=== PATIENT | female | born 1960 | race Caucasian/White ===

== ENCOUNTER 2016-08-20 11:15 | Inpatient (IN) | payer OTHER ==
[~2016-08-20] VITALS: Ht 162.6 cm; Wt 72.7 kg
[2016-08-20 11:17] VITALS: BP 125/82; PULSE 91; RESP 18; O2SAT 100
--- NOTE | 2016-08-20 11:26 | ED.REPORT ---
HPI-Abd Pain F 40 and Over Date of Service Aug 20, 2016 ED Provider: History of Present Illness: nausea, vomiting, hot and cold, normal bowel movements, denies diarrhea. [facility] ( [facility]) on 08/08 dx with viral. eating and drinking causes vomiting, taking gas x no help. on going for 3 months. losing weight now at 164 lbs was around 200 earlier. 02/12 pain Nursing Notes Stated Complaint: STOMACH CRAMPING, VOMITING Chief Complaint: Female Abdominal Pain Nursing Notes Reviewed: Yes Allergies: Uncoded Allergies: PENICILLIN (Allergy, Severe, SOB, 08/20/16) General Time Seen by MD: 11:25 Chief Complaint Abdominal pain, Vomiting severe, Other (not being able to eat) Hx Obtained From: Patient Sudden in Onset?: No Onset Occurred: More than a week ago... (3 months) Context of Onset: Eating, Other (drinking fluids) Symptom Duration: Since onset Severity: Current: Pain level 7 out of 10 Past Medical History Past Medical History takes atenolol for blood pressure Reports: Hypertension, Denies: Asthma, Diabetes mellitus Past Surgical History Reports: Hysterectomy (2000 in [place] for 19 cm tumor attached to uterus told it was borderline cancer last c125 was fine 3 years ago) Reports: Tubal ligation Smoking History Former Smoker (quit 3 years ago) Social History Alcohol Use: Denies alcohol use Drug Use: Denies drug use Occupation lives with brother and her daughter, no work or school 08/20/2016 Ambulatory Status Independent Review of Systems Basic Review of Systems Eyes: Vision NL, No discharge ENT: Hearing NL, No pain, No nasal congestion, No pharyngeal pain Hematologic: No bleeding, No bruising Endocrine: No cold intolerance, No heat intolerance, No weight gain, No weight loss Skin: No bruising, No rash, No itch Allergy / Immune: No allergy Neurologic: NL mental status, No weakness, No numbness Psychiatric: Normal thought content Physical Exam Vital Signs Vital Signs (First) Date Time Temp Pulse Resp B/P Pulse Ox O2 Delivery O2 Flow Rate FiO2 08/20/16 11:17 36.4 91 18 125/82 100 Room Air Initial VS: Reviewed, Vital signs normal Head / Eyes: Atraumatic, Normocephalic, PERRL ENT: Mucous membranes moist, Conjunctiva normal, No scleral icterus Neck: Supple, Non-tender, Full range of motion Lymphatic: No lymphadenopathy Extremities: Vascular intact, Neuro intact, No swelling, No tenderness Skin: Warm, Dry, No cyanosis Neurologic: Alert, Oriented, Nonfocal Psychiatric: Mood/affect normal, Behavior normal, Normal thought content General/Constitutional: Awake, Alert Distress / Hydration: Positive: Distress moderate Appearance / Presentation: Positive: Appears older than age patient appears "ill" has frequent belching. odor with belching is significant Respiratory / Chest: Atraumatic, Breath sounds NL, Breath sounds = bilat Cardiovascular: Heart rate NL, Regular rhythm, Heart sounds NL, No gallop Organomegaly / Mass / Hernia: Positive: Hepatomegaly Bowel Sounds / Distention: Positive: Bowel sounds tympanitic liver is palpable with mild tenderness, bowel tones decreased Back: Atraumatic, Inspection NL, Full range of motion Interpretation & Diagnostics Lab Results Interpretation Result Diagram: 08/20/16 1218 08/20/16 1218 Test 08/20/16 12:18 08/20/16 12:19 08/20/16 12:27 White Blood Count 9.2th/mm3 (3.8-10.1) Red Blood Count 4.95mil/mm3 (3.90-5.20) Hemoglobin 13.8g/dL (12.0-15.6) Hematocrit 42.2% (35.0-46.0) Mean Corpuscular Volume 85.3fL (81-100) Mean Corpuscular Hemoglobin 27.9pg (27.0-35.0) Mean Corpuscular Hemoglobin Concent 32.7% (32.0-37.0) Red Cell Distribution Width 12.6% (12.3-15.4) Platelet Count 497bil/L (150-400) Neutrophils (%) (Auto) 72.4% (40-74) Lymphocytes (%) (Auto) 18.3% (14-46) Monocytes (%) (Auto) 7.8% (4-12) Eosinophils (%) (Auto) 1.2% (0-5) Basophils (%) (Auto) 0.2% (0-3) Sodium Level 141mEq/L (134-144) Potassium Level 3.8mEq/L (3.5-5.2) Chloride Level 99mEq/L (97-108) Carbon Dioxide Level 23mmol/L (18-29) Blood Urea Nitrogen 17mg/dL (6-24) Creatinine 0.64mg/dL (0.57-1.00) Estimat Glomerular Filtration Rate 139mL/min (>59) Glucose Level 109mg/dL (60-99) Calcium Level 9.3mg/dL (8.5-10.1) Total Bilirubin 0.5mg/dL (0.0-1.2) Aspartate Amino Transf (AST/SGOT) 16U/L (0-50) Alanine Aminotransferase (ALT/SGPT) 9U/L (0-32) Alkaline Phosphatase 63U/L (25-150) Total Protein 7.8g/dL (6.4-8.4) Albumin 3.4g/dL (3.4-5.0) Amylase Level 16U/L (28-100) Lipase 13U/L (13-60) Hold Vargas Top Tube Received (Received) Urine Color Yellow (YELLOW) Urine Appearance Hazy (CLEAR,HAZY) Urine pH 6.0 (5.0-8.0) Urine Specific Melvin 1.038 (1.003-1.035) Urine Protein Tracemg/dL (NEG,TRACE) Urine Glucose (UA) Negativemg/dL (NEGATIVE) Urine Ketones 80mg/dL (NEGATIVE) Urine Occult Blood Large (NEGATIVE) Urine Nitrite Negative (NEGATIVE) Urine Bilirubin Negative (NEGATIVE) Urine Urobilinogen Normalmg/dL (NORMAL) Urine Leukocyte Esterase Negative (NEGATIVE) Urine RBC 0-2/hpf (0-2) Urine WBC 0-5/hpf (0-5) Urine Epithelial Cells Few/hpf (NONE-MOD) Urine Crystals Oxalic acid crystals (NONE Urine Bacteria Few/hpf (NONE-FEW) Urine Hyaline Casts None/lpf (NONE) Urine Granular Casts None seen (NONE SEEN) Urine Waxy Casts None seen (NONE SEEN) Urine Red Blood Cell Casts None seen (NONE SEEN) Urine White Blood Cell Casts None seen (NONE SEEN) Urine Mucus None seen (None Seen) Urine Trichomonas None seen (NONE SEEN) Urine Yeast None (NONE SEEN) Urinalysis Comment None Urine Culture Reflexed Not indicated CT Abd / Pelvis Interpretation DICATIONS: vomiting weight loss TECHNIQUE: After the administration of intravenous contrast, 5 mm thick sections acquired from the diaphragm to the symphysis. 5 mm coronal and sagittal reformats were acquired. For radiation dose reduction, the following was used: automated exposure control, adjustment of mA and/or kV according to patient size. COMPARISON: [facility], CR, XR ABD AP 1VW, 02/10/2016, 12:26. FINDINGS: Image quality: Excellent. ABDOMEN: Lung bases: Lung bases are clear except for minimal basilar atelectasis. Heart size is normal. Solid organs: Liver and spleen are normal in size and enhancement, and there are several small hepatic cysts that measure at or below 1 cm in maximal dimension. However, the hepatic margination is somewhat scalloped, and there is a subtle visceral peritoneal enhancement along the hepatic margins in a pattern worrisome for carcinomatosis. This is associated with moderately large amounts of ascites with subtle internal septations, possibly a manifestation of pseudomyxoma peritonei. Gallbladder appears normal. Biliary system is non dilated. Pancreas enhances normally. No adrenal nodules. Kidneys demonstrate normal size and enhancement, without hydronephrosis. Peritoneum and bowel: Bowel loops demonstrate normal wall thickness and caliber within the abdomen. No free air. There is subtle parietal peritoneal enhancement and thickening, and also several areas of suspected omental caking (best seen centered to left of midline series 2 image 33). Nodes and vessels: No retroperitoneal or mesenteric adenopathy by size criteria. Aorta and inferior vena cava are normal in size. Miscellaneous: No ventral hernias. PELVIS: Genitourinary: Bladder wall thickness is normal. Miscellaneous: No inguinal hernias or adenopathy. Sigmoid colonic mural thickening is present, with soft tissue enhancement homogeneously present through the area of soft tissue thickening which extends from the proximal sigmoid into the distal third of the sigmoid colon. Maximal mural thickness is approximately 1.7-2 cm concentrically involving those portions of the sigmoid bowel. Bones: No suspicious bony lesions. No vertebral body compression fractures. IMPRESSION: Malignant appearing ascites, no intestinal obstruction found. 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 An area likely primary malignancy is noted at the sigmoid colon with concentric mural thickening measuring up to 1.7-2 cm throughout that portion of the colon. Both visceral and parietal subtle enhancement and thickening is present with a small region of suspected omental "caking" likely reflecting carcinomatosis. Dictated by: Orlando Arora M.D. on 08/20/2016 at 14:13 Approved by: Orlando Arora M.D. on 08/20/2016 at 14:13 Re-Eval/Medical Decision Med Decision/Clinical Course Discussed the finding of colon thickening and the possibility of it being cancer. Discharge & Departure Primary Impression: Vomiting Vomiting Intractability: intractable Nausea presence: with nausea Additional Impressions: Abdominal pain Abdominal location: generalized Qualified Code: R10.84 - Generalized abdominal pain Ascites, malignant Mural thickening of sigmoid colon Disposition: ADMITTED TO HOSPITAL Referrals: Benito Jones DO (PCP) EDSupervising Provider for APC: Indra Reed MD copies to: Tiana Morejon Sue ARNP Aug 20, 2016 11:26
[2016-08-20] MEDS ORDERED: Ondansetron 2 mg/mL 2 mL Inj IVPUSH ONE (11:45)
[2016-08-20] MEDS ORDERED: HYDROmorphone 0.5 mg/0.5 mL iSecure Syringe IVPUSH ONE (11:45)
[2016-08-20] MEDS ORDERED: 0.9% Sodium Chloride 1,000 ML IV ONE ×2 (11:45→14:40)
[2016-08-20 12:21] LABS: BASOPHILS % (AUTO) 0.2 % (0-3); EOSINOPHILS % (AUTO) 1.2 % (0-5); MONOCYTES % (AUTO) 7.8 % (4-12); Mean Corpuscular Hemoglobin 27.9 pg (27.0-35.0); Mean Corpuscular Volume 85.3 fL (81-100); NEUTROPHILS % (AUTO) 72.4 % (40-74); Platelet Count 497 bil/L (150-400)
[2016-08-20 12:58] LABS: APPEARANCE,URINE HAZY (CLEAR,HAZY); COLOR,URINE YELLOW (YELLOW); OCCULT BLOOD,URINE LARGE (NEGATIVE); UROBILINOGEN,URINE NORMAL (NORMAL)
--- NOTE | 2016-08-20 14:14 | DRSVH ---
PROCEDURE: CT ABDOMEN AND PELVIS WITH CONTRAST ([id number]) INDICATIONS: vomiting weight loss TECHNIQUE: After the administration of intravenous contrast, 5 mm thick sections acquired from the diaphragm to the symphysis. 5 mm coronal and sagittal reformats were acquired. For radiation dose reduction, the following was used: automated exposure control, adjustment of mA and/or kV according to patient siz e. COMPARISON: [facility], CR, XR ABD AP 1VW, 02/10/2016, 12:26. FINDINGS: Image quality: Excellent. ABDOMEN: Lung bases: Lung bases are clear except for minimal basilar atelectasis. Heart size is normal. Solid organs: Liver and spleen are normal in size and enhancement, and there are several small hepat ic cysts that measure at or below 1 cm in maximal dimension. However, the hepatic margination is carlos ewhat scalloped, and there is a subtle visceral peritoneal enhancement along the hepatic margins in a pattern worrisome for carcinomatosis. This is associated with moderately large amounts of ascites w ith subtle internal septations, possibly a manifestation of pseudomyxoma peritonei. Gallbladder appears normal. Biliary system is non dilated. Pancreas enhances normally. No adrenal nodules. Kidneys demonstrate normal size and enhancement, without hydronephrosis. Peritoneum and bowel: Bowel loops demonstrate normal wall thickness and caliber within the abdomen. No free air. There is subtle parietal peritoneal enhancement and thickening, and also several areas of suspected omental caking (best seen centered to left of midline series 2 image 33). Nodes and vessels: No retroperitoneal or mesenteric adenopathy by size criteria. Aorta and inferior vena cava are normal in size. Miscellaneous: No ventral hernias. PELVIS: Genitourinary: Bladder wall thickness is normal. Miscellaneous: No inguinal hernias or adenopathy. Sigmoid colonic mural thickening is present, with soft tissue enhancement homogeneously present through the area of soft tissue thickening which exten ds from the proximal sigmoid into the distal third of the sigmoid colon. Maximal mural thickness is approximately 1.7-2 cm concentrically involving those portions of the sigmoid bowel. Bones: No suspicious bony lesions. No vertebral body compression fractures. IMPRESSION: Malignant appearing ascites, no intestinal obstruction found. 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 An area likely primary malignancy is noted at the sigmoid c olon with concentric mural thickening measuring up to 1.7-2 cm throughout that portion of the colon. Both visceral and parietal subtle enhancement and thickening is present with a small region of suspe cted omental "caking" likely reflecting carcinomatosis. Dictated by: Orlando Arora M.D. on 08/20/2016 at 14:13 Approved by: Orlando Arora M.D. on 08/20/2016 at 14:13
[2016-08-20] MEDS ORDERED: Polyethylene Glycol (PEG) 17 Gm Powder PO PRN (15:40)
[2016-08-20] MEDS ORDERED: Alum-Mag Hydrox-Simeth 30 mL Suspension PO PRN (15:40)
--- NOTE | 2016-08-20 15:58 | PCM.HPMED ---
Subjective Date of Service Aug 20, 2016 Primary Provider: Admitting Physician: Javier Shepard MD Primary Care Physician: Pastora Myles Attending Physician: Javier Shepard MD Chief Complaint: Nausea, vomiting, abdominal pain History of Present Illness: 55 year old female with h/o Hypertension, Uterine mass presented to ED with c/o nausea, vomiting and abdominal pain that was started before two weeks. She went to urgent care clinic and diagnosed with viral illness. She also reports of unintentional weight loss of about 60 lbs in past three months. She denies chest pain, SOB, diarrhea, blood in stool. In ER, her vitals signs were unremarkable. Labs were significant for mild hyperglycemia, elevated amylase of 16, and thrombocytosis. She then underwent CT abdomen which revealed ascites likely malignant, peritoneal carcinomatosis, ? pseudomyxoma peritonei, concentric mural thickening of sigmoid colon. Allergies Coded Allergies: Penicillins (Verified Allergy, Severe, Shortness of Breath, 08/20/16) turkey (Verified Allergy, Severe, tachycardia, 08/20/16) pt states anaphylactic shock PMH Hypertension Surgical History Hysterectomy (2000 in [place] for 19 cm tumor attached to uterus told it was borderline cancer last c125 was fine 3 years ago) Tubal ligation Social History Smoking Status: Former Smoker (quit 3 years ago) Exam Vital Signs Vital Sign - Last Date Time Temp Pulse Resp B/P Pulse Ox O2 Delivery O2 Flow Rate FiO2 08/20/16 11:17 36.4 91 18 125/82 100 Room Air Exam General: In mild distress due to pain HEENT: Atraumatic, sclera non icteric, moist mucous membranes Resp: Normal respiratory effort, Breath sounds bilaterally equal, No rhonchi, CVS: Regular rate and rhythm, No murmur, No gallop Abdomen: soft, mild diffuses tenderness, distended, No organomegaly Extremities: No peripheral edema, No cyanosis Neuro: Alert, Awake and oriented x 3. No focal defects Psy: Flat affect Lab and Diagnostics Result Diagram: 08/20/16 1218 08/20/16 1218 X-Rays, CTs and MRIs CT Abdomen: "Malignant appearing ascites, no intestinal obstruction found. 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 An area likely primary malignancy is noted at the sigmoid colon with concentric mural thickening measuring up to 1.7-2 cm throughout that portion of the colon. 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 Vomiting, Weight loss - Likely due to peritoneal carcinomatosis and sigmoid colon cancer - IV zofran prn - GI consulted from ED. Possible colonoscopy Hypertension - Well controlled GI ppx: PPI DVT ppx: Heparin Status: to be admitted as inpatient due to complexity of medical condition Pain Evaluation: Adequate Pain Control GI Prophylaxis: Proton Pump Inhibitor VTE Prophylaxis: Sub-Q Heparin (Unfractionated) Resuscitation Status: CPR: Attempt Resuscitation Javier Shepard MD Aug 20, 2016 15:58
[2016-08-20 16:28] VITALS: BP 133/62; PULSE 73; RESP 18
[2016-08-20] MEDS: Heparin 5,000 Unit/mL Inj SUBQ SCH (16:30)
[2016-08-20] MEDS ORDERED: ATEN50TA PO (17:27)
[2016-08-20 17:28] VITALS: BP 139/85; PULSE 79; RESP 20; O2SAT 100
[2016-08-20] MEDS ORDERED: SIME125C PO (17:29)
[2016-08-20] MEDS ORDERED: ALPH300T2 PO (17:31)
[2016-08-20] MEDS ORDERED: IBUP200C PO (17:33)
[2016-08-20] MEDS: 0.9% Sodium Chloride 1,000 ML IV SCH (17:47)
--- NOTE | 2016-08-20 18:42 | NUR ---
Admission Pt on unit at 1705 by harrison. Able to transfer self to bed. Pt has c/o pain 3/10 in abd, but declines medication at this time. No c/o N/V/D present, but pt declines to eat any clear liquids at this time. Pt is very tearful and upset over possibility of having cancer and having more testing done. Pt has no family or friends in room, called manager customs and left message to see if she could visit pt tomorrow. Is able to walk to BR independently, uses pads in underwear for dribbling. A&O x 3. Wears right wrist brace for workplace injury. IV fluids infusing, pt declines heparin injection stating "I'll be up and moving enough I don't need it." Pt also declines SCD's, but states she'll put them on at bedtime.
[2016-08-20 20:37] VITALS: BP 121/83; PULSE 82; RESP 12; O2SAT 98
[2016-08-20] MEDS: HYDROmorphone 1 mg/mL Inj IVPUSH PRN (21:20)
[2016-08-21] MEDS ORDERED: ATEN50TA PO (00:05)
[2016-08-21 00:30] VITALS: BP 126/83; PULSE 75; RESP 16; O2SAT 97
[2016-08-21] MEDS: Heparin 5,000 Unit/mL Inj SUBQ SCH ×4 (00:30→23:48)
[2016-08-21] MEDS: HYDROmorphone 1 mg/mL Inj IVPUSH PRN ×4 (02:58→20:51)
[2016-08-21] MEDS: Ondansetron 2 mg/mL 2 mL Inj IVPUSH PRN ×4 (03:04→23:52)
[2016-08-21] MEDS: 0.9% Sodium Chloride 1,000 ML IV SCH ×3 (04:26→23:52)
[2016-08-21 04:30] VITALS: BP 121/83; PULSE 69; RESP 16; O2SAT 94
--- NOTE | 2016-08-21 04:48 | NUR ---
Nausea/ Pain Pt. had one episode of nausea during this shift so far, which Zofran seems to be effective. Pt. has been complaining of intermittent, cramping abdominal pain that can get up to 7/10. Dilaudid IV seems to be effective with this pain. Will continue to monitor.
[2016-08-21 06:25] LABS: BASOPHILS % (AUTO) 0.3 % (0-3); EOSINOPHILS % (AUTO) 3.6 % (0-5); MONOCYTES % (AUTO) 12.1 % (4-12); Mean Corpuscular Hemoglobin 28.4 pg (27.0-35.0); Mean Corpuscular Volume 86.6 fL (81-100); NEUTROPHILS % (AUTO) 61.2 % (40-74); Platelet Count 411 bil/L (150-400)
[2016-08-21] MEDS: Pantoprazole 20 mg ER24 Tablet PO SCH (07:30)
--- NOTE | 2016-08-21 07:46 | NUR ---
Pain/Nausea Patient reported 7/10 abdominal pain and nausea. 1 mg Dilaudid and 4 mg ondansetron given. Patient repositioned self for comfort. Call light and tray table within reach. Will continue to monitor patient hourly.
--- NOTE | 2016-08-21 07:56 | PCM.PNMED ---
Subjective Date of Service Aug 21, 2016 Subjective pt states pain in abdom rated 6-7/10, minimal nausea but both improved with current meds. endorses no desire for egd d/t unknown defect of esophagus. hx of hysterectomy d/t uterine mass in 2011- neg ca 125 3 yrs ago. denies sob/cp Exam Vital Signs Vital Sign - Last Date Time Temp Pulse Resp B/P Pulse Ox O2 Delivery O2 Flow Rate FiO2 08/21/16 04:30 36.8 69 16 121/83 94 Room Air Intake and Output 08/20/16 08/20/16 08/21/16 Cumulative From/Thru 15:00 23:00 07:00 08/20/16 11:17 - 08/21/16 06:55 Intake Total 1000 ml 1180 ml 1429 ml 3609 ml Output Total 175 ml 175 ml Balance 1000 ml 1180 ml 1254 ml 3434 ml Intake Oral 100 ml 580 ml 680 ml IV Total 1000 ml 1080 ml 849 ml 2929 ml Output Urine Total 175 ml 175 ml # Voids 2 2 Exam General: In mild distress due to pain HEENT: Atraumatic, sclera non icteric, moist mucous membranes Resp: Normal respiratory effort, Breath sounds bilaterally equal, No rhonchi, CVS: Regular rate and rhythm, No murmur, No gallop Abdomen: soft, mild diffuses tenderness, distended, No organomegaly Extremities: No peripheral edema, No cyanosis Neuro: Alert, Awake and oriented x 3. No focal defects Psy: appropriate affect IVs and Medications Medications Reviewed: Medications were reviewed in detail Lab and Diagnostics Result Diagram: 08/21/16 0520 08/21/16 0520 X-Rays, CTs and MRIs CT Abdomen: "Malignant appearing ascites, no intestinal obstruction found. 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 An area likely primary malignancy is noted at the sigmoid colon with concentric mural thickening measuring up to 1.7-2 cm throughout that portion of the colon. Both visceral and parietal subtle enhancement and thickening is present with a small region of suspected omental "caking" likely reflecting carcinomatosis. Assessment & Plan 55 year old female with h/o Hypertension, Uterine mass presented with nausea, vomiting and unintentional weight loss found to have preitoneal carcinomatosis, ascites and sigmoid colon thickening. Vomiting, Weight loss - Likely due to peritoneal carcinomatosis and sigmoid colon cancer - IV zofran prn - GI consulted from ED. Possible colonoscopy, pt refusing upper endoscopy at this time Hypertension - Well controlled GI ppx: PPI, refused but educated on need DVT ppx: Heparin Status: to be admitted as inpatient due to complexity of medical condition GI Prophylaxis: Proton Pump Inhibitor VTE Prophylaxis: Sub-Q Heparin (Unfractionated) Resuscitation Status: CPR: Attempt Resuscitation Time spent 35 minutes with pt care/coordination and education - >50% spent face to face Jarett Rowe DO Aug 21, 2016 07:56
--- NOTE | 2016-08-21 09:05 | NUR ---
Social Work Brief Note: EMR reviewed. Patient is a 55 year old female admitted on 08/20/16 for intractable vomiting and colon cancer with mets. Patient payer as [place]. Patient listed PCP as MD Myles. Patient emergency contact listed as daughter Jackie, . Patient resides in [facility]. Patient ambulating and independent with needs. GI consulted for possible colonoscopy. No anticipated discharge needs at this time. SW to follow. PLAN: Home via POV, pending clinical course. SW will continue to follow. Nehemiah QUIROZ
[2016-08-21 10:04] VITALS: BP 151/96; PULSE 92; RESP 18; O2SAT 99
--- NOTE | 2016-08-21 13:46 | PCM.CHPMED ---
Subjective Date of Service: Aug 21, 2016 Provider requesting consult: Jarett Rowe DO Primary Physician: Admitting Physician: Javier Shepard MD Primary Care Physician: Pastora Myles Attending Physician: Javier Shepard MD Chief Complaint: Chief Complaint: Abdominal pain, nausea, vomiting. History of Present Illness: Patient is a 55 year old female with history of hypertension and uterine mass s/ p total hysterectomy who presented to ED with nausea, vomiting and abdominal pain ongoing for two weeks. She went to urgent care clinic and diagnosed with viral illness. She also reports fevers, chills, and unintentional weight loss of about 60 lbs in past three months. She reports recent spotting in spite of a hysterectomy. She states she has been having hot flashes and night sweats lately , as if undergoing menopause, but she reports her ovaries were removed. She denies chest pain, SOB, diarrhea, blood in stool or vomit. She states her abdominal pain was originally 10/10, but is down to a 3/10 aching pain with pain meds. She reports her nausea is well-controlled by medications. She had a total hysterectomy in 2000 in [place] for 19 cm tumor attached to uterus. She was told it was borderline cancer; last ca125 was normal 3 years ago In ER, her vitals signs were unremarkable. Labs showed Hb 11.4, Hct 34.8, plt 411. UA showed large occult blood, but the patient reports she has had spotting recently. CT abdomen/pelvis with contrast showed malignant appearing ascites, with no intestinal obstruction found. 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 An area likely primary malignancy is noted at the sigmoid colon with concentric mural thickening measuring up to 1.7-2 cm throughout that portion of the colon. Both visceral and parietal subtle enhancement and thickening is present with a small region of suspected omental "caking" likely reflecting carcinomatosis. She quit smoking 3 years ago. She denies alcohol or drug use. She uses NSAIDs occasionally but not on a regular basis, and does not use Tylenol. She has no personal/family history of colon cancer, Crohn's, UC, or Celiac disease. Her mother has a history of irritable bowel syndrome and lung cancer, and her sister has a history of breast cancer. She has never had a colonoscopy. Review of Systems: Comprehensive review of systems conducted and was negative except for the pertinent positives listed above. PMH Past Medical History Hypertension Uterine mass Surgical History Hysterectomy (2000 in [place] for 19 cm tumor attached to uterus told it was borderline cancer last c125 was fine 3 years ago) Tubal ligation Allergies: Coded Allergies: Penicillins (Verified Allergy, Severe, Shortness of Breath, 08/20/16) turkey (Verified Allergy, Severe, tachycardia, 08/20/16) pt states anaphylactic shock Family History Family History Her mother has a history of irritable bowel syndrome and lung cancer, and her sister has a history of breast cancer. Social History Hx Alcohol Use: NoHx Substance Use: NoHx Tobacco Use: Yes Smoking Status: Former Smoker (quit 3 years ago) Exam Vital Signs Vital Sign - Last Date Time Temp Pulse Resp B/P Pulse Ox O2 Delivery O2 Flow Rate FiO2 08/21/16 10:04 36.9 92 18 151/96 99 Room Air Intake and Output 08/20/16 08/20/16 08/21/16 Cumulative From/Thru 15:00 23:00 07:00 08/20/16 11:17 - 08/21/16 06:55 Intake Total 1000 ml 1180 ml 1429 ml 3609 ml Output Total 175 ml 175 ml Balance 1000 ml 1180 ml 1254 ml 3434 ml Intake Oral 100 ml 580 ml 680 ml IV Total 1000 ml 1080 ml 849 ml 2929 ml Output Urine Total 175 ml 175 ml # Voids 2 2 Additional Information: General: Alert, Oriented X3, Cooperative, No Acute Distress Head: Normocephalic, atraumatic. External ears normal. Eyes: PERRLA, EOMI. Anicteric sclerae. Mouth: Mouth Normal, Mucous Membranes Moist/[place] Neck: Neck supple with full range of motion. Chest & Lungs: Clear to auscultation bilaterally with no crackles, wheezes, or rhonchi. Cardiovascular: Regular Rate/Rhythm, Normal S1, Normal S2, No Murmurs/Rubs/ Gallops Abdomen: Distended, moderate diffuse tenderness, Normoactive bowel tones. Musculoskeletal: Normal Range of Motion Extremities: No cyanosis/clubbing/edema bilaterally Neurological: Grossly Neurologically Intact, Normal Speech, Strength Normal 4/ 4 ext, Cranial Nerves 2-12 Intact, Sensation Intact, Cerebellar Function nl Finger-Nose, Cerebellar Function nl Heel-Marti, Reflexes Normal, Normal Gait Lab and Diagnostics Result Diagram: 08/21/1651908/21/16519 Assessment & Plan Assessment Patient is a 55 year old female with history of hypertension and uterine mass s/ p total hysterectomy who presented to ED with nausea, vomiting and abdominal pain ongoing for two weeks, weight loss. 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 Possible colon cancer - CT abdomen/pelvis with contrast showed malignant appearing ascites concerning for pseudomyxoma peritonei, with area of likely primary malignancy noted at the sigmoid colon with concentric mural thickening and omental thickening concerning for peritoneal carcinomatosis. Pseudomyxoma peritonei is most commonly associated with appendiceal cancer, but also associated with large /small bowel cancers and ovarian cancer. Given the CT results, colon cancer is most likely. She has never had a colonoscopy. However, given her history of uterine mass s/p hysterectomy which by pt's report appears to have been precancerous, there is also possibility of a recurrent gynecological malignancy , especially given her family history of breast cancer. - Will proceed with colonoscopy. - Recommend paracentesis with fluid analysis for cytology, cultures, and albumin. Nausea and vomiting - Likely secondary to colon pathology seen on CT. No bowel obstruction seen on CT. Continue to monitor. - Zofran PRN Problems: Pain Evaluation: Adequate Pain Control GI Prophylaxis: Proton Pump Inhibitor VTE Prophylaxis: Sub-Q Heparin (Unfractionated) Resuscitation Status: CPR: Attempt Resuscitation Attending Statement Pt seen and examined agree with resident physician note plan for colonoscopy recommend USG guided diagnostic paracentesis. would check cytology, albumin, total protein and culture Brandon Jackson Aug 21, 2016 11:17 Dada James MD Aug 22, 2016 16:11
[2016-08-21 14:50] VITALS: BP 143/79; PULSE 98; RESP 19; O2SAT 100
--- NOTE | 2016-08-21 16:09 | NUR ---
spiritual care: nurse referral lengthy conversational visit. pt expressed and explored her primary feelings--fear of unknown and sense of trepidation of waiting. 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 pt shared that walking and listening to music helps her cope. I relayed her hopes for another walk today and i agreed to be available if needed later this pm.
[2016-08-21] MEDS ORDERED: diphenhydrAMINE 25 mg Capsule PO ONE (16:17)
[2016-08-21] MEDS ORDERED: diphenhydrAMINE 25 mg Capsule PO PRN (16:20)
--- NOTE | 2016-08-21 16:25 | NUR ---
Rash Patient developed a rash after US. 25mg of Benadryl given with another dose of 25 mg PRN if needed in two hours. Call light and tray table within reach. Will continue to monitor patient hourly.
--- NOTE | 2016-08-21 16:42 | DRSVH ---
PROCEDURE: US ABDOMEN, LIMITED ([id number]) INDICATIONS: ascites - eval for met CA TECHNIQUE: Real-time focused scanning was performed of the abdomen, with image documentation. COMPARISON: [facility], CT, CT ABD PELVIS W CON, 08/20/2016, 13:47. FINDINGS: Small amount of perihepatic and periumbilical fluid is present otherwise no additional flui d seen throughout the 4 quadrants of the abdomen. IMPRESSION: Trace perihepatic/periumbilical fluid present with volume not sufficient for safe paracen tesis. Dictated by: Elliot Singh RRA Interpreted: Roz Samuel MD on 08/21/2016 at 16:42 Transcribed by: DOT on 08/21/2016 at 16:42 Approved by: Roz Samuel MD, PhD on 08/21/2016 at 17:10
[2016-08-21 18:28] VITALS: BP 109/68; PULSE 76; RESP 18; O2SAT 97
[2016-08-21 20:21] VITALS: BP 150/91; PULSE 95; RESP 20; O2SAT 97
[2016-08-21] MEDS ORDERED: PEG/Electrolytes 4,000 mL Solution PO ONE (21:25)
[2016-08-22 00:04] VITALS: BP 146/83; PULSE 53
[2016-08-22] MEDS: HYDROmorphone 1 mg/mL Inj IVPUSH PRN ×5 (00:35→22:05)
--- NOTE | 2016-08-22 04:39 | NUR ---
Pain/ Nausea; Pt walked in hallway ind this evening. Started Go-lytely as soon as ordered noted. Pt able to drink most of 1/2 gallon prior to excruciating pain and nausea. Given 8mg of Zofran and her usual dose of Dilaudid 1mg w/ good effect. Sat w/ pt until she was able to go to sleep. Stated she could not take any more prep at all tonight. Will attempt second half of dose in am. Abd soft, bloated, tender w/ good bt's UQ. Very quiet LQ;s bi lateral. Continue current care plan.
[2016-08-22 06:01] VITALS: BP 115/68; PULSE 61; RESP 20; O2SAT 96
[2016-08-22] MEDS: Ondansetron 2 mg/mL 2 mL Inj IVPUSH PRN ×4 (06:04→22:04)
[2016-08-22] MEDS: Pantoprazole 20 mg ER24 Tablet PO SCH (08:15)
[2016-08-22] MEDS: Heparin 5,000 Unit/mL Inj SUBQ SCH ×2 (08:15→16:30)
--- NOTE | 2016-08-22 08:36 | PCM.PNMED ---
Subjective Date of Service Aug 22, 2016 Subjective Patient complains of some cramping with the GoLYTELY. She also notes she had a rash secondary to the ultrasound gel that they had used. She denies any nausea and vomiting at this point. Exam Vital Signs Vital Sign - Last Date Time Temp Pulse Resp B/P Pulse Ox O2 Delivery O2 Flow Rate FiO2 08/22/16 06:01 36.7 61 20 115/68 96 Room Air Intake and Output 08/21/16 08/21/16 08/22/16 Cumulative From/Thru 15:00 23:00 07:00 08/20/16 11:17 - 08/22/16 06:16 Intake Total 2472 ml 1374 ml 7455 ml Output Total 950 ml 1125 ml Balance 2472 ml 424 ml 6330 ml Intake Oral 1400 ml 150 ml 2230 ml IV Total 1072 ml 1224 ml 5225 ml Output Urine Total 950 ml 1125 ml # Voids 5 7 Exam Constitutional: Middle-aged woman in no acute distress Head: Normocephalic atraumatic Mouth: Moist mucosa Chest: Clear to auscultation Cor: Regular rate and rhythm S1-S2 without murmur Abdomen: Soft, bowel sounds present, there is tenderness diffusely but mostly in the left lower quadrant. No rebound no guarding. Extremities: No pedal edema noted Lab and Diagnostics Result Diagram: 08/21/16 0520 08/21/16 0520 X-Rays, CTs and MRIs CT Abdomen: "Malignant appearing ascites, no intestinal obstruction found. 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 An area likely primary malignancy is noted at the sigmoid colon with concentric mural thickening measuring up to 1.7-2 cm throughout that portion of the colon. Both visceral and parietal subtle enhancement and thickening is present with a small region of suspected omental "caking" likely reflecting carcinomatosis. Patient Name: DIANNE RACHEL MR#: [id number] Location: [facility] Ordering Phys: Jarett Rowe DO Date of Service: 08/21/16 1432 PROCEDURE: US ABDOMEN, LIMITED ([id number]) INDICATIONS: ascites - eval for met CA TECHNIQUE: Real-time focused scanning was performed of the abdomen, with image documentation. COMPARISON: [facility], CT, CT ABD PELVIS W CON, 08/20/2016, 13:47. FINDINGS: Small amount of perihepatic and periumbilical fluid is present otherwise no additional fluid seen throughout the 4 quadrants of the abdomen. IMPRESSION: Trace perihepatic/periumbilical fluid present with volume not sufficient for safe paracentesis. Dictated by: Elliot Signh RRA Interpreted: Roz Samuel MD on 08/21/2016 at 16:42 Transcribed by: DOT on 08/21/2016 at 16:42 Approved by: Roz Samuel MD, PhD on 08/21/2016 at 17:10 Assessment & Plan 55 year old female with h/o Hypertension, Uterine mass presented with nausea, vomiting and unintentional weight loss found to have preitoneal carcinomatosis, ascites and sigmoid colon thickening. Vomiting, Weight loss - Likely due to peritoneal carcinomatosis and sigmoid colon cancer - IV zofran prn - GI consulted from ED. Possible colonoscopy, pt refusing upper endoscopy at this time -Patient scheduled for colonoscopy today. Has undergone GoLYTELY therapy -Ultrasound revealed no significant ascitic fluid present Hypertension - Well controlled GI ppx: PPI, refused but educated on need DVT ppx: Heparin Status: to be admitted as inpatient due to complexity of medical condition GI Prophylaxis: Proton Pump Inhibitor VTE Prophylaxis: Sub-Q Heparin (Unfractionated) Resuscitation Status: CPR: Attempt Resuscitation Time spent 30 minutes Johana Hatfield MD Aug 22, 2016 08:36
[2016-08-22] MEDS ORDERED: PEG/Electrolytes 4,000 mL Solution PO ONE ×2 (09:00)
[2016-08-22 09:01] LABS: INR 0.97 ratio
[2016-08-22] MEDS: 0.9% Sodium Chloride 1,000 ML IV SCH ×2 (11:35→21:56)
--- NOTE | 2016-08-22 13:19 | NUR ---
NUTRITION ASSESSMENT: ASSESS: 55 YO female admitted for intractable vomiting and unintentional wt loss (60 lbs in 3 months per notes) likely due to peritoneal carcinomatosis and sigmoid colon cancer. Pt is refusing endoscopy, but may have colonoscopy today per notes. Pt has been NPO / clear liquids x 2 days. PMHx: HTN, Uterine mass LABS: Reviewed. Glu 59, Alb 3.1. MEDS: Reviewed. GI: No BM reported. CURRENT WT:72.7 kg Wt loss of 27.3 kg x 3 months equals 27.3% BW lost (severe) UBW: 100 kg. DIET: NPO. Pt was taking 50-100% of clear liquids prior to NPO status. EST. NEEDS (Cancer cachexia, severe wt loss): 8199-9701 kcals (30-40 kcals/kg BW), 110-145 g protein (1.5-2.0 g/kg BW) NUTRITION DIAGNOSIS: 1.) Increased nutrient needs related to increased demand for nutrients as evidenced by 27.3% wt loss (severe) x 3 months. 2.) Inadequate oral intake related to altered GI function (nausea/vomiting) as evidenced by current NPO/clear liquids x 2 day status. NUTRITION INTERVENTION: 1.) Will continue to await timely advancement of diet s/p procedures. 2.) Will add supplements once diet has been advanced. 3.) Will attempt to visit with pt regard high calorie/ high protein intake for weight maintenance once diet has been advanced beyond clear liquids. MONITOR / EVAL: Diet advancement / tolerance, po intake, labs, nutritional status. Follow per high nutritional risk guidelines.
[2016-08-22 13:51] VITALS: BP 141/73; PULSE 89; RESP 18; O2SAT 100
--- NOTE | 2016-08-22 16:54 | NUR ---
spiritual care: follow up visit attempt; pt receiving care and not feeling well, nauseated.
--- NOTE | 2016-08-22 17:21 | PCM.PNMED ---
Subjective Date of Service Aug 22, 2016 Subjective Krista was unable to get bowel prep down today. states she experienced nausea and vomiting with the prep she is passing flatus. Exam Vital Signs Vital Sign - Last Date Time Temp Pulse Resp B/P Pulse Ox O2 Delivery O2 Flow Rate FiO2 08/22/16 13:51 36.7 89 18 141/73 100 Room Air Intake and Output 08/21/16 08/21/16 08/22/16 Cumulative From/Thru 15:00 23:00 07:00 08/20/16 11:17 - 08/22/16 06:16 Intake Total 2472 ml 1374 ml 7455 ml Output Total 950 ml 1125 ml Balance 2472 ml 424 ml 6330 ml Intake Oral 1400 ml 150 ml 2230 ml IV Total 1072 ml 1224 ml 5225 ml Output Urine Total 950 ml 1125 ml # Voids 5 7 Exam GEN- sleeping upon arrival to bedside, oriented and appropriate when awake HEENT- o/p clear RESP- clear to auscultation CVS-RRR abdomen- obese , non distended, soft bowel sound present Lab and Diagnostics Result Diagram: 08/21/16 0520 08/22/16 0830 X-Rays, CTs and MRIs CT Abdomen: "Malignant appearing ascites, no intestinal obstruction found. 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 An area likely primary malignancy is noted at the sigmoid colon with concentric mural thickening measuring up to 1.7-2 cm throughout that portion of the colon. Both visceral and parietal subtle enhancement and thickening is present with a small region of suspected omental "caking" likely reflecting carcinomatosis. Patient Name: KRISTA RACHEL MR#: [id number] Location: [facility] Ordering Phys: Jarett Rowe DO Date of Service: 08/21/16 1432 PROCEDURE: US ABDOMEN, LIMITED ([id number]) INDICATIONS: ascites - eval for met CA TECHNIQUE: Real-time focused scanning was performed of the abdomen, with image documentation. COMPARISON: [facility], CT, CT ABD PELVIS W CON, 08/20/2016, 13:47. FINDINGS: Small amount of perihepatic and periumbilical fluid is present otherwise no additional fluid seen throughout the 4 quadrants of the abdomen. IMPRESSION: Trace perihepatic/periumbilical fluid present with volume not sufficient for safe paracentesis. Dictated by: Elliot Singh RRA Interpreted: Roz Samuel MD on 08/21/2016 at 16:42 Transcribed by: DOT on 08/21/2016 at 16:42 Approved by: Roz Samuel MD, PhD on 08/21/2016 at 17:10 Assessment & Plan sigmoid colon mass with imaging findigs suggestive of metastatic disease -plan for endoscopy on . -she can have a clear liquid diet.then prep with 1/2 gallon of golytely on morning --I am not here tomorrow -Dr Leung is covering the service tomorrow, please contact him with any questions or concerns GI Prophylaxis: Proton Pump Inhibitor VTE Prophylaxis: Sub-Q Heparin (Unfractionated) Resuscitation Status: CPR: Attempt Resuscitation Dada James MD Aug 22, 2016 17:21
--- NOTE | 2016-08-22 18:30 | NUR ---
Pain/Nausea/Vomiting Patient reported nausea/vomiting after taking Colyte. 1 mg Dilaudid and 8 mg of ondansetron given. Patient repositions self for comfort. Call light and tray table within reach. Will continue to monitor patient hourly.
[2016-08-22 20:56] VITALS: BP 144/83; PULSE 84; RESP 18; O2SAT 95
[2016-08-23] MEDS: Heparin 5,000 Unit/mL Inj SUBQ SCH ×3 (00:30→16:30)
[2016-08-23] MEDS: Ondansetron 2 mg/mL 2 mL Inj IVPUSH PRN ×5 (02:33→23:27)
[2016-08-23] MEDS: HYDROmorphone 1 mg/mL Inj IVPUSH PRN ×5 (02:33→23:32)
[2016-08-23 05:48] VITALS: BP 131/77; PULSE 69; RESP 16; O2SAT 98
[2016-08-23 06:28] LABS: BASOPHILS % (AUTO) 0.3 % (0-3); EOSINOPHILS % (AUTO) 2.1 % (0-5); Mean Corpuscular Volume 85.6 fL (81-100); NEUTROPHILS % (AUTO) 69.1 % (40-74); Platelet Count 440 bil/L (150-400)
--- NOTE | 2016-08-23 06:33 | NUR ---
itching patient complains of generalize puritis to back and abd. red scratch guevara visible. applied lotion. calming approach patient improved.
[2016-08-23] MEDS: Pantoprazole 20 mg ER24 Tablet PO SCH (08:07)
[2016-08-23] MEDS: 0.9% Sodium Chloride 1,000 ML IV SCH ×2 (08:56→19:23)
--- NOTE | 2016-08-23 13:42 | PCM.PNMED ---
Subjective Date of Service Aug 23, 2016 Subjective Patient was unable to tolerate prep prior to colonoscopy hence plan will be for it to be done tomorrow . She does have some mid abdominal pain. She did have a loose stool 1 last night. Exam Vital Signs Vital Sign - Last Date Time Temp Pulse Resp B/P Pulse Ox O2 Delivery O2 Flow Rate FiO2 08/23/16 05:48 36.3 69 16 131/77 98 Room Air Intake and Output 08/22/16 08/22/16 08/23/16 Cumulative From/Thru 15:00 23:00 07:00 08/20/16 11:17 - 08/23/16 06:30 Intake Total 1200 ml 1436 ml 95299 ml Output Total 500 ml 800 ml 2425 ml Balance 700 ml 636 ml 7666 ml Intake Oral 1200 ml 436 ml 3866 ml IV Total 1000 ml 6225 ml Output Urine Total 500 ml 300 ml 1925 ml Urine/Stool Mix 500 ml 500 ml # Voids 7 Exam Constitutional: Middle-aged woman in no acute distress Head: Normocephalic atraumatic Chest: Clear to auscultation Cor: Regular rate and rhythm S1-S2 Abdomen soft bowel sounds are present there is some tenderness to palpation mild over the right mid area. No rebound no guarding noted Extremities: No pedal edema noted. She does complain of some tenderness pain in the distal dorsal minute tarsal area and it is tender to palpation. No erythema noted. Neuro: Alert and oriented 3, motor strength intact bilaterally Lab and Diagnostics Laboratory Tests 72 Hours Test 08/21/16 05:20 08/22/16 08:30 08/23/16 05:52 White Blood Count 6.6th/mm3 (3.8-10.1) 7.7th/mm3 (3.8-10.1) Red Blood Count 4.02mil/mm3 (3.90-5.20) 3.97mil/mm3 (3.90-5.20) Hemoglobin 11.4g/dL (12.0-15.6) 11.1g/dL (12.0-15.6) Hematocrit 34.8% (35.0-46.0) 34.0% (35.0-46.0) Mean Corpuscular Volume 86.6fL (81-100) 85.6fL (81-100) Mean Corpuscular Hemoglobin 28.4pg (27.0-35.0) 28.0pg (27.0-35.0) Mean Corpuscular Hemoglobin Concent 32.8% (32.0-37.0) 32.6% (32.0-37.0) Red Cell Distribution Width 12.7% (12.3-15.4) 12.4% (12.3-15.4) Platelet Count 411bil/L (150-400) 440bil/L (150-400) Neutrophils (%) (Auto) 61.2% (40-74) 69.1% (40-74) Lymphocytes (%) (Auto) 22.6% (14-46) 17.2% (14-46) Monocytes (%) (Auto) 12.1% (4-12) 11.0% (4-12) Eosinophils (%) (Auto) 3.6% (0-5) 2.1% (0-5) Basophils (%) (Auto) 0.3% (0-3) 0.3% (0-3) Sodium Level 143mEq/L (134-144) 140mEq/L (134-144) 139mEq/L (134-144) Potassium Level 4.0mEq/L (3.5-5.2) 3.6mEq/L (3.5-5.2) 4.1mEq/L (3.5-5.2) Chloride Level 106mEq/L (97-108) 103mEq/L (97-108) 103mEq/L (97-108) Carbon Dioxide Level 26mmol/L (18-29) 18mmol/L (18-29) 17mmol/L (18-29) Blood Urea Nitrogen 15mg/dL (6-24) 11mg/dL (6-24) 6mg/dL (6-24) Creatinine 0.58mg/dL (0.57-1.00) 0.68mg/dL (0.57-1.00) 0.75mg/dL (0.57-1.00) Estimat Glomerular Filtration Rate 155mL/min (>59) 129mL/min (>59) 115mL/min (>59) Glucose Level 75mg/dL (60-99) 59mg/dL (60-99) 72mg/dL (60-99) Calcium Level 8.7mg/dL (8.5-10.1) 8.6mg/dL (8.5-10.1) 8.5mg/dL (8.5-10.1) Prothrombin Time 10.4sec (8.1-12.5) Prothromb Time International Ratio 0.97ratio Activated Partial Thromboplast Time 25.3sec (22.8-33.0) Total Bilirubin 0.4mg/dL (0.0-1.2) 0.3mg/dL (0.0-1.2) Aspartate Amino Transf (AST/SGOT) 15U/L (0-50) 15U/L (0-50) Alanine Aminotransferase (ALT/SGPT) 8U/L (0-32) 8U/L (0-32) Alkaline Phosphatase 53U/L (25-150) 54U/L (25-150) Total Protein 6.4g/dL (6.4-8.4) 6.3g/dL (6.4-8.4) Albumin 3.1g/dL (3.4-5.0) 3.1g/dL (3.4-5.0) Result Diagram: 08/23/16 0552 08/23/16 0552 X-Rays, CTs and MRIs CT Abdomen: "Malignant appearing ascites, no intestinal obstruction found. 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 An area likely primary malignancy is noted at the sigmoid colon with concentric mural thickening measuring up to 1.7-2 cm throughout that portion of the colon. Both visceral and parietal subtle enhancement and thickening is present with a small region of suspected omental "caking" likely reflecting carcinomatosis. Patient Name: DIANNE RACHEL MR#: [id number] [place] [facility] [place] Phys: Jarett Rowe DO Date of Service: 08/21/16 1432 PROCEDURE: US ABDOMEN, LIMITED ([id number]) INDICATIONS: ascites - eval for met CA TECHNIQUE: Real-time focused scanning was performed of the abdomen, with image documentation. COMPARISON: [facility], CT, CT ABD PELVIS W CON, 08/20/2016, 13:47. FINDINGS: Small amount of perihepatic and periumbilical fluid is present otherwise no additional fluid seen throughout the 4 quadrants of the abdomen. IMPRESSION: Trace perihepatic/periumbilical fluid present with volume not sufficient for safe paracentesis. Dictated by: Elliot Singh RRA Interpreted: Roz Samuel MD on 08/21/2016 at 16:42 Transcribed by: DOT on 08/21/2016 at 16:42 Approved by: Roz Samuel MD, PhD on 08/21/2016 at 17:10 Assessment & Plan sigmoid colon mass with imaging findigs suggestive of metastatic disease Per Gastroenterology today: -plan for on . -she can have a clear liquid diet.then prep with 1/2 gallon of golytely on morning --I am not here tomorrow -Dr Leung is covering the service tomorrow, please contact him with any questions or concerns GI Prophylaxis: Proton Pump Inhibitor VTE Prophylaxis: Sub-Q Heparin (Unfractionated) VTE Mechanical Devices: Intermittant Pneumatic CD Resuscitation Status: CPR: Attempt Resuscitation Time spent 30 minutes Johana Hatfield MD Aug 23, 2016 13:42
--- NOTE | 2016-08-23 13:59 | PCM.PNMED ---
Subjective Date of Service Aug 23, 2016 Subjective Patient was unable to tolerate prep prior to colonoscopy, which is now planned for tomorrow morning. Today she complains of some fevers, chills, mild abdominal pain, nausea, loose stool, bloating and distension, and itching and rash over her abdomen she attributes to the ultrasound gel. Her last BM was 1 hour ago, loose and runny but without blood. Exam Vital Signs Vital Sign - Last Date Time Temp Pulse Resp B/P Pulse Ox O2 Delivery O2 Flow Rate FiO2 08/23/16 05:48 36.3 69 16 131/77 98 Room Air Intake and Output 08/22/16 08/22/16 08/23/16 Cumulative From/Thru 15:00 23:00 07:00 08/20/16 11:17 - 08/23/16 06:30 Intake Total 1200 ml 1436 ml 81201 ml Output Total 500 ml 800 ml 2425 ml Balance 700 ml 636 ml 7666 ml Intake Oral 1200 ml 436 ml 3866 ml IV Total 1000 ml 6225 ml Output Urine Total 500 ml 300 ml 1925 ml Urine/Stool Mix 500 ml 500 ml # Voids 7 Exam General: Alert, Oriented X3, Cooperative, No Acute Distress Head: Normocephalic, atraumatic. External ears normal. Eyes: PERRLA, EOMI. Anicteric sclerae. Mouth: Mouth Normal, Mucous Membranes Moist/[place] Neck: Neck supple with full range of motion. Chest & Lungs: Clear to auscultation bilaterally with no crackles, wheezes, or rhonchi. Cardiovascular: Regular Rate/Rhythm, Normal S1, Normal S2, No Murmurs/Rubs/ Gallops Abdomen: Distended, typmanitic, mild-moderate diffuse tenderness, Normoactive bowel tones. Musculoskeletal: Normal Range of Motion Extremities: No cyanosis/clubbing/edema bilaterally Neurological: Grossly Neurologically Intact, Normal Speech Lab and Diagnostics Result Diagram: 08/23/16 0552 08/23/16 0552 X-Rays, CTs and MRIs CT Abdomen: "Malignant appearing ascites, no intestinal obstruction found. 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 An area likely primary malignancy is noted at the sigmoid colon with concentric mural thickening measuring up to 1.7-2 cm throughout that portion of the colon. Both visceral and parietal subtle enhancement and thickening is present with a small region of suspected omental "caking" likely reflecting carcinomatosis. Patient Name: DIANNE RACHEL MR#: [id number] Location: [facility] Ordering Phys: Jarett Rowe Date of Service: 08/21/16 1432 PROCEDURE: US ABDOMEN, LIMITED ([id number]) INDICATIONS: ascites - eval for met CA TECHNIQUE: Real-time focused scanning was performed of the abdomen, with image documentation. COMPARISON: [facility], CT, CT ABD PELVIS W CON, 08/20/2016, 13:47. FINDINGS: Small amount of perihepatic and periumbilical fluid is present otherwise no additional fluid seen throughout the 4 quadrants of the abdomen. IMPRESSION: Trace perihepatic/periumbilical fluid present with volume not sufficient for safe paracentesis. Dictated by: Elliot Singh RRA Interpreted: Roz Samuel MD on 08/21/2016 at 16:42 Transcribed by: DOT on 08/21/2016 at 16:42 Approved by: Roz Samuel MD, PhD on 08/21/2016 at 17:10 Assessment & Plan Patient is a 55 year old female with history of hypertension and uterine mass s/ p total hysterectomy who presented to ED with nausea, vomiting and abdominal pain ongoing for two weeks, weight loss. 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 Pseudomyxoma peritonei is most commonly associated with appendiceal cancer, but also associated with large /small bowel cancers and ovarian cancer. Given the CT results, colon cancer is most likely. She has never had a colonoscopy. However, given her history of uterine mass s/p hysterectomy which by pt's report appears to have been precancerous, there is also possibility of a recurrent gynecological malignancy , especially given her family history of breast cancer. - She was unable to tolerate prep yesterday. Will retry prep and proceed with colonoscopy tomorrow. - She can have a clear liquid diet for now, then prep with 1/2 gallon of Golytely on morning - Recommended diagnostic paracentesis, however this was unable to be done due to insufficient ascitic fluid. Nausea and vomiting - Likely secondary to colon pathology seen on CT. No bowel obstruction seen on CT. She also presents with abdominal distension and bloating. Likely also related to poor mobility. Encouraged ambulation to help move bowels. - Encourage frequent ambulation. - Zofran PRN GI Prophylaxis: Proton Pump Inhibitor VTE Prophylaxis: Sub-Q Heparin (Unfractionated) VTE Mechanical Devices: Intermittant Pneumatic CD Resuscitation Status: CPR: Attempt Resuscitation Attending Statement Patient seen and examined yesterday along with Dr Jackson. This not was inadvertently not sent to me for signature until this morning. Agree with assessment and plan. Patient to have sigmoidoscopy/colonoscopy for further evaluation. Brandon Jackson Aug 23, 2016 13:58 Indra Leung MD Aug 24, 2016 15:40
--- NOTE | 2016-08-23 14:18 | NUR ---
Pain/Mobility Pt c/o constant abd pain. Receiving Dilaudid q4h for pain with Zofran 8mg IV. States that the Dilaudid makes her "feel odd," and occ'l nauseous post IVP, but states "I dont think any pain medication likes me." Has not had any emesis this shift. Pt c/o "sore"-ness to left anterior foot and "feels like a bruise"; trace edema noted BLE. Denies numbness/tingling. Encouraged pt to ambulate the halls, maybe soreness d/t edema. Pt denies remembering hitting in on anything. No bruising seen. Pt ambulated hallway, "twice" per pt. Stated ambulation helped but now that she is in bed again it is hurting. Pt educated on SCDs and willing to have placed. Initially flinched and stated that they were too tight with inflation, but stating she would try them; did not want them loosened. Pt wanting to sleep and rest. Care continues.
[2016-08-23 14:36] VITALS: BP 129/77; PULSE 84; RESP 18; O2SAT 97
--- NOTE | 2016-08-23 16:21 | NUR ---
spiritual care:follow up conversational visit. pt shared medical updates including plan and her symptom management. She described "the worst day, but it's a little better now" and that she is expecting her brother soon, who is a good source of emotional support. Pt relaxing with movie and music. continuing to follow.
[2016-08-23 20:09] VITALS: BP 138/82; PULSE 83; RESP 16; O2SAT 99
[2016-08-24] VITALS (7 sets, daily range): BP systolic 109–160; BP diastolic 60–93; PULSE 72–95; RESP 14–18; O2SAT 94–100
[2016-08-24] MEDS: Heparin 5,000 Unit/mL Inj SUBQ SCH ×3 (00:30→16:11)
--- NOTE | 2016-08-24 04:25 | NUR ---
Pain/ Nausea Pt. was in pain earlier in shift. Pt. reports that 1mg IV Dilaudid is effective for pain. Pt. reported nausea one time earlier in shift. 4mg IV Zofran administered. Will continue to monitor.
[2016-08-24] MEDS: HYDROmorphone 1 mg/mL Inj IVPUSH PRN (05:00)
[2016-08-24] MEDS: 0.9% Sodium Chloride 1,000 ML IV SCH ×2 (05:11→09:40)
[2016-08-24] MEDS: Ondansetron 2 mg/mL 2 mL Inj IVPUSH PRN ×4 (05:49→18:36)
[2016-08-24] MEDS ORDERED: PEG/Electrolytes 4,000 mL Solution PO SCH (06:00)
[2016-08-24 07:21] LABS: BASOPHILS % (AUTO) 0.3 % (0-3); EOSINOPHILS % (AUTO) 4.8 % (0-5); Mean Corpuscular Hemoglobin 28.1 pg (27.0-35.0); NEUTROPHILS % (AUTO) 62.1 % (40-74); Platelet Count 458 bil/L (150-400)
[2016-08-24] MEDS: Pantoprazole 20 mg ER24 Tablet PO SCH (08:17)
--- NOTE | 2016-08-24 08:19 | PCM.PNMED ---
Subjective Date of Service Aug 24, 2016 Subjective The patient is having some abdominal cramping and nausea secondary to the prep prior to the colonoscopy. Exam Vital Signs Vital Sign - Last Date Time Temp Pulse Resp B/P Pulse Ox O2 Delivery O2 Flow Rate FiO2 08/24/16 04:51 36.5 78 18 160/84 99 Room Air Intake and Output 08/23/16 08/23/16 08/24/16 Cumulative From/Thru 15:00 23:00 07:00 08/20/16 11:17 - 08/24/16 06:19 Intake Total 2383 ml 1546 ml 76714 ml Output Total 1000 ml 650 ml 4075 ml Balance 1383 ml 896 ml 9945 ml Intake Oral 1040 ml 470 ml 5376 ml IV Total 1343 ml 1076 ml 8644 ml Output Urine Total 1000 ml 650 ml 3575 ml Urine/Stool Mix 500 ml # Voids 7 # Bowel Movements 2 2 4 Exam Constitutional: Patient is in some pain distress Head: Normocephalic atraumatic Chest: Clear to auscultation Cor: Regular rate and rhythm S1-S2 without murmur Abdomen: soft, slightly distended, bowel sounds present, mild diffuse tenderness Extremities: No pedal edema Neuro: Alert and oriented 3, motor strength is intact bilaterally Lab and Diagnostics Laboratory Tests 72 Hours Test 08/22/16 08:30 08/23/16 05:52 08/24/16 06:28 Prothrombin Time 10.4sec (8.1-12.5) Prothromb Time International Ratio 0.97ratio Activated Partial Thromboplast Time 25.3sec (22.8-33.0) Sodium Level 140mEq/L (134-144) 139mEq/L (134-144) 142mEq/L (134-144) Potassium Level 3.6mEq/L (3.5-5.2) 4.1mEq/L (3.5-5.2) 3.5mEq/L (3.5-5.2) Chloride Level 103mEq/L (97-108) 103mEq/L (97-108) 106mEq/L (97-108) Carbon Dioxide Level 18mmol/L (18-29) 17mmol/L (18-29) 20mmol/L (18-29) Blood Urea Nitrogen 11mg/dL (6-24) 6mg/dL (6-24) 4mg/dL (6-24) Creatinine 0.68mg/dL (0.57-1.00) 0.75mg/dL (0.57-1.00) 0.61mg/dL (0.57-1.00) Estimat Glomerular Filtration Rate 129mL/min (>59) 115mL/min (>59) 146mL/min (>59) Glucose Level 59mg/dL (60-99) 72mg/dL (60-99) 85mg/dL (60-99) Calcium Level 8.6mg/dL (8.5-10.1) 8.5mg/dL (8.5-10.1) 8.6mg/dL (8.5-10.1) Total Bilirubin 0.4mg/dL (0.0-1.2) 0.3mg/dL (0.0-1.2) 0.3mg/dL (0.0-1.2) Aspartate Amino Transf (AST/SGOT) 15U/L (0-50) 15U/L (0-50) 16U/L (0-50) Alanine Aminotransferase (ALT/SGPT) 8U/L (0-32) 8U/L (0-32) 9U/L (0-32) Alkaline Phosphatase 53U/L (25-150) 54U/L (25-150) 51U/L (25-150) Total Protein 6.4g/dL (6.4-8.4) 6.3g/dL (6.4-8.4) 6.6g/dL (6.4-8.4) Albumin 3.1g/dL (3.4-5.0) 3.1g/dL (3.4-5.0) 3.3g/dL (3.4-5.0) White Blood Count 7.7th/mm3 (3.8-10.1) 6.0th/mm3 (3.8-10.1) Red Blood Count 3.97mil/mm3 (3.90-5.20) 4.06mil/mm3 (3.90-5.20) Hemoglobin 11.1g/dL (12.0-15.6) 11.4g/dL (12.0-15.6) Hematocrit 34.0% (35.0-46.0) 34.1% (35.0-46.0) Mean Corpuscular Volume 85.6fL (81-100) 84.0fL (81-100) Mean Corpuscular Hemoglobin 28.0pg (27.0-35.0) 28.1pg (27.0-35.0) Mean Corpuscular Hemoglobin Concent 32.6% (32.0-37.0) 33.4% (32.0-37.0) Red Cell Distribution Width 12.4% (12.3-15.4) 12.8% (12.3-15.4) Platelet Count 440bil/L (150-400) 458bil/L (150-400) Neutrophils (%) (Auto) 69.1% (40-74) 62.1% (40-74) Lymphocytes (%) (Auto) 17.2% (14-46) 20.5% (14-46) Monocytes (%) (Auto) 11.0% (4-12) 12.0% (4-12) Eosinophils (%) (Auto) 2.1% (0-5) 4.8% (0-5) Basophils (%) (Auto) 0.3% (0-3) 0.3% (0-3) Result Diagram: 08/24/1662708/24/16627 X-Rays, CTs and MRIs CT Abdomen: "Malignant appearing ascites, no intestinal obstruction found. 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 An area likely primary malignancy is noted at the sigmoid colon with concentric mural thickening measuring up to 1.7-2 cm throughout that portion of the colon. Both visceral and parietal subtle enhancement and thickening is present with a small region of suspected omental "caking" likely reflecting carcinomatosis. Patient Name: DIANNE RACHEL MR#: [id number] Location: [facility] [place] Ordering Phys: Jarett Rowe DO Date of Service: 08/21/16 1432 PROCEDURE: US ABDOMEN, LIMITED ([id number]) INDICATIONS: ascites - eval for met CA TECHNIQUE: Real-time focused scanning was performed of the abdomen, with image documentation. COMPARISON: [facility], CT, CT ABD PELVIS W CON, 08/20/2016, 13:47. FINDINGS: Small amount of perihepatic and periumbilical fluid is present otherwise no additional fluid seen throughout the 4 quadrants of the abdomen. IMPRESSION: Trace perihepatic/periumbilical fluid present with volume not sufficient for safe paracentesis. Dictated by: Elliot Singh RRA Interpreted: Roz Samuel MD on 08/21/2016 at 16:42 Transcribed by: DOT on 08/21/2016 at 16:42 Approved by: Roz Samuel MD, PhD on 08/21/2016 at 17:10 Assessment & Plan Patient is a 55 year old female with history of hypertension and uterine mass s/ p total hysterectomy who presented to ED with nausea, vomiting and abdominal pain ongoing for two weeks, weight loss. 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 Pseudomyxoma peritonei is most commonly associated with appendiceal cancer, but also associated with large /small bowel cancers and ovarian cancer. Given the CT results, colon cancer is most likely. She has never had a colonoscopy. However, given her history of uterine mass s/p hysterectomy which by pt's report appears to have been precancerous, there is also possibility of a recurrent gynecological malignancy , especially given her family history of breast cancer. - She was unable to tolerate prep yesterday. Will retry prep and proceed with colonoscopy tomorrow. - She can have a clear liquid diet for now, then prep with 1/2 gallon of Golytely on morning - Recommended diagnostic paracentesis, however this was unable to be done due to insufficient ascitic fluid. -Awaiting colonoscopy later today -Labs have been stable. Nausea and vomiting - Likely secondary to colon pathology seen on CT. No bowel obstruction seen on CT. She also presents with abdominal distension and bloating. Likely also related to poor mobility. Encouraged ambulation to help move bowels. - Encourage frequent ambulation. - Zofran PRN GI Prophylaxis: Proton Pump Inhibitor VTE Prophylaxis: Sub-Q Heparin (Unfractionated) VTE Mechanical Devices: Intermittant Pneumatic CD Resuscitation Status: CPR: Attempt Resuscitation Time spent 30 minutes Johana Hatfield MD Aug 24, 2016 08:19
--- NOTE | 2016-08-24 11:50 | NUR ---
Transfer off floor Patient's IV was saline locked and offered to use bathroom prior to pick up and delivery driver by endo. Patient's personal belongings were locked in closet by security per patient request. Stood and transferred to [facility].
--- NOTE | 2016-08-24 12:34 | PCM.HPANE ---
Patient Data Date of Service: Aug 24, 2016 Surgeon Admitting Provider:Javier Shepard MD Attending Provider:Javier Shepard MD Primary Care Physician:Pastora Myles Other Provider: Reason for Visit Intractable Vomiting, Colon Ca With Mits, New Dx Ht/WT & BMI Height (Feet): 5 Height (Inches): 4.00 Weight (Kilograms): 72.700 Body Mass Index 27.00 Allergies Coded Allergies: Penicillins (Verified Allergy, Severe, Shortness of Breath, 08/20/16) turkey (Verified Allergy, Severe, tachycardia, 08/20/16) pt states anaphylactic shock Past Anesthesia History Anesthesia History: Positive for:: Anesthesia Reactions (states they have had rashes in the past) Diabetes History Hx Diabetes?: No MRSA MRSA: No Medications Hypertension Medication: No Home Meds Incl Beta Olga: Yes Date Beta Olga Taken: Aug 23, 2016 Time Beta Olga Taken: 20:00 Reported Medications Atenolol 50 Mg Glawhi32 Mg PO HS #30 TABLET Ref 0 08/21/16 Ibuprofen 200 Mg [id number] Mg PO QID PRN For Pain Ref 0 08/20/16 [id number] (Beano)300 Unit Tab. Unit PO TID gas 08/20/16 Simethicone (Gas-X)125 Mg [id number] Mg PO TID gas 08/20/16 Discontinued Reported Medications Atenolol 50 Mg Zaatqt35 Mg PO BID #30 TABLET Ref 0 08/20/16 History History of ENT Problems?: Yes HEENT History: Positive for:: Cataracts ("starting") Dysphagia (" defect") Denies:: Glaucoma Other HEENT Pertinent History: Pt states has dysphagia from defect and can have coughing with eating. Did have problems with intubation previously. Hx of Heart Problems?: No Cardiovascular History: Positive for:: Hypertension (hx of) Denies:: Cardiac Surgery Chest Pain Congestive Heart Failure Edema Heart Murmur Irregular Heartbeat Pacemaker Thrombophlebitis Respiratory History: Positive for:: Asthma (childhood) Pneumonia (2011) Denies:: COPD Chest Surgery Dyspnea Emphysema Hemoptysis Tuberculosis Hx Neurologic Problems?: No Neurological History: Positive for:: Dizziness (hx of) Headaches Denies:: Alzheimer's Disease CVA Dementia Parkinson's Disease Seizures Hx of GI Problems?: Yes Gastrointestinal History: Denies:: Diverticulitis Gastroesphageal Reflux Gastrointestinal Bleeding Heartburn Hepatitis Hiatal Hernia Rectal Bleeding Hx of Problems?: No Genitourinary History: Positive for:: Urinary Tract Infection (hx of 2000) Denies:: HX of Hemodialysis Kidney Stones HX of Peritoneal Dialysis: No Female Hx: Denies:: Currently (tubal / hyster) Endometriosis Pelvic Inflammatory Problems with Breasts? Other Skin Pertinent History: Sensitive to lotions, powders etc. Hx Musculoskeletal Problems?: No Hx of Psycho/Social Problems?: Yes Psycho Social History: Positive for:: Anxiety Hx Depression Denies:: Bipolar Disorder Suicide Attempt Hx Surgeries?: Yes (hysterectomy 2000) Hx Any Other Health Problems?: No Other History: Positive for:: Hospitalization Denies:: Cancer Thyroid Disease History Blood Transfusions: Positive for:: Accept Blood Products? Denies:: Blood Transfusions Hx Diabetes: No Hx Alcohol Use: NoHx Substance Use: No Smoking Status: Former Smoker Have You Smoked inLast 12 mo: No Stop/Bang Treated for Sleep Apnea?: No Do You Have a CPAP Machine?: No S-Snoring: Do You Snore Loudly: No T-Tired: feel tired, fatigued: No O-Obsered: Observed not breath: No P-Blood Pressure: treated: Yes B- Body Mass Index > 35 kg/m2: No A- Age over 50: Yes N- Neck Large Circumference: No G- Gender Male: No SOPHIE Total Score: 2 SOPHIE Risk Assessment: Low Risk, <3 Yes Risk Assessment Category Category 1A: Patient has history of documented sleep apnea, and HAS NOT received any narcotic, sedative or anesthesia administration during this stay. Category 1B: Patient has history of documented sleep apnea, and HAS received any narcotic , sedative or anesthesia administration during this stay Category 2: Patient has SUSPECTED Obstructive Sleep Apnea, and HAS received any narcotic , sedative or anesthesia administration during this stay. Category 3: Patient has SUSPECTED Obstructive Sleep Apnea and HAS NOT received narcotic, sedative or anesthesia administration during this stay. Category 4: Outpatient in Procedural Areas with known sleep apnea or who screen positive for High Risk via the STOP/BANG questionnaire. Exam Exam Vital Signs Vital Signs Date Time Temp Pulse Resp B/P Pulse Ox O2 Delivery O2 Flow Rate FiO2 08/24/16 12:01 95 17 157/93 100 Room Air 08/24/16 04:51 36.5 78 18 160/84 99 Room Air General Appearance: Alert, Oriented X3, Cooperative HEENT/AIRWAY: MP 2, Neck Movement (Full), Mouth Opening (Wide, poor dentition) Lungs: Clear to Auscultation, Normal Air Movement Heart: Regular Rate/Rhythm, Normal S1, Normal S2 Meds/Labs/Diagnostics Admission Meds Current Medications Polyethylene Glycol/ Electrolytes (Colyte) 2,000 ml ONCE PO Last administered on 08/24/16t 06:14; Start 08/24/16 at 06:00; Stop 08/24/16 at 08:00; Status DC Labs Test 08/20/16 12:18 08/20/16 12:19 08/20/16 12:27 08/22/16 08:30 Amylase Level 16U/L (28-100) Lipase 13U/L (13-60) Hold Vargas Top Tube Received (Received) Urine Color Yellow (YELLOW) Urine Appearance Hazy (CLEAR,HAZY) Urine pH 6.0 (5.0-8.0) Urine Specific [place]cker 1.038 (1.003-1.035) Urine Protein Tracemg/dL (NEG,TRACE) Urine Glucose (UA) Negativemg/dL (NEGATIVE) Urine Ketones 80mg/dL (NEGATIVE) Urine Occult Blood Large (NEGATIVE) Urine Nitrite Negative (NEGATIVE) Urine Bilirubin Negative (NEGATIVE) Urine Urobilinogen Normalmg/dL (NORMAL) Urine Leukocyte Esterase Negative (NEGATIVE) Urine RBC 0-2/hpf (0-2) Urine WBC 0-5/hpf (0-5) Urine Epithelial Cells Few/hpf (NONE-MOD) Urine Crystals Oxalic acid crystals (NONE Urine Bacteria Few/hpf (NONE-FEW) Urine Hyaline Casts None/lpf (NONE) Urine Granular Casts None seen (NONE SEEN) Urine Waxy Casts None seen (NONE SEEN) Urine Red Blood Cell Casts None seen (NONE SEEN) Urine White Blood Cell Casts None seen (NONE SEEN) Urine Mucus None seen (None Seen) Urine Trichomonas None seen (NONE SEEN) Urine Yeast None (NONE SEEN) Urinalysis Comment None Urine Culture Reflexed Not indicated Prothrombin Time 10.4sec (8.1-12.5) Prothromb Time International Ratio 0.97ratio Activated Partial Thromboplast Time 25.3sec (22.8-33.0) Test 08/24/16 06:28 White Blood Count 6.0th/mm3 (3.8-10.1) Red Blood Count 4.06mil/mm3 (3.90-5.20) Hemoglobin 11.4g/dL (12.0-15.6) Hematocrit 34.1% (35.0-46.0) Mean Corpuscular Volume 84.0fL (81-100) Mean Corpuscular Hemoglobin 28.1pg (27.0-35.0) Mean Corpuscular Hemoglobin Concent 33.4% (32.0-37.0) Red Cell Distribution Width 12.8% (12.3-15.4) Platelet Count 458bil/L (150-400) Neutrophils (%) (Auto) 62.1% (40-74) Lymphocytes (%) (Auto) 20.5% (14-46) Monocytes (%) (Auto) 12.0% (4-12) Eosinophils (%) (Auto) 4.8% (0-5) Basophils (%) (Auto) 0.3% (0-3) Sodium Level 142mEq/L (134-144) Potassium Level 3.5mEq/L (3.5-5.2) Chloride Level 106mEq/L (97-108) Carbon Dioxide Level 20mmol/L (18-29) Blood Urea Nitrogen 4mg/dL (6-24) Creatinine 0.61mg/dL (0.57-1.00) Estimat Glomerular Filtration Rate 146mL/min (>59) Glucose Level 85mg/dL (60-99) Calcium Level 8.6mg/dL (8.5-10.1) Total Bilirubin 0.3mg/dL (0.0-1.2) Aspartate Amino Transf (AST/SGOT) 16U/L (0-50) Alanine Aminotransferase (ALT/SGPT) 9U/L (0-32) Alkaline Phosphatase 51U/L (25-150) Total Protein 6.6g/dL (6.4-8.4) Albumin 3.3g/dL (3.4-5.0) Plan Impression Patient chart reviewed, patient interviewed and anesthestic plan with risks, benefits, and alternatives discussed, and informed consent obtained. NPO Status: > 2 hours ASA Physical Status: ASA3 Severe Disease (metastatic CA) Anesthetic Plan: MAC Bene/Risks/Altern/Consents: Yes HP Complete Prior to Induction: Yes Thomas Bailey MD Aug 24, 2016 12:34
[2016-08-24] MEDS ORDERED: MetoCLOpramide 5 mg/mL 2 mL Inj IVPUSH PRN (12:35)
[2016-08-24] MEDS: Lactated Ringer's 1,000 ML IV SCH ×4 (12:55→16:10)
[2016-08-24] MEDS ORDERED: Lidocaine PF 1% 30 mL Inj ONE ×2 (13:20→13:32)
[2016-08-24] MEDS ORDERED: Propofol 10,000 mCg/mL 20 mL Inj ONE ×2 (13:20→13:32)
--- NOTE | 2016-08-24 13:25 | PCM.ANEP1 ---
Post Anesthesia Phase 1 PACU Phase 1 Assessment Date of Service: Aug 24, 2016 Vital Signs Vital Signs Date Time Temp Pulse Resp B/P Pulse Ox O2 Delivery O2 Flow Rate FiO2 08/24/16 13:14 72 14 109/60 94 Room Air 08/24/16 12:01 95 17 157/93 100 Room Air Anesthetic Administered: MAC Level of Alertness: Sleeping, hard to arouse RICE's with Equal Strength: No Pain: No Nausea or Vomiting: No Oxygen Delivery: Room Air Lungs: Normal Air Movement Thomas Bailey MD Aug 24, 2016 13:24
[2016-08-24] MEDS ORDERED: Lactated Ringer's 1,000 ML IV ONE (13:52)
--- NOTE | 2016-08-24 13:57 | ENDO ---
[address] [address] ENDOSCOPY PROCEDURE PATIENT: DIANNE RACHEL : 1960 MR#: [id number] ADMIT: 08/20/2016 JOB ID: [id number] DATE: 08/24/2016 PROCEDURE: Flexible sigmoidoscopy. INDICATION: Sigmoid mass. Please see Dr. Elliot Bailey's anesthesia report for details regarding ASA classification, Mallampati score and medications. INSTRUMENT USED: PCF H 180 AL. PREPARATION QUALITY: Was fair. PROCEDURE DETAILS: After informed consent was obtained, the patient was brought to the GI suite, where she was placed on oxygen via nasal cannula and monitored with continuous pulse oximeter, telemetry and blood pressure monitoring. A time-out was performed. Then, she was placed in a left lateral decubitus position and medications were administered for sedation. A digital rectal exam was performed and was unremarkable. The colonoscope was then inserted into the rectum and advanced to approximately 13 cm where a mass was encountered. This mass appeared to extend proximally to about 20 cm. The mass was friable, hard. Multiple biopsies were obtained. The scope was then withdrawn back into the rectum and retroflexion was performed which was unremarkable. IMPRESSION: Sigmoid mass. RECOMMENDATIONS: 1. Await biopsy results. 2. Surgical consultation. 3. Continue clear liquid diet.
--- NOTE | 2016-08-24 14:04 | NUR ---
Transfer back from [facility] Patient alert and oriented. Nauseous but no emesis, requesting anti nausea meds. Patient is anxious and tearful about biopsy sites and pathology pending. Encouraged to focus on being positive and take things one at a time. Security called to unlock patient's personal belongings. C/o 03/15 pain in upper abdomen related to nausea and dry heaving.
--- NOTE | 2016-08-24 14:26 | PCM.ANEP2 ---
Post Anesthesia Evaluation ASA/CMS Post Anesthesia Date of Service: Aug 24, 2016 VS in Patient's Normal Range?: Yes Resp Stable; Airway Patent?: Yes CV Function & Hydration Stable: Yes Mental Status Recovered?: Yes Pain control Satisfactory?: Yes N/V Control Satisfactory?: Yes Thomas Bailey MD Aug 24, 2016 14:26
--- NOTE | 2016-08-24 15:12 | NUR ---
spiritual care: follow caring conversational visit as pt anticipated procedure, prayer, blessing, encouragement
--- NOTE | 2016-08-24 15:53 | NUR ---
spiritual care: follow up pt's report/reflection pt shared report of her procedure including self-soothing comments and that she has updated her family. Pt shared of other times in her life where she has faced big changes/stresses and explored her qualities for coping. provider entered room for report.
--- NOTE | 2016-08-24 16:35 | NUR ---
Refuses heparin injection Patient has declined both heparin injections today, stated she doesn't need them because she's walking enough. Patient is up to BSC throughout the day, no ambulation further than at bedside noted. Encouraged and reminded patient that the medication is to prevent blood clots. She acknowledged and agreed to wear SCD's.
--- NOTE | 2016-08-24 17:54 | CONS ---
[address] [address] CONSULTATION REPORT PATIENT: DIANNE RACHEL : 1960 MR#: [id number] ADMIT: 08/20/2016 JOB ID: [id number] DATE OF SERVICE: 08/24/2016 REASON FOR CONSULTATION: Dr. James has consulted me on this 55-year-old woman with a distal sigmoid colon mass. HISTORY OF PRESENT ILLNESS: The patient was admitted to the hospital several days ago with nausea and vomiting. She has lost a fair amount of weight over the past six months and is now unable to tolerate solid food without nausea and vomiting, though she was still passing liquidy stool and tolerating liquids. Her initial CAT scan demonstrated a large amount of ascites and findings suggestive of carcinomatosis, as well as a possible sigmoid mass. There was an attempt to do a paracentesis for diagnosis but ultrasound just a day or so later did not reveal adequate fluid that could not be tapped. She does have a previous history of uterine cancer and an open total abdominal hysterectomy by a [employer] oncologist down in the [facility] area in 2000 and supposedly she had no evidence of recurrent disease three years ago including a normal CA-125, though I do not have those records. She has not had a colonoscopy in recent times as far as I know. There is no personal or family history of colon cancer. She underwent a standard bowel prep and today had an attempt at colonoscopy Dr. James, who found that she had a large mass that began at 13 cm. He was not able to pass the scope through. He took some biopsies but felt that this was highly suggestive cancer. I have been asked to see her. PAST MEDICAL HISTORY: As above. Hypertension. MEDICATIONS: Prehospitalization she was on atenolol, ibuprofen, and simethicone. ALLERGIES: PENICILLINS. SOCIAL HISTORY: Ex-smoker, negative daily alcohol, lives alone. FAMILY HISTORY: Noncontributory. REVIEW OF SYSTEMS: Per admission history and physical. PHYSICAL EXAMINATION: Pleasant woman in no acute distress. Vital signs are within normal limits and are recorded in the chart. Her BMI is 27.5. Her sclerae are clear. Neck is supple. There is no cervical adenopathy. Breasts are not examined. Lungs are clear. Heart sounds are regular. Her abdomen is a bit protuberant, no masses. No groin adenopathy. Rectal examination is not performed. Extremities are without edema. LABORATORIES: Show a hematocrit of 42 on admission, but 34 now with hydration. Her white count is normal. Her platelet count has been persistently elevated at 458. Chemistries are normal except for a low BUN. Her albumin had been 3.1 on admission and is 3.3 now. LFTs are normal. IMAGING: CT scan of the abdomen has been reviewed, including the report. 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 IMPRESSION AND PLAN: A 55-year-old woman with possible stage IV colon cancer versus recurrent stage 4 uterine cancer. Biopsies are pending. I have also ordered a CEA and a CA-125. She is not completely obstructed but will not tolerate solids. I think she would benefit from an operative resection. I have discussed with her that we could do that this hospitalization, even before her biopsy results are back. I believe she has about a 90% likelihood that we could do a primary anastomosis, but I am concerned about the possibility of drop metastases in the pelvis that would make a primary anastomosis inadvisable, and I have told her there is a 5% to 10% chance that she would end up with a colostomy and/or diverting loop ileostomy even if we do a primary anastomosis. Unfortunately there is no time to do the surgery tomorrow morning and I will tentatively schedule her for surgery on Sunday with a frozen section. I will discuss the timing of surgery with other surgeons in the department and we may proceed earlier or later.
[2016-08-25] MEDS: Heparin 5,000 Unit/mL Inj SUBQ SCH ×2 (00:30→08:06)
[2016-08-25] MEDS: 0.9% Sodium Chloride 1,000 ML IV SCH ×2 (00:39→05:40)
[2016-08-25] MEDS: Ondansetron 2 mg/mL 2 mL Inj IVPUSH PRN (01:07)
[2016-08-25] MEDS: HYDROmorphone 1 mg/mL Inj IVPUSH PRN (01:46)
--- NOTE | 2016-08-25 02:16 | NUR ---
Nausea/Pain Patient complained of nausea and pain throughout night. Reglan and ondansetron administered IVP along with 1mg of dilaudid IVP. Patient up to bsc often with liquids stool. Very difficult to measure urine as stool mixed in. Patient concerned about abdominal pain. Understands that surgery might be scheduled for Sunday or Sunday. VSS. Call light within reach.
[2016-08-25 04:47] VITALS: BP 132/82; PULSE 77; RESP 16; O2SAT 100
[2016-08-25 06:33] LABS: BASOPHILS % (AUTO) 0.3 % (0-3); EOSINOPHILS % (AUTO) 4.7 % (0-5); Mean Corpuscular Hemoglobin 28.2 pg (27.0-35.0); Mean Corpuscular Volume 82.7 fL (81-100); NEUTROPHILS % (AUTO) 63.2 % (40-74); Platelet Count 435 bil/L (150-400)
[2016-08-25] MEDS: Pantoprazole 20 mg ER24 Tablet PO SCH (08:06)
--- NOTE | 2016-08-25 13:08 | PCM.DIMED ---
rAsh Benson DO 08/25/16 1308: Discharge Instructions Date of Service Aug 25, 2016 Dates of Hospitalization Aug 20, 2016 at 15:29 Discharge Diagnosis Discharge Diagnosis Sigmoid colon mass, imaging suggestive of metastatic disease, present on admission, stable Nausea and vomiting, present on admission, stable Medication Instructions You will need to be on full liquid diet as outline by dietitian until further notice. To meet your caloric needs, you will also need to take Ensure or Pure protein from [employer]. 1 drink with breakfast, lunch, and dinner. [facility] will be in contact with you shortly to schedule an office visit. Please give them a call by Sunday/Sunday should you not hear from them. Diet Other (All liquid diet with impact recovery) Activity No restrictions Call your provider Fever or Chills, Shortness of breath, Excessive diarrhea Patient Instructions Follow-up Provider: Alin Juárez MD Follow-up with PCP in: 1 week (Within 1wk) Tao Byrd DO 08/26/16 1200: Discharge Instructions Attending's Statement Read and agree Arsh Benson DO Aug 25, 2016 13:08 Tao Byrd DO Aug 26, 2016 12:00
[2016-08-25 13:39] VITALS: BP 159/78; PULSE 79; RESP 20; O2SAT 100
[2016-08-25] MEDS ORDERED: ONDA4TAB9 PO (14:07)
--- NOTE | 2016-08-25 14:18 | NUR ---
NUTRITION FOLLOW-UP: ASSESS: 55 YO female admitted for intractable vomiting and unintentional wt loss (60 lbs in 3 months per notes=27.3% wt loss) likely due to peritoneal carcinomatosis and sigmoid colon cancer and pt reported that she has had constant n/v. She reported that she has noticed muscle and fat loss with her wt loss. Pt has been CLx5 days. PO has been fair at 0-50%. PMHx: HTN, Uterine mass LABS: Reviewed. Bun 2, Ca 8.3, Alb 2.9 MEDS: Reviewed. GI: BMx3 08/25 CURRENT WT:72.7 kg Wt loss of 27.3 kg x 3 months equals 27.3% BW lost (Significant) UBW: 100 kg. DIET: CL, PO 0-50% EST. NEEDS (Cancer cachexia, severe wt loss): 7468-2387 kcals (30-40 kcals/kg BW), 110-145 g protein (1.5-2.0 g/kg BW) NUTRITION DIAGNOSIS: 1.) Increased nutrient needs related to increased demand for nutrients as evidenced by 27.3% wt loss (severe) x 3 months. 2.) Inadequate oral intake related to altered GI function (nausea/vomiting) as evidenced by current NPO/clear liquids x 2 day status. 3.) Severe pro/kcal malnutrition related to altered GI function as evidence by persistent n/v, colon ca, reported 27.3% wt loss x3 months and visible fat/muscle loss NUTRITION INTERVENTION: 1.) As pt is to be discharged on [place] diet, reviewed the diet with pt and the foods that she is allowed to have. Discussed getting enough protein while on this diet. Suggested buying Ensure as a supplemental drink to help her get enough kcal/pro. Provided handout that goes over [place] diet. 2.) Provided pt with coupons for Ensure drink as pt relies on food stamps 3.) Provided high kcal/pro recipe book and discussed ways to increase kcal/pro with each bite. Discussed eating smaller more frequent meals when appetite is decreased and discussed importance of staying hydrated when experiencing n/v MONITOR / EVAL: Diet advancement / tolerance, po intake, labs, nutritional status. Follow per high nutritional risk guidelines.
--- NOTE | 2016-08-25 14:23 | PCM.DC.MED ---
Discharge Summary Date of Service Aug 25, 2016 Dates of Hospitalization Date of Hospital Admission Aug 20, 2016 at 15:29 Date of Discharge: Aug 25, 2016 Providers: Admitting Physician: Javier Shepard MD Primary Care Physician: Pastora Myles Attending Physician: Javier Shepard MD Diagnosis at Time of Discharge Diagnosis at Time of Discharge Sigmoid colon mass, imaging suggestive of metastatic disease, present on admission, stable Nausea and vomiting, present on admission, stable Procedures XRay, CTs & MRIs PROCEDURE: US ABDOMEN, LIMITED INDICATIONS: ascites - eval for met CA FINDINGS: Small amount of perihepatic and periumbilical fluid is present otherwise no additional fluid seen throughout the 4 quadrants of the abdomen. IMPRESSION: Trace perihepatic/periumbilical fluid present with volume not sufficient for safe paracentesis. Dictated by: Elliot Singh RRA Interpreted: Roz Samuel MD on 08/21/2016 at 16:42 PROCEDURE: CT ABDOMEN AND PELVIS WITH CONTRAST INDICATIONS: vomiting weight loss FINDINGS: Image quality: Excellent. ABDOMEN: Lung bases: Lung bases are clear except for minimal basilar atelectasis. Heart size is normal. Solid organs: Liver and spleen are normal in size and enhancement, and there are several small hepatic cysts that measure at or below 1 cm in maximal dimension. However, the hepatic margination is somewhat scalloped, and there is a subtle visceral peritoneal enhancement along the hepatic margins in a pattern worrisome for carcinomatosis. This is associated with moderately large amounts of ascites with subtle internal septations, possibly a manifestation of pseudomyxoma peritonei. Gallbladder appears normal. Biliary system is non dilated. Pancreas enhances normally. No adrenal nodules. Kidneys demonstrate normal size and enhancement , without hydronephrosis. Peritoneum and bowel: Bowel loops demonstrate normal wall thickness and caliber within the abdomen. No free air. There is subtle parietal peritoneal enhancement and thickening, and also several areas of suspected omental caking ( best seen centered to left of midline series 2 image 33). Nodes and vessels: No retroperitoneal or mesenteric adenopathy by size criteria. Aorta and inferior vena cava are normal in size. Miscellaneous: No ventral hernias. PELVIS: Genitourinary: Bladder wall thickness is normal. Miscellaneous: No inguinal hernias or adenopathy. Sigmoid colonic mural thickening is present, with soft tissue enhancement homogeneously present through the area of soft tissue thickening which extends from the proximal sigmoid into the distal third of the sigmoid colon. Maximal mural thickness is approximately 1.7-2 cm concentrically involving those portions of the sigmoid bowel. Bones: No suspicious bony lesions. No vertebral body compression fractures. IMPRESSION: Malignant appearing ascites, no intestinal obstruction found. 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 An area likely primary malignancy is noted at the sigmoid colon with concentric mural thickening measuring up to 1.7-2 cm throughout that portion of the colon. Both visceral and parietal subtle enhancement and thickening is present with a small region of suspected omental "caking" likely reflecting carcinomatosis. Dictated by: Orlando Arora M.D. on 08/20/2016 at 14:13 Brief History Patient is a 55 year old female with history of hypertension and uterine mass s/ p total hysterectomy who presented to ED with nausea, vomiting and abdominal pain ongoing for two weeks. She went to urgent care clinic and diagnosed with viral illness. She also reports fevers, chills, and unintentional weight loss of about 60 lbs in past three months. She reports recent spotting in spite of a hysterectomy. She states she has been having hot flashes and night sweats lately , as if undergoing menopause, but she reports her ovaries were removed. She denies chest pain, SOB, diarrhea, blood in stool or vomit. She states her abdominal pain was originally 10/10, but is down to a 3/10 aching pain with pain meds. She reports her nausea is well-controlled by medications. She had a total hysterectomy in 2000 in [place] for 19 cm tumor attached to uterus. She was told it was borderline cancer; last ca125 was normal 3 years ago In ER, her vitals signs were unremarkable. Labs showed Hb 11.4, Hct 34.8, plt 411. UA showed large occult blood, but the patient reports she has had spotting recently. CT abdomen/pelvis with contrast showed malignant appearing ascites, with no intestinal obstruction found. 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 An area likely primary malignancy is noted at the sigmoid colon with concentric mural thickening measuring up to 1.7-2 cm throughout that portion of the colon. Both visceral and parietal subtle enhancement and thickening is present with a small region of suspected omental "caking" likely reflecting carcinomatosis. She quit smoking 3 years ago. She denies alcohol or drug use. She uses NSAIDs occasionally but not on a regular basis, and does not use Tylenol. She has no personal/family history of colon cancer, Crohn's, UC, or Celiac disease. Her mother has a history of irritable bowel syndrome and lung cancer, and her sister has a history of breast cancer. She has never had a colonoscopy. Hospital Course Patient is a 55 year old female with history of hypertension and uterine mass s/ p total hysterectomy who presented to ED with nausea, vomiting and abdominal pain ongoing for two weeks, weight loss. 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 Pseudomyxoma peritonei is most commonly associated with appendiceal cancer, but also associated with large /small bowel cancers and ovarian cancer. Given the CT results, colon cancer is most likely. She has never had a colonoscopy. However, given her history of uterine mass s/p hysterectomy which by pt's report appears to have been precancerous, there is also possibility of a recurrent gynecological malignancy , especially given her family history of breast cancer. - Recommended diagnostic paracentesis, however this was unable to be done due to insufficient ascitic fluid. - Patient will be followed-up with surgeon Dr. Juárez for out patient laparoscopy. Nausea and vomiting - Likely secondary to colon pathology seen on CT. No bowel obstruction seen on CT. She also presents with abdominal distension and bloating. Likely also related to poor mobility. - Encourage frequent ambulation. - Gave prescription of Zofran PRN for nausea Exam Vital Signs (Last) Date Time Temp Pulse Resp B/P Pulse Ox O2 Delivery O2 Flow Rate FiO2 08/25/16 13:39 36.8 79 20 159/78 100 Room Air Test 08/20/16 12:18 08/20/16 12:19 08/20/16 12:27 08/22/16 08:30 Amylase Level 16U/L (28-100) Lipase 13U/L (13-60) Hold Vargas Top Tube Received (Received) Urine Color Yellow (YELLOW) Urine Appearance Hazy (CLEAR,HAZY) Urine pH 6.0 (5.0-8.0) Urine Specific [place] 1.038 (1.003-1.035) Urine Protein Tracemg/dL (NEG,TRACE) Urine Glucose (UA) Negativemg/dL (NEGATIVE) Urine Ketones 80mg/dL (NEGATIVE) Urine Occult Blood Large (NEGATIVE) Urine Nitrite Negative (NEGATIVE) Urine Bilirubin Negative (NEGATIVE) Urine Urobilinogen Normalmg/dL (NORMAL) Urine Leukocyte Esterase Negative (NEGATIVE) Urine RBC 0-2/hpf (0-2) Urine WBC 0-5/hpf (0-5) Urine Epithelial Cells Few/hpf (NONE-MOD) Urine Crystals Oxalic acid crystals (NONE Urine Bacteria Few/hpf (NONE-FEW) Urine Hyaline Casts None/lpf (NONE) Urine Granular Casts None seen (NONE SEEN) Urine Waxy Casts None seen (NONE SEEN) Urine Red Blood Cell Casts None seen (NONE SEEN) Urine White Blood Cell Casts None seen (NONE SEEN) Urine Mucus None seen (None Seen) Urine Trichomonas None seen (NONE SEEN) Urine Yeast None (NONE SEEN) Urinalysis Comment None Urine Culture Reflexed Not indicated Prothrombin Time 10.4sec (8.1-12.5) Prothromb Time International Ratio 0.97ratio Activated Partial Thromboplast Time 25.3sec (22.8-33.0) Test 08/24/16 14:10 08/25/16 05:20 Carcinoembryonic Antigen 3.4ng/mL (0.0-4.7) CA 125 Antigen 268.8U/mL (0.0-38.1) White Blood Count 6.4th/mm3 (3.8-10.1) Red Blood Count 3.87mil/mm3 (3.90-5.20) Hemoglobin 10.9g/dL (12.0-15.6) Hematocrit 32.0% (35.0-46.0) Mean Corpuscular Volume 82.7fL (81-100) Mean Corpuscular Hemoglobin 28.2pg (27.0-35.0) Mean Corpuscular Hemoglobin Concent 34.1% (32.0-37.0) Red Cell Distribution Width 12.6% (12.3-15.4) Platelet Count 435bil/L (150-400) Neutrophils (%) (Auto) 63.2% (40-74) Lymphocytes (%) (Auto) 19.6% (14-46) Monocytes (%) (Auto) 12.0% (4-12) Eosinophils (%) (Auto) 4.7% (0-5) Basophils (%) (Auto) 0.3% (0-3) Sodium Level 143mEq/L (134-144) Potassium Level 3.7mEq/L (3.5-5.2) Chloride Level 106mEq/L (97-108) Carbon Dioxide Level 19mmol/L (18-29) Blood Urea Nitrogen 2mg/dL (6-24) Creatinine 0.57mg/dL (0.57-1.00) Estimat Glomerular Filtration Rate 158mL/min (>59) Glucose Level 81mg/dL (60-99) Calcium Level 8.3mg/dL (8.5-10.1) Total Bilirubin 0.3mg/dL (0.0-1.2) Aspartate Amino Transf (AST/SGOT) 13U/L (0-50) Alanine Aminotransferase (ALT/SGPT) 8U/L (0-32) Alkaline Phosphatase 45U/L (25-150) Total Protein 5.8g/dL (6.4-8.4) Albumin 2.9g/dL (3.4-5.0) Discharge Medications Discharge Medications Uwjbs-[id number]-Irvnxseesahau (Beano) 300 Unit Tab.rapdis 300 UNIT PO TID (Reported) Atenolol (Atenolol) 50 Mg Tablet 50 MG PO HS (Reported) Simethicone (Gas-X) 125 Mg Capsule 125 MG PO TID (Reported) As needed Ibuprofen (Ibuprofen) 200 Mg Capsule 200 MG PO QID PRN PRN For Pain (Reported) Ondansetron ODT (Zofran ODT) 4 Mg Tablet 4 MG PO Q4H PRN PRN For Nausea Prescribed by: SYD BENSON, DO Additional med instructions You will need to be on full liquid diet as outline by dietitian until further notice. To meet your caloric needs, you will also need to take Ensure or Pure protein from [employer]. 1 drink with breakfast, lunch, and dinner. [facility] will be in contact with you shortly to schedule an office visit. Please give them a call by Sunday/Sunday should you not hear from them. Followup Plan Discharge Diet: Other (All liquid diet with impact recovery) Discharge Activity: No restrictions Follow-up Provider: Alin Juárez MD Follow-up with PCP in: 1 week (Within 1wk) Time spent 40 minutes Attending Statement I have seen and evaluated patient at bedside in addition to directly supervising care provided by resident physician. I agree with above documentation. Syd Benson DO Aug 25, 2016 14:23 Tao Byrd DO Aug 26, 2016 12:03
--- NOTE | 2016-08-25 14:39 | NUR ---
DISCHARGE Removed patient's IV saline lock from Right AC, catheter intact. Patient is discharging home on full iquid diet. Computer Aided Design Technician was in to go over full liquid diet and gave patient some recipes for high calorie foods that she can eat. Went over follow up information and gave phone number for general surgery dept as well. Patient acknowledged information and is ready to discharge. Awaiting transportation ride home. Addendum: 08/25/16 at 1453 by ADAMS ALANIS RN Ambulated off unit to [employer] car @ [phone].
--- NOTE | 2016-08-25 15:34 | DRSVH ---
PROCEDURE: CT CHEST WITHOUT CONTRAST ([id number]) INDICATIONS: STAGING COLON CA TECHNIQUE: Noncontrast 5 mm thick sections acquired from the pulmonary apices to the posterior costophrenic angl es. 7 mm thick coronal and sagittal MIP reformats were then acquired. For radiation dose reduction, the following was used: automated exposure control, adjustment of mA and/or kV according to patient size. COMPARISON: [facility], CT, CT ABD PELVIS W CON, 08/20/2016, 13:47. FINDINGS: Image quality: Excellent. Lungs and pleura: Mild patchy opacities are present at the left lung base. These are new when compare d with the limited visualization of the lung bases on the comparison CT dated 08/20/16. Mild platelike atelectasis is present at the right lung base. There is a small low-density left pleural effusion. T his is new when compared with the prior study. Mediastinum: Heart size is normal. No pericardial effusion. No mediastinal adenopathy by size crit eria. Thoracic aorta and central pulmonary arteries are normal in size. Trace calcification is prese nt at the aortic arch. Esophagus is normal in caliber. No hiatal hernia. Bones and chest wall: No suspicious bony lesions. No vertebral body compression fractures. No axil michelle or supraclavicular adenopathy by size criteria. The right thyroid lobe has an enlarged, heteroge neous appearance. Abdomen: There is a moderate amount of low-density perihepatic and perisplenic ascites. Nodular radio densities are visualized within the left upper quadrant mesenteric fat, only partially characterized on this limited view of the abdomen. IMPRESSION: 1. Mild right platelike atelectasis, and probable left basilar atelectasis. 2. No findings to suggest pulmonary metastasis. 3. Nodular radiopacities within the left upper quadrant mesenteric fat. These findings are suspicious for peritoneal implants in the setting of moderate hepatosplenic ascites. This finding was discussed with Dr. Bartholomew at 2:49 PM on 08/25/16. 4. Heterogeneous, enlarged right thyroid lobe. Nonemergent thyroid ultrasound may be helpful if furth er characterization is warranted. Dictated by: Gillian Almeida M.D. on 08/25/2016 at 14:50 Approved by: Gillian Almeida M.D. on 08/25/2016 at 14:50
--- NOTE | 2016-08-25 19:46 | PCM.PNSURG ---
Subjective Date of Service: Aug 25, 2016 Visit Information: Sigmoid colon mass with ascites Date of Admission: Aug 20, 2016 at 15:29 Hospital Day # 6 Subjective: Tolerating liquids well Objective Vital Sign- Last 8 Hours Date Time Temp Pulse Resp B/P Pulse Ox O2 Delivery O2 Flow Rate FiO2 08/25/16 13:39 36.8 79 20 159/78 100 Room Air Intake and Output- Last 8 Hour 08/25/16 Cumulative From/Thru 07:00 08/20/16 11:17 - 08/25/16 06:18 Intake Total 1823 ml 50309 ml Output Total 950 ml 5230 ml Balance 873 ml 83690 ml Intake Oral 620 ml 7096 ml IV Total 1203 ml 69080 ml Output Urine Total 950 ml 4725 ml Stool Total 5 ml Urine/Stool Mix 500 ml # Voids 7 # Bowel Movements 3 7 Abdomen: Soft, Non-tender Result Diagram: 08/25/16 0520 08/25/16 0520 Assessment & Plan Impression Doing well Problems: Plan Full liquid diet. Impact Follow up with me next week Waiting for pathology Consulted Dr. Bartholomew from Oncology No indication for urgent operation now. D/W Dr. Apodaca, Hospitalist Alin Juárez MD Aug 25, 2016 19:46
--- NOTE | 2016-08-25 20:21 | CONS ---
[address] [address] CONSULTATION REPORT PATIENT: DIANNE RACHEL : 1960 MR#: [id number] ADMIT: 08/20/2016 JOB ID: [id number] DATE OF SERVICE: 08/25/2016 MEDICAL ONCOLOGY CONSULTATION: REQUESTING PHYSICIAN: Alin Juárez MD with general surgery. REASON FOR CONSULT: Mass in the distal sigmoid/rectosigmoid junction. HISTORY OF PRESENT ILLNESS: The patient is a 55-year-old lady who has been having several days of abdominal discomfort and nausea, and a few times of vomiting. She has been declining gradually and has had a weight loss of almost 60 pounds in the past three months. She came to the emergency department and had imaging performed at and was admitted on August 20, 2016. The CT scan of the abdomen and pelvis with contrast showed an ascites that raised the concern of malignant ascites because of some areas of fatty peritoneal enhancement and thickening. No obvious mass. There was also a sigmoid colon wall thickening raising the possibility of a primary lesion there. Abdominal ultrasound performed next day to try to do a diagnostic paracentesis showed not much fluid in the lower portion of the abdomen, not enough to perform paracentesis safely, and therefore it was canceled. An endoscopic evaluation was performed by Dr. James with a flexible sigmoidoscopy. A full colonoscopy was not performed due to the patient's poor tolerance of oral prep. Report suggested that there was a mass starting at 13 cm from the anal verge extending up to 20 cm from the anal verge. The mass was friable. Multiple biopsies were taken. This is in the background of the patient having had a hysterectomy in 2000 which initially raised the concern that maybe she had a uterine malignancy and could be a part of the current presentation. However, in my discussion with the patient, she says that the she had her surgery by Dr. Julio C Godinez at [facility] and was told that the mass removed from the uterus was benign and she has not had any issues since then. She has been placed on a clear liquid diet and has been able to pass stool and has not been throwing up and basically is not currently obstructed. The decision has been discussed to possibly proceed with surgery and laparotomy versus awaiting further diagnostic results. PAST MEDICAL HISTORY: 1. Hypertension. 2. Hysterectomy and tubal ligation. FAMILY HISTORY: The patient has three sisters and one brother. One sister had breast cancer. Her maternal uncle had liver cancer. Another maternal aunt had stomach cancer and breast cancer. ALLERGIES: PENICILLIN. SOCIAL HISTORY: She has one daughter. 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 No history of alcoholism. She does have a history of smoking but quit three years ago. LABORATORIES: White count is 6.4, hemoglobin 10.9, platelets 435. Chemistry shows normal electrolytes. Creatinine and LFTs normal. Albumin 2.9. PHYSICAL EXAMINATION: She is afebrile, blood pressure is 159/78, O2 sat 100% on room air. Lungs: Clear to auscultation. Heart: Regular. Abdomen: Soft. Extremities: Show no edema. ASSESSMENT AND PLAN: A 55-year-old lady who had presented with a 60 pound weight loss and abdominal discomfort as well as nausea and a few times vomiting. CT scan shows abnormalities that are concerning for a malignant process involving the distal sigmoid/rectosigmoid colon. I personally reviewed the CT scan with Dr. Almeida. While we cannot rule out that there is malignant peritoneal seeding, the radiographic findings are relatively subtle and not definitely diagnostic. There is no peritoneal large mass or obvious caking, and the fluid is more towards the upper abdomen. There was not enough fluid to perform a paracentesis. The main differential diagnosis remains either a primary colorectal cancer versus some form of a gynecologic malignancy that is involving the abdominal cavity and is externally invading the rectosigmoid junction. She did have a mass in the flexible sigmoidoscopy at 13-20 cm from anal verge that has been biopsied yesterday with results pending. At this point, the management would be quite different regarding whether this is a gynecologic primary versus colorectal, and it would be crucially important to know whether she truly has advanced disease in the abdominal cavity. She is tolerating clear liquids and is passing stool and therefore is not clearly obstructed. We had several phone conversations with Dr. Juárez and reached the conclusion to at this point await the tumor marker results and the biopsy results and schedule her tentatively for a diagnostic laparoscopy to see whether she has peritoneal carcinomatosis or not. If she does not have that, and ends up having a colorectal cancer, then we would consider chemoradiation preoperatively, otherwise we would treat with systemic chemotherapy for advanced disease. On the other hand, if this was a gynecologic malignancy, the patient would be considered for a debulking surgery, with or without neoadjuvant chemotherapy. She did have a history of hysterectomy in 2000 but apparently this was not an endometrial cancer from what I hear from her, although we do not have the actual pathology report. This was done at [facility] and we will try to get the pathology report. I will follow up with her as an outpatient. The hospital team is planning to discharge her home later today. I did request a PET scan of the chest to be performed before discharge to rule out pulmonary metastases, which was negative.
--- NOTE | 2016-08-29 09:44 | PATH ---
SURGICAL PATHOLOGY Attending Physician:Brayan Obregon CASE STATUS: Signed Out PATIENT NAME: DIANNE RACHEL PID: [id number] : 1960 DATE COLLECTED:08/24/2016 20:44 SPECIMEN: Colon, Biopsy CLINICAL HISTORY: 1). 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 ICD10: C56. GROSS DESCRIPTION: The specimen is received in one formalin filled container labeled with the patient's name, sublabeled "sigmoid colon mass" and consists of 4 portions of tissue which aggregate to 0.4 x 0.4 x 0.2 CM. The specimen is entirely submitted in one cassette. 08/24/2016 DAC MICRO DESCRIPTION: The colonic mucosa and submucosa are infiltrated by small irregular nests of malignant epithelial cells with enlarged nuclei and abundant eosinophilic cytoplasm. Single large nucleoli are found within the nuclei. Immunocytochemistry is done to characterize the malignancy. Sections, along with appropriate controls, are incubated with the following antibodies: CK7 - positive. PAX8 - positive. CK20 - negative. GATA3 - negative. TTF-1 - negative. CDX2 - negative. Villin - negative. The findings are consistent with a malignancy arising within the female genital tract (most likely ovary). ICD-9 CODES: CPT CODES: 1: 31264, 45730, 50501, 30198, 26730, 50591, 77538, 20897 PROCEDURE/ADDENDA: Addendum SPI Addendum Diagnosis Slides reviewed at by Catia Romero MD, PhD Colon, biopsy: High-grade carcinoma consistent with mullerian origin (see comment). 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 Within the current colonic biopsy there are neoplastic cells with high nuclear grade involving the submucosa with admixed calcifications. The overlying colonic mucosa is unremarkable. Immunohistochemistry (performed at the referring institution and reviewed at [facility]) reveals that the neoplastic cells are positive for CK7 and PAX8 (supporting a mullerian origin) and are negative for CK20, CDX-2, TTF-1, CY-3, and villin. Overall, the morphologic features are consistent with a serous neoplasm, however the nuclear grade of the neoplastic cells is high supporting the diagnosis of high grade carcinoma. Addendum Comment Please see [facility] report [id number] for complete details. Electronically Signed Out Yaniv Meza MD Electronically Signed Out Yaniv Meza MD [facility] Pathology [facility] [address], [place] [address] Technical component performed at [facility], [address], [place], [address]
--- NOTE | 2016-09-01 14:08 | CCS NOTE ---
[facility] [address], [address] [address] MEDICAL ONCOLOGY OFFICE NOTE PATIENT: DIANNE RACHEL : 1960 MR#: [id number] DATE: 08/20/2016 JOB ID: [id number] DATE: 09/01/2016 CLINICAL COMMUNICATION AND TELEPHONE SUMMARY: The patient was hospitalized for a near obstructing lesion in the distal sigmoid colon. For details, please refer to my consult note during the short hospitalization of August 25, 2016. The patient was discharged home, as she was able to pass stool on liquid diet and was not having any nausea or vomiting per Surgical team, and pending the biopsy results of the distal sigmoid mass that was obtained from a flexible sigmoidoscopy during that visit last week. The biopsy revealed a poorly differentiated carcinoma, most likely gynecologic origin/ovarian origin, as it was CK7 positive, CK20 negative and PAX-8 positive, with other GI markers being negative. Also, the patient's tumor markers returned to support that, with the CEA being normal with 3.4 but CA-125 being elevated with around 270. Communicated that with Dr. Juárez of surgery and therefore, the initial plan for a diagnostic laparoscopy is now canceled. The patient would require a gynecologic oncology major debulking surgery with resection of the colon ideally with neoadjuvant chemotherapy. It was attempted to schedule the patient in our clinic but apparently her insurance is out of network. I contacted today Dr. Julia Macias of gynecologic oncology at [facility]. The patient had a hysterectomy there in 2001, which per review with Dr. Macias had shown a borderline serous tumor. Dr. Macias agreed to evaluate the patient within the next few days and plan either upfront surgery or maybe one cycle of chemotherapy with carboplatin and Taxol and then surgery. The patient can then return after adjustments of insurance with the postoperative phase to receive adjuvant chemotherapy closer to home as usually performed. We contacted the patient today, and I personally spoke to her explaining these pathology results and management details. She was advised to continue to stay on a liquid diet to avoid obstruction. A referral for urgent evaluation was sent to [facility]/Onc today.
== END 2016-08-25 14:46 | disposition home or self-care (01) | DRG 375 ==
LOC: SED 11:15 → OSC 15:29
PROVIDERS: ADMIT Internal Medicine; ATTEND Internal Medicine
PROC: 0DBN8ZX Excision of Sigmoid Colon, Via Natural or Artificial Opening Endoscopic, Diagnostic (ICD-10-PCS; principal; 2016-08-24 12:00)
DX: C78.6 Secondary malignant neoplasm of retroperitoneum and peritoneum (principal); R18.0 Malignant ascites; R63.4 Abnormal weight loss; I10 Essential (primary) hypertension; Z85.42 Personal history of malignant neoplasm of other parts of uterus; Z90.710 Acquired absence of both cervix and uterus; Z88.0 Allergy status to penicillin

== ENCOUNTER 2016-11-03 09:00 | Emergency (ER) | payer OTHER ==
[~2016-11-03] VITALS: Ht 163.8 cm; Wt 58.2 kg
[~2016-11-03 09:00] MED LIST: ALPH300T2 PO; ATEN50TA PO; IBUP200C PO; ONDA4TAB9 PO; SIME125C PO
[2016-11-03 09:11] VITALS: BP 137/53; PULSE 81; RESP 17; O2SAT 100
--- NOTE | 2016-11-03 09:24 | ED.REPORT ---
HPI-Allergic Reaction Date of Service Nov 03, 2016 ED Provider: The patient is a 56 year old female with history of hypertension and multiple allergies, who presents to the emergency department complaining of a rash that began this morning. The rash is located to her abdomen and upper legs. She describes the rash as itchy. She did not take any medication prior to arrival. She believes the rash is due to a new lotion she used. She felt short of breath earlier as well but thinks this was due to not taking her blood pressure medication. She denies facial swelling, oral swelling, trouble swallowing or trouble breathing. Nursing Notes Stated Complaint: RASH NECK/STOMACH/SOB Chief Complaint: Allergic Reaction Nursing Notes Reviewed: Yes Allergies: Coded Allergies: Penicillins (Verified Allergy, Severe, Shortness of Breath, 08/20/16) turkey (Verified Allergy, Severe, tachycardia, 08/20/16) pt states anaphylactic shock Scheduled Zedgh-G-Fmbvmiomwvmxn (Beano) 300 Unit Tab.rapdis 300 UNIT PO TID Atenolol (Atenolol) 50 Mg Tablet 50 MG PO HS Famotidine (Pepcid) 20 Mg Tablet 20 MG PO BID Simethicone (Gas-X) 125 Mg Capsule 125 MG PO TID Scheduled PRN Epinephrine (Epipen 2-Mario) 0.3 Mg/0.3 Ml Auto.injct 0.3 MG IJ DIRECTED PRN PRN For Anaphyllaxis Ibuprofen (Ibuprofen) 200 Mg Capsule 200 MG PO QID PRN PRN For Pain Ondansetron ODT (Zofran ODT) 4 Mg Tablet 4 MG PO Q4H PRN PRN For Nausea General Time Seen by MD: 09:23 Chief Complaint Rash Hx Obtained From: Patient Arrived By: Walk-in Onset Occurred: 1 - 4 hours ago Symptom Duration: Since onset Location: : Abdomen: Chest: Leg left: Leg right Quality: Itching Severity: Current: Mild Severity: Maximum: Moderate Recent Healthcare: No recent hospitalization Similar Sx Previous: Yes Past Medical History Past Medical History Reports: Hypertension Past Surgical History Reports: Hysterectomy Reports: Tubal ligation Family History Noncontributory Smoking History Former Smoker Social History Alcohol Use: Denies alcohol use Drug Use: Denies drug use Other Social History: Local resident Occupation lives with brother and her daughter, no work or school 08/20/2016 Ambulatory Status Independent Review of Systems Ears / Nose / Throat: Denies: Throat swelling, Tongue swelling Respiratory: Reports: Shortness of breath (initially, not now) GI: Denies: Dysphagia Skin: Reports Itching, Reports Rash Complete sys rev & neg: except as marked. Physical Exam Initial Vital Signs Vital Signs (First) Date Time Temp Pulse Resp B/P Pulse Ox O2 Delivery O2 Flow Rate FiO2 11/03/16 09:11 81 17 137/53 100 Room Air Initial VS: Reviewed, Vital signs normal Head / Eyes: Atraumatic, Normocephalic, PERRL ENT: Mucous membranes moist, Conjunctiva normal, No scleral icterus Neck: Supple, Non-tender, Full range of motion Abdomen / GI: Soft, Non-tender, No guarding, No rebound, No distention Lymphatic: No lymphadenopathy Extremities: Vascular intact, Neuro intact, No swelling, No tenderness Neurologic: Alert, Oriented, Nonfocal Psychiatric: Mood/affect normal, Behavior normal, Normal thought content General/Constitutional: Awake, Alert, Well appearing Respiratory / Chest: Atraumatic, Breath sounds NL, Breath sounds = bilat, No respiratory distress, No rales, No rhonchi, No wheezing, No retractions, No stridor Cardiovascular: Heart rate NL, Regular rhythm, Heart sounds NL, No murmurs, No rubs, Peripheral circulation NL Skin: Warm, Dry Rash / Lesion Notes: Urticarial rash to her abdomen and groin Re-Eval/Medical Decision Med Decision/Clinical Course The patient presents with a rash after coming into contact with something she is known to be allergic to. She said her breathing was not normal but relates to her blood pressure medication which she took and her breathing did normalize. There is no sign of upper airway issues. The patient was given Benadryl and Pepcid with improvement in her rash and was discharged home. Source of Hx: Old records Re-Evaluation/Progress : Time of Eval: 10:57 Re-Evaluation/Progress Note: Rechecked the patient. Her rash has improved and is less itchy. Discussed plan for discharge. All questions were addressed. Counseled Regarding: Diagnosis, Need for follow-up, When/why to return to ED Discharge & Departure Primary Impression: Urticarial rash Additional Impression: Allergic reaction Encounter type: initial encounter Qualified Code: T78.40XA - Allergy, unspecified, initial encounter Disposition: Home Discharge Condition All VS Reviewed: Yes Condition: Stable Additional Instructions: Thank you for entrusting us with your care today. Your exam findings are reassuring. You can use Benadryl as needed for the rash and itching. I recommend going home and taking a shower to make sure all of the lotion has been washed off. I have also written you a prescription for an emergency EpiPen to have on hand. Please return to the emergency department if you develop tongue swelling, throat swelling, difficulty breathing, difficulty swelling, or any other new or concerning symptoms. Referrals: Pastora Myles (PCP) Lannyibjackson Attestation Portions of this note were transcribed by Shira Weaver. I, Dr. Ma personally performed the history, physical exam and medical decision-making; I reviewed and confirmed the accuracy of the information in the transcribed note. Signed by: Jonnathan Schumacher, 11/03/2016 at 1110. copies to: Pastora Myles Jena M MD Nov 03, 2016 09:24 Shira Weaver Nov 03, 2016 09:31
[2016-11-03] MEDS ORDERED: diphenhydrAMINE 25 mg Capsule PO ONE (09:35)
[2016-11-03] MEDS ORDERED: FAMO20T PO (11:06)
[2016-11-03] MEDS ORDERED: EPIN0.3P2 IJ (11:10)
[2016-11-03] MEDS ORDERED: 0.9% Sodium Chloride 1,000 ML IV ONE (11:10)
[2016-11-03 11:54] VITALS: BP 127/66; PULSE 67; RESP 14; O2SAT 100
== END 2016-11-03 11:25 | disposition home or self-care (01) ==
LOC: SED 09:00
DX: L50.9 Urticaria, unspecified (principal); T78.40XA Allergy, unspecified, initial encounter; X58.XXXA Exposure to other specified factors, initial encounter; Y93.89 Activity, other specified; Y92.9 Unspecified place or not applicable; Y99.8 Other external cause status; I10 Essential (primary) hypertension; Z87.891 Personal history of nicotine dependence; Z88.0 Allergy status to penicillin; Z91.018 Allergy to other foods

== ENCOUNTER 2016-12-04 16:25 | Emergency (ER) | payer OTHER ==
[~2016-12-04] VITALS: Ht 162.6 cm; Wt 53.6 kg
[~2016-12-04 16:25] MED LIST changes: +EPIN0.3P2 IJ; +FAMO20T PO
[2016-12-04 16:57] VITALS: BP 138/86; PULSE 100; RESP 16; O2SAT 100
[2016-12-04 17:35] VITALS: BP 138/86; PULSE 100; RESP 16; O2SAT 100
== END 2016-12-04 17:12 | disposition home or self-care (01) ==
LOC: SED 16:25
DX: Z48.02 Encounter for removal of sutures (principal)

== ENCOUNTER 2017-01-20 10:31 | Inpatient (IN) | payer OTHER ==
[~2017-01-20] VITALS: Ht 165.1 cm; Wt 59.9 kg
[2017-01-20] VITALS (7 sets, daily range): BP systolic 127–152; BP diastolic 60–90; PULSE 77–93; RESP 14–20; O2SAT 98–100
--- NOTE | 2017-01-20 11:15 | ED.REPORT ---
HPI-NVD Date of Service Jan 20, 2017 ED Provider: History of Present Illness: vomiting for 3 days, lots of diarrhea, abd cramping body aches Scheduled for debluking of mass on colon 01/24/2017 at . Has ovarian cancer with mets. primary care is sonal myles at [facility]. 03/15 pain Nursing Notes Stated Complaint: NAUSEA,VOMITTING,DIARRHEA Chief Complaint: Female Abdominal Pain Nursing Notes Reviewed: Yes Allergies: Coded Allergies: Penicillins (Verified Allergy, Severe, Shortness of Breath, 01/20/17) turkey (Verified Allergy, Severe, tachycardia, 01/20/17) pt states anaphylactic shock General Time Seen by MD: 11:15 Chief Complaint Nausea, Vomiting, Diarrhea, Abd pain, cramping (body cramping), Other Hx Obtained From: Patient Onset Occurred: 3 days ago Symptom Duration: Since onset Vomiting: Vomiting 7-10 episodes Diarrhea: Diarrhea is watery, Diarrhea > 10 episodes Past Medical History Past Medical History ovairian cancer with mets to colon. finished chemo 6 weeks ago 01/20/2017 Reports: Hypertension Past Surgical History Reports: Hysterectomy Reports: Tubal ligation Family History Noncontributory Smoking History Former Smoker Social History Alcohol Use: Denies alcohol use Drug Use: Denies drug use Other Social History: Local resident Occupation lives with brother and her daughter, no work or school 08/20/2016 Ambulatory Status Independent Review of Systems Basic Review of Systems Eyes: Vision NL, No discharge Endocrine: No cold intolerance, No heat intolerance, No weight gain, No weight loss Psychiatric: Normal thought content Physical Exam Initial Vital Signs Vital Signs (First) Date Time Temp Pulse Resp B/P Pulse Ox O2 Delivery O2 Flow Rate FiO2 01/20/17 10:36 36.4 93 16 143/81 100 Room Air Initial VS: Reviewed, Vital signs normal Head / Eyes: Atraumatic, Normocephalic, PERRL ENT: Mucous membranes moist, Conjunctiva normal, No scleral icterus Neck: Supple, Non-tender, Full range of motion Respiratory: Breath sounds normal, Clear to auscultation, No respiratory distress Cardiovascular: Regular rate & rhythm, Heart sounds normal, Intact distal pulses Back: No CVA tenderness Lymphatic: No lymphadenopathy Extremities: Vascular intact, Neuro intact, No swelling, No tenderness Skin: Warm, Dry, No cyanosis Neurologic: Alert, Oriented, Nonfocal Psychiatric: Mood/affect normal, Behavior normal, Normal thought content General/Constitutional: Awake, Alert, No acute distress, Well appearing, Well developed, Well hydrated Abdomen: Atraumatic, Soft Tenderness/Guarding/Rebound: Positive: Tender diffuse Respiratory / Chest: Atraumatic, Breath sounds NL, Breath sounds = bilat, No respiratory distress Cardiovascular: Heart rate NL, Regular rhythm, Heart sounds NL, No gallop Interpretation & Diagnostics Interpretation & Diagnostics: ROCEDURE: CT ABDOMEN AND PELVIS WITH CONTRAST ([id number]) INDICATIONS: ? SBO TECHNIQUE: After the administration of intravenous contrast, 5 mm thick sections acquired from the diaphragm to the symphysis. 5 mm coronal and sagittal reformats were acquired. For radiation dose reduction, the following was used: automated exposure control, adjustment of mA and/or kV according to patient size. COMPARISON: [facility], CT, CT CHEST WO CON, 08/25/2016, 9:26. [facility], CR, XR ABD ACUTE SERIES 3VW, 01/20/2017, 12:01. FINDINGS: Image quality: Good ABDOMEN: Lung bases: Lung bases are clear. There is a small left pleural effusion is increased in size slightly since the CT of 08/25/16 Heart size is normal. Solid organs: Liver and spleen are normal in size and enhancement. There are scattered subcentimeter areas of decreased attenuation in the liver as on the previous CT and they are unchanged and thought to be small volume averaged cyst. Gallbladder is within normal limits. Biliary system is non dilated. Pancreas enhances normally. No adrenal nodules. Kidneys demonstrate normal size and enhancement, without hydronephrosis. Peritoneum and bowel: There is distention of several small bowel loops consistent with obstruction. At least one transition appears to be present on series 4 image 13 of small bowel loop tapering. Cause of obstruction is not apparent There is abnormally prominent soft tissue in the region of the antrum or duodenum bulb. A mass cannot be excluded. There is abnormal thickness of bowel loop in the sigmoid colon again abnormal mass versus prominent inflammation would be in the differential. No obstruction is seen in the region of the sigmoid. Bowel loops demonstrate normal wall thickness and caliber. No free air. Moderate amount of ascites is present. Nodes and vessels: No retroperitoneal or mesenteric adenopathy by size criteria. Aorta and inferior vena cava are normal in size. Miscellaneous: No ventral hernias. PELVIS: Genitourinary: Bladder wall thickness is normal. Uterus has been removed. Neither ovary is appreciated. Miscellaneous: No inguinal hernias or adenopathy. Bones: No suspicious bony lesions. No vertebral body compression fractures. IMPRESSION: In this patient with ascites a moderate amount and a small left pleural effusion the bowel gas pattern is abnormal and consistent with small bowel obstruction. Cause of the obstruction however is not appreciated There is abnormal thickening of the wall of the gastric antrum or proximal duodenal bulb and of a fairly long segment of sigmoid colon. Abnormal mass or unusual inflammation could cause this. Additional clinical information provided during discussion with ER clinician is that the patient has metastatic ovarian cancer. There are scattered lymph nodes in the mesentery but not abnormal by size criteria. Dictated by: Sarath Patel M.D. on 01/20/2017 at 14:01 Approved by: Sarath Patel M.D. on 01/20/2017 at 14:20 Lab Results Interpretation Result Diagram: 01/20/17 1052 01/20/17 1052 Test 01/20/17 10:52 01/20/17 11:17 White Blood Count 5.3th/mm3 (3.8-10.1) Red Blood Count 5.19mil/mm3 (3.90-5.20) Hemoglobin 15.2g/dL (12.0-15.6) Hematocrit 43.3% (35.0-46.0) Mean Corpuscular Volume 83.4fL (81-100) Mean Corpuscular Hemoglobin 29.3pg (27.0-35.0) Mean Corpuscular Hemoglobin Concent 35.1% (32.0-37.0) Red Cell Distribution Width 13.8% (12.3-15.4) Platelet Count 458bil/L (150-400) Neutrophils (%) (Auto) 65.6% (40-74) Lymphocytes (%) (Auto) 18.3% (14-46) Monocytes (%) (Auto) 15.3% (4-12) Eosinophils (%) (Auto) 0.2% (0-5) Basophils (%) (Auto) 0.4% (0-3) Hold Blue Top Tube Received (Received) Sodium Level 134mEq/L (134-144) Potassium Level 3.5mEq/L (3.5-5.2) Chloride Level 91mEq/L (97-108) Carbon Dioxide Level 24mmol/L (18-29) Blood Urea Nitrogen 23mg/dL (6-24) Creatinine 0.68mg/dL (0.57-1.00) Estimat Glomerular Filtration Rate 129mL/min (>59) Glucose Level 112mg/dL (60-99) Lactic Acid Level 1.7mmol/L (0.4-2.0) Calcium Level 8.6mg/dL (8.5-10.1) Phosphorus Level 3.8mg/dL (2.5-4.9) Magnesium Level 1.9mg/dL (1.6-2.6) Total Bilirubin 0.5mg/dL (0.0-1.2) Aspartate Amino Transf (AST/SGOT) 18U/L (0-50) Alanine Aminotransferase (ALT/SGPT) 19U/L (0-32) Alkaline Phosphatase 82U/L (25-150) Total Protein 6.9g/dL (6.4-8.4) Albumin 2.7g/dL (3.4-5.0) Lipase 18U/L (13-60) Hold Vargas Top Tube Received (Received) Urine Color Dark yellow (YELLOW) Urine Appearance Clear (CLEAR,HAZY) Urine pH 6.0 (5.0-8.0) Urine Specific [place] >1.030 (1.003-1.035) Urine Protein Tracemg/dL (NEG,TRACE) Urine Glucose (UA) Negativemg/dL (NEGATIVE) Urine Ketones >80mg/dL (NEGATIVE) Urine Occult Blood Negative (NEGATIVE) Urine Nitrite Negative (NEGATIVE) Urine Bilirubin Negative (NEGATIVE) Urine Urobilinogen Normalmg/dL (NORMAL) Urine Leukocyte Esterase Negative (NEGATIVE) Urine RBC 0-2/hpf (0-2) Urine WBC 0-5/hpf (0-5) Urine Epithelial Cells Many/hpf (NONE-MOD) Urine Crystals None seen (NONE SEEN) Urine Bacteria Few/hpf (NONE-FEW) Urine Hyaline Casts Occasional/lpf (NONE) Urine Granular Casts None seen (NONE SEEN) Urine Waxy Casts None seen (NONE SEEN) Urine Red Blood Cell Casts None seen (NONE SEEN) Urine White Blood Cell Casts None seen (NONE SEEN) Urine Mucus Present (None Seen) Urine Trichomonas None seen (NONE SEEN) Urine Yeast None (NONE SEEN) Urinalysis Comment None Urine Culture Reflexed Not indicated X-Ray Interpretation Xray Interpretation: PROCEDURE: X-RAY ACUTE ABDOMINAL SERIES ([id number]) INDICATIONS: nausea, vomiting 3 days TECHNIQUE: One view chest and two views of the abdomen were acquired. COMPARISON: None. FINDINGS: Surgical changes and devices: None. Chest: Lungs are clear. Heart size is normal. No pleural effusions. No pneumoperitoneum. Abdomen: Bowel gas pattern abnormal. There is a generous amount of fecal material throughout the colon. There appear to be some air fluid levels in the colon loops small bowel involvement cannot be excluded. No suspicious calcifications. Visualized solid organ contours appear normal. Bones: No suspicious bony lesions. IMPRESSION: Abnormal nonspecific bowel gas pattern. Generous amount of fecal material is present in the colon. This are any clinical evidence to suggest distal colon obstruction? Dictated by: Sarath Patel M.D. on 01/20/2017 at 12:24 Approved by: Sarath Patel M.D. on 01/20/2017 at 12:28 Re-Eval/Medical Decision Med Decision/Clinical Course 56 year old female with ovarian cancer with mets to the colon presents for evualation of diarrhea and vomiting. Patient states she has been unable to hold anything down. Reports finishing chemo 6 weeks ago and states she has an appointment 01/24 for debluking of the colon tumor. Patient with good response to IV zofran and dialulid. Diarrhea continues. Stool PCR indicates rotovirus. Discussed with DR. Cason. He does not want to be in consult position. Suggests transfer to . Call to , records and images pushed. Discussed with Dr. Villareal, OB/ONC , patient has no appointment scheduled. After review of imaging, Dr. Villareal feels it is not a small bowel, more likely related to positive rotavirus and altered stool movement because of the tumor burden and use of zofran. She states they will accept patient if she deteroites clinically. She will also be available for any questions. Her suggestion is to admit for pain control, vomiting and an enema to see if the stool can be reduced. Return pc to Dr. cason and informed of above. He does not want to be in the consult position. Discussed with hospialist. Agrees to accept. Discharge & Departure Impression: Primary Impression: Abdominal pain Abdominal location: generalized Qualified Code: R10.84 - Generalized abdominal pain Additional Impressions: Vomiting Nausea presence: with nausea Diarrhea Diarrhea type: infectious Qualified Code: A09 - Infectious gastroenteritis and colitis, unspecified Ovarian ca Disseminated ovarian cancer Disposition: ADMITTED TO HOSPITAL Referrals: Pastora Myles EDSupervising Provider for APC: Kodi Estrella MD copies to: Pastora Myles Sue ARNP Jan 20, 2017 11:15
[2017-01-20 11:22] LABS: BASOPHILS % (AUTO) 0.4 % (0-3); EOSINOPHILS % (AUTO) 0.2 % (0-5); MONOCYTES % (AUTO) 15.3 % (4-12); Mean Corpuscular Hemoglobin 29.3 pg (27.0-35.0); Mean Corpuscular Volume 83.4 fL (81-100); NEUTROPHILS % (AUTO) 65.6 % (40-74); Platelet Count 458 bil/L (150-400)
[2017-01-20 11:30] LABS: Magnesium 1.9 mg/dL (1.6-2.6)
[2017-01-20] MEDS ORDERED: Ondansetron 2 mg/mL 2 mL Inj IVPUSH ONE (11:30)
[2017-01-20] MEDS ORDERED: 0.9% Sodium Chloride 1,000 ML IV ONE ×2 (11:30→15:00)
[2017-01-20] MEDS ORDERED: HYDROmorphone 0.5 mg/0.5 mL iSecure Syringe IVPUSH ONE ×3 (11:30→15:55)
--- NOTE | 2017-01-20 12:29 | DRSVH ---
PROCEDURE: X-RAY ACUTE ABDOMINAL SERIES ([id number]) INDICATIONS: nausea, vomiting 3 days TECHNIQUE: One view chest and two views of the abdomen were acquired. COMPARISON: None. FINDINGS: Surgical changes and devices: None. Chest: Lungs are clear. Heart size is normal. No pleural effusions. No pneumoperitoneum. Abdomen: Bowel gas pattern abnormal. There is a generous amount of fecal material throughout the col on. There appear to be some air fluid levels in the colon loops small bowel involvement cannot be exc luded. No suspicious calcifications. Visualized solid organ contours appear normal. Bones: No suspicious bony lesions. IMPRESSION: Abnormal nonspecific bowel gas pattern. Generous amount of fecal material is present in t he colon. This are any clinical evidence to suggest distal colon obstruction? Dictated by: Sarath Patel M.D. on 01/20/2017 at 12:24 Approved by: Sarath Patel M.D. on 01/20/2017 at 12:28
[2017-01-20 13:41] LABS: APPEARANCE,URINE CLEAR (CLEAR,HAZY); COLOR,URINE DARK YELLOW (YELLOW)
[2017-01-20 13:42] LABS: OCCULT BLOOD,URINE NEGATIVE (NEGATIVE); UROBILINOGEN,URINE NORMAL (NORMAL)
[2017-01-20] MEDS ORDERED: Triamcinolone 0.1% 30 Gm Cream TOPICAL STA (13:45)
--- NOTE | 2017-01-20 14:21 | DRSVH ---
PROCEDURE: CT ABDOMEN AND PELVIS WITH CONTRAST ([id number]) INDICATIONS: ? SBO TECHNIQUE: After the administration of intravenous contrast, 5 mm thick sections acquired from the diaphragm to the symphysis. 5 mm coronal and sagittal reformats were acquired. For radiation dose reduction, the following was used: automated exposure control, adjustment of mA and/or kV according to patient jermaine paz. COMPARISON: [facility], CT, CT CHEST WO CON, 08/25/2016, 9:26. [facility], C R, XR ABD ACUTE SERIES 3VW, 01/20/2017, 12:01. FINDINGS: Image quality: Good ABDOMEN: Lung bases: Lung bases are clear. There is a small left pleural effusion is increased in size slight ly since the CT of 08/25/16 Heart size is normal. Solid organs: Liver and spleen are normal in size and enhancement. There are scattered subcentimeter areas of decreased attenuation in the liver as on the previous CT and they are unchanged and thought to be small volume averaged cyst. Gallbladder is within normal limits. Biliary system is non dilat ed. Pancreas enhances normally. No adrenal nodules. Kidneys demonstrate normal size and enhancemen t, without hydronephrosis. Peritoneum and bowel: There is distention of several small bowel loops consistent with obstruction. A t least one transition appears to be present on series 4 image 13 of small bowel loop tapering. Cause of obstruction is not apparent There is abnormally prominent soft tissue in the region of the antrum or duodenum bulb. A mass cannot be excluded. There is abnormal thickness of bowel loop in the sigmoi d colon again abnormal mass versus prominent inflammation would be in the differential. No obstructio n is seen in the region of the sigmoid. Bowel loops demonstrate normal wall thickness and caliber. N o free air. Moderate amount of ascites is present. Nodes and vessels: No retroperitoneal or mesenteric adenopathy by size criteria. Aorta and inferior vena cava are normal in size. Miscellaneous: No ventral hernias. PELVIS: Genitourinary: Bladder wall thickness is normal. Uterus has been removed. Neither ovary is appreciat ed. Miscellaneous: No inguinal hernias or adenopathy. Bones: No suspicious bony lesions. No vertebral body compression fractures. IMPRESSION: In this patient with ascites a moderate amount and a small left pleural effusion the bowel gas patter n is abnormal and consistent with small bowel obstruction. Cause of the obstruction however is not ap preciated There is abnormal thickening of the wall of the gastric antrum or proximal duodenal bulb and of a salas rly long segment of sigmoid colon. Abnormal mass or unusual inflammation could cause this. Additional clinical information provided during discussion with ER clinician is that the patient has metastatic ovarian cancer. There are scattered lymph nodes in the mesentery but not abnormal by size criteria. Dictated by: Sarath Patel M.D. on 01/20/2017 at 14:01 Approved by: Sarath Patel M.D. on 01/20/2017 at 14:20
--- NOTE | 2017-01-20 18:02 | PCM.HPMED ---
Subjective Date of Service Jan 20, 2017 Primary Provider: Admitting Physician: Doroteo Shah MD Primary Care Physician: Pastora Myles Attending Physician: Doroteo Shah MD Chief Complaint: Intractable nausea, vomiting, abdominal pain History of Present Illness: 56-year-old female with metastatic ovarian cancer, metastasis colon, following p/w intractable abdominal pain, nausea, vomiting, diarrhea for 3 days. Patient was first diagnosed ovarian cancer , finished her chemotherapy 6 weeks ago, total 12 weeks course, currently not on any chemotherapy or medical therapy, patient was tentatively scheduled for debulking surgery in the near future. As patient finished chemotherapy 6 weeks ago, patient has support from complications, ongoing abdominal pain, loose stools, intermittent nausea, which was controlled with zofran. pt can only tolerate liquid diet. Since Aug, pt lost almost 40lbs.About 3days ago, pt started having severe abdominal pain. Denied any unusual food intake, sick contact. pt also started having watery diarrhea, no mucous nonbloody, abdominal pain was not relieved with regular ibuprofen. Patient does not have any narcotics for pain. pt was not able to eat anything down and kept having diarrhea >10times /d. Patient waited for 3 days, but symptoms did not resolve, decided to come to hospital. ROS: Patient denied fever, chills, chest pain, cough, sputum, headache, dizziness In emergency room, VSS, pt was not toxic looking. initial abd exam was benign. CT abd showed air-fluid level, hospital SBO, moderate amount of ascites, abnormal thickening of the wall on duodenum, sigmoid colon, suggestive of known mass. Given probable SBO, was consulted, defer surgical w/u per [facility] at . stool PCR also positive for Rota virus. oncall onc [employer] reviewed with ED provider, recommended supportive tx, enema given stool burden, will work on arranging debulking surgery soon with (not confirmed yet). pt received IVF, dilaudid 0.5mg multiple times, zofran 4mg iv During the interview, pt felt better with medicines at ED, wants to advance her diet. pain was not resolved but better controlled. Review of Systems: Pertinent positives as noted in history of present illness. All other systems were reviewed and are negative Allergies Coded Allergies: Penicillins (Verified Allergy, Severe, Shortness of Breath, 01/20/17) turkey (Verified Allergy, Severe, tachycardia, 01/20/17) pt states anaphylactic shock Home Medications Atenolol 50 mg twice a day Lasix 20 mg daily KCl 10 mEq twice a day Zofran 4 mg every 4 hours as needed PMH Described above in history of present illness Surgical History Tubal ligation in 1998 Hysterectomy 16 years ago due to probable [place] cancer Family History no hx of CAD Social History Hx Alcohol Use: No Hx Substance Use: No Hx Tobacco Use: Yes Smoking Status: Former Smoker Additional Information Currently lives with brother and daughter Exam Vital Signs Vital Sign - Last Date Time Temp Pulse Resp B/P Pulse Ox O2 Delivery O2 Flow Rate FiO2 01/20/17 15:34 85 16 150/84 100 Room Air 01/20/17 10:36 36.4 Exam Mildly agitated with pain, no JVD, dry mucous membrane, no LAD RRR, nl s1, s2 no mrg CTAB, no w,c S,ND, right lower quadrant tenderness,normoactive BS+ warm, trace edema, pulses 2/2 Lab and Diagnostics Result Diagram: 01/20/17 1052 01/20/17 1052 X-Rays, CTs and MRIs PROCEDURE: X-RAY ACUTE ABDOMINAL SERIES ([id number]) INDICATIONS: nausea, vomiting 3 days TECHNIQUE: One view chest and two views of the abdomen were acquired. COMPARISON: None. FINDINGS: Surgical changes and devices: None. Chest: Lungs are clear. Heart size is normal. No pleural effusions. No pneumoperitoneum. Abdomen: Bowel gas pattern abnormal. There is a generous amount of fecal material throughout the colon. There appear to be some air fluid levels in the colon loops small bowel involvement cannot be excluded. No suspicious calcifications. Visualized solid organ contours appear normal. Bones: No suspicious bony lesions. IMPRESSION: Abnormal nonspecific bowel gas pattern. Generous amount of fecal material is present in the colon. This are any clinical evidence to suggest distal colon obstruction? Dictated by: Sarath Patel M.D. on 01/20/2017 at 12:24 Approved by: Sarath Patel M.D. on 01/20/2017 at 12:28 PROCEDURE: CT ABDOMEN AND PELVIS WITH CONTRAST ([id number]) INDICATIONS: ? SBO TECHNIQUE: After the administration of intravenous contrast, 5 mm thick sections acquired from the diaphragm to the symphysis. 5 mm coronal and sagittal reformats were acquired. For radiation dose reduction, the following was used: automated exposure control, adjustment of mA and/or kV according to patient size. COMPARISON: [facility], CT, CT CHEST WO CON, 08/25/2016, 9:26. [facility], CR, XR ABD ACUTE SERIES 3VW, 01/20/2017, 12:01. FINDINGS: Image quality: Good ABDOMEN: Lung bases: Lung bases are clear. There is a small left pleural effusion is increased in size slightly since the CT of 08/25/16 Heart size is normal. Solid organs: Liver and spleen are normal in size and enhancement. There are scattered subcentimeter areas of decreased attenuation in the liver as on the previous CT and they are unchanged and thought to be small volume averaged cyst. Gallbladder is within normal limits. Biliary system is non dilated. Pancreas enhances normally. No adrenal nodules. Kidneys demonstrate normal size and enhancement, without hydronephrosis. Peritoneum and bowel: There is distention of several small bowel loops consistent with obstruction. At least one transition appears to be present on series 4 image 13 of small bowel loop tapering. Cause of obstruction is not apparent There is abnormally prominent soft tissue in the region of the antrum or duodenum bulb. A mass cannot be excluded. There is abnormal thickness of bowel loop in the sigmoid colon again abnormal mass versus prominent inflammation would be in the differential. No obstruction is seen in the region of the sigmoid. Bowel loops demonstrate normal wall thickness and caliber. No free air. Moderate amount of ascites is present. Nodes and vessels: No retroperitoneal or mesenteric adenopathy by size criteria. Aorta and inferior vena cava are normal in size. Miscellaneous: No ventral hernias. PELVIS: Genitourinary: Bladder wall thickness is normal. Uterus has been removed. Neither ovary is appreciated. Miscellaneous: No inguinal hernias or adenopathy. Bones: No suspicious bony lesions. No vertebral body compression fractures. IMPRESSION: In this patient with ascites a moderate amount and a small left pleural effusion the bowel gas pattern is abnormal and consistent with small bowel obstruction. Cause of the obstruction however is not appreciated There is abnormal thickening of the wall of the gastric antrum or proximal duodenal bulb and of a fairly long segment of sigmoid colon. Abnormal mass or unusual inflammation could cause this. Additional clinical information provided during discussion with ER clinician is that the patient has metastatic ovarian cancer. There are scattered lymph nodes in the mesentery but not abnormal by size criteria. Dictated by: Sarath Patel M.D. on 01/20/2017 at 14:01 Approved by: Sarath Patel M.D. on 01/20/2017 at 14:20 Assessment & Plan Acute, active Rotavirus gastroenteritis in the setting of metastatic mass in sigmoid, probable duodenum from ovarian cancer, overflow diarrhea, POA, SBO unlikely per [facility], surgery was consulted in ED -continue supportive tx, IVF, no abx, -will try enema if no BM -advance diet to liquid, if cannot tolerate PO, should repeat images, consider NGT -zofran for n/v -if clinically worsens, will contact [facility] [facility] at , case still opened, willing to accept for transfer per discussion with per ED provider -dilaudid prn for pain -contact precaution Chronic, stable metastatic ovarian cancer, schedule for appointment with prior to d/c for debulking surgery(tentatively planned on 01/24 per pt, please confirm with [facility] ) HTN, hold BP meds for now, consider resuming tomorrow AM LE edema, hold lasix dispo:Patient will be admitted with inpatient status with expectation of inpatient therapy for more than 2 midnights diet:liquid dvt ppx:SCD Full code, verbally confirmed with patient Time spent 65min Doroteo Shah MD Jan 20, 2017 18:02
[2017-01-20] MEDS ORDERED: FUR20 PO (18:18)
[2017-01-20] MEDS ORDERED: POTA10TA12 PO (18:18)
--- NOTE | 2017-01-20 19:20 | NUR ---
arrival Pt arrived on [facility] at 1835, pt able to walk from gurney to bed without assistance, pt stated minimal nausea, complained of pain in right arm where she got contrast, gave pt a K-Pad, oriented to room and call light, report given to power and recovery shift engineer RN care continued.
[2017-01-20] MEDS: Ondansetron 2 mg/mL 2 mL Inj IVPUSH PRN (20:10)
[2017-01-20] MEDS: HYDROmorphone 1 mg/mL Inj IVPUSH PRN (20:11)
[2017-01-20] MEDS: 0.9% NaCl + KCl 20 mEq/L 1,000 ML IV SCH (20:11)
[2017-01-20] MEDS: diphenhydrAMINE 25 mg Capsule PO PRN (21:18)
[2017-01-21 01:03] VITALS: BP 110/65; PULSE 59; RESP 18; O2SAT 98
[2017-01-21] MEDS: HYDROmorphone 1 mg/mL Inj IVPUSH PRN ×4 (03:58→17:21)
[2017-01-21] MEDS: 0.9% NaCl + KCl 20 mEq/L 1,000 ML IV SCH ×2 (03:58→13:21)
[2017-01-21] MEDS: Ondansetron 2 mg/mL 2 mL Inj IVPUSH PRN (04:03)
[2017-01-21 04:30] LABS: BASOPHILS % (AUTO) 0.2 % (0-3); MONOCYTES % (AUTO) 21.4 % (4-12); Mean Corpuscular Hemoglobin 28.9 pg (27.0-35.0); Mean Corpuscular Volume 85.5 fL (81-100); NEUTROPHILS % (AUTO) 47.7 % (40-74); Platelet Count 359 bil/L (150-400)
[2017-01-21] MEDS: diphenhydrAMINE 25 mg Capsule PO PRN ×2 (04:30→13:21)
[2017-01-21 04:56] LABS: Magnesium 1.8 mg/dL (1.6-2.6); Phosphorus 3.3 mg/dL (2.5-4.9)
[2017-01-21 05:22] VITALS: PULSE 77
--- NOTE | 2017-01-21 05:36 | NUR ---
Shift Note Assumed pt care at 1900, pt with intermittent Nausea/abdominal pain throughout night, no dry heaves/emesis, managed with PRN Zofran and Dilaudid, effective per pt report, continues with IVF, pending surgery consult, call light in reach at all times.
[2017-01-21 07:27] VITALS: BP 104/66; PULSE 76; RESP 18; O2SAT 97
[2017-01-21] MEDS ORDERED: Polyethylene Glycol (PEG) 17 Gm Powder PO ONE (08:00)
[2017-01-21] MEDS ORDERED: Polyethylene Glycol (PEG) 17 Gm Powder PO PRN (08:00)
[2017-01-21 09:24] VITALS: BP 113/66; PULSE 61; RESP 16; O2SAT 100
--- NOTE | 2017-01-21 09:43 | PCM.PNMED ---
Subjective Date of Service Jan 21, 2017 Subjective pt c/o Rt foot numbness which was started since Chemo 6wks ago, but on/off, worsened 3days ago, denied joint pain, it's on dorsum and pain traveled to anterior oliva still intermittently nauseated. no vomiting having loose stools, complained for itching diffusely Exam Vital Signs Vital Sign - Last Date Time Temp Pulse Resp B/P Pulse Ox O2 Delivery O2 Flow Rate FiO2 01/21/17 09:24 61 16 113/66 100 Room Air 01/21/17 07:27 36.9 Intake and Output 01/20/17 01/20/17 01/21/17 Cumulative From/Thru 15:00 23:00 07:00 01/20/17 10:36 - 01/21/17 04:21 Intake Total 1000 ml 2000 ml 729 ml 3729 ml Output Total 400 ml 400 ml Balance 1000 ml 2000 ml 329 ml 3329 ml IV Total 1000 ml 2000 ml 729 ml 3729 ml Output Urine Total 400 ml 400 ml Exam comfortable, no JVD, dry mucous membrane, no LAD RRR, nl s1, s2 no mrg CTAB, no w,c S,ND, diffuse tenderness,normoactive BS+ warm, trace edema, pulses 2/2 IVs and Medications Medications Reviewed: Medications were reviewed in detail Lab and Diagnostics Result Diagram: 01/21/1734401/21/17 034 X-Rays, CTs and MRIs PROCEDURE: X-RAY ACUTE ABDOMINAL SERIES ([id number]) INDICATIONS: nausea, vomiting 3 days TECHNIQUE: One view chest and two views of the abdomen were acquired. COMPARISON: None. FINDINGS: Surgical changes and devices: None. Chest: Lungs are clear. Heart size is normal. No pleural effusions. No pneumoperitoneum. Abdomen: Bowel gas pattern abnormal. There is a generous amount of fecal material throughout the colon. There appear to be some air fluid levels in the colon loops small bowel involvement cannot be excluded. No suspicious calcifications. Visualized solid organ contours appear normal. Bones: No suspicious bony lesions. IMPRESSION: Abnormal nonspecific bowel gas pattern. Generous amount of fecal material is present in the colon. This are any clinical evidence to suggest distal colon obstruction? Dictated by: Sarath Patel M.D. on 01/20/2017 at 12:24 Approved by: Sarath Patel M.D. on 01/20/2017 at 12:28 PROCEDURE: CT ABDOMEN AND PELVIS WITH CONTRAST ([id number]) INDICATIONS: ? SBO TECHNIQUE: After the administration of intravenous contrast, 5 mm thick sections acquired from the diaphragm to the symphysis. 5 mm coronal and sagittal reformats were acquired. For radiation dose reduction, the following was used: automated exposure control, adjustment of mA and/or kV according to patient size. COMPARISON: [facility], CT, CT CHEST WO CON, 08/25/2016, 9:26. [facility], CR, XR ABD ACUTE SERIES 3VW, 01/20/2017, 12:01. FINDINGS: Image quality: Good ABDOMEN: Lung bases: Lung bases are clear. There is a small left pleural effusion is increased in size slightly since the CT of 08/25/16 Heart size is normal. Solid organs: Liver and spleen are normal in size and enhancement. There are scattered subcentimeter areas of decreased attenuation in the liver as on the previous CT and they are unchanged and thought to be small volume averaged cyst. Gallbladder is within normal limits. Biliary system is non dilated. Pancreas enhances normally. No adrenal nodules. Kidneys demonstrate normal size and enhancement, without hydronephrosis. Peritoneum and bowel: There is distention of several small bowel loops consistent with obstruction. At least one transition appears to be present on series 4 image 13 of small bowel loop tapering. Cause of obstruction is not apparent There is abnormally prominent soft tissue in the region of the antrum or duodenum bulb. A mass cannot be excluded. There is abnormal thickness of bowel loop in the sigmoid colon again abnormal mass versus prominent inflammation would be in the differential. No obstruction is seen in the region of the sigmoid. Bowel loops demonstrate normal wall thickness and caliber. No free air. Moderate amount of ascites is present. Nodes and vessels: No retroperitoneal or mesenteric adenopathy by size criteria. Aorta and inferior vena cava are normal in size. Miscellaneous: No ventral hernias. PELVIS: Genitourinary: Bladder wall thickness is normal. Uterus has been removed. Neither ovary is appreciated. Miscellaneous: No inguinal hernias or adenopathy. Bones: No suspicious bony lesions. No vertebral body compression fractures. IMPRESSION: In this patient with ascites a moderate amount and a small left pleural effusion the bowel gas pattern is abnormal and consistent with small bowel obstruction. Cause of the obstruction however is not appreciated There is abnormal thickening of the wall of the gastric antrum or proximal duodenal bulb and of a fairly long segment of sigmoid colon. Abnormal mass or unusual inflammation could cause this. Additional clinical information provided during discussion with ER clinician is that the patient has metastatic ovarian cancer. There are scattered lymph nodes in the mesentery but not abnormal by size criteria. Dictated by: Sarath Patel M.D. on 01/20/2017 at 14:01 Approved by: Sarath Patel M.D. on 01/20/2017 at 14:20 Assessment & Plan Acute, active Rotavirus gastroenteritis in the setting of metastatic mass in sigmoid, probable duodenum from ovarian cancer, overflow diarrhea, POA, SBO unlikely per [facility], surgery was consulted in ED -continue supportive tx, IVF, no abx, -pt refused enema, will try MIralax -continue liquid diet, if cannot tolerate PO, should repeat images, consider NGT -zofran for n/v -if clinically worsens, will contact [facility] at , case still opened, willing to accept for transfer per discussion with per ED provider -dilaudid prn for pain -contact precaution Generalized pruritus, developed since adm, likely due to dilaudid, will consider fentanyl for pain,Chlophenirmaine prn Chronic, stable metastatic ovarian cancer, schedule for appointment with prior to d/c for debulking surgery(tentatively planned on 01/24 per pt, Please confirm with [facility] prior to d/c HTN, hold BP meds for now, BP still low today, continue to hold LE edema, hold lasix given GI fluid loss dispo:likely 1-2more days diet:liquid dvt ppx:SCD Full code, verbally confirmed with patient VTE Mechanical Devices: Intermittant Pneumatic CD Time spent 35min Doroteo Shah MD Jan 21, 2017 09:43
[2017-01-21] MEDS ORDERED: oxyCODONE 1 mg/mL 5 mL Liquid PO PRN (09:50)
[2017-01-21 15:35] VITALS: BP 110/69; PULSE 77; RESP 18; O2SAT 100
--- NOTE | 2017-01-21 18:27 | NUR ---
GI/ACTIVITY Patient complains of the followin. Pain in her R foot. BLE numbness, which is not new. Seen and examined by Dr. Shah. No new orders received. 2. R side abdominal pain. + bowel sounds. Per patient she had a loose BM this morning. Miralax administered. 3. Complains of generalized pain. Dilaudid 2 mg IVP has been helpful for pain control. Tolerating liquids PO well. Denies nausea. No emesis noted. Denies SOB. patient has been able to get up to the BSC independently. Noted to have ambulated independently/SBA in the room. Tolerating activity fairly.
[2017-01-21 20:00] VITALS: BP 96/50; PULSE 84; RESP 18; O2SAT 99
[2017-01-22] MEDS: 0.9% NaCl + KCl 20 mEq/L 1,000 ML IV SCH ×3 (00:20→12:26)
[2017-01-22] MEDS: HYDROmorphone 1 mg/mL Inj IVPUSH PRN (02:40)
[2017-01-22] MEDS: diphenhydrAMINE 25 mg Capsule PO PRN (04:02)
[2017-01-22 04:10] VITALS: BP 115/68; PULSE 80; RESP 18; O2SAT 99
--- NOTE | 2017-01-22 04:37 | NUR ---
PAIN/ANXIETY PT REPORTED PAIN ONE TIME THIS SHIFT AND ONLY TO HER ABDOMEN, STATED IT WAS 7/10 AND DILAUDID WAS GIVEN WITH + RESULTS. PT DENIED PAIN IN HER RIGHT FOOT OR NUMBNESS AND TINGLING. PT HAD INCREASE IN ANXIETY THIS SHIFT HER BROTHER WAS HERE WITH HIS GIRLFRIEND AND THE GIRLFRIEND WAS BADGERING HER ABOUT INSURANCE AND GETTING IT "STRAIGHTENED OUT". DEMANDED PT SPEAK TO SS. PASSED ON TO AM SHIFT TO HAVE SS SEE PT. PT TOLD THIS NURSE SHE DOES NOT WANT HER BROTHER OR THE GIRLFRIEND TO HAVE ANY MEDICAL INFO. PT WAS THEN SPEAKING VERY LOUDLY ON SPEAKER PHONE AND STATED IT WAS HER SISTER. HER SISTER WAS TELLING THE PT SHE WAS GOING TO "TAKE CARE" OF THINGS IN THE MORNING AND WAS DEMANDING PT GO DIRECTLY TO [facility] WITHOUT CALLING [facility]. PT CONFIDED TO THIS NURSE THAT SHE FEELS HER SISTER IS "GOING TO MAKE TROUBLE" IN THE AM AND DIDN'T KNOW WHAT TO DO ABOUT IT. SHE WAS VERY ANXIOUS AND RESTLESS. I ADVISED I WOULD NOTIFY CHARGE NURSE OF THIS. CHARGE NURSE NOTIFIED OF BOTH FAMILY ISSUES AND WILL PASS ON TO AM SHIFT. PT WAS ABLE TO CALM DOWN AFTER REASSURANCE AND DECREASE IN ENVIRONMENT STIMULATION. SHE DID SLEEP PART OF THIS SHIFT. PT IS UP TO BSC IND. AND IS TOLERATING PO FLUIDS. CARE CONTINUES
[2017-01-22 06:39] LABS: BASOPHILS % (AUTO) 0.4 % (0-3); EOSINOPHILS % (AUTO) 1.6 % (0-5); MONOCYTES % (AUTO) 16.6 % (4-12); Mean Corpuscular Volume 85.9 fL (81-100); NEUTROPHILS % (AUTO) 45.3 % (40-74); Platelet Count 345 bil/L (150-400)
[2017-01-22 07:05] LABS: Magnesium 1.5 mg/dL (1.6-2.6); Phosphorus 1.8 mg/dL (2.5-4.9)
[2017-01-22 09:04] VITALS: BP 127/85; PULSE 107; RESP 16; O2SAT 100
--- NOTE | 2017-01-22 09:09 | NUR ---
Visitor info Did get in report this AM that pts sister was "going to come in and cause problems." Went in to address this issue this AM with pt. Pt states that her sister is way to involved and she doesnt want her (Amada) or her brothers girlfriend (Irma) to have any info regarding her medical info. Primary nurse Bill updated as well as RICARDO Mitchell to screen her calls. Care conts
[2017-01-22] MEDS ORDERED: Magnesium Sulf 2 Gm/50 mL D5W IV ONE (09:55)
[2017-01-22 12:01] VITALS: BP 108/65; PULSE 97; RESP 16; O2SAT 99
--- NOTE | 2017-01-22 13:15 | PCM.DIMED ---
Discharge Instructions Date of Service Jan 22, 2017 Dates of Hospitalization Jan 20, 2017 at 17:36 Discharge Diagnosis Discharge Diagnosis Partial small bowel obstruction, rotavirus enteritis Diet Discharge Diet: Other (liquid diet as previously advanced as able) Activity Discharge Activity: No restrictions Call your provider Call your provider for: Other (diarrhea/worsening abdominal pain, swelling of the lower extremities) Cricket Kim MD Jan 22, 2017 13:15
--- NOTE | 2017-01-22 13:19 | NUR ---
NUTRITION ASSESSMENT: ASSESS: 56YO F admit with persistent abdominal pain, n/v/diarrhea; rotavirus gastroenteritis with metastatic mass in sigmoid from ovarian cancer. MD note indicate supportive therapy with IV antibiotics, liquid diet. PMHX: Ovarian cancer with mets, finished chemo therapy, DIET: Full Liquid PO 100% LABS: Ca 7.8, Phos 1.8, Mg 1.5, Alb 2.1 MEDS: Reviewed GI: No BM recorded WEIGHT: 59.9kg, admit wt:51.8kg BMI: 22.0. Pt reports 40lb weight loss x 6mos = 13% weight loss EST.NEEDS: WT GAIN/CANCER (30-35kcal/kg;1.2-1.8g/kg pro) Kcal: 5709-5141 Pro: 70-110g NUTRITION DIAGNOSIS: (1) Severe malnutrition related to altered GI tract function as evidenced by 13% weight loss x 6mos. INTERVENTION: (1) Ensure and magic cup supplements added to meal trays to promote adequate kcal/protein intake. MONITOR/EVALUATE: Diet tolerance, po intake, lab values, POC. F/U per high risk.
[2017-01-22] MEDS ORDERED: DIPH25CA6 PO (13:20)
[2017-01-22] MEDS ORDERED: ATEN25TA PO (13:20)
[2017-01-22] MEDS ORDERED: ONDA-53 PO (13:20)
[2017-01-22] MEDS ORDERED: MAGN800O PO (13:20)
[2017-01-22] MEDS ORDERED: OXYC5SOL11 PO (13:20)
--- NOTE | 2017-01-22 15:17 | NUR ---
DISCHARGE Patient stated she had some abdominal cramping from time to time but not pain. Denies pain. tolerating liquids PO and her diet. Denies nausea. No emesis noted. Patient is passing out gas and per patient she has been able to have 2 good sized BM. Denies SOB. Voiding without any issues noted. Ambulating with SBA or independently in the room. IV saline lock d/cd. Discharge instructions, care notes and prescription was given to the patient and she verbalized understanding. Discharged to home with her sister and all her personal belongings. (Copy of D/C is in the chart).
--- NOTE | 2017-01-22 19:24 | PCM.DC.MED ---
Discharge Summary Date of Service Jan 22, 2017 Dates of Hospitalization Date of Hospital Admission Jan 20, 2017 at 17:36 Date of Discharge: Jan 22, 2017 Providers: Admitting Physician: Doroteo Shah MD Primary Care Physician: Pastora Myles Attending Physician: Doroteo Shah MD Diagnosis at Time of Discharge Diagnosis at Time of Discharge Partial small bowel obstruction, rotavirus enteritis Consultations None Procedures XRay, CTs & MRIs PROCEDURE: X-RAY ACUTE ABDOMINAL SERIES ([id number]) INDICATIONS: nausea, vomiting 3 days TECHNIQUE: One view chest and two views of the abdomen were acquired. COMPARISON: None. FINDINGS: Surgical changes and devices: None. Chest: Lungs are clear. Heart size is normal. No pleural effusions. No pneumoperitoneum. Abdomen: Bowel gas pattern abnormal. There is a generous amount of fecal material throughout the colon. There appear to be some air fluid levels in the colon loops small bowel involvement cannot be excluded. No suspicious calcifications. Visualized solid organ contours appear normal. Bones: No suspicious bony lesions. IMPRESSION: Abnormal nonspecific bowel gas pattern. Generous amount of fecal material is present in the colon. This are any clinical evidence to suggest distal colon obstruction? Dictated by: Sarath Patel M.D. on 01/20/2017 at 12:24 Approved by: Sarath Patel M.D. on 01/20/2017 at 12:28 PROCEDURE: CT ABDOMEN AND PELVIS WITH CONTRAST ([id number]) INDICATIONS: ? SBO TECHNIQUE: After the administration of intravenous contrast, 5 mm thick sections acquired from the diaphragm to the symphysis. 5 mm coronal and sagittal reformats were acquired. For radiation dose reduction, the following was used: automated exposure control, adjustment of mA and/or kV according to patient size. COMPARISON: [facility], CT, CT CHEST WO CON, 08/25/2016, 9:26. [facility], CR, XR ABD ACUTE SERIES 3VW, 01/20/2017, 12:01. FINDINGS: Image quality: Good ABDOMEN: Lung bases: Lung bases are clear. There is a small left pleural effusion is increased in size slightly since the CT of 08/25/16 Heart size is normal. Solid organs: Liver and spleen are normal in size and enhancement. There are scattered subcentimeter areas of decreased attenuation in the liver as on the previous CT and they are unchanged and thought to be small volume averaged cyst. Gallbladder is within normal limits. Biliary system is non dilated. Pancreas enhances normally. No adrenal nodules. Kidneys demonstrate normal size and enhancement, without hydronephrosis. Peritoneum and bowel: There is distention of several small bowel loops consistent with obstruction. At least one transition appears to be present on series 4 image 13 of small bowel loop tapering. Cause of obstruction is not apparent There is abnormally prominent soft tissue in the region of the antrum or duodenum bulb. A mass cannot be excluded. There is abnormal thickness of bowel loop in the sigmoid colon again abnormal mass versus prominent inflammation would be in the differential. No obstruction is seen in the region of the sigmoid. Bowel loops demonstrate normal wall thickness and caliber. No free air. Moderate amount of ascites is present. Nodes and vessels: No retroperitoneal or mesenteric adenopathy by size criteria. Aorta and inferior vena cava are normal in size. Miscellaneous: No ventral hernias. PELVIS: Genitourinary: Bladder wall thickness is normal. Uterus has been removed. Neither ovary is appreciated. Miscellaneous: No inguinal hernias or adenopathy. Bones: No suspicious bony lesions. No vertebral body compression fractures. IMPRESSION: In this patient with ascites a moderate amount and a small left pleural effusion the bowel gas pattern is abnormal and consistent with small bowel obstruction. Cause of the obstruction however is not appreciated There is abnormal thickening of the wall of the gastric antrum or proximal duodenal bulb and of a fairly long segment of sigmoid colon. Abnormal mass or unusual inflammation could cause this. Additional clinical information provided during discussion with ER clinician is that the patient has metastatic ovarian cancer. There are scattered lymph nodes in the mesentery but not abnormal by size criteria. Dictated by: Sarath Patel M.D. on 01/20/2017 at 14:01 Approved by: Sarath Patel M.D. on 01/20/2017 at 14:20 Brief History 56-year-old female with metastatic ovarian cancer, metastasis colon, following p/w intractable abdominal pain, nausea, vomiting, diarrhea for 3 days. Patient was first diagnosed ovarian cancer , finished her chemotherapy 6 weeks ago, total 12 weeks course, currently not on any chemotherapy or medical therapy, patient was tentatively scheduled for debulking surgery in the near future. As patient finished chemotherapy 6 weeks ago, patient has support from complications, ongoing abdominal pain, loose stools, intermittent nausea, which was controlled with zofran. pt can only tolerate liquid diet. Since Aug, pt lost almost 40lbs.About 3days ago, pt started having severe abdominal pain. Denied any unusual food intake, sick contact. pt also started having watery diarrhea, no mucous nonbloody, abdominal pain was not relieved with regular ibuprofen. Patient does not have any narcotics for pain. pt was not able to eat anything down and kept having diarrhea >10times /d. Patient waited for 3 days, but symptoms did not resolve, decided to come to hospital. ROS: Patient denied fever, chills, chest pain, cough, sputum, headache, dizziness In emergency room, VSS, pt was not toxic looking. initial abd exam was benign. CT abd showed air-fluid level, hospital SBO, moderate amount of ascites, abnormal thickening of the wall on duodenum, sigmoid colon, suggestive of known mass. Given probable SBO, was consulted, defer surgical w/u per [facility] at . stool PCR also positive for Rota virus. oncall onc CLINICAL DOCUMENTATION CONSULTANT reviewed with ED provider, recommended supportive tx, enema given stool burden, will work on arranging debulking surgery soon with (not confirmed yet). pt received IVF, dilaudid 0.5mg multiple times, zofran 4mg iv During the interview, pt felt better with medicines at ED, wants to advance her diet. pain was not resolved but better controlled. Hospital Course 56-year-old female admitted 01/20 with abdominal pain and watery stools. She subsequently tested positive for rotavirus and then did not have any bowel movement imaging 01/20 was consistent with small bowel obstruction. She did not have bowel movements for another day, and her bowels again to move on the date of discharge and she was anxious to go home and was discharged accordingly. #SBO/Rotavirus gastroenteritis in the setting of metastatic mass in sigmoid, probable duodenum from ovarian cancer, - surgery apparently was willing to take the patient however symptoms resolved and she has a follow-up appointment I believe 02/04 in the outpatient -Diarrhea resolved, patient needing minimal pain medication and having bowel movements. #Generalized pruritus,-not an issue on discharge but she did get Benadryl on discharge #metastatic ovarian cancer, schedule for appointment with prior to d/c for debulking surgery #HTN,-blood pressure below 100-120 slightly tachycardic atenolol discontinued and not resumed on discharge #LE edema, Lasix not resumed on discharge diet:liquid dvt ppx:SCD Full code, verbally confirmed with patient Exam Vital Signs (Last) Date Time Temp Pulse Resp B/P Pulse Ox O2 Delivery O2 Flow Rate FiO2 01/22/17 12:01 36.8 97 16 108/65 99 Room Air Test 01/20/17 10:52 01/20/17 11:17 01/21/17 03:45 01/22/17 06:05 Hold Blue Top Tube Received (Received) Lactic Acid Level 1.7mmol/L (0.4-2.0) Lipase 18U/L (13-60) Hold Vargas Top Tube Received (Received) Urine Color Dark yellow (YELLOW) Urine Appearance Clear (CLEAR,HAZY) Urine pH 6.0 (5.0-8.0) Urine Specific [place] >1.030 (1.003-1.035) Urine Protein Tracemg/dL (NEG,TRACE) Urine Glucose (UA) Negativemg/dL (NEGATIVE) Urine Ketones >80mg/dL (NEGATIVE) Urine Occult Blood Negative (NEGATIVE) Urine Nitrite Negative (NEGATIVE) Urine Bilirubin Negative (NEGATIVE) Urine Urobilinogen Normalmg/dL (NORMAL) Urine Leukocyte Esterase Negative (NEGATIVE) Urine RBC 0-2/hpf (0-2) Urine WBC 0-5/hpf (0-5) Urine Epithelial Cells Many/hpf (NONE-MOD) Urine Crystals None seen (NONE SEEN) Urine Bacteria Few/hpf (NONE-FEW) Urine Hyaline Casts Occasional/lpf (NONE) Urine Granular Casts None seen (NONE SEEN) Urine Waxy Casts None seen (NONE SEEN) Urine Red Blood Cell Casts None seen (NONE SEEN) Urine White Blood Cell Casts None seen (NONE SEEN) Urine Mucus Present (None Seen) Urine Trichomonas None seen (NONE SEEN) Urine Yeast None (NONE SEEN) Urinalysis Comment None Urine Culture Reflexed Not indicated Procalcitonin 0.09ng/mL (0.00-0.08) White Blood Count 5.1th/mm3 (3.8-10.1) Red Blood Count 4.11mil/mm3 (3.90-5.20) Hemoglobin 11.9g/dL (12.0-15.6) Hematocrit 35.3% (35.0-46.0) Mean Corpuscular Volume 85.9fL (81-100) Mean Corpuscular Hemoglobin 29.0pg (27.0-35.0) Mean Corpuscular Hemoglobin Concent 33.7% (32.0-37.0) Red Cell Distribution Width 14.1% (12.3-15.4) Platelet Count 345bil/L (150-400) Neutrophils (%) (Auto) 45.3% (40-74) Lymphocytes (%) (Auto) 35.9% (14-46) Monocytes (%) (Auto) 16.6% (4-12) Eosinophils (%) (Auto) 1.6% (0-5) Basophils (%) (Auto) 0.4% (0-3) Sodium Level 134mEq/L (134-144) Potassium Level 3.8mEq/L (3.5-5.2) Chloride Level 100mEq/L (97-108) Carbon Dioxide Level 24mmol/L (18-29) Blood Urea Nitrogen 16mg/dL (6-24) Creatinine 0.62mg/dL (0.57-1.00) Estimat Glomerular Filtration Rate 143mL/min (>59) Glucose Level 69mg/dL (60-99) Calcium Level 7.8mg/dL (8.5-10.1) Phosphorus Level 1.8mg/dL (2.5-4.9) Magnesium Level 1.5mg/dL (1.6-2.6) Total Bilirubin 0.3mg/dL (0.0-1.2) Aspartate Amino Transf (AST/SGOT) 16U/L (0-50) Alanine Aminotransferase (ALT/SGPT) 16U/L (0-32) Alkaline Phosphatase 62U/L (25-150) Total Protein 5.2g/dL (6.4-8.4) Albumin 2.1g/dL (3.4-5.0) Discharge Medications Discharge Medications Atenolol (Atenolol) 25 Mg Tablet 50 MG PO HS Prescribed by: KASSIE BERNAL MD As needed Magnesium Hydroxide (Milk of Magnesia) 2,400 Mg/10 Ml Oral.susp 2,400 MG PO BID PRN PRN For Constipation Prescribed by: KASSIE BERNAL MD Ondansetron (Ondansetron) 4 Mg Tablet 4 MG PO q4 PRN PRN For Nausea Prescribed by: KASSIE BERNAL MD diphenhydrAMINE HCl (Benadryl) 25 Mg Capsule 25 MG PO Q6H PRN PRN For Itching Prescribed by: KASSIE BERNAL MD oxyCODONE (oxyCODONE) 5 Mg/5 Ml Solution 2.5-5 MG PO Q4H PRN PRN For Severe Pain Prescribed by: KASSIE BERNAL MD Followup Plan Disposition: To home Follow-up plan Patient should see primary care provider as soon as possible and have complete metabolic magnesium and phosphate drawn. She likely needs ongoing replacement. Discharge Diet: Other (liquid diet as previously advanced as able) Discharge Activity: No restrictions Follow-up Provider: Pastora Myles Follow-up with PCP in: Other (as soon as possible with complete metabolic, phosphate and magnesium drawn) Time spent Greater than 30 minutes Attending Statement Patient should have follow-up with Pastora Myles as soon as possible and just prior to that a complete metabolic panel with magnesium and phosphate as she probably needs ongoing supplementation was not provided at the time of discharge. Also she probably needs follow-up on her blood pressure and heart rate. She needs to be as tuned up as possible to manage her symptoms so that she can go for debulking's surgery expeditiously when seen at [facility]. copies to: Pastora Myles Andris E MD Jan 22, 2017 19:24
== END 2017-01-22 15:23 | disposition home or self-care (01) | DRG 392 ==
LOC: SED 10:31 → EDBD 10:31 → OSC 17:36
PROVIDERS: ADMIT Internal Medicine; ATTEND Internal Medicine
DX: A08.0 Rotaviral enteritis (principal); C78.5 Secondary malignant neoplasm of large intestine and rectum; K56.60 Unspecified intestinal obstruction; C56.9 Malignant neoplasm of unspecified ovary; C78.89 Secondary malignant neoplasm of other digestive organs; Z92.21 Personal history of antineoplastic chemotherapy; Z87.891 Personal history of nicotine dependence; L29.9 Pruritus, unspecified; T40.2X5A Adverse effect of other opioids, initial encounter; I10 Essential (primary) hypertension

== ENCOUNTER 2017-01-24 16:09 | Inpatient (IN) | payer OTHER ==
[~2017-01-24] VITALS: Ht 165.1 cm; Wt 36.5 kg
[~2017-01-24 16:09] MED LIST changes: -ALPH300T2 PO; +ATEN25TA PO; -ATEN50TA PO; +DIPH25CA6 PO; -EPIN0.3P2 IJ; -FAMO20T PO; -IBUP200C PO; +MAGN800O PO; +ONDA-53 PO; -ONDA4TAB9 PO; +OXYC5SOL11 PO; -SIME125C PO
[2017-01-24 16:20] VITALS: BP 155/102; PULSE 116; RESP 16; O2SAT 100
[2017-01-24 18:06] LABS: BASOPHILS % (AUTO) 0.5 % (0-3); EOSINOPHILS % (AUTO) 0 % (0-5); MONOCYTES % (AUTO) 14.1 % (4-12); Mean Corpuscular Hemoglobin 29.1 pg (27.0-35.0); Mean Corpuscular Volume 83.1 fL (81-100); NEUTROPHILS % (AUTO) 70.6 % (40-74); Platelet Count 333 bil/L (150-400)
[2017-01-24 18:25] LABS: Magnesium 1.8 mg/dL (1.6-2.6)
--- NOTE | 2017-01-24 18:35 | ED.REPORT ---
HPI-Abd Pain F 40 and Over Date of Service Jan 24, 2017 ED Provider: Indra Reed MD Pt is a 56 year old female with a hx of HTN, colon cancer, ovarian cancer, and an abdominal mass due for surgery February 08 and then chemo presenting to the ED via EMS complaining of nausea and vomiting onset this morning. Associated symptoms include watery diarrhea, periumbilical abdominal pain, LE swelling, weakness, lower back pain. Denies any bloody diarrhea, fever, dysuria. Pt was recently admitted from January 20- for a partial small bowel obstruction. Nursing Notes Stated Complaint: NAUSEA,VOMITTING Chief Complaint: Female Abdominal Pain Nursing Notes Reviewed: Yes Allergies: Coded Allergies: Penicillins (Verified Allergy, Severe, Shortness of Breath, 01/20/17) turkey (Verified Allergy, Severe, tachycardia, 01/20/17) pt states anaphylactic shock NSAIDS (Non-Steroidal Anti-Inflamma (Verified Allergy, Unknown, 01/24/17) Scheduled Atenolol (Atenolol) 25 Mg Tablet 50 MG PO HS Scheduled PRN Magnesium Hydroxide (Milk of Magnesia) 2,400 Mg/10 Ml Oral.susp 2,400 MG PO BID PRN PRN For Constipation Ondansetron (Ondansetron) 4 Mg Tablet 4 MG PO q4 PRN PRN For Nausea diphenhydrAMINE HCl (Benadryl) 25 Mg Capsule 25 MG PO Q6H PRN PRN For Itching oxyCODONE (oxyCODONE) 5 Mg/5 Ml Solution 2.5-5 MG PO Q4H PRN PRN For Severe Pain General Time Seen by MD: 18:25 Chief Complaint Vomiting moderate Hx Obtained From: Patient, EMS Arrived By: Ambulance Sudden in Onset?: No Onset Occurred: 5 - 8 hours ago Symptom Duration: Since onset Progression since Onset: Constant Location: : Back: Periumbilical Quality: Painful Severity: Current: Moderate Severity: Maximum: Severe Associated with: Reports: Back pain, Diarrhea, Nausea, Vomiting, Denies: Dysuria, Fever, Hematochezia Recent Healthcare: Recent doctor visit, Recent hospitalization Similar Sx Previous: No Past Medical History Past Medical History ovairian cancer with mets to colon. finished chemo 6 weeks ago 01/20/2017 Reports: Hypertension Past Surgical History Reports: Hysterectomy Reports: Tubal ligation Family History Noncontributory Smoking History Former Smoker Social History Alcohol Use: Denies alcohol use Drug Use: Denies drug use Other Social History: Local resident Occupation lives with brother and her daughter, no work or school 08/20/2016 Ambulatory Status Independent Review of Systems Constitutional: Denies: Fever GI: Reports: Abdominal pain, Diarrhea, Nausea, Vomiting, Denies: Hematochezia Female: Denies: Dysuria Musculoskeletal: Reports: Back pain, Extremity swelling Complete sys rev & neg: except as marked. Neurologic: Reports: Weakness Physical Exam Vital Signs Vital Signs (First) Date Time Temp Pulse Resp B/P Pulse Ox O2 Delivery O2 Flow Rate FiO2 01/24/17 16:20 36.5 116 16 155/102 100 Room Air Initial VS: Reviewed Head / Eyes: Atraumatic, Normocephalic, PERRL Extremities: Vascular intact, Neuro intact, No swelling, No tenderness Skin: Warm, Dry, No cyanosis Neurologic: Alert, Oriented, Nonfocal Psychiatric: Mood/affect normal, Behavior normal, Normal thought content General/Constitutional: Awake, Alert Respiratory / Chest: Breath sounds NL, Breath sounds = bilat, No respiratory distress, No rales, No rhonchi, No wheezing, No stridor Cardiovascular: Regular rhythm, Heart sounds NL, No gallop, No murmurs, No rubs Heart Rate / Rhythm: Positive: Tachycardia Abdomen: Atraumatic Tenderness/Guarding/Rebound: Positive: Tender diffuse Bowel Sounds / Distention: Positive: Distention mild High pitched tinkling bowel sounds ENT: Atraumatic, Airway patent Mouth: Positive: Mucous membranes dry Interpretation & Diagnostics Lab Results Interpretation Result Diagram: 01/24/17 1802 01/24/17 1802 Test 01/24/17 18:02 01/24/17 21:49 White Blood Count 5.7th/mm3 (3.8-10.1) Red Blood Count 5.33mil/mm3 (3.90-5.20) Hemoglobin 15.5g/dL (12.0-15.6) Hematocrit 44.3% (35.0-46.0) Mean Corpuscular Volume 83.1fL (81-100) Mean Corpuscular Hemoglobin 29.1pg (27.0-35.0) Mean Corpuscular Hemoglobin Concent 35.0% (32.0-37.0) Red Cell Distribution Width 14.4% (12.3-15.4) Platelet Count 333bil/L (150-400) Neutrophils (%) (Auto) 70.6% (40-74) Lymphocytes (%) (Auto) 14.5% (14-46) Monocytes (%) (Auto) 14.1% (4-12) Eosinophils (%) (Auto) 0% (0-5) Basophils (%) (Auto) 0.5% (0-3) Sodium Level 132mEq/L (134-144) Potassium Level 4.3mEq/L (3.5-5.2) Chloride Level 93mEq/L (97-108) Carbon Dioxide Level 16mmol/L (18-29) Blood Urea Nitrogen 19mg/dL (6-24) Creatinine 0.68mg/dL (0.57-1.00) Estimat Glomerular Filtration Rate 129mL/min (>59) Glucose Level 110mg/dL (60-99) Calcium Level 8.6mg/dL (8.5-10.1) Phosphorus Level 4.9mg/dL (2.5-4.9) Magnesium Level 1.8mg/dL (1.6-2.6) Total Bilirubin 0.6mg/dL (0.0-1.2) Aspartate Amino Transf (AST/SGOT) 20U/L (0-50) Alanine Aminotransferase (ALT/SGPT) 21U/L (0-32) Alkaline Phosphatase 94U/L (25-150) Total Protein 6.7g/dL (6.4-8.4) Albumin 2.5g/dL (3.4-5.0) Lipase 13U/L (13-60) Hold Vargas Top Tube Received (Received) Urine Color Dark yellow (YELLOW) Urine Appearance Slightly cloudy Urine pH 5.5 (5.0-8.0) Urine Specific [place] 1.030 (1.003-1.035) Urine Protein 30mg/dL (NEG,TRACE) Urine Glucose (UA) Negativemg/dL (NEGATIVE) Urine Ketones 40mg/dL (NEGATIVE) Urine Occult Blood Negative (NEGATIVE) Urine Nitrite Negative (NEGATIVE) Urine Bilirubin Negative (NEGATIVE) Urine Urobilinogen 2.0mg/dL (NORMAL) Urine Leukocyte Esterase Negative (NEGATIVE) Urine RBC 0-2/hpf (0-2) Urine WBC 6-10/hpf (0-5) Urine Epithelial Cells Many/hpf (NONE-MOD) Urine Crystals Oxalic acid crystals (NONE Urine Bacteria Moderate/hpf (NONE-FEW) Urine Hyaline Casts >20/lpf (NONE) Urine Granular Casts None seen (NONE SEEN) Urine Waxy Casts None seen (NONE SEEN) Urine Red Blood Cell Casts None seen (NONE SEEN) Urine White Blood Cell Casts None seen (NONE SEEN) Urine Mucus Present (None Seen) Urine Trichomonas None seen (NONE SEEN) Urine Yeast None (NONE SEEN) Urinalysis Comment None Urine Culture Reflexed Indicated ECG Interpretation ECG Interpretation: Nonspecific ST segment changes. No acute. Time: 18:17 Interpreted by: ED physician Normal ECG Interpretation: Normal rate (91), Normal sinus rhythm X-Ray Abdominal Interpretation IMPRESSION: 1. New, focal pulmonary radiopacity in the left lung base. This may represent aspiration or infection. Followup to resolution is recommended. 2. Marked, persistent bowel dilatation. Differential considerations include small bowel obstruction versus distal bowel obstruction. Dictated by: Gillian Almeida M.D. on 01/24/2017 at 19:47 Interpretation / Wet Read by: Interpret - Radiologist Re-Eval/Medical Decision Med Decision/Clinical Course 56-year-old female with known ovarian cancer and bowel involvement presenting for the second time this week with a bowel obstruction. Symptoms are improved with ondansetron IV fluids and IV Dilaudid. The patient is refusing an NG tube. She also has a new infiltrate on her chest x-ray. Blood cultures have been obtained and she was started on IV Levaquin. While the patient was admitted earlier this week, she did not receive antibiotics and has not had other hospitalizations recently. I believe it is reasonable to treat her for community-acquired pneumonia. This patient is followed at the [facility] by [facility] oncology. She has a planned surgery, and the [facility] at [facility] has accepted her to treat and transfer however they do not have a bed to accommodate her tonight. Re-Evaluation/Progress #1: Time of Eval: 20:23 Patient Status: Condition improved Re-Evaluation/Progress Note: Pt reports that she is very thirsty but she has stopped vomiting. Discussed radiology and plan for IV antibiotics for pneumonia. Re-Evaluation/Progress #2: Time of Eval: 21:55 Re-Evaluation/Progress Note: Pt feeling a bit better, complains of nausea. Discussed plan for transfer to . Discussed NG tube insertion which she refuses. Consultation #1: Call Returned at: 21:16 Note: Spoke to Dr. Krista Menjivar lining ironer for gynecologic oncology. They are reviewing studies, considering transfer but they don't think they can take her tonight. Consultation #2: Call Returned at: 21:40 Note: Dr. Krista Menjivar. Accepts patient pending available bed. Asks us to place NG tube. Consultation #3: Call Returned at: 23:09 Note: Transfer Center. They hope to have a bed for her tomorrow morning. Call at 0900 for transfer to . We will admit her here overnight. Consultation #4: Referral / Consult Name: Piotr Lopez MD Consulted With: Hospitalist Healthcare Applications Analyst: Accepts admit Note: accepts admit, understands plan is to transfer to Counseled Regarding: Diagnosis, Lab results, Need for follow-up, When/why to return to ED Discharge & Departure Primary Impression: Small bowel obstruction Additional Impressions: Pneumonia Pneumonia type: due to unspecified organism Laterality: left Lung location : lower lobe of lung Qualified Code: J18.1 - Lobar pneumonia, unspecified organism Disseminated ovarian cancer Disposition: ADMITTED TO HOSPITAL Discharge Condition All VS Reviewed: Yes Condition: Improved Referrals: Pastora Myles (PCP) Berry Le OD Scrib[employer] Attestation Portions of this note were transcribed by Pat Snyder. I, Dr. Reed personally performed the history, physical exam and medical decision-making; I reviewed and confirmed the accuracy of the information in the transcribed note. Signed by : Jonnathan Giang, 01/24/2017 at [Time]. copies to: Berry Le OD; Pastora Myles Donald L MD Jan 24, 2017 18:35 PAT SNYDER Jan 24, 2017 18:41
[2017-01-24] MEDS ORDERED: 0.9% Sodium Chloride 1,000 ML IV ONE ×2 (18:45→20:45)
[2017-01-24] MEDS ORDERED: Ondansetron 2 mg/mL 2 mL Inj IVPUSH ONE ×2 (18:45→23:50)
[2017-01-24] MEDS ORDERED: HYDROmorphone 1 mg/mL Inj IVPUSH PRN (18:45)
[2017-01-24 19:10] LABS: Magnesium 1.8 mg/dL (1.6-2.6); Phosphorus 4.9 mg/dL (2.5-4.9)
[2017-01-24 19:29] VITALS: BP 136/94; PULSE 104; RESP 22; O2SAT 100
--- NOTE | 2017-01-24 19:52 | DRSVH ---
PROCEDURE: X-RAY ACUTE ABDOMINAL SERIES ([id number]) INDICATIONS: abdominal pain and distention TECHNIQUE: One view chest and two views of the abdomen were acquired. COMPARISON: [facility], CR, XR ABD ACUTE SERIES 3VW, 01/20/2017, 12:01. FINDINGS: Surgical changes and devices: None. Chest: The apical pulmonary radiopacity is present within the left lateral lung base which is Compared with the study dated 01/20/17. The lungs are otherwise clear. Abdomen: There are multiple markedly dilated loops of small bowel throughout the abdomen. There is ga seous distention of the proximal colon in the distal colon appears stool filled. These findings are s imilar in extent to the study dated 01/20/17. No pneumatosis or pneumoperitoneum. Bones: No suspicious bony lesions. IMPRESSION: 1. New, focal pulmonary radiopacity in the left lung base. This may represent aspiration or infection . Followup to resolution is recommended. 2. Marked, persistent bowel dilatation. Differential considerations include small bowel obstruction v ersus distal bowel obstruction. Dictated by: Gillian Almeida M.D. on 01/24/2017 at 19:47 Approved by: Gillian Almeida M.D. on 01/24/2017 at 19:50
[2017-01-24] MEDS ORDERED: levoFLOXacin Inj 750 MG in IV Premix 1 EACH IV ONE (20:20)
[2017-01-24 22:30] VITALS: BP 132/88; PULSE 116; O2SAT 100
[2017-01-24 22:36] LABS: APPEARANCE,URINE SLIGHTLY CLOUDY (CLEAR,HAZY); COLOR,URINE DARK YELLOW (YELLOW); OCCULT BLOOD,URINE NEGATIVE (NEGATIVE); PH,URINE 5.5 (5.0-8.0)
[2017-01-24] MEDS ORDERED: Polyethylene Glycol (PEG) 17 Gm Powder PO PRN (23:25)
[2017-01-24] MEDS ORDERED: Alum-Mag Hydrox-Simeth 30 mL Suspension PO PRN (23:25)
--- NOTE | 2017-01-24 23:27 | PCM.HPMED ---
Subjective Date of Service Jan 24, 2017 Primary Provider: Admitting Physician: Primary Care Physician: Pastora Myles Attending Physician: Admit Status: From the Emergency Department, Full Admit, Non-Telemetry Chief Complaint: Persistent nausea and vomiting History of Present Illness: Krista Sung is a 56 year old female with Metastatic Ovarian cancer, presenting to the ED via EMS complaining of nausea and vomiting onset this morning. Patient reported she was doing well since she was discharged a few days ago but then this morning developed acute onset of nausea and multiple rounds of vomiting. Associated symptoms include watery diarrhea and periumbilical abdominal pain, LE swelling. She reported some subjective fever. Denies any bloody diarrhea, fever, dysuria. Pt was recently admitted from January 20- for a partial small bowel obstruction. She also had diarrhea due to rotavirus gastroenteritis in the setting of metastatic mass in sigmoid, probable duodenum from ovarian cancer. surgery apparently was willing to take the patient however symptoms resolved and she has a follow-up appointment I believe 02/04 in the outpatient Case discussed with Dr Reed who contacted who accepted patient. Dr. Krista Menjivar writer technical publications for gynecologic oncology accepted patient but no bed available tonight. Plan to admit then transfer once bed is available later today. Patient refused NG tube placement. Review of Systems: Pertinent positives as noted in HPI. All other systems were reviewed and are negative Allergies Coded Allergies: Penicillins (Verified Allergy, Severe, Shortness of Breath, 01/20/17) turkey (Verified Allergy, Severe, tachycardia, 01/20/17) pt states anaphylactic shock NSAIDS (Non-Steroidal Anti-Inflamma (Verified Allergy, Unknown, 01/24/17) Home Medications From recent discharge summary Atenolol (Atenolol) 25 Mg Tablet 50 MG PO HS Prescribed by: KASSIE BERNAL MD As needed Magnesium Hydroxide (Milk of Magnesia) 2,400 Mg/10 Ml Oral.susp 2,400 MG PO BID PRN PRN For Constipation Prescribed by: KASSIE BERNAL MD Ondansetron (Ondansetron) 4 Mg Tablet 4 MG PO q4 PRN PRN For Nausea Prescribed by: KASSIE BERNAL MD diphenhydrAMINE HCl (Benadryl) 25 Mg Capsule 25 MG PO Q6H PRN PRN For Itching Prescribed by: KASSIE BERNAL MD oxyCODONE (oxyCODONE) 5 Mg/5 Ml Solution 2.5-5 MG PO Q4H PRN PRN For Severe Pain Prescribed by: KASSIE BERNAL MD [facility] Metastatic ovarian cancer Metastasis colon, following Surgical History Tubal ligation in 1998 Hysterectomy 16 years ago due to probable [place] cancer Family History No family history of Coronary artery disease Social History Hx Alcohol Use: No Hx Substance Use: No Hx Tobacco Use: Yes Smoking Status: Former Smoker Living Arrangement: with Family (with brother and sister) Exam Vital Signs Vital Sign - Last Date Time Temp Pulse Resp B/P Pulse Ox O2 Delivery O2 Flow Rate FiO2 01/24/17 22:30 36.7 116 132/88 100 Room Air 01/24/17 19:29 22 Exam General: Alert, Oriented X3, Cooperative, No acute Distress but looks cachectic Eyes: PERRLA, Scleral Anicteric Mouth: Mouth Normal, Mucous Membranes dry Neck: Supple, no Thyromegaly, trachea central. Chest & Lungs: basal rhonci heard anteriorly Cardiovascular: Normal S1, Normal S2, No Murmurs/Rubs/Gallops, Regular Rate/ Rhythm, (No JVD, no peripheral edema) Pulses: Radial (present and equal), Dorsalis Pedi (present and equal) Abdomen: Soft, Non-tender, mild distended, Normoactive bowel tones. Musculoskeletal: Unremarkable. Normal range of motion, no swollen or erythematous joints Extremities: No edema, no cyanosis, no clubbing. Skin: No rashes. Warm and dry, no erythematous areas Neurological: Grossly neurologically intact, has generalized weakness, Normal Speech, Sensation Intact Lymphatic: Lymph nodes Cervical and Axillary not palpable. Lab and Diagnostics Labs Laboratory Tests Test 01/24/17 18:02 01/24/17 21:49 White Blood Count 5.7th/mm3 (3.8-10.1) Red Blood Count 5.33mil/mm3 (3.90-5.20) Hemoglobin 15.5g/dL (12.0-15.6) Hematocrit 44.3% (35.0-46.0) Mean Corpuscular Volume 83.1fL (81-100) Mean Corpuscular Hemoglobin 29.1pg (27.0-35.0) Mean Corpuscular Hemoglobin Concent 35.0% (32.0-37.0) Red Cell Distribution Width 14.4% (12.3-15.4) Platelet Count 333bil/L (150-400) Neutrophils (%) (Auto) 70.6% (40-74) Lymphocytes (%) (Auto) 14.5% (14-46) Monocytes (%) (Auto) 14.1% (4-12) Eosinophils (%) (Auto) 0% (0-5) Basophils (%) (Auto) 0.5% (0-3) Sodium Level 132mEq/L (134-144) Potassium Level 4.3mEq/L (3.5-5.2) Chloride Level 93mEq/L (97-108) Carbon Dioxide Level 16mmol/L (18-29) Blood Urea Nitrogen 19mg/dL (6-24) Creatinine 0.68mg/dL (0.57-1.00) Estimat Glomerular Filtration Rate 129mL/min (>59) Glucose Level 110mg/dL (60-99) Calcium Level 8.6mg/dL (8.5-10.1) Phosphorus Level 4.9mg/dL (2.5-4.9) Magnesium Level 1.8mg/dL (1.6-2.6) Total Bilirubin 0.6mg/dL (0.0-1.2) Aspartate Amino Transf (AST/SGOT) 20U/L (0-50) Alanine Aminotransferase (ALT/SGPT) 21U/L (0-32) Alkaline Phosphatase 94U/L (25-150) Total Protein 6.7g/dL (6.4-8.4) Albumin 2.5g/dL (3.4-5.0) Lipase 13U/L (13-60) Hold Vargas Top Tube Received (Received) Urine Color Dark yellow (YELLOW) Urine Appearance Slightly cloudy Urine pH 5.5 (5.0-8.0) Urine Specific [place] 1.030 (1.003-1.035) Urine Protein 30mg/dL (NEG,TRACE) Urine Glucose (UA) Negativemg/dL (NEGATIVE) Urine Ketones 40mg/dL (NEGATIVE) Urine Occult Blood Negative (NEGATIVE) Urine Nitrite Negative (NEGATIVE) Urine Bilirubin Negative (NEGATIVE) Urine Urobilinogen 2.0mg/dL (NORMAL) Urine Leukocyte Esterase Negative (NEGATIVE) Urine RBC 0-2/hpf (0-2) Urine WBC 6-10/hpf (0-5) Urine Epithelial Cells Many/hpf (NONE-MOD) Urine Crystals Oxalic acid crystals (NONE Urine Bacteria Moderate/hpf (NONE-FEW) Urine Hyaline Casts >20/lpf (NONE) Urine Granular Casts None seen (NONE SEEN) Urine Waxy Casts None seen (NONE SEEN) Urine Red Blood Cell Casts None seen (NONE SEEN) Urine White Blood Cell Casts None seen (NONE SEEN) Urine Mucus Present (None Seen) Urine Trichomonas None seen (NONE SEEN) Urine Yeast None (NONE SEEN) Urinalysis Comment None Urine Culture Reflexed Indicated Microbiology 01/24/17 Urine Culture, Received Pending Result Diagram: 01/24/17180101/24/171801 X-Rays, CTs and MRIs X-RAY ACUTE ABDOMINAL SERIES 01/24 IMPRESSION: 1. New, focal pulmonary radiopacity in the left lung base. This may represent aspiration or infection. Followup to resolution is recommended. 2. Marked, persistent bowel dilatation. Differential considerations include small bowel obstruction versus distal bowel obstruction. Dictated by: Gillian Almeida M.D. on 01/24/2017 at 19:47 Approved by: Gillian Almeida M.D. on 01/24/2017 at 19:50 Assessment & Plan Krista Sung is a 56 year old female with Metastatic Ovarian cancer, presenting to the ED via EMS complaining of nausea and vomiting 1. Persistent nausea and vomiting due to Small bowel obstruction. Present on admission Adhesive disease due to metastatic mass in sigmoid, probable duodenum from ovarian cancer is the etiology - nothing by mouth except ice chips - consider NG tube placement if symptoms worsens - plan for transfer to for debulking surgery 2. Aspiration Pneumonia. Present on admission Consistent with aspiration and patient may meet criteria for health care associated infection - Blood cultures, sputum analysis and procalcitonin - continue Levaquin IV (PCN allergy noted) 3 Persistent diarrhea with Rotavirus gastroenteritis. Present on admission - continue IV fluids resuscitation - consider Imodium as needed - treatment supportive 4 Hypertension - continuing Atenolol - Acetaminophen as needed for mild pain/fever/headache - Bowel regimen as needed - Antiemetic as needed Patient admitted under inpatient status with expected length of stay > 2 midnights for severity of present symptoms, complexities of treatment plan and risk for adverse event . Resuscitation Status: CPR: Attempt Resuscitation Fuimaono,Piotr MD Jan 24, 2017 23:27 Piotr Lopez MD Jan 24, 2017 23:27
[2017-01-25 00:01] VITALS: BP 132/88; PULSE 116; RESP 22; O2SAT 100
[2017-01-25] MEDS: 0.9% Sodium Chloride 1,000 ML IV SCH ×3 (00:29→19:51)
[2017-01-25] MEDS: Heparin 5,000 Unit/mL Inj SUBQ SCH ×3 (00:42→16:39)
[2017-01-25 00:44] VITALS: BP 123/66; PULSE 59; RESP 18; O2SAT 95
--- NOTE | 2017-01-25 01:14 | NUR ---
Admit Note Pt. arrived on floor at 0005. Pt. is alert and oriented x3. Pt's peripheral IV intact and patent. No n/v. Pain in tailbone that decreased with position change. Will continue to monitor.
[2017-01-25] MEDS ORDERED: POTA10TA38 PO (01:21)
[2017-01-25] MEDS ORDERED: FUR20 PO (01:21)
[2017-01-25] MEDS ORDERED: FAMO20TA4 PO (01:21)
--- NOTE | 2017-01-25 06:11 | NUR ---
Pain/ MD paged Pt. reported pain 8/10 earlier in shift with abdominal cramping. Arina VALENCIA paged. Arina VALENCIA ordered IV morphine. 1mg IV morphine given, and pt. reported it worked well. Will continue to monitor.
[2017-01-25 06:18] VITALS: BP 114/66; PULSE 104; RESP 18; O2SAT 96
[2017-01-25 07:55] VITALS: BP 130/77; PULSE 88; RESP 16; O2SAT 100
--- NOTE | 2017-01-25 15:17 | NUR ---
Social Work- Screen Note Data: Per chart review, Krista Sung is a 56 year old female with Metastatic Ovarian cancer, presenting to the ED via EMS complaining of nausea and vomiting onset this morning. Pt's insurance is [employer]. Pt's PCP is LYNETTE Matos. Pt is a readmit, discharged January 22 with a plan of home, no discharge needs, as symptoms had resolved and pt was ambulating independently in the room. Pt was anticipated to transfer to [facility] during last admission but symptoms resolved. This admission, pt is likely to be transferred pending bed, accepting MD Dr. Krista Menjivar. SW will continue to follow clinical course. Assessment: Pt who is transferring to [facility]. Plan: Pt is likely to be transferred to [facility] pending bed, accepting MD Dr. Krista Menjivar. SW will continue to follow clinical course if discharge needs arise. RICHIE Bosch
[2017-01-25 16:04] VITALS: BP 128/79; PULSE 76; RESP 16; O2SAT 100
--- NOTE | 2017-01-25 16:06 | NUR ---
Irritated Eyes Patient complained of irritated eyes and requested eye drops. Eyes are slightly red and irritated. Patient refused the use of a warm compress for comfort. MD paged about possibly getting an order for Visine.
--- NOTE | 2017-01-25 17:51 | PCM.PNMED ---
Subjective Date of Service Jan 25, 2017 Subjective Back with nausea, vomiting, diarrhea. No chest pain, no dyspnea. Since last night the nausea and vomiting have improved. As has her abdominal pain. Exam Vital Signs Vital Sign - Last Date Time Temp Pulse Resp B/P Pulse Ox O2 Delivery O2 Flow Rate FiO2 01/25/17 16:04 36.6 76 16 128/79 100 Room Air Intake and Output 01/24/17 01/24/17 01/25/17 Cumulative From/Thru 15:00 23:00 07:00 01/24/17 16:20 - 01/25/17 06:44 Intake Total 587 ml 587 ml Output Total 440 ml 440 ml Balance 147 ml 147 ml Intake Oral 0 ml 0 ml IV Total 587 ml 587 ml Output Urine Total 440 ml 440 ml # Bowel Movements 1 1 Exam Gen.- A+ O 3 no apparent distress. Thin female lying in bed Head-atraumatic/normocephalic Eyes- open conjunctiva clear, pupils equal, nonicteric Mouth- no deformity of lips ENT- ears no deformity, nose no deformity Neck- supple/trach midline CVS-normal rate Lungs-normal effort and rate GI-soft, flat Musc- moving 4 no obvious deformity Neuro- cranial nerves II through XII intact to gross examination, nonfocal Skin- warm and dry, no rashes/lesions/wounds noted Psych- pleasant and appropriate, Lab and Diagnostics Result Diagram: 01/24/17 1802 01/24/17 180 X-Rays, CTs and MRIs X-RAY ACUTE ABDOMINAL SERIES 01/24 IMPRESSION: 1. New, focal pulmonary radiopacity in the left lung base. This may represent aspiration or infection. Followup to resolution is recommended. 2. Marked, persistent bowel dilatation. Differential considerations include small bowel obstruction versus distal bowel obstruction. Dictated by: Gillian Almeida M.D. on 01/24/2017 at 19:47 Approved by: Gillian Almeida M.D. on 01/24/2017 at 19:50 Assessment & Plan 56 year old female with Metastatic Ovarian cancer, with recurrent SBO discharge 01/22 readmitted 01/24 01/25 we will probably have to start this patient on TPN and get her PICC line she probably already has protein caloric malnutrition. Nutrition being consulted to evaluate and treat. We will begin working on transfer to [facility] as patient does not seem to succeed independently and will not make it to be seen in the clinic. #nausea/vomiting 2' Small bowel obstruction. Adhesive disease due to metastatic mass in sigmoid, probable duodenum from ovarian cancer is the etiology - Food is able,NG tube prn - plan for transfer to for debulking surgery #Aspiration Pneumonia. Present on admission-patient totally asymptomatic discontinuing antibiotics. #Persistent diarrhea - likely overflow/laxatives check stool studies but unlikely to be infectious. #Hypertension-- continuing Atenolol - Acetaminophen as needed for mild pain/fever/headache - Bowel regimen as needed - Antiemetic as needed Medically complex patient in need of ongoing hospitalization for supportive care and transfer to tertiary care center for definitive treatment.. VTE Mechanical Devices: Intermittant Pneumatic CD Resuscitation Status: CPR: Attempt Resuscitation Cricket Kim MD Jan 25, 2017 17:51 Resuscitation Status: CPR: Attempt Resuscitation Cricket Kim MD Jan 25, 2017 17:51
[2017-01-25] MEDS ORDERED: Artificial Tears 15 mL Ophthalmic Solution BOTH_EYES PRN (18:35)
[2017-01-25 19:29] VITALS: BP 120/76; PULSE 76; RESP 18; O2SAT 94
--- NOTE | 2017-01-25 19:40 | PCM.DIMED ---
Discharge Instructions Date of Service Jan 25, 2017 Dates of Hospitalization Jan 24, 2017 at 23:46 Discharge Diagnosis Discharge Diagnosis Recurrent small bowel obstruction, possible aspiration pneumonia Diet Discharge Diet: Other (patient currently on clear liquids at most) Activity Discharge Activity: No restrictions Patient Instructions Follow-up plan Patient going to [facility] directly Cricket Kim MD Jan 25, 2017 19:40
--- NOTE | 2017-01-25 19:42 | PCM.DC.MED ---
Discharge Summary Date of Service Jan 25, 2017 Dates of Hospitalization Date of Hospital Admission Jan 24, 2017 at 23:46 Date of Discharge: Jan 25, 2017 Providers: Admitting Physician: Piotr Lopez MD Primary Care Physician: Pastora Myles Attending Physician: Piotr Lopez MD Diagnosis at Time of Discharge Diagnosis at Time of Discharge Recurrent small bowel obstruction, possible aspiration pneumonia Consultations None Procedures XRay, CTs & MRIs X-RAY ACUTE ABDOMINAL SERIES 01/24 IMPRESSION: 1. New, focal pulmonary radiopacity in the left lung base. This may represent aspiration or infection. Followup to resolution is recommended. 2. Marked, persistent bowel dilatation. Differential considerations include small bowel obstruction versus distal bowel obstruction. Dictated by: Gillian Almeida M.D. on 01/24/2017 at 19:47 Approved by: Gillian Almeida M.D. on 01/24/2017 at 19:50 Brief History 56 year old female with Metastatic Ovarian cancer, presenting to the ED via EMS complaining of nausea and vomiting onset this morning. Patient reported she was doing well since she was discharged a few days ago but then this morning developed acute onset of nausea and multiple rounds of vomiting. Associated symptoms include watery diarrhea and periumbilical abdominal pain, LE swelling. She reported some subjective fever. Denies any bloody diarrhea, fever, dysuria. Pt was recently admitted from January 20- for a partial small bowel obstruction. She also had diarrhea due to rotavirus gastroenteritis in the setting of metastatic mass in sigmoid, probable duodenum from ovarian cancer. surgery apparently was willing to take the patient however symptoms resolved and she has a follow-up appointment I believe 02/04 in the outpatient Case discussed with Dr Reed who contacted who accepted patient. Dr. Krista Menjivar air liaison and special staff for gynecologic oncology accepted patient but no bed available tonight. Plan to admit then transfer once bed is available later today. Patient refused NG tube placement. Hospital Course 56 year old female with Metastatic Ovarian cancer, with recurrent SBO discharge 01/22 readmitted 01/24 01/25 we will probably have to start this patient on TPN and get her PICC line she probably already has protein caloric malnutrition. Nutrition being consulted to evaluate and treat. We will begin working on transfer to [facility] as patient does not seem to succeed independently and will not make it to be seen in the clinic. #nausea/vomiting 2' Small bowel obstruction. Adhesive disease due to metastatic mass in sigmoid, probable duodenum from ovarian cancer is the etiology - Food is able,NG tube prn - plan for transfer to for debulking surgery #Aspiration Pneumonia. Present on admission-patient totally asymptomatic discontinuing antibiotics. There is evidence of this on CXR that she is on room air. I think she has gotten 2 doses of Levaquin. #Persistent diarrhea - likely overflow/laxatives check stool studies but unlikely to be infectious. #Hypertension-- continuing Atenolol - Acetaminophen as needed for mild pain/fever/headache - Bowel regimen as needed - Antiemetic as needed Medically complex patient in need of ongoing hospitalization for supportive care and transfer to tertiary care center for definitive treatment.. Exam Vital Signs (Last) Date Time Temp Pulse Resp B/P Pulse Ox O2 Delivery O2 Flow Rate FiO2 01/25/17 19:29 36.7 76 18 120/76 94 Room Air Exam Please see today's progress note Test 01/24/17 18:02 01/24/17 21:49 White Blood Count 5.7th/mm3 (3.8-10.1) Red Blood Count 5.33mil/mm3 (3.90-5.20) Hemoglobin 15.5g/dL (12.0-15.6) Hematocrit 44.3% (35.0-46.0) Mean Corpuscular Volume 83.1fL (81-100) Mean Corpuscular Hemoglobin 29.1pg (27.0-35.0) Mean Corpuscular Hemoglobin Concent 35.0% (32.0-37.0) Red Cell Distribution Width 14.4% (12.3-15.4) Platelet Count 333bil/L (150-400) Neutrophils (%) (Auto) 70.6% (40-74) Lymphocytes (%) (Auto) 14.5% (14-46) Monocytes (%) (Auto) 14.1% (4-12) Eosinophils (%) (Auto) 0% (0-5) Basophils (%) (Auto) 0.5% (0-3) Sodium Level 132mEq/L (134-144) Potassium Level 4.3mEq/L (3.5-5.2) Chloride Level 93mEq/L (97-108) Carbon Dioxide Level 16mmol/L (18-29) Blood Urea Nitrogen 19mg/dL (6-24) Creatinine 0.68mg/dL (0.57-1.00) Estimat Glomerular Filtration Rate 129mL/min (>59) Glucose Level 110mg/dL (60-99) Calcium Level 8.6mg/dL (8.5-10.1) Phosphorus Level 4.9mg/dL (2.5-4.9) Magnesium Level 1.8mg/dL (1.6-2.6) Total Bilirubin 0.6mg/dL (0.0-1.2) Aspartate Amino Transf (AST/SGOT) 20U/L (0-50) Alanine Aminotransferase (ALT/SGPT) 21U/L (0-32) Alkaline Phosphatase 94U/L (25-150) Total Protein 6.7g/dL (6.4-8.4) Albumin 2.5g/dL (3.4-5.0) Lipase 13U/L (13-60) Procalcitonin 0.13ng/mL (0.00-0.08) Hold [place] Top Tube Received (Received) Urine Color Dark yellow (YELLOW) Urine Appearance Slightly cloudy Urine pH 5.5 (5.0-8.0) Urine Specific [place] 1.030 (1.003-1.035) Urine Protein 30mg/dL (NEG,TRACE) Urine Glucose (UA) Negativemg/dL (NEGATIVE) Urine Ketones 40mg/dL (NEGATIVE) Urine Occult Blood Negative (NEGATIVE) Urine Nitrite Negative (NEGATIVE) Urine Bilirubin Negative (NEGATIVE) Urine Urobilinogen 2.0mg/dL (NORMAL) Urine Leukocyte Esterase Negative (NEGATIVE) Urine RBC 0-2/hpf (0-2) Urine WBC 6-10/hpf (0-5) Urine Epithelial Cells Many/hpf (NONE-MOD) Urine Crystals Oxalic acid crystals (NONE Urine Bacteria Moderate/hpf (NONE-FEW) Urine Hyaline Casts >20/lpf (NONE) Urine Granular Casts None seen (NONE SEEN) Urine Waxy Casts None seen (NONE SEEN) Urine Red Blood Cell Casts None seen (NONE SEEN) Urine White Blood Cell Casts None seen (NONE SEEN) Urine Mucus Present (None Seen) Urine Trichomonas None seen (NONE SEEN) Urine Yeast None (NONE SEEN) Urinalysis Comment None Urine Culture Reflexed Indicated Discharge Medications No Active Prescriptions or Reported Meds Followup Plan Follow-up plan Patient going to [facility] directly Discharge Diet: Other (patient currently on clear liquids at most) Discharge Activity: No restrictions Time spent Greater than 30 minutes Cricket Kim MD Jan 25, 2017 19:42
[2017-01-25] MEDS ORDERED: levoFLOXacin Inj 750 MG in IV Premix 1 EACH IV SCH (20:30)
--- NOTE | 2017-01-25 21:28 | NUR ---
Discharge to Pt. left at 2127 via ambulance to . All belonings brought with patient. 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
== END 2017-01-25 21:30 | disposition short-term general hospital (02) | DRG 247 ==
LOC: SED 16:09 → EDBD 16:09 → OSC 23:46
PROVIDERS: ADMIT Hospitalist; ATTEND Hospitalist
DX: K56.5 Intestinal adhesions [bands] with obstruction (postinfection) (principal); J69.0 Pneumonitis due to inhalation of food and vomit; C78.5 Secondary malignant neoplasm of large intestine and rectum; A08.0 Rotaviral enteritis; I10 Essential (primary) hypertension; Z87.891 Personal history of nicotine dependence; R11.10 Vomiting, unspecified; Z85.43 Personal history of malignant neoplasm of ovary

== ENCOUNTER 2017-01-31 19:19 | Emergency (ER) | payer OTHER ==
[~2017-01-31] VITALS: Ht 165.1 cm; Wt 51.8 kg
[2017-01-31 19:22] VITALS: BP 122/91; PULSE 85; RESP 16; O2SAT 97
--- NOTE | 2017-01-31 21:25 | ED.REPORT ---
HPI-General Illness Date of Service Jan 31, 2017 ED Provider: Kodi Estrella MD Pt is a 56 y/o female w/ a hx of stage IV ovarian CA with mets to the colon, current LLE DVT, current aspiration pneumonia, presenting to the ED via EMS c/o bilateral lower extremity edema, blistering, and weeping onset this morning. The patient saw her PCP earlier today and was told to come to the ED if her swelling worsened. She states she currently has a LLE DVT for which she is using Lovenox injections along with pneumonia for which she taking antibiotics and was discharged from at 22:00 yesterday. She reports that she has never experienced this before and this is causing her pain and difficulty walking. She has also experiencing diarrhea today. She denies SOB, CP, nausea, vomiting, fever, chills. Nursing Notes Stated Complaint: BILATERAL LOWER LEG PAIN Chief Complaint: Extremity Trauma Nursing Notes Reviewed: Yes Allergies: Coded Allergies: Penicillins (Verified Allergy, Severe, Shortness of Breath, 01/20/17) turkey (Verified Allergy, Severe, tachycardia, 01/20/17) pt states anaphylactic shock NSAIDS (Non-Steroidal Anti-Inflamma (Verified Allergy, Unknown, 01/24/17) Uncoded Allergies: NASAL SPRAYS (Allergy, Unknown, 01/31/17) No Active Prescriptions or Reported Meds General Time Seen by MD: 20:55 Chief Complaint Other (edema) Hx Obtained From: Patient, EMS Arrived By: Ambulance Sudden in Onset?: No Onset Occurred: 9 - 12 hours ago Symptom Duration: Since onset Location: : Leg left: Leg right Quality: Painful Severity: Current: Moderate Severity: Maximum: Moderate Recent Healthcare: Recent hospitalization Past Medical History Past Medical History ovairian cancer with mets to colon. finished chemo 6 weeks ago 01/20/2017 Hx aspiration pneumonia Hx SBO Constipation Reports: Hypertension Past Surgical History Plan to remove tumor at Reports: Hysterectomy Reports: Tubal ligation Family History Noncontributory Smoking History Former Smoker Social History Alcohol Use: Denies alcohol use Drug Use: Denies drug use Other Social History: Local resident Occupation lives with brother and her daughter, no work or school 08/20/2016 Ambulatory Status Independent Review of Systems Full Review of Systems Constitutional: Denies: Chills, Fever Respiratory: Denies: Non-productive cough, Shortness of breath Cardiovascular: Denies: Chest pain, Dyspnea on exertion GI: Reports: Diarrhea, Denies: Abdominal pain, Nausea, Vomiting Musculoskeletal: Reports: Extremity pain, Extremity swelling Complete sys rev & neg: except as marked. Physical Exam Constitutional: Chronically ill-appearing. No distress. Not diaphoretic. Head: Normocephalic and atraumatic. Mouth/Throat: Oropharynx is clear and moist. No oropharyngeal exudate. Eyes: EOM are normal. Pupils are equal, round, and reactive to light. Neck: Supple, no tracheal deviation. Cardiovascular: Normal rate, regular rhythm. Equal and intact distal pulses throughout. Pulmonary/Chest: Effort normal and breath sounds normal. No respiratory distress. Abdominal: Soft. No distension. There is no tenderness, rebound, or guarding. Musculoskeletal: Range of motion grossly intact, moving all extremities. Weeping and blistering of the bilateral lower extremities. Marked edema from the mid-calf down bilaterally. Sensation and strength intact. Neurological: AOx3. Grossly nonfocal exam. Strength and sensation intact and equal to bilateral upper and lower extremities. Skin: Warm and dry, no rashes or pallor appreciated. Psychiatric: Appropriate mood and affect. Behavior appears normal. Vital Signs Vital Signs Date Time Temp Pulse Resp B/P Pulse Ox O2 Delivery O2 Flow Rate FiO2 01/31/17 19:22 36.2 85 16 122/91 97 Room Air Initial VS: Reviewed, Vital signs normal Interpretation & Diagnostics Lab Results Interpretation Result Diagram: 01/31/17193901/31/171939 Test 01/31/17 19:40 01/31/17 20:33 01/31/17 22:02 01/31/17 22:03 White Blood Count 18.8th/mm3 (3.8-10.1) Red Blood Count 4.00mil/mm3 (3.90-5.20) Hemoglobin 11.8g/dL (12.0-15.6) Hematocrit 33.3% (35.0-46.0) Mean Corpuscular Volume 83.3fL (81-100) Mean Corpuscular Hemoglobin 29.5pg (27.0-35.0) Mean Corpuscular Hemoglobin Concent 35.4% (32.0-37.0) Red Cell Distribution Width 15.1% (12.3-15.4) Platelet Count 492bil/L (150-400) Neutrophils (%) (Auto) 92.6% (40-74) Lymphocytes (%) (Auto) 3.8% (14-46) Monocytes (%) (Auto) 2.3% (4-12) Eosinophils (%) (Auto) 0.1% (0-5) Basophils (%) (Auto) 0.2% (0-3) Hold Purple Top Tube Received (Received) Sodium Level 130mEq/L (134-144) Potassium Level 4.4mEq/L (3.5-5.2) Chloride Level 99mEq/L (97-108) Carbon Dioxide Level 17mmol/L (18-29) Blood Urea Nitrogen 22mg/dL (6-24) Creatinine 0.68mg/dL (0.57-1.00) Estimat Glomerular Filtration Rate 129mL/min (>59) Glucose Level 110mg/dL (60-99) Calcium Level 7.6mg/dL (8.5-10.1) Magnesium Level 2.3mg/dL (1.6-2.6) Total Bilirubin 0.4mg/dL (0.0-1.2) Aspartate Amino Transf (AST/SGOT) 70U/L (0-50) Alanine Aminotransferase (ALT/SGPT) 29U/L (0-32) Alkaline Phosphatase 79U/L (25-150) Total Protein 5.4g/dL (6.4-8.4) Albumin 2.1g/dL (3.4-5.0) Lipase 34U/L (13-60) Hold Red Top Tube Received (Received) Hold [place] Top Tube Received (Received) Hold Urine Received (Received) Urine Color Yellow (YELLOW) Urine Appearance Clear (CLEAR,HAZY) Urine pH 5.0 (5.0-8.0) Urine Specific [place] 1.010 (1.003-1.035) Urine Protein Negativemg/dL (NEG,TRACE) Urine Glucose (UA) Negativemg/dL (NEGATIVE) Urine Ketones Negativemg/dL (NEGATIVE) Urine Occult Blood Negative (NEGATIVE) Urine Nitrite Negative (NEGATIVE) Urine Bilirubin Negative (NEGATIVE) Urine Urobilinogen Normalmg/dL (NORMAL) Urine Leukocyte Esterase Trace (NEGATIVE) Urine RBC 0-2/hpf (0-2) Urine WBC 0-5/hpf (0-5) Urine Epithelial Cells Occasional/hpf (NONE-MOD) Urine Crystals None seen (NONE SEEN) Urine Bacteria None/hpf (NONE-FEW) Urine Hyaline Casts None/lpf (NONE) Urine Granular Casts None seen (NONE SEEN) Urine Waxy Casts None seen (NONE SEEN) Urine Red Blood Cell Casts None seen (NONE SEEN) Urine White Blood Cell Casts None seen (NONE SEEN) Urine Mucus None seen (None Seen) Urine Trichomonas None seen (NONE SEEN) Urine Yeast None (NONE SEEN) Urinalysis Comment None Urine Culture Reflexed Not indicated Prothrombin Time 10.5sec (8.1-12.5) Prothromb Time International Ratio 0.98ratio Re-Eval/Medical Decision Med Decision/Clinical Course In summary, 56-year-old female with a history of ovarian cancer presenting to the ED for the relatively sudden onset of bilateral lower extremity swelling and blistering earlier this morning. Just discharged from yesterday. She states that she did not have any Lower extremity edema yesterday. She is already on anticoagulation for a clot in the left leg. It seems unlikely that she would have bilateral lower extremitySwelling from this, though it is possible. It seems more likely that she may have an outlet obstruction of her lower extremities. CT scan of the patients abdomen and pelvis was obtained. This was pending at time of signed out to Dr. Leslie. Disposition pending results and reassessment. Counseled Regarding: Diagnosis, Lab results Discharge & Departure Primary Impression: Swelling of lower extremity Discharge Condition All VS Reviewed: Yes Condition: Stable Referrals: Pastora Myles (PCP) Care Transferred to: Dr. Leslie Care Transferred at: 00:00 Jonnathan Attestation Portions of this note were transcribed by Scar Pavon. I, Dr. Estrella, personally performed the history, physical exam and medical decision-making; I reviewed and confirmed the accuracy of the information in the transcribed note. Signed by Jonnathan James, 01/31/17 - [id number] copies to: Pastora Myles William B MD Jan 31, 2017 21:25 SCAR PAVON Jan 31, 2017 21:43
[2017-01-31 22:04] LABS: BASOPHILS % (AUTO) 0.2 % (0-3); EOSINOPHILS % (AUTO) 0.1 % (0-5); Mean Corpuscular Volume 83.3 fL (81-100)
[2017-01-31 22:08] LABS: MONOCYTES % (AUTO) 2.3 % (4-12); Mean Corpuscular Hemoglobin 29.5 pg (27.0-35.0); NEUTROPHILS % (AUTO) 92.6 % (40-74); Platelet Count 492 bil/L (150-400)
[2017-01-31 22:15] LABS: Magnesium 2.3 mg/dL (1.6-2.6)
[2017-01-31 22:26] LABS: APPEARANCE,URINE CLEAR (CLEAR,HAZY); COLOR,URINE YELLOW (YELLOW); OCCULT BLOOD,URINE NEGATIVE (NEGATIVE)
[2017-01-31 22:27] LABS: UROBILINOGEN,URINE NORMAL (NORMAL)
[2017-01-31 22:27] LABS: INR 0.98 ratio
[2017-01-31] MEDS ORDERED: Iohexol 300 mg/mL 30 mL Inj PO ONE (22:45)
[2017-02-01] MEDS ORDERED: HepLOK Flush 100 unit/mL 5 mL Inj ONE (01:21)
[2017-02-01 01:37] VITALS: BP 141/81; PULSE 81; RESP 16; O2SAT 97
--- NOTE | 2017-02-01 11:37 | DRSVH ---
PROCEDURE: CT ABDOMEN AND PELVIS WITH CONTRAST ([id number]) INDICATIONS: sudden BLE edema; hx of cancer eval obstructive TECHNIQUE: After the administration of intravenous contrast, 5 mm thick sections acquired from the diaphragm to the symphysis. 5 mm coronal and sagittal reformats were acquired. For radiation dose reduction, the following was used: automated exposure control, adjustment of mA and/or kV according to patient jermaine paz. COMPARISON: [facility], CT, CT ABD PELVIS W CON, 01/20/2017, 13:37. [facility], CT, CT ABD PELVIS W CON, 08/20/2016, 13:47. FINDINGS: Image quality: Excellent. ABDOMEN: Lung bases: Moderate-sized left sided pleural effusion is noted. Heart size is normal. Small pericard ial fluid collection is noted. Atherosclerotic calcifications noted in the visualized pulmonary vascu lature. Solid organs: Liver and spleen are normal in size and enhancement. Multiple hepatic cysts are stable in appearance compared to prior examinations.. Gallbladder is within normal limits. Biliary system is non dilated. Pancreas enhances normally. No adrenal nodules. Kidneys demonstrate normal size an d enhancement, without hydronephrosis. Peritoneum and bowel: Small amount of scattered free fluid noted in the abdomen and pelvis. There is non-circumferential wall thickening involving the gastric antrum. Circumferential, segmental wall thi ckening involving the sigmoid colon and rectum. Multiple dilated loops of small bowel are noted with appearance of tethering and swirling of dilated loops of small bowel in the right pelvis. Several dil ated loops of small bowel contain fecal material. Dilated loops of small bowel measure up to 6.0 cm i n diameter. Extensive mesenteric edema is noted. Nodes and vessels: No retroperitoneal or mesenteric adenopathy by size criteria. Aorta and inferior vena cava are normal in size. Miscellaneous: No ventral hernias. Extensive edema involving the subcutaneous fat of the abdomen and pelvis noted. Multiple air locules noted in the subcutaneous fat of the anterior right abdominal wal l posteriorly to the subcutaneous injection; please correlate with clinical data. PELVIS: Genitourinary: Bladder wall thickness is normal. Miscellaneous: No inguinal hernias or adenopathy. Bones: No suspicious bony lesions. No vertebral body compression fractures. IMPRESSION: 1. Findings consistent with small bowel obstruction with tethering and swirling of loops of small bow el in the right abdomen. Obstruction could be secondary to adhesions, volvulus or internal hernia. 2. Wall thickening along the rectal sigmoid colon which could represent a colonic carcinoma versus at ypical colitis. 3. Non-circumferential wall thickening of the gastric antrum suspicious for neoplastic process versus less likely gastritis. 4. Moderate-sized left sided pleural effusion. 5. Small amount of ascites. 6. Anasarca. Dictated by: Roz Samuel MD, PhD on 02/01/2017 at 11:23 Approved by: Roz Samuel MD, PhD on 02/01/2017 at 11:35
== END 2017-02-01 01:37 | disposition home or self-care (01) ==
LOC: SED 19:19 → EDBD 19:19 → SED 02-01 01:37
DX: R60.1 Generalized edema (principal); R19.7 Diarrhea, unspecified; I10 Essential (primary) hypertension; Z88.8 Allergy status to other drugs, medicaments and biological substances; Z88.0 Allergy status to penicillin; Z87.891 Personal history of nicotine dependence; Z85.43 Personal history of malignant neoplasm of ovary; Z92.21 Personal history of antineoplastic chemotherapy; Z87.01 Personal history of pneumonia (recurrent)
CPT/HCPCS: 36415; 74177; 80053; 81000; 83690; 83735; 85025; 85610; 99284; J1642; Q9967

== ENCOUNTER 2017-02-03 14:03 | Inpatient (IN) | payer OTHER ==
[2017-02-03] VITALS (7 sets, daily range): BP systolic 122–144; BP diastolic 68–86; PULSE 92–101; RESP 16–18; O2SAT 97–100
[~2017-02-03] VITALS: Ht 165.1 cm; Wt 50.9 kg
--- NOTE | 2017-02-03 14:09 | ED.REPORT ---
HPI-General Illness Date of Service Feb 03, 2017 ED Provider: Dr. Jp Dunn MD A 56 year old female with a history of left ovarian cancer on chemotherapy presents to the ED via EMS with worsening weakness that began approx. 3 days ago. Patient was recently admitted to hospital for 1 week for her ovarian cancer and she was discharged on 01/30 after receiving her most recent chemotherapy treatment. She is currently requesting that she be transferred to to meet with her regular oncologist. Recent associated symptoms include swelling/blistering to lower bilateral extremities, lower bilateral extremity swelling, difficulty ambulating (resolves once she is upright), diarrhea, and bladder/bowel incontinence. Patient is currently expressing concern because she feels she cannot care for herself at home. She denies any fever or vomiting. Patient typically receives chemo once every 3 weeks. Nursing Notes Stated Complaint: BILATERAL FEET SWELLING Chief Complaint: General Complaint Nursing Notes Reviewed: Yes Allergies: Coded Allergies: Penicillins (Verified Allergy, Severe, Shortness of Breath, 02/03/17) turkey (Verified Allergy, Severe, tachycardia, 02/03/17) pt states anaphylactic shock NSAIDS (Non-Steroidal Anti-Inflamma (Verified Allergy, Unknown, 02/03/17) Uncoded Allergies: NASAL SPRAYS (Allergy, Unknown, 01/31/17) No Active Prescriptions or Reported Meds General Time Seen by MD: 14:09 Chief Complaint Other (Bilateral LE swelling) Hx Obtained From: Patient Arrived By: Ambulance Sudden in Onset?: No Onset Occurred: 1 week ago Symptom Duration: Since onset Location: : Leg left: Leg right Quality: Painful Radiation: : Does not radiate Severity: Current: Moderate Severity: Maximum: Moderate Associated with: Reports: Pain, Pain on walking, Weakness, Denies: Fever, Vomiting Pertinent Negative: Pt denies other symptoms Recent Healthcare: Recent doctor visit, Recent hospitalization Past Medical History Past Medical History Ovairian cancer with mets to colon Hx aspiration pneumonia Hx SBO Constipation Reports: Hypertension Past Surgical History Plan to remove tumor at Reports: Hysterectomy Reports: Tubal ligation Family History Noncontributory Smoking History Former Smoker Social History Alcohol Use: Denies alcohol use Drug Use: Denies drug use Other Social History: Local resident Occupation lives with brother and her daughter, no work or school 08/20/2016 Ambulatory Status Independent Review of Systems Full Review of Systems Constitutional: Reports: Weakness - generalized, Denies: Chills, Fever GI: Reports: Diarrhea, Denies: Nausea, Vomiting Female: Reports: Incontinence Musculoskeletal: Reports: Extremity pain (BLE), Extremity swelling (BLE) Complete sys rev & neg: except as marked. Physical Exam Vital Signs Vital Signs Date Time Temp Pulse Resp B/P Pulse Ox O2 Delivery O2 Flow Rate FiO2 02/03/17 16:26 36.4 99 16 122/73 99 Room Air 02/03/17 14:07 36.0 92 18 134/84 Room Air Initial VS: Reviewed Neck: Supple, Non-tender, Full range of motion Skin: Warm, Dry, No cyanosis Neurologic: Alert, Oriented, Nonfocal General/Constitutional: Awake, Alert, No acute distress Head / Eyes: Atraumatic, Normocephalic, PERRL Respiratory / Chest: Atraumatic, Breath sounds NL, Breath sounds = bilat, No respiratory distress Cardiovascular: Heart rate NL, Regular rhythm, Heart sounds NL Lower Ext Edema: Positive: Bilateral 2+ (up to the knee), Bilateral 3+ (up to the knee) Abdomen: Atraumatic, Soft Upper Extremities Upper Extremity / MS: Atraumatic, Neurologic intact, Vascular intact Lower Extremity / Pelvis / MS: Atraumatic, Neurologic intact, Vascular intact Right Leg / Calf: Positive: Tenderness present... (Moderate) Left Leg / Calf: Positive: Tenderness present... (Moderate) LOWER EXTREMITIES: Dorsum of the left foot - multiple bulla under bandages Interpretation & Diagnostics Lab Results Interpretation Result Diagram: 02/03/17 1440 02/03/17 1440 Test 02/03/17 14:40 White Blood Count 2.3th/mm3 (3.8-10.1) Red Blood Count 3.81mil/mm3 (3.90-5.20) Hemoglobin 11.0g/dL (12.0-15.6) Hematocrit 32.1% (35.0-46.0) Mean Corpuscular Volume 84.3fL (81-100) Mean Corpuscular Hemoglobin 28.9pg (27.0-35.0) Mean Corpuscular Hemoglobin Concent 34.3% (32.0-37.0) Red Cell Distribution Width 14.4% (12.3-15.4) Platelet Count 113bil/L (150-400) Neutrophils (%) (Auto) 77.4% (40-74) Lymphocytes (%) (Auto) 21.3% (14-46) Monocytes (%) (Auto) 0.9% (4-12) Eosinophils (%) (Auto) 0% (0-5) Basophils (%) (Auto) 0% (0-3) Sodium Level 132mEq/L (134-144) Potassium Level 3.0mEq/L (3.5-5.2) Chloride Level 96mEq/L (97-108) Carbon Dioxide Level 24mmol/L (18-29) Blood Urea Nitrogen 22mg/dL (6-24) Creatinine 0.37mg/dL (0.57-1.00) Estimat Glomerular Filtration Rate 260mL/min (>59) Glucose Level 101mg/dL (60-99) Calcium Level 7.1mg/dL (8.5-10.1) Total Bilirubin 0.3mg/dL (0.0-1.2) Aspartate Amino Transf (AST/SGOT) 48U/L (0-50) Alanine Aminotransferase (ALT/SGPT) 27U/L (0-32) Alkaline Phosphatase 55U/L (25-150) Total Protein 4.9g/dL (6.4-8.4) Albumin 2.0g/dL (3.4-5.0) Re-Eval/Medical Decision Med Decision/Clinical Course This woman has lower extremity edema probably related to her malnutrition associated with her cancer and chemotherapy. I believe that her symptoms are related directly to her cancer. She obviously needs more assistance than she can be provided with in her home and we are currently attempting to place her in a snf for now. Dr. Soliman from the [facility] gynecology oncology department is trying to arrange for close outpatient follow- up perhaps even Sunday. Time of Eval: 16:09 Re-Evaluation/Progress Note: Pt is informed of the plan to continue to contact to discuss possible transfer. Time of Eval: 16:37 Re-Evaluation/Progress Note: Pt is rechecked. She is informed of her lab results and likely diagnosis. She understands and agrees to meet with the [employer]. Consultation : Call Returned at: 16:27 Hvac Service Tech: Agrees with eval, Agrees with plan Note: Oncology [facility] - Dr. Rick Soliman had been in contact with the patient multiple times during the day today and felt that he was unable to close assess the situation over the phone. His sense of things was that there was a social discoordination in her home causing her to feel unsafe. Counseled Regarding: Diagnosis, Lab results, Need for transfer Discharge & Departure Shift Change Sign-Out Patient Care Transferred: Yes Discussed Complaint(s): Yes Laboratory Evaluation: Lab evaluation discussed Dr. Smith Primary Impression: Malnutrition Additional Impressions: Anasarca Ovarian cancer Discharge Condition All VS Reviewed: Yes Condition: Stable Referrals: Pastora Myles (PCP) Care Transferred to: Dr. Smith Care Transferred at: 18:00 Jonnathan Attestation Portions of this note were transcribed by Aldo Bonilla. I, Dr. Dunn personally performed the history, physical exam and medical decision-making; I reviewed and confirmed the accuracy of the information in the transcribed note. Signed by: Jonnathan Gross, 02/03/17 1800. copies to: Pastora Myles Kirk H MD Feb 03, 2017 14:09 ALDO BONILLA Feb 03, 2017 14:19
[2017-02-03 14:54] LABS: BASOPHILS % (AUTO) 0 % (0-3); EOSINOPHILS % (AUTO) 0 % (0-5); MONOCYTES % (AUTO) 0.9 % (4-12); Mean Corpuscular Hemoglobin 28.9 pg (27.0-35.0); Mean Corpuscular Volume 84.3 fL (81-100); NEUTROPHILS % (AUTO) 77.4 % (40-74); Platelet Count 113 bil/L (150-400)
[2017-02-03] MEDS ORDERED: Calcium Chl 10% (Gm) Inj 1 GM in Dextrose 5% 100 ML IV ONE (18:05)
[2017-02-03] MEDS ORDERED: Potassium Chloride Inj 20 MEQ in Dextrose 5% 250 ML IV ONE (18:05)
[2017-02-03] MEDS ORDERED: 0.9% Sodium Chloride 1,000 ML IV ONE (18:05)
[2017-02-03 19:05] LABS: APPEARANCE,URINE CLEAR (CLEAR,HAZY); COLOR,URINE YELLOW (YELLOW)
[2017-02-03 19:06] LABS: OCCULT BLOOD,URINE NEGATIVE (NEGATIVE)
[2017-02-03] MEDS ORDERED: Polyethylene Glycol (PEG) 17 Gm Powder PO PRN (21:15)
[2017-02-03] MEDS ORDERED: Alum-Mag Hydrox-Simeth 30 mL Suspension PO PRN (21:15)
--- NOTE | 2017-02-03 21:35 | PCM.HPMED ---
Subjective Date of Service Feb 03, 2017 Primary Provider: Admitting Physician: Primary Care Physician: Pastora Myles Attending Physician: Admit Status: From the Emergency Department, 23-Hour Observation, Remote Telemetry Chief Complaint: Weakness History of Present Illness: Krista Sung is a 56-year-old female with past medical history significant for ovarian cancer currently being treated at the [facility] who presents with profound weakness and lower extremity swelling. Patient was diagnosed with ovarian cancer in September and notes that there is lesions also present in her small bowel. She is being managed by Dr. Jones at the [facility]. Patient was recently discharged after chemotherapy on 01/29/17 from the [facility]. This was her initial chemotherapy treatment. During this hospitalization she was also treated for pneumonia and completed a course of antibiotics but she is unsure of which one. She went home where she lives with her brother and disabled daughter. She states over the last few days she has become profoundly weak and unable to care for herself or her daughter. She describes diffuse myalgia, abdominal cramping and tenderness, and lower extremity edema with weeping. She also notes she has been cold and has had night sweats but no fevers. Of note the night sweats have been present for the last month or so and have not worsened. She states that she has some shortness of breath but much improved from the prior week. She denies any chest pain, productive cough, headache, nausea, vomiting, dysuria , hematuria, constipation, or diarrhea. Patient would like to be transferred to the [facility] to be assessed by her regular oncologist, Dr. Jones. She states she feels she is unable to care for herself or her disabled daughter. Today she was unable to get out of bed due to her profound weakness and therefore was unable to toilet herself. In the emergency department on-call oncologist at the [facility], Dr. Soliman, was contacted by ED physician. He had been in contact with the patient multiple times during the day and felt her symptoms were directly related to her ovarian cancer and recent chemotherapy. Dr. Soliman is attempting to set up close outpatient follow-up possibly even as soon as this Sunday. In the meantime, social work is currently working on SNF placement. On presentation to the ED patient is afebrile pulse 92, respiratory rate 18, blood pressure 134/84, and saturating well on room air at 100%. Review of Systems: Comprehensive review of systems was conducted with the patient and found to be negative except as noted above in HPI. Allergies Coded Allergies: Penicillins (Verified Allergy, Severe, Shortness of Breath, 02/03/17) turkey (Verified Allergy, Severe, tachycardia, 02/03/17) pt states anaphylactic shock NSAIDS (Non-Steroidal Anti-Inflamma (Verified Allergy, Unknown, 02/03/17) Uncoded Allergies: NASAL SPRAYS (Allergy, Unknown, 01/31/17) Home Medications Chemotherapy every 3 weeks. Initial treatment on 01/29/17 at the [facility]. 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 HEENT: Temporal wasting. External ears without defect. Pupils equal, round, and reactive to light and accommodation. Anicteric sclerae, moist conjunctivae , and no lid lag. Poor dentition. Oropharynx with mild erythema. Neck: Supple with full range of motion. No jugular venous distension. No bruits. No lymphadenopathy or thyromegaly. Chest: Port-A-Cath present in the right chest wall with no surrounding erythema. Cardiovascular: Regular rate and rhythm with no murmurs, rubs, or gallops appreciated Pulmonary: Clear to auscultation bilaterally with faint bibasilar crackles. Normal respiratory effort with no use of accessory muscles. Abdomen: Bowel tones present. Soft, nondistended, but diffusely tender. No hepatosplenomegaly or masses appreciated. Extremities: Bilateral lower extremity pitting edema up to the knees. Legs wrapped with Coban. Right wrist brace (patient has worn this for years due to old injury). Skin: Normal temperature, turgor, and texture; no rash, ulcers, or subcutaneous nodules appreciated. Neurological: Cranial nerves grossly intact. Ambulation difficult due to profound weakness. Psychiatric: Alert and oriented to person, place, and time. Lab and Diagnostics Labs Corrected calcium 8.7 Result Diagram: 02/03/17 1440 02/03/17 1440 Assessment & Plan Krista Sung is a 56-year-old female with past medical history significant for ovarian cancer currently being treated at the [facility] who presents with profound weakness and lower extremity swelling after recent chemotherapy treatment on 01/29/17. Admitted for profound weakness. Profound weakness likely secondary to recent chemotherapy treatment, present on admission, active. Case discussed by ED physician with [facility] oncologist, Dr. Soliman, who agrees that patient's symptomatology is unlikely infectious and more likely secondary to chemotherapy. He has agreed to arrange a follow-up appointment for next week. - Patient with no constitutional signs of infection. Low threshold for further investigation as patient is neutropenic. - Social work consulted. - Physical therapy to evaluate in the morning. Hypokalemia, present on admission, active. - Potassium on admission was 3.0. - Replacement initiated. - Recheck potassium in the morning and replace as needed. Malnutrition, present on admission, active. - Albumin 2.0 on admission. - Encourage oral intake as tolerated. Neutropenia, present on admission, active. Secondary to chemotherapy for ovarian cancer. - Patient has been afebrile. - Procalcitonin 1.07. Likely secondary to chemotherapy. We will repeat in the morning to trend. - Blood cultures obtained. - Closely monitor patient's temperature and other constitutional signs of infection. - Low threshold to initiate antibiotics and/or obtain abdominal CT. At this time oncologist at [facility] agrees with waiting to initiate antibiotics. Ovarian cancer, currently receiving chemotherapy every 3 weeks, active. Currently undergoing treatment at the [facility] with initial chemotherapy on 01/29/17. Patient scheduled to receive chemotherapy every 3 weeks. Patient notes there are lesions present in her colon as well. - Consider requesting records from [facility] if patient is not discharged tomorrow. - Ensure patient has follow-up appointment with oncologist upon discharge. - Oxycodone 5 mg every 4 hours as needed for pain. Lower extremity edema, present on admission, active. Secondary to chemotherapy. - Continue home regimen of torsemide. Hypertension, present on admission, chronic. - Continue home regimen of atenolol 25 mg daily. Med rec not completed. Disposition: Social work is securing a SNF bed for the patient. Patient will likely be transferred to SNF tomorrow. Dr. Soliman at the [facility] is scheduling a close outpatient follow-up as well. Patient is admitted under observation status with expected length of stay less than 2 midnights due to severity of presenting symptoms, risk of adverse event, and complexity of treatment plan. GI Prophylaxis: Not indicated VTE Prophylaxis: Sub-Q Enoxaparin, SCDs Resuscitation Status: CPR: Attempt Resuscitation Attending Statement The patient was seen and examined together with house staff on 02/03/2017 and I agree with the history, exam and plan as outlined in the note above. BOBY DELEON DO Feb 03, 2017 21:34 Precious Rajan DO Feb 04, 2017 04:09
[2017-02-03] MEDS ORDERED: OXYC5TAB72 (23:46)
[2017-02-03] MEDS ORDERED: ATEN25TA (23:46)
[2017-02-03] MEDS ORDERED: ONDA4TAB12 (23:46)
[2017-02-03] MEDS ORDERED: BANOPHEN (23:46)
[2017-02-03] MEDS ORDERED: ONDA-53 (23:46)
[2017-02-03] MEDS ORDERED: TORS20TA3 PO (23:46)
[2017-02-03] MEDS ORDERED: EPIN0.3P17 IM (23:46)
[2017-02-03] MEDS ORDERED: DXM4T PO (23:48)
[2017-02-04] VITALS (8 sets, daily range): BP systolic 121–148; BP diastolic 74–106; PULSE 98–117; RESP 18–20; O2SAT 95–98
[2017-02-04] MEDS ORDERED: PROC-4 PO
[2017-02-04] MEDS ORDERED: POTA10TA12 PO
[2017-02-04] MEDS ORDERED: ACET325T51 PO
[2017-02-04] MEDS ORDERED: LORA-302 PO
[2017-02-04] MEDS ORDERED: DOCU-41 PO
[2017-02-04] MEDS ORDERED: LOV60 SUBQ
[2017-02-04] MEDS ORDERED: POLY17PO6 PO ×2 (00:02→00:03)
[2017-02-04] MEDS ORDERED: Polyethylene Glycol (PEG) 17 Gm Powder PO PRN (00:40)
[2017-02-04] MEDS: Ondansetron 2 mg/mL 2 mL Inj IVPUSH PRN ×2 (00:51→09:52)
[2017-02-04] MEDS ORDERED: LORazepam 0.5 mg Tablet PO PRN (06:15)
[2017-02-04 06:41] LABS: BASOPHILS % (AUTO) 0 % (0-3); EOSINOPHILS % (AUTO) 2.9 % (0-5); MONOCYTES % (AUTO) 2.9 % (4-12); Mean Corpuscular Hemoglobin 28.8 pg (27.0-35.0); Mean Corpuscular Volume 84.7 fL (81-100); NEUTROPHILS % (AUTO) 36.3 % (40-74); Platelet Count 90 bil/L (150-400)
--- NOTE | 2017-02-04 06:44 | NUR ---
NOC PT admitted from ED for increased profound weakness and intractable nausea from chemo administered on 01/29. 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 PT came in today as she was unable to get OOB today. PT brought all meds from home in with her and they are currently in closet. PT is hoping someone will come to see her today and take them home. PT voiced that she is "completely overwhelmed" with all of the meds. WE will ensure that they are reviewed with her prior to d/c. SOcial work will consult today for possible placement at SNF. PT is not able to get OOB and has been incontinent of urine. HEr LE are wrapped with coban for edema. WEak DP are palpable. R port is accessed and patent. Blood cultures were sent. PT has bruising present as documented in flow sheets. R port is still healing and painful to touch as it was placed on 01/28. VS WNL. PT able to turn self in bed. Drinking only small sips of water. There is a palpable mass in her L abdomen. PT reports she has ovarian cancer with mets to her small intestine. Abdomen is slightly distended as well.BS hypoactive. Continue with current meds from home. PT has only received zofran from this RN with good relief. Oxycodone given for pain. WIll CTM.
--- NOTE | 2017-02-04 09:46 | DRSVH ---
PROCEDURE: X-RAY CHEST ONE VIEW, PORTABLE ([id number]) INDICATIONS: SOB TECHNIQUE: One view of the chest was acquired. COMPARISON: None. FINDINGS: Surgical changes and devices: Port-A-Cath from right sided approach Lungs and pleura: No pleural effusions or pneumothorax. Lungs are abnormal with dense opacification behind the left heart and mild additional opacification over the mid and lower left lung more latera lly. Mediastinum: Mediastinal contours appear normal. Heart size is normal. Bones and chest wall: No suspicious bony lesions. Overlying soft tissues appear unremarkable. IMPRESSION: Port-A-Cath in normal position from right sided approach. Medial left lower lobe dense o pacification likely is pneumonia, and there is also mild increased radiodensity over the remainder of the left lung, also likely pneumonia present to a lesser degree. Dictated by: Orlando Arora M.D. on 02/04/2017 at 9:43 Approved by: Orlando Arora M.D. on 02/04/2017 at 9:44
[2017-02-04] MEDS: 0.9% Sodium Chloride 250 ML IV SCH (10:23)
[2017-02-04] MEDS ORDERED: HepLOK Flush 100 unit/mL 5 mL Inj IVFLUSH PRN (10:25)
[2017-02-04] MEDS: HYDROmorphone 0.5 mg/0.5 mL iSecure Syringe IVPUSH PRN ×2 (13:35→21:02)
--- NOTE | 2017-02-04 14:05 | PCM.PNMED ---
Subjective Date of Service Feb 04, 2017 Subjective Patient is seen and examined. She is cachectic and speaking in very low voice, says that we should consult her doctor in [facility], Dr. jones. She says that her mouth sore is making her mouth hurt, she has a lower leg DVT because of which she is receiving twice a day enoxaparin shots at home. She has a lot of leg ulcers or blisters that make her legs very painful that me that wrapped. She had pain is in the left lower quadrant and that is under control with the Dilaudid pain medication. No other concerns. Exam Vital Signs Vital Sign - Last Date Time Temp Pulse Resp B/P Pulse Ox O2 Delivery O2 Flow Rate FiO2 02/04/17 09:28 36.8 109 18 129/80 96 Room Air Intake and Output 02/03/17 02/03/17 02/04/17 Cumulative From/Thru 15:00 23:00 07:00 02/03/17 14:07 - 02/04/17 06:01 Intake Total 1000 ml 200 ml 1200 ml Balance 1000 ml 200 ml 1200 ml Intake Oral 200 ml 200 ml IV Total 1000 ml 1000 ml # Voids 3 3 # Bowel Movements 0 0 Exam Gen.: No acute distress, patient is laying in decubitus position with the pillow between her legs on her right side HEENT: Normocephalic, atraumatic, deviated septum deviated to the left Heart: Regular rate and rhythm, no S3-S4 sounds Lungs clear to auscultation anteriorly Abdomen nontender to palpation but a palpable large 10 cm mass in the left lower quadrant is present, normal bowel sounds Extremities: Legs are wrapped, very tender to touch she did not tolerate examination Neuro: No focal deficits IVs and Medications IV Fluids D5 half-normal saline with 20 a.m. acute potassium Medications Reviewed: Medications were reviewed in detail Lab and Diagnostics Result Diagram: 02/04/1761902/04/17619 X-Rays, CTs and MRIs PROCEDURE: X-RAY CHEST ONE VIEW, PORTABLE ([id number]) INDICATIONS: SOB IMPRESSION: Port-A-Cath in normal position from right sided approach. Medial left lower lobe dense opacification likely is pneumonia, and there is also mild increased radiodensity over the remainder of the left lung, also likely pneumonia present to a lesser degree. Dictated by: Orlando rAora M.D. on 02/04/2017 at 9:43 Approved by: Orlando Arora M.D. on 02/04/2017 at 9:44 Assessment & Plan Krista Sung is a 56-year-old female with past medical history significant for ovarian cancer currently being treated at the [facility] who presents with profound weakness and lower extremity swelling after recent chemotherapy treatment on 01/29/17. Admitted for profound weakness. Profound weakness likely secondary to recent chemotherapy treatment, present on admission, active. On 02/03, Case discussed by ED physician with [facility] oncologist, Dr. Soliman, who agrees that patient's symptomatology is unlikely infectious and more likely secondary to chemotherapy. He has agreed to arrange a follow-up appointment for next week. - Patient with no constitutional signs of infection. Low threshold for further investigation as patient is neutropenic. -- On 02/04 case was discussed with Dr. Oneil, a coleague of Dr. Jones who recommends that patient be seen locally, given her frailty. -- Records are requested from Dr. Jones's office - Social work consulted. - Physical therapy to evaluate in the morning. -- Dietary consult is placed Hypokalemia, present on admission, active. - Replacement initiated. - Started her on D5 half normal saline and 20 of acute potassium Malnutrition, present on admission, active. -- Dietary consult Neutropenia, present on admission, active. --Secondary to chemotherapy for ovarian cancer. - Patient has been afebrile. - Procalcitonin 1.07. Likely secondary to chemotherapy. We will repeat in the morning to trend. - Blood cultures obtained. NGTD - Closely monitor patient's temperature and other constitutional signs of infection. - Low threshold to initiate antibiotics and/or obtain abdominal CT. At this time oncologist at [facility] agrees with waiting to initiate antibiotics. -- Neupogen 300 mg subcutaneous daily per oncologist Dr. Oneil [facility]. -- Also verified with Dr. Bartholomew the neuprogen. d/c when WBC=5 -- Neutropenic precautions Ovarian cancer, currently receiving chemotherapy every 3 weeks, active. Currently undergoing treatment at the [facility] with initial chemotherapy on 01/29/17. Patient scheduled to receive chemotherapy every 3 weeks. Patient notes there are lesions present in her colon as well. - Corrected some Dr. Ayers requested - Oxycodone 5 mg every 4 hours as needed for pain. -- Contacted Dr. Oneil from patient's cancer Center [facility] who recommends Neupogen until bicarbonate white count of 55 is achieved. -- Neutropenic isolation ordered -- Dr. Oneil from [facility] recommends that the patient find somebody else nearby as in the current chief she is and she will not be able to follow up with somebody and what in [place]. -- Records from Dr. Jones's office and requested per Dr. Rigo Woods to to review -- Dr. Bartholomew from Onc was contacted by phone and he will see the patient on 7/ 3 AM DVT Hx, Lower extremity edema, ulcers present on admission, active. Secondary to chemotherapy. - Continue home regimen of torsemide. -- DVT treatment with enoxaparin 60 twice a day -- Wound care consult is placed Mouth sore present on admission -- Magic Magic mouthwash is ordered- Hypertension, present on admission, chronic. - Continue home regimen of atenolol 25 mg daily. Med rec not completed. I have asked the nursing to f/u on 02/04 Disposition: Social work is securing a SNF bed for the patient. Patient will likely be transferred to SNF tomorrow. Dr. Bartholomew will see her at [facility] for f/u onc care as pt will have a hard time travelling to in her current condition. She is on chemo round #1, will need two more sessions 3 weeks apart. LAst chemo was 01/29/17 Patient is admitted under observation status with expected length of stay less than 2 midnights due to severity of presenting symptoms, risk of adverse event, and complexity of treatment plan. Pain Evaluation: Adequate Pain Control GI Prophylaxis: Not indicated VTE Prophylaxis: Sub-Q Enoxaparin, SCDs Resuscitation Status: CPR: Attempt Resuscitation Time spent 25 min Indigo Galdamez DO Feb 04, 2017 14:05
--- NOTE | 2017-02-04 15:30 | NUR ---
Social Work-screening: Data:EMR Reviewed. Pt is a 56 y/o female who was admitted on 02/03/17 for weakness per H&P. Pt's insurance is [employer] and PCP is LYNETTE Milian. EMR Reviewed. order received for SNF placement. When pt came to ED yesterday. ED SW worked on placement for pt. SW called [facility]- no medicaid beds, [facility]- cannot meet pt's needs, [facility] does not contract with insurance, [facility] has no Medicaid beds, and [facility]- no Medicaid beds. SW to follow up with pt's insurance tomorrow to determine which facilities contract and follow up with pt regarding these facilities. PT has been ordered, but pt declined working with PT today. SW to follow up again tomorrow. Assessment:Pt who would benefit from placement. Plan: SW to follow up with pt's insurance tomorrow to determine facilities that contact. PT to see pt. SW will continue to follow. RICHIE Brooke
[2017-02-04] MEDS ORDERED: 0.9% Sodium Chloride 1,000 ML IV ONE (15:50)
--- NOTE | 2017-02-04 16:32 | NUR ---
NUTRITION CONSULT. Nutrition not on site today but will prioritize assessment tomorrow morning. Will closely monitor oncology recommendations.
--- NOTE | 2017-02-04 18:41 | NUR ---
Activity/Weakness:\ Patient has not gotten out of bed due to her extreme weakness. Patient refused PT today. She has been incontinent in her brief and a mepilex was placed on her sacrum/coccyx due to her red /blanchable coccyx area. Patient was assisted to reposition in bed for her comfort. Patient was placed on Neutropenic precautions due to her WBC of 1.0 and every one that enters her room is to wear a mask. Patient was also given a dose of Granix to help her boddy produce WBCs. Patient has tried to eat Bites of her foods and she has been started on IV fluids with K+ for her K+ level of 3.0.
[2017-02-04] MEDS: D5 0.45% NaCl + KCl 20 mEq/L 1,000 ML IV SCH (19:34)
[2017-02-05] VITALS (8 sets, daily range): BP systolic 124–150; BP diastolic 74–99; PULSE 85–107; RESP 12–20; O2SAT 95–98
[2017-02-05] MEDS: HYDROmorphone 0.5 mg/0.5 mL iSecure Syringe IVPUSH PRN ×5 (03:50→19:56)
--- NOTE | 2017-02-05 05:27 | NUR ---
Pain/Activity pt c/o 7-04/15 LLQ abdominal pain. administered IV Dilaudid, which is effective. pt didn't get OOB x1 to the [facility]. She has been incontinent; brief in place. Mepilex dressing on her sacrum/coccyx area due to her red /blanchable coccyx area. repositioned pt frequently for comfort. care continues.
[2017-02-05] MEDS: D5 0.45% NaCl + KCl 20 mEq/L 1,000 ML IV SCH ×3 (07:40→22:14)
[2017-02-05] MEDS: Ondansetron 2 mg/mL 2 mL Inj IVPUSH PRN ×3 (07:43→19:59)
[2017-02-05] MEDS: Diphen-Lido-Mylanta 1:1:1 Susp 15 mL Syringe PO PRN ×2 (08:13→20:31)
[2017-02-05 08:18] LABS: Mean Corpuscular Volume 84.2 fL (81-100); Platelet Count 77 bil/L (150-400)
[2017-02-05] MEDS: 0.9% Sodium Chloride 250 ML IV SCH (10:23)
--- NOTE | 2017-02-05 11:22 | NUR ---
Evaluation completed. Please go to "Notes" then click on "Assessments and Notes" (bottom left corner of screen). Then select appropriate discipline tab on top of screen.
--- NOTE | 2017-02-05 11:36 | NUR ---
NUTRITION ASSESSMENT: ASSESS: 56YO F admit with weakness 2/2 chemo therapy treatment, neutropenia, mouth sore, lower extremity edema/ulcers--wound care consulted. Nutrition consult ordered related to malnutrition. Spoke with pt at length re poor po intake. Pt reports 40lb weight loss since August 2016,( PMhx reveals wt. has been fairly stable x 3mos). Pt indicates she is to have surgery at for colon mass (ovarian cancer with mets to colon) however surgery continues to be delayed due to pt multiple hospital visits and delayed chemo therapy treatments. Pt frustrated with this; reports she is weak and tired and struggles to maintain adequate intake. Mostly concerned re getting her pain meds when discussing nutrition. Pt did indicate she is willing to try Ensure supplements. PMHX: Ovarian Cancer with mets, chemo therapy, DIET: General. PO bites. Follows Low fiber, lactose free diet at home. Likes soy/almond milk. No grape flavors, no butter/salt LABS: Alb 1.7, Pro 4.0, Ca 6.5, Alb 1.7 MEDS: Magic wash GI: NO BM recorded WEIGHT: 58.7kg BMI: 21.5; Wt October 2016:58.1kg. UBW reported:76kg; 40lb weight loss x 6mos. Wt loss 22% x 6mos=severe EST.NEEDS: WT GAIN/CANCER (30-35kcal/kg;1.2-1.8g/kg IBW) Kcal: 5697-9016 Pro: 70-100g NUTRITION DIAGNOSIS: (1) Malnutrition related to decreased ability to consume sufficient energy as evidenced by po intake bites, pt reported 22% weight loss x 6mos. INTERVENTION: (1) Discussed supplement options and food preferences with pt at length. Encouraged pt to increase po intake for increased strength. (2) Ensure and gelatein (straw/adelfo) added to meal trays to promote adequate kcal/protein intake. MONITOR/EVALUATE: PO intake, lab values, diet tolerance, GI status. F/U per high risk.
--- NOTE | 2017-02-05 14:10 | NUR ---
Wound Note 56 yo female admitted to [facility] with weakness, history of ovarian cancer, treated with chemotherapy. Presents with multiple quarter sized blisters draining clear fluid at left and right lower legs, pt reports recent edema that was extreme in her lower extremities, minimal to no edema noted today, cleaned legs with saline, blisters wre deroofed and drained then adaptic placed over blistered areas, wrapped with kerlix and then unna boot for mild compression and coban. Will change these dressings in 48 hours. Patient tolerated treatment well.
--- NOTE | 2017-02-05 14:28 | NUR ---
Pain/Nausea Patient had complaints of pain 7/10 to her left side and legs. Patient has been administered IVP Dilaudid as ordered PRN and Roxycodone for breakthrough pain PRN as ordered. Pain medication is temporarily effective, but with movement patient pain increases to 9-10/10 pain temporarily. Addendum: 02/05/17 at 1435 by KATHERIN MCGILL RN Patient had complaints of severe nausea. IVP Zofran was administered and was slightly effective. Nausea continued off and on throughout the day.
--- NOTE | 2017-02-05 15:04 | PCM.PNMED ---
Subjective Date of Service Feb 05, 2017 Subjective Patient seen and examined today. Said she feels stable. Been able to sit on the edge of the bed, however not stand up. Does complain of wound dressings bothering her as they are old, and her ulcers may be getting worse. Vitals Stable. Exam Vital Signs Vital Sign - Last Date Time Temp Pulse Resp B/P Pulse Ox O2 Delivery O2 Flow Rate FiO2 02/05/17 13:28 37.0 85 16 125/84 95 Room Air Intake and Output 02/04/17 02/04/17 02/05/17 Cumulative From/Thru 15:00 23:00 07:00 02/03/17 14:07 - 02/05/17 06:46 Intake Total 536 ml 1893 ml 3629 ml Balance 536 ml 1893 ml 3629 ml Intake Oral 536 ml 736 ml IV Total 1893 ml 2893 ml # Voids 2 5 # Bowel Movements 0 0 Exam Gen.: No acute distress, patient is laying in decubitus position with the pillow between her legs on her right side HEENT: Normocephalic, atraumatic, deviated septum deviated to the left Heart: Regular rate and rhythm, no S3-S4 sounds Lungs clear to auscultation anteriorly Abdomen nontender to palpation but a palpable large 10 cm mass in the left lower quadrant is present, normal bowel sounds Extremities: Legs are wrapped, very tender to touch she did not tolerate examination Neuro: No focal deficits Lab and Diagnostics Result Diagram: 02/05/17 0805 02/05/17 0805 X-Rays, CTs and MRIs PROCEDURE: X-RAY CHEST ONE VIEW, PORTABLE ([id number]) INDICATIONS: SOB IMPRESSION: Port-A-Cath in normal position from right sided approach. Medial left lower lobe dense opacification likely is pneumonia, and there is also mild increased radiodensity over the remainder of the left lung, also likely pneumonia present to a lesser degree. Dictated by: Orlando Arora M.D. on 02/04/2017 at 9:43 Approved by: Orlando Arora M.D. on 02/04/2017 at 9:44 Assessment & Plan Krista Sung is a 56-year-old female with past medical history significant for ovarian cancer currently being treated at the [facility] who presents with profound weakness and lower extremity swelling after recent chemotherapy treatment on 01/29/17. Admitted for profound weakness. Profound weakness likely secondary to recent chemotherapy treatment, present on admission, active. On 02/03, Case discussed by ED physician with [facility] oncologist, Dr. Soliman, who agrees that patient's symptomatology is unlikely infectious and more likely secondary to chemotherapy. He has agreed to arrange a follow-up appointment for next week. - Patient with no constitutional signs of infection. Low threshold for further investigation as patient is neutropenic. -- On 02/04 case was discussed with Dr. nOeil, a coleague of Dr. Jones who recommends that patient be seen locally, given her frailty. -- Records are requested from Dr. Jones's office - Social work consulted. - Physical therapy. -- Dietry on board Hypokalemia, present on admission, resolved - will continue to monitor Malnutrition, present on admission, active. -- Dietary consult Neutropenia, present on admission, active. --Secondary to chemotherapy for ovarian cancer. - Patient has been afebrile since admission - Procalcitonin 1.07. Likely secondary to chemotherapy. We will repeat in the morning to trend. - Blood cultures obtained. NGTD - Closely monitor patient's temperature and other constitutional signs of infection. - Low threshold to initiate antibiotics and/or obtain abdominal CT. At this time oncologist at [facility] agrees with waiting to initiate antibiotics. -- Neupogen 300 mg subcutaneous daily per oncologist Dr. Oneil [facility]. -- Neutropenic precautions Ovarian cancer, currently receiving chemotherapy every 3 weeks, active. Currently undergoing treatment at the [facility] with initial chemotherapy on 01/29/17. Patient scheduled to receive chemotherapy every 3 weeks. Patient notes there are lesions present in her colon as well. - Corrected some Dr. Ayers requested - Oxycodone 5 mg every 4 hours as needed for pain. -- Contacted Dr. Oneil from patient's cancer Center [facility] who recommends Neupogen until bicarbonate white count of 55 is achieved. -- Neutropenic isolation ordered -- Dr. Oneil from [facility] recommends that the patient find somebody else nearby as in the current chief she is and she will not be able to follow up with somebody and what in [place]. -- Records from Dr. Jones's office and requested per Dr. Rigo Woods to to review -- Dr. Bartholomew from Onc was contacted by phone and he will see the patient on 7/ 3 AM DVT Hx, Lower extremity edema, ulcers present on admission, active. Secondary to chemotherapy. - Continue home regimen of torsemide. -- DVT treatment with enoxaparin 60 twice a day -- Wound care consult saw the patient, changed dressings, appreciate the consult Mouth sore present on admission -- Magic Magic mouthwash is ordered- Hypertension, present on admission, chronic. - Continue home regimen of atenolol 25 mg daily. Disposition: Social work is securing a SNF bed for the patient. Patient will likely be transferred to SNF once bed available. Dr. Bartholomew will see her at [facility] for f/u onc care as pt will have a hard time travelling to in her current condition. She is on chemo round #1, will need two more sessions 3 weeks apart. LAst chemo was 01/29/17 Patient is admitted under observation status with expected length of stay less than 2 midnights due to severity of presenting symptoms, risk of adverse event, and complexity of treatment plan. GI Prophylaxis: Not indicated VTE Prophylaxis: Sub-Q Enoxaparin, SCDs Resuscitation Status: CPR: Attempt Resuscitation Time spent 45 minutes Yosvany Perez MD Feb 05, 2017 15:04
--- NOTE | 2017-02-05 16:09 | NUR ---
spiritual care: pt request conversational visit. pt expressed fatigue and frustration. Main concern "i want the surgery, i understand that i have to be stronger, but everyday it gets worse and i feel worse." Pt shared recent experiences with symptoms relating to cancer--extreme edema in lower body. Pt said she is trying deep breathing and music, and finding it of little help. Pt requested bible and was appreciative of copy of specific scripture in larger print. will plan to follow "not too early," pt asked.
--- NOTE | 2017-02-05 16:15 | NUR ---
Social Work-continued d/c planning: Data:EMR Reviewed. P tis on day 2 of hospitalization for global weakness per H&P. Pt is not medically stable. PT worked with pt and is recommending SNF. MD order has been received for SNF. SW spoke with pt at bedside, SW role explained. Pt resides at home with her brother who works signal helper and her daughter who pt is the caregiver for. Pt confirms that the state is working on new caregiver. SW explained recommendation of SNF placement. MD order received .SW explained that facilities in [facility] have declined pt or do not take insurance. SW confirmed with pt she is agreeable to SNF in [facility] or [facility]. UR specialist was able to obtain list from insurance company. SW made referral to [facility], [facility], and [facility]. Pt also confirms she plans on staying with oncologist in [place]. SW will continue to follow. Assessment:Pt who would benefit from SNF. Plan: [facility], [facility] and rehab, and [facility] have all been faxed. SW will continue to follow. RICHIE Brooke
--- NOTE | 2017-02-05 20:06 | CCS NOTE ---
[facility] [address] [address] MEDICAL ONCOLOGY OFFICE NOTE PATIENT: DIANNE RACHEL : 1960 MR#: [id number] DATE: 02/03/2017 JOB ID: [id number] DATE: 02/05/2017 This is a patient whom I have seen in one time consultation on August 25, 2016 because of a mass in the distal sigmoid/rectosigmoid junction which ended up being a gynecologic malignancy externally invading into the colon wall rather than a primary GI tumor. 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 At that time in August 2016, she had presented with severe weight loss, malignant ascites and sigmoid wall thickening and the biopsy through the distal sigmoid mass returned to be a poorly differentiated carcinoma of gynecologic origin. Her CEA was normal. Her CA-125 was elevated with 207. The patient had insurance for which the [facility] was out of network. I arranged for her to be seen at Gynecologic Oncology at [facility] and she was seen there in initial consultation in early September 2016. They recommended neoadjuvant chemotherapy with carboplatin and Taxol and then once the disease has been downsized more, consider a 2nd debulking surgery. 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 The patient was set up to go to [place] for this therapy at [facility] since apparently they were closest to home and being in the network. She saw Dr. Grove with the Oncology Department of [facility] in [place] on September 22. I have obtained records there and apparently she also sought that doctor for just one time. She was supposed to start chemotherapy there which never occurred. There has been a very unfortunate situation with essentially no therapy given for six months with this malignancy. She states that she was told after the fact that her insurance would also not cover [facility] and therefore she was "[facility]." She then had an episode of small-bowel obstruction in late January that led to a visit in the emergency department and transferred to [place] and they realized that the patient never had received any chemotherapy and no surgery. She was admitted on January 29 and discharged on January 30 and was given as an in-patient full-dose carboplatin and Taxol with the carboplatin AUC of 6 and Taxol at 175 mg/m2 on January 28, 2017. The port was placed during that admission. She was discharged with the recommendation to come back to the clinic on February 09 to check her counts. Expectedly, given the patient's poor functional status and social situation, she has done very poorly after this treatment, came back to the ER here with severe bilateral edema, cachexia and weakness. Dr. Jones had seen her as a gynecologic oncology attending physician back in September at [facility]. The hospitalist team is now asking me to get support as the patient was not transferred. They have communicated with the DIRECTOR OF DONOR RELATIONS/ONC fellow, Dr. Rick Soliman, who felt that there was not reason for a transfer as an inpatient. He suggested followup on February 09 with DIRECT[facility] OF DONOR RELATIONS/ONC clinic. Meanwhile in the hospital, the patient and has become neutropenic so far without fever and the hospitalist, Dr. Galdamez, asked for assistance. I have asked our staff and, per their review, the patient is still carrying insurance for which our cancer center is out of network. I saw the patient at bedside today. She is much more ill than the last time I saw her. She is severely cachectic and in bed. Poor functional status. Her legs are wrapped. Her edema, however, bilaterally appears less severe. She has had a thromboembolic event and is on Lovenox 60 mg q.12 h. which is 1 mg/kg b.i.d. LABS: Show yesterday a white count of 1.0, today it is 0.6. Hemoglobin 11.2, platelets 77, 30% neutrophils. Chemistry shows normal electrolytes except for calcium of 6.5, however, corrected for the severe hypoalbuminemia it is still normal. Her albumin is 1.7. 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 She has had a very sung and unfortunate course without any adequate therapy. She was out of network for our Cancer Center in [facility] because of her insurance, and I had set her up with [place] as discussed above where she was evaluated in September and neoadjuvant chemotherapy was recommended, but the patient never received any treatment until she presented again in late January with a small bowel obstruction and has received as an inpatient high dose carboplatin and Taxol in a very borderline functional state. It is my understanding that she still carries an insurance for which our system would be out of network at the Cancer Center but once our criminal justice social worker is back on Sunday, this will be repeatedly verified. The patient is currently neutropenic without fever, and I anticipate her counts to further deteriorate in the coming days given the carboplatin AUC of 6 on January 28. I recommended starting Granix injections yesterday over the phone. I recommend to increase the dose of Granix to 480 mcg and continue that daily. Consider prophylactic antibiotics with levofloxacin 500 mg daily given the patient's high risk of febrile neutropenia while in hospital. She is severely malnourished with an albumin of 1.7. I still recommend that the patient be transferred to [facility] for continuity of care and be then discharged to a intermediate facility close to [facility], so that continuous care which will be very complicated in the coming months with repeated cycles of chemotherapy and eventual surgery can be close to the facility she is receiving care. Having her in a intermediate facility in [place] will not lead to adequate management. The patient also prefers to continue her care at [facility]. Records were obtained from both [facility] in [place] as well as [facility] and reviewed. TIME SPENT WITH PATIENT: Approximately 1 hour and 10 minutes were spent in counseling and coordination of care.
[2017-02-06 00:15] VITALS: BP 111/75; PULSE 89; RESP 16; O2SAT 97
[2017-02-06] MEDS: HYDROmorphone 0.5 mg/0.5 mL iSecure Syringe IVPUSH PRN ×5 (00:21→22:31)
[2017-02-06] MEDS: Sodium Chloride LOK Flush 10 mL Syringe IVFLUSH PRN ×2 (04:26)
[2017-02-06 04:29] VITALS: BP 115/78; PULSE 85; O2SAT 97
[2017-02-06 04:57] LABS: Mean Corpuscular Hemoglobin 28.3 pg (27.0-35.0); Mean Corpuscular Volume 83.6 fL (81-100); Platelet Count 50 bil/L (150-400)
--- NOTE | 2017-02-06 06:10 | NUR ---
SKIN Pt has bilateral dressings to LE, dressed by wound care on 02/05/17, to be changed Q48H. Pt has bilateral bruising, petechiae-like to elbows. When brief changed, mepilex dressing changed. Pt has skin breakdown, appears to be healing PU on sacrum. Pt states PU present prior to admit. Wound consult ordered to assess area.
--- NOTE | 2017-02-06 06:12 | NUR ---
PAIN Pt continues to have c/o pain "on my left side, always my left side." Pt also c/o some pain in Right elbow. Right elbow slightly more edematous than left side, elbow elevated on pillow. Pt given prn pain medication, both PO and IV. Pt states IV pain medication is more effective and asks for it approx Q4H as ordered. Pt has been able to get some pain relief, has been able to sleep some. Continue to monitor. Call light in reach. Intentional rounding.
[2017-02-06] MEDS: Ondansetron 2 mg/mL 2 mL Inj IVPUSH PRN ×2 (08:11→12:24)
[2017-02-06 09:52] VITALS: BP 111/76; PULSE 78; RESP 18; O2SAT 100
[2017-02-06 10:14] VITALS: PULSE 88
[2017-02-06] MEDS: 0.9% Sodium Chloride 250 ML IV SCH (10:23)
[2017-02-06] MEDS: D5 0.45% NaCl + KCl 20 mEq/L 1,000 ML IV SCH ×2 (11:06→22:31)
--- NOTE | 2017-02-06 11:20 | NUR ---
[facility] has declined pt, no appropriate bed. RICHIE Brooke Addendum: 02/06/17 at 1406 by PAM LÓPEZ [facility] is unable to accept patient, currently there are no medicaid beds. Spoke with Diana at [place] and [facility] and she is in the office alone today but currently not seeing any discharges until next Monday 02/12 Updated RICHIE
[2017-02-06] MEDS: Diphen-Lido-Mylanta 1:1:1 Susp 15 mL Syringe PO PRN (12:23)
--- NOTE | 2017-02-06 12:59 | PCM.PNMED ---
Subjective Date of Service Feb 06, 2017 Subjective Patient seen and examined. Says she is hanging in there. Vitals stable. Exam Vital Signs Vital Sign - Last Date Time Temp Pulse Resp B/P Pulse Ox O2 Delivery O2 Flow Rate FiO2 02/06/17 10:14 88 02/06/17 09:52 36.6 18 111/76 100 Room Air Intake and Output 02/05/17 02/05/17 02/06/17 Cumulative From/Thru 15:00 23:00 07:00 02/03/17 14:07 - 02/06/17 06:21 Intake Total 0 ml 1985 ml 827 ml 6441 ml Balance 0 ml 1985 ml 827 ml 6441 ml Intake Oral 0 ml 1087 ml 50 ml 1873 ml IV Total 898 ml 777 ml 4568 ml # Voids 1 3 2 11 # Bowel Movements 0 0 Exam Gen.: No acute distress, patient is laying in decubitus position with the pillow between her legs on her right side HEENT: Normocephalic, atraumatic, deviated septum deviated to the left Heart: Regular rate and rhythm, no S3-S4 sounds Lungs clear to auscultation anteriorly Abdomen nontender to palpation but a palpable large 10 cm mass in the left lower quadrant is present, normal bowel sounds Extremities: Legs are wrapped. Neuro: No focal deficits Lab and Diagnostics Result Diagram: 02/06/17 04302/06/17 0430 X-Rays, CTs and MRIs PROCEDURE: X-RAY CHEST ONE VIEW, PORTABLE ([id number]) INDICATIONS: SOB IMPRESSION: Port-A-Cath in normal position from right sided approach. Medial left lower lobe dense opacification likely is pneumonia, and there is also mild increased radiodensity over the remainder of the left lung, also likely pneumonia present to a lesser degree. Dictated by: Orlando Arora M.D. on 02/04/2017 at 9:43 Approved by: Orlando Arora M.D. on 02/04/2017 at 9:44 Assessment & Plan Krista Sung is a 56-year-old female with past medical history significant for ovarian cancer currently being treated at the [facility] who presents with profound weakness and lower extremity swelling after recent chemotherapy treatment on 01/29/17. Admitted for profound weakness, neutropenia. Profound weakness likely secondary to recent chemotherapy treatment, present on admission, active. On 02/03, Case discussed by ED physician with [facility] oncologist, Dr. Soliman, who agrees that patient's symptomatology is unlikely infectious and more likely secondary to chemotherapy. He has agreed to arrange a follow-up appointment for next week. - Patient with no constitutional signs of infection. Low threshold for further investigation as patient is neutropenic. -- On 02/04 case was discussed with Dr. Oneil, a coleague of Dr. Jones who recommends that patient be seen locally, given her frailty. -- Records are requested from Dr. Jones's office - Social work consulted. - Physical therapy. -- Dietry on board Hypokalemia, present on admission, resolved - will continue to monitor Malnutrition, present on admission, active. -- Dietary consult Neutropenia, present on admission, active. --Secondary to chemotherapy for ovarian cancer, 0.4 today - Patient has been afebrile since admission - Procalcitonin 1.07> 0.65 - Blood cultures obtained. NGTD - Closely monitor patient's temperature and other constitutional signs of infection. - Low threshold to initiate antibiotics and/or obtain abdominal CT. At this time oncologist at [facility] agrees with waiting to initiate antibiotics. -- Neupogen 300 mg subcutaneous daily per oncologist Dr. Oneil [facility] -- Neutropenic precautions Thrombocytopenia -- 113>>50 -- could be associate with underlying cancer and chemo -- will hold anticoagulation for now, and check for pf4 antibodies, if negative will resume anticoagulation --SCD for now Ovarian cancer, currently receiving chemotherapy every 3 weeks, active. Currently undergoing treatment at the [facility] with initial chemotherapy on 01/29/17. Patient scheduled to receive chemotherapy every 3 weeks. Patient notes there are lesions present in her colon as well. - Corrected some Dr. Ayers requested - Oxycodone 5 mg every 4 hours as needed for pain. -- Contacted Dr. Oneil from patient's cancer Center [facility] who recommends Neupogen until bicarbonate white count of 55 is achieved. -- Neutropenic isolation ordered -- Dr. Oneil from [facility] recommends that the patient find somebody else nearby as in the current chief she is and she will not be able to follow up with somebody and what in [place]. -- Records from Dr. Jones's office and requested per Dr. Rigo Woods to to review -- Dr. Bartholomew on board DVT Hx, Lower extremity edema, ulcers present on admission, active. Secondary to chemotherapy. - Continue home regimen of torsemide. -- DVT treatment with enoxaparin held, patient's platelets dropped to to 50 today. Will check pf4 values -- Wound care consult saw the patient, changed dressings, appreciate the consult Mouth sore present on admission -- Magic Magic mouthwash is ordered- Hypertension, present on admission, chronic. - Continue home regimen of atenolol 25 mg daily. Disposition: Social work is securing a SNF bed for the patient. Patient will likely be transferred to SNF once bed available. Dr. Bartholomew will see her at [facility] for f/u onc care as pt will have a hard time travelling to in her current condition. She is on chemo round #1, will need two more sessions 3 weeks apart. LAst chemo was 01/29/17 GI Prophylaxis: Not indicated VTE Prophylaxis: Sub-Q Enoxaparin, SCDs Resuscitation Status: CPR: Attempt Resuscitation Time spent 40 Yosvany Perez MD Feb 06, 2017 12:59
[2017-02-06 14:02] VITALS: BP 122/84; PULSE 76; RESP 18; O2SAT 100
--- NOTE | 2017-02-06 14:18 | NUR ---
Faxed referral to Tamika @ [place] [phone] PH Tamika @ [place] [phone] [facility] [phone] [facility] [phone] [facility] [phone] 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
--- NOTE | 2017-02-06 16:24 | NUR ---
nausea/pain Pt complained of nausea X2 during shift. Administered 8mg Zofran on both occasions which helped the patient for roughly 4 hrs each time. Pt c/o 8/10 left abd pain and right elbow pain. Administered 1mg Diladid Q4h and 5mg PO oxycodone for break through pain which lowers pt to a 6/10.
--- NOTE | 2017-02-06 17:20 | NUR ---
spiritual care: follow up conversational visit. pt shared updates and hopes. described pain and symptoms and her appreciation of bible reading. "i'm praying all the time, too" brief prayer with pt. will plan to follow
[2017-02-06 19:28] VITALS: BP 118/79; PULSE 81; RESP 16; O2SAT 97
[2017-02-06 23:05] LABS: APPEARANCE,URINE CLEAR (CLEAR,HAZY); COLOR,URINE STRAW (YELLOW); OCCULT BLOOD,URINE NEGATIVE (NEGATIVE); UROBILINOGEN,URINE NORMAL (NORMAL)
--- NOTE | 2017-02-06 23:30 | NUR ---
/DYSURIA Pt complained of dysuria, "burning and cramping". UA sent, no culture indicated. Pt also states, "It feels like a yeast infection." Good malathi-care and frequent brief changes provided. Continue to monitor. Addendum: 02/06/17 at 2355 by JUAN OCAMPO RN MD called as pt uncomfortable, c/o "spasms." Rec'd orders for OT dose of pyridium.
[2017-02-06] MEDS ORDERED: Phenazopyridine 97.5 mg Tablet PO ONE (23:45)
[2017-02-07] MEDS: Ondansetron 2 mg/mL 2 mL Inj IVPUSH PRN ×3 (00:05→20:32)
[2017-02-07 03:47] VITALS: BP 130/84; PULSE 91; RESP 20; O2SAT 97
[2017-02-07] MEDS: HYDROmorphone 0.5 mg/0.5 mL iSecure Syringe IVPUSH PRN ×5 (03:49→20:41)
[2017-02-07 05:14] LABS: Mean Corpuscular Hemoglobin 28.9 pg (27.0-35.0); Platelet Count 35 bil/L (150-400)
[2017-02-07] MEDS: 0.9% Sodium Chloride 250 ML IV SCH (09:54)
--- NOTE | 2017-02-07 10:44 | NUR ---
Wound note Patient seen at bedside for wound care and dressing change. Patient has a stage 1 PI unblanchable redness at her sacrum (POA) which is 6 cm W x 3.5 cm L, a mepilex dressing is placed over this area and patient is encouraged to turn and reposition frequently, patient agreeable to this suggestion. Leg dressings are taken down today, blistered areas nearly resolved on left lower leg, continue to treat with adaptic and light compression. Right lower leg blisters have mostly resolved leaving an open area in the region of her Achilles that is raw and weeping, this does not appear infected, swelling is minimal, replaced adaptic and reapplied light compression. Will recheck on this patient on Sunday.
[2017-02-07] MEDS: Diphen-Lido-Mylanta 1:1:1 Susp 15 mL Syringe PO PRN (11:15)
[2017-02-07] MEDS: D5 0.45% NaCl + KCl 20 mEq/L 1,000 ML IV SCH ×2 (11:15→21:20)
[2017-02-07 13:15] VITALS: BP 118/84; PULSE 75; RESP 18; O2SAT 95
--- NOTE | 2017-02-07 14:21 | NUR ---
Day shift Patient alert and oriented X4. Patient continues to have complaints of 7/10 abdominal. IVP Dilaudid 1mg has been administered PRN as ordered and has helped subside pain to 4-5/10. Patient continues to have pain in mouth and has been encouraged to continue using magic mouthwash. Patient has been sitting independently at the side of bed and a SBA to bed side commode. Patient did work shortly with PT today and sat at bedside chair temporarily. Patient was incontinent with urine while sleeping. Patient legs were re-wrapped by wound care nurse and coccyx assessed as well. Wound nurse placed coccyx Mepilex on coccyx for comfort and protection to the area. Patient has been encouraged throughout the day to reposition self off of buttocks, as she can do so independently, but patient has been non-compliant with repositioning to relieve pressure off of buttocks. Bed locked and call light in place.
--- NOTE | 2017-02-07 17:12 | PCM.PNMED ---
Subjective Date of Service Feb 07, 2017 Subjective Patient seen and examined today. She says she feels much better. Able to walk around with PT today. Vitals stable. Afebrile Exam Vital Signs Vital Sign - Last Date Time Temp Pulse Resp B/P Pulse Ox O2 Delivery O2 Flow Rate FiO2 02/07/17 13:15 36.6 75 18 118/84 95 Room Air Intake and Output 02/06/17 02/06/17 02/07/17 Cumulative From/Thru 15:00 23:00 07:00 02/03/17 14:07 - 02/07/17 06:32 Intake Total 2026 ml 200 ml 8667 ml Output Total 800 ml 800 ml Balance 2026 ml -600 ml 7867 ml Intake Oral 600 ml 200 ml 2673 ml IV Total 1426 ml 5994 ml Output Urine Total 500 ml 500 ml Urine/Stool Mix 300 ml 300 ml # Voids 4 7 22 # Bowel Movements 0 0 Exam Gen.: No acute distress, patient is laying in decubitus position with the pillow between her legs on her right side HEENT: Normocephalic, atraumatic, deviated septum deviated to the left Heart: Regular rate and rhythm, no S3-S4 sounds Lungs clear to auscultation anteriorly Abdomen nontender to palpation but a palpable large 10 cm mass in the left lower quadrant is present, normal bowel sounds Extremities: Legs are wrapped. dressing changed today Neuro: No focal deficits Lab and Diagnostics Result Diagram: 02/07/17 0505 02/07/17 0505 X-Rays, CTs and MRIs PROCEDURE: X-RAY CHEST ONE VIEW, PORTABLE ([id number]) INDICATIONS: SOB IMPRESSION: Port-A-Cath in normal position from right sided approach. Medial left lower lobe dense opacification likely is pneumonia, and there is also mild increased radiodensity over the remainder of the left lung, also likely pneumonia present to a lesser degree. Dictated by: Orlando Arora M.D. on 02/04/2017 at 9:43 Approved by: Orlando Arora M.D. on 02/04/2017 at 9:44 Assessment & Plan Krista Sung is a 56-year-old female with past medical history significant for ovarian cancer currently being treated at the [facility] who presents with profound weakness and lower extremity swelling after recent chemotherapy treatment on 01/29/17. Admitted for profound weakness, neutropenia. Profound weakness likely secondary to recent chemotherapy treatment, present on admission, active. On 02/03, Case discussed by ED physician with [facility] oncologist, Dr. Soliman, who agrees that patient's symptomatology is unlikely infectious and more likely secondary to chemotherapy. He has agreed to arrange a follow-up appointment for next week. - Patient with no constitutional signs of infection. Low threshold for further investigation as patient is neutropenic. -- On 02/04 case was discussed with Dr. Oneil, a coleague of Dr. Jones who recommends that patient be seen locally, given her frailty. - Dr. Bartholomew saw the patient, reccommended transfer to (will get in touch with them), increased granix to 480 mcg daily and added levaquin for prophylaxis in light of neutropenia - Social work consulted. - Physical therapy. -- Dietry on board Hypokalemia, present on admission, resolved - will continue to monitor Malnutrition, present on admission, active. -- Dietary consult Neutropenia, present on admission, active. --Secondary to chemotherapy for ovarian cancer, 0.4 again today, stabilized - Patient has been afebrile since admission - Procalcitonin 1.07> 0.65 - Blood cultures obtained. NGTD - Closely monitor patient's temperature and other constitutional signs of infection. - Low threshold to initiate antibiotics and/or obtain abdominal CT. At this time oncologist at [facility] agrees with waiting to initiate antibiotics. -- Neutropenic precautions Thrombocytopenia -- 113>>50>>35 -- could be associate with underlying cancer and chemo -- will hold anticoagulation for now, and check for pf4 antibodies, if negative will resume anticoagulation --SCD for now Ovarian cancer, currently receiving chemotherapy every 3 weeks, active. Currently undergoing treatment at the [facility] with initial chemotherapy on 01/29/17. Patient scheduled to receive chemotherapy every 3 weeks. Patient notes there are lesions present in her colon as well. - Corrected some Dr. Ayers requested - Oxycodone 5 mg every 4 hours as needed for pain. -- Contacted Dr. Oneil from patient's cancer Center [facility] who recommends Neupogen until bicarbonate white count of 55 is achieved. -- Neutropenic isolation ordered -- Dr. Oneil from [facility] recommends that the patient find somebody else nearby as in the current chief she is and she will not be able to follow up with somebody and what in [place]. -- Records from Dr. Jones's office and requested per Dr. Rigo Woods to to review -- Dr. Bartholomew on board DVT Hx, Lower extremity edema, ulcers present on admission, active. Secondary to chemotherapy. - Continue home regimen of torsemide. -- DVT treatment with enoxaparin held, patient's platelets dropped to to 35 today. PF4 levels pending -- Wound care consult saw the patient, changed dressings, appreciate the consult Mouth sore present on admission -- Magic Magic mouthwash is ordered- Hypertension, present on admission, chronic. - Continue home regimen of atenolol 25 mg daily. Disposition: Social work is securing a SNF bed for the patient. Patient will likely be transferred to SNF once bed available. Dr. Bartholomew recommended transferring the patient to . Will work on getting a bed in [place] if a physician accepts her. GI Prophylaxis: Not indicated VTE Prophylaxis: Sub-Q Enoxaparin, SCDs Resuscitation Status: CPR: Attempt Resuscitation Yosvany Perez MD Feb 07, 2017 17:12 Yosvany Perez MD Feb 07, 2017 17:12
--- NOTE | 2017-02-07 17:33 | NUR ---
Code status Patient had no code status found. Nurse notified MD about no code status. Awaiting response
[2017-02-07 20:27] VITALS: BP 115/68; PULSE 72; RESP 18; O2SAT 97
[2017-02-07] MEDS ORDERED: Phenazopyridine 97.5 mg Tablet PO ONE (23:10)
[2017-02-08] MEDS: Ondansetron 2 mg/mL 2 mL Inj IVPUSH PRN ×4 (00:34→17:22)
[2017-02-08] MEDS: HYDROmorphone 0.5 mg/0.5 mL iSecure Syringe IVPUSH PRN ×6 (00:40→22:52)
--- NOTE | 2017-02-08 03:00 | NUR ---
PT ACTIVITY/PAIN/ Pt has remained in bed during shift. Pt turned at least Q2H, sometimes more often per pts request. Pt continues to have c/o pain on left side/abdomen, and intermittent c/o Right foot cramping. Pt also c/o pain on back/sacrum. Pt has been given prn IV and PO pain medications. Pt has been incontinent during entire shift. Mepilex on sacrum removed at initial brief change d/t soiling. Calmoseptine applied to bottom. Pt again c/o "cramping and spasms in my bladder." Noc hospitalist paged, rec'd another OT order for prn AZO/pyridium, dose given. Continue to monitor. Call light in reach. Bed alarm on. Intentional rounding.
[2017-02-08 04:47] VITALS: BP 146/98; PULSE 70; RESP 18; O2SAT 98
[2017-02-08] MEDS: Sodium Chloride LOK Flush 10 mL Syringe IVFLUSH PRN ×3 (04:49→17:22)
[2017-02-08 05:09] LABS: BASOPHILS % (AUTO) 1.2 % (0-3); EOSINOPHILS % (AUTO) 0 % (0-5); MONOCYTES % (AUTO) 15.9 % (4-12); Mean Corpuscular Hemoglobin 29.3 pg (27.0-35.0); Mean Corpuscular Volume 83.4 fL (81-100); NEUTROPHILS % (AUTO) 3.6 % (40-74)
[2017-02-08 05:32] LABS: Platelet Count 27 bil/L (150-400)
[2017-02-08] MEDS: levoFLOXacin 500 mg Tablet PO SCH (08:08)
[2017-02-08] MEDS: 0.9% Sodium Chloride 250 ML IV SCH (08:45)
[2017-02-08] MEDS: D5 0.45% NaCl + KCl 20 mEq/L 1,000 ML IV SCH ×2 (10:06→22:59)
--- NOTE | 2017-02-08 11:10 | NUR ---
Called and left message for Ronna Johnson at [facility], spoke with MD in rounds and they are thinking this may be appropriate. Asked Ronna to call back to so this patient could be reviewed and looked at. 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 Also spoke with other publication specialist about updating patient's insurance because patient is continuing to get calls regarding missed chemo sessions. She is unable to receive chemo at while inpatient here. 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
--- NOTE | 2017-02-08 11:15 | NUR ---
NUTRITION FOLLOW UP: ASSESS: 56YO F admit with weakness 2/2 chemo therapy treatment, neutropenia, mouth sore, lower extremity edema/ulcers--wound care following for dressing changes to lower extremity blisters. Noted pt reporting improvement with weakness, working with PT, however still struggling with po intake. PO intake x 5days has been bites despite much encouragement. Pt continues to use magic wash for mouth sore, continues to c/o mouth pain. drug abuse worker attempting to locate SNF vs. possible transfer to . Concern re decreased po intake/potential continued weight loss during chemo therapy treatments. Nutrition consult ordered related to malnutrition. Spoke with pt at length re poor po intake 02/05. Pt reports 40lb weight loss since August 2016,( PMhx reveals wt. has been fairly stable x 3mos). Pt indicates she is to have surgery at for colon mass (ovarian cancer with mets to colon) however surgery continues to be delayed due to pt multiple hospital visits and delayed chemo therapy treatments. P PMHX: Ovarian Cancer with mets, chemo therapy, DIET: General. PO bites x 5d= poor Follows Low fiber, lactose free diet at home. Likes soy/almond milk. No grape flavors, no butter/salt LABS:Glu 137, Ca 7.1, Na 133, 7/2-Alb 1.7 MEDS: Magic wash GI: NO BM recorded WEIGHT: 58.7kg BMI: 21.5; Wt October 2016:58.1kg. UBW reported:76kg; 40lb weight loss x 6mos. Wt loss 22% x 6mos=severe EST.NEEDS: WT GAIN/CANCER (30-35kcal/kg;1.2-1.8g/kg IBW) Kcal: 0189-2344 Pro: 70-100g NUTRITION DIAGNOSIS: (1) Malnutrition related to decreased ability to consume sufficient energy as evidenced by po intake bites, pt reported 22% weight loss x 6mos--- PERSISTS. INTERVENTION: (1) Request RN obtain new weight, no new weight since admit. (2) Continue with supplements per pt reqeust:Ensure and gelatein (straw/adelfo) added to meal trays to promote adequate kcal/protein intake. Also vanilla/chocolate soy milk with meals (3) Pt may benefit from nutrition support (i.e. tube feeding) if unable to maintain adequate po intake. MONITOR/EVALUATE: PO intake, lab values, diet tolerance, GI status. F/U per high risk.
[2017-02-08] MEDS: Clotrimazole Troche 10 mg Tablet MT SCH ×4 (13:58→21:41)
[2017-02-08 14:50] VITALS: BP 109/66; PULSE 92; RESP 18; O2SAT 94
[2017-02-08 14:51] VITALS: BP 109/66; PULSE 92; RESP 16
[2017-02-08 15:07] VITALS: BP 99/60; PULSE 92; RESP 16
--- NOTE | 2017-02-08 15:13 | NUR ---
Platelets Patient platelets at critical low at 25. Platelets ordered. One unit platelets administered. Patient tolerating well.
[2017-02-08 15:33] VITALS: BP 106/65; PULSE 92; RESP 16
--- NOTE | 2017-02-08 16:32 | PCM.PNMED ---
Subjective Date of Service Feb 08, 2017 Subjective Patient seen and examined today. complains of mouth sores. Vitals stable. Exam Vital Signs Vital Sign - Last Date Time Temp Pulse Resp B/P Pulse Ox O2 Delivery O2 Flow Rate FiO2 02/08/17 15:33 36.8 92 16 106/65 02/08/17 14:50 94 Room Air Intake and Output 02/07/17 02/07/17 02/08/17 Cumulative From/Thru 15:00 23:00 07:00 02/03/17 14:07 - 02/08/17 06:16 Intake Total 1971 ml 1081 ml 88405 ml Output Total 450 ml 400 ml 1650 ml Balance 1521 ml 681 ml 86981 ml Intake Oral 436 ml 200 ml 3309 ml IV Total 1535 ml 881 ml 8410 ml Output Urine Total 450 ml 400 ml 1350 ml Urine/Stool Mix 300 ml # Voids 3 4 29 # Bowel Movements 0 0 Exam Gen.: No acute distress, patient is laying in decubitus position with the pillow between her legs on her right side ENT: white plaques all over in the mouth and on tongue HEENT: Normocephalic, atraumatic, deviated septum deviated to the left Heart: Regular rate and rhythm, no S3-S4 sounds Lungs clear to auscultation anteriorly Abdomen nontender to palpation but a palpable large 10 cm mass in the left lower quadrant is present, normal bowel sounds Extremities: Legs are wrapped. dressing changed today Neuro: No focal deficits Lab and Diagnostics Result Diagram: 02/08/17 0450 02/08/17 0450 X-Rays, CTs and MRIs PROCEDURE: X-RAY CHEST ONE VIEW, PORTABLE ([id number]) INDICATIONS: SOB IMPRESSION: Port-A-Cath in normal position from right sided approach. Medial left lower lobe dense opacification likely is pneumonia, and there is also mild increased radiodensity over the remainder of the left lung, also likely pneumonia present to a lesser degree. Dictated by: Orlando Arora M.D. on 02/04/2017 at 9:43 Approved by: Orlando Arora M.D. on 02/04/2017 at 9:44 Assessment & Plan Krista Sung is a 56-year-old female with past medical history significant for ovarian cancer currently being treated at the [facility] who presents with profound weakness and lower extremity swelling after recent chemotherapy treatment on 01/29/17. Admitted for profound weakness, neutropenia. Profound weakness likely secondary to recent chemotherapy treatment, present on admission, active. On 02/03, Case discussed by ED physician with [facility] oncologist, Dr. Soliman, who agrees that patient's symptomatology is unlikely infectious and more likely secondary to chemotherapy. He has agreed to arrange a follow-up appointment for next week. - Patient with no constitutional signs of infection. Low threshold for further investigation as patient is neutropenic. -- On 02/04 case was discussed with Dr. Oneil, a coleague of Dr. Jones who recommends that patient be seen locally, given her frailty. - Dr. Bartholomew saw the patient, reccommended transfer to (will get in touch with them), increased granix to 480 mcg daily and added levaquin for prophylaxis in light of neutropenia - Discussed case with Dr. Jones (her primary oncologist), who recommended patient to be SNF for conditioning, and they will coordinate her care from there. - Social work consulted. - Physical therapy. -- Dietry on board Mouth Sores - concerns for oral thrush - patient started on clotrimazole troches Hypokalemia, present on admission, resolved - will continue to monitor Malnutrition, present on admission, active. -- Dietary consult Neutropenia, present on admission, active. --Secondary to chemotherapy for ovarian cancer, 0.8 today,trending up - Patient has been afebrile since admission - Procalcitonin 1.07> 0.65 - Blood cultures obtained. NGTD - Closely monitor patient's temperature and other constitutional signs of infection. -- Neutropenic precautions Thrombocytopenia -- 113>>50>>35> 27 -- could be associate with underlying cancer and chemo -- will hold anticoagulation for now, and check for pf4 antibodies, if negative will resume anticoagulation - transfused platelets today Ovarian cancer, currently receiving chemotherapy every 3 weeks, active. Currently undergoing treatment at the [facility] with initial chemotherapy on 01/29/17. Patient scheduled to receive chemotherapy every 3 weeks. Patient notes there are lesions present in her colon as well. - Corrected some Dr. Jones requested - Oxycodone 5 mg every 4 hours as needed for pain. -- Contacted Dr. Oneil from patient's cancer Center [facility] who recommends Neupogen until bicarbonate white count of 55 is achieved. -- Neutropenic isolation ordered --Discussed with Dr. Jones, who agrees with current management and transitioning her care to SNF. DVT Hx, Lower extremity edema, ulcers present on admission, active. Secondary to chemotherapy. - Continue home regimen of torsemide. -- DVT treatment with enoxaparin held, patient's platelets dropped to to 35 today. PF4 levels pending -- Wound care consult saw the patient, changed dressings, appreciate the consult Hypertension, present on admission, chronic. - Continue home regimen of atenolol 25 mg daily. hold if bp <110/150 Disposition: Social work is securing a SNF bed for the patient. Patient will likely be transferred to SNF once bed available. GI Prophylaxis: Not indicated VTE Prophylaxis: Sub-Q Enoxaparin, SCDs Resuscitation Status: CPR: Attempt Resuscitation Yosvany Perez MD Feb 08, 2017 16:32 accepts her. GI Prophylaxis: Not indicated VTE Prophylaxis: Sub-Q Enoxaparin, SCDs Resuscitation Status: CPR: Attempt Resuscitation Yosvany Perez MD Feb 08, 2017 16:32
--- NOTE | 2017-02-08 18:21 | NUR ---
Clotrimazole Joni Patient has sores in mouth and complains of pain to mouth. MD ordered Clotrimazole Joni 10mg dissolvable pill. Patient has been informed of the purpose of medication and was administered medication. Patient places medication in mouth to dissolve, but when nurse leaves room patient takes medication out of mouth and places it on her bedside table. Patient was seen doing this twice today. Patient encouraged to take medication to help with her mouth.
[2017-02-08 20:11] VITALS: BP 106/76; PULSE 84; RESP 18; O2SAT 94
[2017-02-08] MEDS: Diphen-Lido-Mylanta 1:1:1 Susp 15 mL Syringe PO PRN (21:36)
[2017-02-09] MEDS: Ondansetron 2 mg/mL 2 mL Inj IVPUSH PRN ×4 (00:35→18:30)
--- NOTE | 2017-02-09 03:50 | NUR ---
Pain/Nausea/Mouth sore Pt c/o pain 7-8/10 at left abdomen and mouth, sometimes buttock. Oxycodone 5mg po (crushed in apple sauce) administered at late pm, pt prefers IV pain med, therefore Dilaudid 1mg IV administered, pain improved, "no pain" at this time per pt. C/o mild nausea, no vomitus,Zofran given at MN,symptoms improved. Open areas (about 1x0.5cm) at bilateral tongue, redness,pain with swallowing. Although pt explained the rationale, pt refused Clotrimazole, she only took partial Magic mouth wash. Pt instructed to rinse mouth with water each time after eating, pt agrees.
[2017-02-09] MEDS: HYDROmorphone 0.5 mg/0.5 mL iSecure Syringe IVPUSH PRN ×3 (04:53→19:14)
[2017-02-09 05:06] VITALS: BP 110/72; PULSE 80; RESP 18; O2SAT 97
[2017-02-09] MEDS: Clotrimazole Troche 10 mg Tablet MT SCH ×5 (05:17→22:49)
[2017-02-09 05:30] LABS: Mean Corpuscular Volume 84.5 fL (81-100); Platelet Count 26 bil/L (150-400)
--- NOTE | 2017-02-09 05:34 | NUR ---
Critical Result Critical Result at 528: WBC 0.[address] Rajan paged at [phone], pending response. Pt in neutropenic precaution, generalized petechiae at bilateral arms and abdomen, pt instructed use soft tooth brush and no strain to prevent bleeding. Addendum: 02/09/17 at 5189 by ISIDRO CURIEL RN No order given at this time.
[2017-02-09] MEDS: D5 0.45% NaCl + KCl 20 mEq/L 1,000 ML IV SCH ×2 (08:47→20:48)
[2017-02-09] MEDS: levoFLOXacin 500 mg Tablet PO SCH (10:05)
[2017-02-09] MEDS: 0.9% Sodium Chloride 250 ML IV SCH (10:10)
--- NOTE | 2017-02-09 10:33 | NUR ---
NUTRITION FOLLOW UP: ASSESS: 56YO F admit with weakness 2/2 chemo therapy treatment, neutropenia, mouth sores, lower extremity edema/ulcers--wound care following for dressing changes to lower extremity blisters. RN Noted pt continues to complain of mouth pain with open areas on mouth, however has been refusing medication (clotrimazole). Pt po intake improving x 24hrs. Nutrition consult ordered related to malnutrition. Spoke with pt at length re poor po intake 02/05. Pt reports 40lb weight loss since August 2016,( PMhx reveals wt. has been fairly stable x 3mos). Pt indicates she is to have surgery at for colon mass (ovarian cancer with mets to colon) however surgery continues to be delayed due to pt multiple hospital visits and delayed chemo therapy treatments. P PMHX: Ovarian Cancer with mets, chemo therapy, DIET: General. PO 25-50% x 24hrs. Follows Low fiber, lactose free diet at home. Likes soy/almond milk. No grape flavors, no butter/salt LABS: Glu 116, Na 133, Alb 1.9 MEDS: Magic wash; clotrimazole GI: NO BM recorded x 6d WEIGHT: 58.7kg BMI: 21.5; Wt October 2016:58.1kg. UBW reported:76kg; 40lb weight loss x 6mos. Wt loss 22% x 6mos=severe EST.NEEDS: WT GAIN/CANCER (30-35kcal/kg;1.2-1.8g/kg IBW) Kcal: 6703-5991 Pro: 70-100g NUTRITION DIAGNOSIS: (1) Malnutrition related to decreased ability to consume sufficient energy as evidenced by po intake bites, pt reported 22% weight loss x 6mos---MILDLY IMPROVED. INTERVENTION: (1) Request RN obtain new weight, no new weight since admit. (2) Continue with supplements per pt reqeust:Ensure and gelatein (straw/adelfo) added to meal trays to promote adequate kcal/protein intake. Also vanilla/chocolate soy milk with meals (3) Pt may benefit from nutrition support (i.e. tube feeding) if unable to maintain adequate po intake. MONITOR/EVALUATE: PO intake, lab values, diet tolerance, GI status. F/U per moderate risk.
[2017-02-09 10:40] VITALS: BP 126/80; PULSE 77; RESP 18; O2SAT 99
--- NOTE | 2017-02-09 11:19 | NUR ---
Spoke with [facility] and they are pending authorization from [facility] medicaid, this is something that can take up to 5 days. Patient clinically and financially meets criteria for LTAC. Updated [employer]
--- NOTE | 2017-02-09 11:22 | NUR ---
BM No documented BM this admission thus far. Per pt, last BM on 02/07/17. Denies any feelings of constipation, pt reports passing gas. BT are active in all 4 quadrants. Denied need for PRN stool softener. Pt educated re: constipating effects of narcotics. Bed in lowest, locked position and call light in reach.
--- NOTE | 2017-02-09 11:57 | PCM.PNMED ---
Subjective Date of Service Feb 09, 2017 Subjective Patient seen and examined today. Doing better. Vitals stable. Exam Vital Signs Vital Sign - Last Date Time Temp Pulse Resp B/P Pulse Ox O2 Delivery O2 Flow Rate FiO2 02/09/17 11:31 Room Air 02/09/17 10:40 36.8 77 18 126/80 99 Intake and Output 02/08/17 02/08/17 02/09/17 Cumulative From/Thru 15:00 23:00 07:00 02/03/17 14:07 - 02/09/17 05:46 Intake Total 2567 ml 951 ml 11923 ml Output Total 1625 ml 3275 ml Balance 942 ml 951 ml 79922 ml Intake Oral 925 ml 125 ml 4359 ml IV Total 1392 ml 826 ml 35500 ml Platelets 250 ml 250 ml Output Urine Total 1625 ml 2975 ml Urine/Stool Mix 300 ml # Voids 9 38 # Bowel Movements 0 0 Exam Gen.: No acute distress, patient is laying in decubitus position with the pillow between her legs on her right side ENT: white plaques all over in the mouth and on tongue, improving Heart: Regular rate and rhythm, no S3-S4 sounds Lungs clear to auscultation anteriorly Abdomen nontender to palpation but a palpable large 10 cm mass in the left lower quadrant is present, normal bowel sounds Extremities: Legs are wrapped. dressing changed today Neuro: No focal deficits Lab and Diagnostics Result Diagram: 02/09/17 0505 02/09/17 0505 X-Rays, CTs and MRIs PROCEDURE: X-RAY CHEST ONE VIEW, PORTABLE ([id number]) INDICATIONS: SOB IMPRESSION: Port-A-Cath in normal position from right sided approach. Medial left lower lobe dense opacification likely is pneumonia, and there is also mild increased radiodensity over the remainder of the left lung, also likely pneumonia present to a lesser degree. Dictated by: Orlando Arora M.D. on 02/04/2017 at 9:43 Approved by: Orlando Arora M.D. on 02/04/2017 at 9:44 Assessment & Plan Krista Sung is a 56-year-old female with past medical history significant for ovarian cancer currently being treated at the [facility] who presents with profound weakness and lower extremity swelling after recent chemotherapy treatment on 01/29/17. Admitted for profound weakness, neutropenia. Profound weakness likely secondary to recent chemotherapy treatment, present on admission, active. On 02/03, Case discussed by ED physician with [facility] oncologist, Dr. Soliman, who agrees that patient's symptomatology is unlikely infectious and more likely secondary to chemotherapy. He has agreed to arrange a follow-up appointment for next week. - Patient with no constitutional signs of infection. Low threshold for further investigation as patient is neutropenic. -- On 02/04 case was discussed with Dr. Oneil, a coleague of Dr. Jones who recommends that patient be seen locally, given her frailty. - Dr. Bartholomew saw the patient, reccommended transfer to (will get in touch with them), increased granix to 480 mcg daily and added levaquin for prophylaxis in light of neutropenia - Discussed case with Dr. Jones (her primary oncologist), who recommended patient to be SNF for conditioning, and they will coordinate her care from there. - Social work consulted. - Physical therapy. -- Dietry on board Mouth Sores - concerns for oral thrush - patient started on clotrimazole troches Hypokalemia, present on admission, resolved - will continue to monitor Malnutrition, present on admission, active. -- Dietary consult Neutropenia, present on admission, active. --Secondary to chemotherapy for ovarian cancer, 0.7 today,steadily trending up - Patient has been afebrile since admission - Procalcitonin 1.07> 0.65 - Blood cultures obtained. NGTD - Closely monitor patient's temperature and other constitutional signs of infection. -- Neutropenic precautions Thrombocytopenia -- 113>>50>>35> 27 > 26 -- could be associate with underlying cancer and chemo -- will hold anticoagulation for now, and check for pf4 antibodies, if negative will resume anticoagulation - transfused platelets as needed Ovarian cancer, currently receiving chemotherapy every 3 weeks, active. Currently undergoing treatment at the [facility] with initial chemotherapy on 01/29/17. Patient scheduled to receive chemotherapy every 3 weeks. Patient notes there are lesions present in her colon as well. - Corrected some Dr. Jones requested - Oxycodone 5 mg every 4 hours as needed for pain. -- Contacted Dr. Oneil from patient's cancer Center [facility] who recommends Neupogen until bicarbonate white count of 55 is achieved. -- Neutropenic isolation ordered --Discussed with Dr. Jones, who agrees with current management and transitioning her care to SNF. DVT Hx, Lower extremity edema, ulcers present on admission, active. Secondary to chemotherapy. - Continue home regimen of torsemide. -- DVT treatment with enoxaparin held, patient's platelets dropped to to 26 today. PF4 levels negative -- Wound care consult saw the patient, changed dressings, appreciate the consult - will restart heparin prophylaxis once thrombocytopenia resolves Hypertension, present on admission, chronic. - Continue home regimen of atenolol 25 mg daily. hold if bp <110/150 Disposition: Social work is securing a SNF bed for the patient. Patient will likely be transferred to SNF once bed available. GI Prophylaxis: Not indicated VTE Prophylaxis: Sub-Q Enoxaparin, SCDs Resuscitation Status: CPR: Attempt Resuscitation Yosvany Perez MD Feb 09, 2017 11:57
--- NOTE | 2017-02-09 12:49 | NUR ---
Clotrimazole Pt taking dissolvable Clotrimazole tablet and leaving it at bedside. Educated on importance of using medication as ordered to ensure it is working. Pt states, "It's not doing anything so why should I take it?" Reminded pt that medication cannot work unless it's taken as ordered. Addendum: 02/09/17 at 1757 by PB LANDRY RN Noted two tablets at bedside of Clotrimazole, pt states "I'm taking them little by little." 1800 dose held. Addendum: 02/09/17 at 1812 by PB LANDRY RN Medication at bedside disposed of in sharps container. Pt states, "It's not even working, why should I take it?" Attempts to educate unsuccessful.
--- NOTE | 2017-02-09 14:43 | NUR ---
Wound note Bilateral LE dressings taken down, edema continues to resolve at the lower legs, today dorsum of left foot is edematous (wrapped with slightly more compression to reduce this). No new blisters have formed and the circular half dollar size areas at the medial left calf and right posterior calf which were blisters previously are now with petechia in the bases, there is minimal drainage on the dressings. Cleaned with saline very lightly as patient is exquisitely tender to touch. Redressed with adaptic, kerlix wrap and coban. Stable healing blisters. WS will change dressing again on Sunday.
--- NOTE | 2017-02-09 16:58 | NUR ---
spiritual care: follow up conversational visit. pt shared her fatigue and weariness at waiting for medical steps. Described activities of day and recent visitors and [id number] time that she is finding important each day. Pt commented about 2 small white tablets on her bedside table: "i have this medicine, but it's not working" and she described mouth soreness she is experiencing. pt agreeable for reading/puzzle materials. continuing to follow
[2017-02-09 19:43] VITALS: BP 111/76; PULSE 85; RESP 18; O2SAT 95
[2017-02-09 21:55] VITALS: BP 109/75; PULSE 81; RESP 18; O2SAT 98
[2017-02-10] VITALS (9 sets, daily range): BP systolic 107–132; BP diastolic 63–89; PULSE 70–100; RESP 18–20; O2SAT 93–96
[2017-02-10] MEDS: HYDROmorphone 0.5 mg/0.5 mL iSecure Syringe IVPUSH PRN ×4 (01:15→23:49)
[2017-02-10] MEDS: Clotrimazole Troche 10 mg Tablet MT SCH ×5 (05:33→22:03)
[2017-02-10 05:57] LABS: BASOPHILS % (AUTO) 0.8 % (0-3); EOSINOPHILS % (AUTO) 0 % (0-5); MONOCYTES % (AUTO) 13.8 % (4-12); Mean Corpuscular Hemoglobin 28.7 pg (27.0-35.0); Mean Corpuscular Volume 85.7 fL (81-100); NEUTROPHILS % (AUTO) 30.1 % (40-74)
--- NOTE | 2017-02-10 06:29 | NUR ---
Pain/Nausea Pt c/o abdominal pain7-03/15, Dilaudid 1mg givenx2 per pt requests, pain improved a lot, no need additional pain meds when offered at this time. Headache 03/15 at evening, Dilaudid given, headache gradually resolved. Nausea appears improved, only mild, no need nausea med when offered.
[2017-02-10 06:53] LABS: Platelet Count 15 bil/L (150-400)
--- NOTE | 2017-02-10 06:56 | NUR ---
Critical result low Plt Critical result at 0653: Plt 15. Dr. harrell notified at 0655. Pending response. Addendum: 02/10/17 at 0717 by ISIDRO CURIEL RN Plt 2 units ordered, will be given.
[2017-02-10] MEDS: Ondansetron 2 mg/mL 2 mL Inj IVPUSH PRN ×2 (08:02→15:07)
[2017-02-10] MEDS: levoFLOXacin 500 mg Tablet PO SCH (08:03)
[2017-02-10] MEDS: 0.9% Sodium Chloride 250 ML IV SCH (09:12)
--- NOTE | 2017-02-10 12:38 | PCM.PNMED ---
Subjective Date of Service Feb 10, 2017 Subjective Patient complains of "tail bone" pain, due to lying down in one position. She also complains of stomach pain after going to bathroom today. Vitals stable. Exam Vital Signs Vital Sign - Last Date Time Temp Pulse Resp B/P Pulse Ox O2 Delivery O2 Flow Rate FiO2 02/10/17 12:00 36.8 91 18 107/63 02/10/17 05:31 93 Room Air Intake and Output 02/09/17 02/09/17 02/10/17 Cumulative From/Thru 15:00 23:00 07:00 02/03/17 14:07 - 02/10/17 05:52 Intake Total 1460 ml 875 ml 08749 ml Output Total 900 ml 4175 ml Balance 560 ml 875 ml 15493 ml Intake Oral 440 ml 4799 ml IV Total 1020 ml 875 ml 11608 ml Platelets 250 ml Output Urine Total 900 ml 3875 ml Urine/Stool Mix 300 ml # Voids 4 5 47 # Bowel Movements 0 Exam Gen.: No acute distress, patient is laying in decubitus position with the pillow between her legs on her right side ENT: white plaques all over in the mouth and on tongue, improving Heart: Regular rate and rhythm, no S3-S4 sounds Lungs clear to auscultation anteriorly Abdomen nontender to palpation but a palpable large 10 cm mass in the left lower quadrant is present, normal bowel sounds Skin: slightly red around lower back, no signs of skin breakage Extremities: Legs are wrapped. dressing changed today Neuro: No focal deficits Lab and Diagnostics Result Diagram: 02/10/17 0535 02/10/17 0535 X-Rays, CTs and MRIs PROCEDURE: X-RAY CHEST ONE VIEW, PORTABLE ([id number]) INDICATIONS: SOB IMPRESSION: Port-A-Cath in normal position from right sided approach. Medial left lower lobe dense opacification likely is pneumonia, and there is also mild increased radiodensity over the remainder of the left lung, also likely pneumonia present to a lesser degree. Dictated by: Orlando Arora M.D. on 02/04/2017 at 9:43 Approved by: Orlando Arora M.D. on 02/04/2017 at 9:44 Assessment & Plan Krista Sung is a 56-year-old female with past medical history significant for ovarian cancer currently being treated at the [facility] who presents with profound weakness and lower extremity swelling after recent chemotherapy treatment on 01/29/17. Admitted for profound weakness, neutropenia. Profound weakness likely secondary to recent chemotherapy treatment, present on admission, active. On 02/03, Case discussed by ED physician with [facility] oncologist, Dr. Soliman, who agrees that patient's symptomatology is unlikely infectious and more likely secondary to chemotherapy. He has agreed to arrange a follow-up appointment for next week. - Patient with no constitutional signs of infection. Low threshold for further investigation as patient is neutropenic. -- On 02/04 case was discussed with Dr. Oneil, a colleague of Dr. Jones who recommends that patient be seen locally, given her frailty. - Dr. Bartholomew saw the patient, recommended transfer to (will get in touch with them), increased granix to 480 mcg daily and added levaquin for prophylaxis in light of neutropenia - Discussed case with Dr. Jones (her primary oncologist), who recommended patient to be SNF for conditioning, and they will coordinate her care from there. - Social work consulted. - Physical therapy. -- Dietary on board Mouth Sores - concerns for oral thrush - patient started on clotrimazole troches as needed Hypokalemia, present on admission, resolved - will continue to monitor Malnutrition, present on admission, active. -- Dietary consult Neutropenia, present on admission, active. --Secondary to chemotherapy for ovarian cancer, 1.2 today,trending up - Patient has been afebrile since admission - Blood cultures obtained. NGTD - Closely monitor patient's temperature and other constitutional signs of infection. -- Neutropenic precautions, on prophylactic abx Thrombocytopenia -- 113>>50>>35> 27 > 26> 15 -- could be associate with underlying cancer and chemo -- PF4 negative,however platelets low likely 2/2 recent chemo - transfused platelets as needed Ovarian cancer, currently receiving chemotherapy every 3 weeks, active. Currently undergoing treatment at the [facility] with initial chemotherapy on 01/29/17. Patient scheduled to receive chemotherapy every 3 weeks. Patient notes there are lesions present in her colon as well. - Corrected some Dr. Jones requested - Oxycodone 5 mg every 4 hours as needed for pain. -- Contacted Dr. Oneil from patient's cancer Center [facility] who recommends Neupogen until bicarbonate white count of 55 is achieved. -- Neutropenic isolation ordered --Discussed with Dr. Jones, who agrees with current management and transitioning her care to SNF. DVT Hx, Lower extremity edema, ulcers present on admission, decub erythema active. Secondary to chemotherapy. - Continue home regimen of torsemide. -- DVT treatment with enoxaparin held, patient's platelets dropped to to 15 today. PF4 levels negative -- Wound care consult saw the patient, changed dressings, appreciate the consult - will restart heparin prophylaxis once thrombocytopenia resolves Hypertension, present on admission, chronic. - Continue home regimen of atenolol 25 mg daily. hold if bp <110/150 Disposition: Social work is securing a SNF bed for the patient. Patient will likely be transferred to SNF once bed available. GI Prophylaxis: Not indicated VTE Prophylaxis: Sub-Q Enoxaparin, SCDs VTE Mechanical Devices: Venous Foot Pump Resuscitation Status: CPR: Attempt Resuscitation Yosvany Perez MD Feb 10, 2017 12:37
[2017-02-10] MEDS: D5 0.45% NaCl + KCl 20 mEq/L 1,000 ML IV SCH (13:14)
[2017-02-10] MEDS: Famotidine Inj 20 MG in IV Premix 1 EACH IV SCH ×2 (13:16→19:55)
--- NOTE | 2017-02-10 15:44 | NUR ---
Social Work: Multidisciplinary Rounds / Continued d/c planning Data: Pt is on day 7 of hospitalization. EMR reviewed. Pt discussed in rounds. MD states that pt is medically stable for d/c. [facility] has accepted pt pending insurance authorization which they started on 02/09/17, this may take up to 5 days to obtain. PROGRAM RESEARCH SPECIALIST will continue to follow. Assessment: Pt who is independent at baseline. Plan: Pt will d/c to [facility] pending insurance authorization started on 02/09/17, this may take up to 5 days to obtain. PROGRAM RESEARCH SPECIALIST will continue to follow. RICHIE Walls
[2017-02-10] MEDS ORDERED: Famotidine Inj 20 MG in IV Premix 1 EACH IV SCH (20:30)
--- NOTE | 2017-02-10 21:05 | NUR ---
Wound Pt had bowel movement and changed Mepilex on sacrum. Wound appeared clean, some redness around. Pt complained of pain related to wound on sacrum. Will monitor.
--- NOTE | 2017-02-10 23:58 | NUR ---
pain Pt alert and oriented x4, having difficulty getting comfortable. Pt complained of pain at 7 to 8, gave 1mg Dilaudid with good results at 1955. Pt remained alert and oriented x4, 1mg Dilaudid given again at 2349. Encouraged pt to get some rest. Will continue to monitor.
[2017-02-11 03:51] VITALS: BP 111/70; PULSE 85; RESP 16; O2SAT 96
[2017-02-11] MEDS: HYDROmorphone 0.5 mg/0.5 mL iSecure Syringe IVPUSH PRN ×4 (03:51→20:06)
[2017-02-11] MEDS: Clotrimazole Troche 10 mg Tablet MT SCH ×6 (06:29→22:00)
[2017-02-11] MEDS: Ondansetron 2 mg/mL 2 mL Inj IVPUSH PRN ×3 (06:38→20:07)
[2017-02-11] MEDS: D5 0.45% NaCl + KCl 20 mEq/L 1,000 ML IV SCH ×2 (07:18→20:06)
[2017-02-11 08:05] LABS: BASOPHILS % (AUTO) 0.3 % (0-3); MONOCYTES % (AUTO) 11.4 % (4-12); Mean Corpuscular Hemoglobin 29.1 pg (27.0-35.0); Mean Corpuscular Volume 85.5 fL (81-100); NEUTROPHILS % (AUTO) 58.8 % (40-74); Platelet Count 76 bil/L (150-400)
[2017-02-11] MEDS: levoFLOXacin 500 mg Tablet PO SCH (08:42)
[2017-02-11] MEDS: Famotidine Inj 20 MG in IV Premix 1 EACH IV SCH ×2 (08:42→20:05)
[2017-02-11] MEDS: 0.9% Sodium Chloride 250 ML IV SCH (10:23)
--- NOTE | 2017-02-11 10:25 | PCM.PNMED ---
Subjective Date of Service Feb 11, 2017 Subjective Patient seen and examined today. Feels ok. Vitals stable. Exam Vital Signs Vital Sign - Last Date Time Temp Pulse Resp B/P Pulse Ox O2 Delivery O2 Flow Rate FiO2 02/11/17 03:51 36.8 85 16 111/70 96 Room Air Intake and Output 02/10/17 02/10/17 02/11/17 Cumulative From/Thru 15:00 23:00 07:00 02/03/17 14:07 - 02/11/17 06:54 Intake Total 1085 ml 643 ml 1299 ml 89445 ml Output Total 4175 ml Balance 1085 ml 643 ml 1299 ml 19705 ml Intake Oral 237 ml 600 ml 5636 ml IV Total 378 ml 406 ml 699 ml 59683 ml Platelets 707 ml 957 ml Output Urine Total 3875 ml Urine/Stool Mix 300 ml # Voids 4 3 54 # Bowel Movements 1 1 Exam Gen.: No acute distress, patient is laying in decubitus position with the pillow between her legs on her right side ENT: white plaques all over in the mouth and on tongue, improving Heart: Regular rate and rhythm, no S3-S4 sounds Lungs clear to auscultation anteriorly Abdomen nontender to palpation but a palpable large 10 cm mass in the left lower quadrant is present, normal bowel sounds Skin: slightly red around lower back, no signs of skin breakage Extremities: Legs are wrapped. dressing changed today Neuro: No focal deficits Lab and Diagnostics Result Diagram: 02/11/17 0755 02/11/17 0755 X-Rays, CTs and MRIs PROCEDURE: X-RAY CHEST ONE VIEW, PORTABLE ([id number]) INDICATIONS: SOB IMPRESSION: Port-A-Cath in normal position from right sided approach. Medial left lower lobe dense opacification likely is pneumonia, and there is also mild increased radiodensity over the remainder of the left lung, also likely pneumonia present to a lesser degree. Dictated by: Orlando Arora M.D. on 02/04/2017 at 9:43 Approved by: Orlando Arora M.D. on 02/04/2017 at 9:44 Assessment & Plan Krista Sung is a 56-year-old female with past medical history significant for ovarian cancer currently being treated at the [facility] who presents with profound weakness and lower extremity swelling after recent chemotherapy treatment on 01/29/17. Admitted for profound weakness, neutropenia. Profound weakness likely secondary to recent chemotherapy treatment, present on admission, active. On 02/03, Case discussed by ED physician with [facility] oncologist, Dr. Soliman, who agrees that patient's symptomatology is unlikely infectious and more likely secondary to chemotherapy. He has agreed to arrange a follow-up appointment for next week. - Patient with no constitutional signs of infection. Low threshold for further investigation as patient is neutropenic. -- On 02/04 case was discussed with Dr. Oneil, a colleague of Dr. Jones who recommends that patient be seen locally, given her frailty. - Dr. Bartholomew saw the patient, recommended transfer to (will get in touch with them), increased granix to 480 mcg daily and added levaquin for prophylaxis in light of neutropenia - Discussed case with Dr. Jones (her primary oncologist), who recommended patient to be SNF for conditioning, and they will coordinate her care from there. - Social work consulted. - Physical therapy. -- Dietary on board Mouth Sores - concerns for oral thrush - patient started on clotrimazole troches as needed Hypokalemia, present on admission, resolved - will continue to monitor Malnutrition, present on admission, active. -- Dietary consult Neutropenia, present on admission, active. --Secondary to chemotherapy for ovarian cancer, 3.1 today,trending up - Patient has been afebrile since admission - Blood cultures obtained. NGTD - Closely monitor patient's temperature and other constitutional signs of infection. -- Neutropenic precautions, on prophylactic abx Thrombocytopenia -- 113>>50>>35> 27 > 26> 15>7.6 -- could be associate with underlying cancer and chemo -- PF4 negative,however platelets low likely 2/2 recent chemo - transfused platelets as needed Ovarian cancer, currently receiving chemotherapy every 3 weeks, active. Currently undergoing treatment at the [facility] with initial chemotherapy on 01/29/17. Patient scheduled to receive chemotherapy every 3 weeks. Patient notes there are lesions present in her colon as well. - Corrected some Dr. Jones requested - Oxycodone 5 mg every 4 hours as needed for pain. -- Contacted Dr. Oneil from patient's cancer Center [facility] who recommends Neupogen until bicarbonate white count of 55 is achieved. -- Neutropenic isolation ordered --Discussed with Dr. Jones, who agrees with current management and transitioning her care to SNF. DVT Hx, Lower extremity edema, ulcers present on admission, decub erythema active. Secondary to chemotherapy. - Continue home regimen of torsemide. -- DVT treatment with enoxaparin held, patient's platelets dropped to to 15 today. PF4 levels negative -- Wound care consult saw the patient, changed dressings, appreciate the consult - will restart heparin prophylaxis once thrombocytopenia resolves Hypertension, present on admission, chronic. - Continue home regimen of atenolol 25 mg daily. hold if bp <110/150 Disposition: Social work is securing a SNF bed for the patient. Patient will likely be transferred to SNF once bed available. GI Prophylaxis: Not indicated VTE Prophylaxis: Sub-Q Enoxaparin, SCDs VTE Mechanical Devices: Venous Foot Pump Resuscitation Status: CPR: Attempt Resuscitation Time spent 45 mins Yosvany Perez MD Feb 11, 2017 10:25
[2017-02-11 10:49] VITALS: BP 114/81; PULSE 82; RESP 18; O2SAT 96
--- NOTE | 2017-02-11 18:36 | NUR ---
Pain/nausea/discomfort Pt had generalized pain and nausea today made more tolerable by combination of medications. Pt did attempt to eat more today than previously, but eating brought on stomach cramping, new PRN med prescribed by MD seemed to help. Keeping pt on punctual pain med regimen seems to work the best, will pass along to NOC shift what was given. Pt experienced periods of sweats but had no fever. Bed bath given and all sheets changed, pt reports feeling better. Care continues.
[2017-02-11 20:16] VITALS: BP 102/63; PULSE 94; RESP 20; O2SAT 96
[2017-02-12] MEDS: HYDROmorphone 0.5 mg/0.5 mL iSecure Syringe IVPUSH PRN ×3 (00:05→20:51)
[2017-02-12] MEDS: Ondansetron 2 mg/mL 2 mL Inj IVPUSH PRN ×2 (00:05→05:45)
[2017-02-12 04:35] VITALS: BP 130/83; PULSE 83; RESP 18; O2SAT 95
--- NOTE | 2017-02-12 05:04 | NUR ---
Pain/Nausea: Pt c/o generalized pain along with nausea throughout the night, some relief with pain/nausea medication. Pt encouraged to turn Q2 hrs. Awake most of the night, pleasant and cooperative with care.
[2017-02-12] MEDS: Clotrimazole Troche 10 mg Tablet MT SCH ×5 (05:46→22:00)
[2017-02-12 06:13] LABS: BASOPHILS % (AUTO) 0.2 % (0-3); EOSINOPHILS % (AUTO) 0.1 % (0-5); MONOCYTES % (AUTO) 9.3 % (4-12); Mean Corpuscular Hemoglobin 29.4 pg (27.0-35.0); Mean Corpuscular Volume 85.3 fL (81-100); NEUTROPHILS % (AUTO) 74.6 % (40-74); Platelet Count 52 bil/L (150-400)
[2017-02-12] MEDS: levoFLOXacin 500 mg Tablet PO SCH (09:11)
[2017-02-12] MEDS: D5 0.45% NaCl + KCl 20 mEq/L 1,000 ML IV SCH (09:11)
[2017-02-12] MEDS: Famotidine Inj 20 MG in IV Premix 1 EACH IV SCH ×2 (09:12→20:49)
--- NOTE | 2017-02-12 10:39 | NUR ---
Called and spoke with Radha at [place] and authorization is still in process through [facility] [employer] options. Radha Johnson is on today and is planning to be by [place] this afternoon, today she can be reached at [phone]. Radha will have Ronna reach out to me and update me on where we are with being able to transfer. Updated RESIDENTIAL LAWN SPECIALIST Addendum: 02/12/17 at 1556 by PAM LÓPEZ CM Spoke with Ronna Johnson at [place] and she will come and meet with patient tomorrow. Ronna was expecting to hear from insurance this afternoon regarding authorization but she has not called yet. She will be checking in tomorrow morning as well before coming up for patient visit. Updated RESIDENTIAL LAWN SPECIALIST
[2017-02-12] MEDS: 0.9% Sodium Chloride 250 ML IV SCH ×2 (10:58→13:10)
--- NOTE | 2017-02-12 11:31 | NUR ---
Social Work-continued d/c planning/multidisciplinary rounds: Data:EMR Reviewed.Pt is on day 9 of hospitalization for global weakness per H&P. Pt is medically stable for discharge, SW working on placement. PT continues to recommend SNF placement. Pt continues to have wound care. SW followed up with pt to explore [facility] Further. Pt is not sure if she is willing to go to [place]. SW explained that this hospital is a place where they could manage all of her medical needs. [facility] sales and marketing representative can come and see pt today. Pt is agreeable to meeting with sales and marketing representative and hearing more about placement. Toward end of the conversation pt is more agreeable. SW explained it would all be based on insurance authorization which is still pending.SW will continue to follow. Assessment:Pt to benefit from [facility]. Plan:Pt has been accepted at [facility], pending insurance authorization. [facility] to come and meet with pt today. SW will continue to follow. RICHIE Brooke
[2017-02-12 13:11] VITALS: BP 118/74; PULSE 97; RESP 10
[2017-02-12 13:35] VITALS: BP 101/62; PULSE 89; RESP 10
[2017-02-12 13:37] VITALS: BP 101/62; PULSE 83; RESP 18; O2SAT 97
[2017-02-12 16:28] VITALS: BP 113/74; PULSE 90; RESP 10
--- NOTE | 2017-02-12 17:33 | NUR ---
Wound Note Dressing changed at bilateral lower extremities, patients edema has resolved at this point, applied new kerlix and wrapped lightly with coban, no new blisters have formed. Will recheck on this patient 02/14.
--- NOTE | 2017-02-12 19:31 | PCM.PNMED ---
Subjective Date of Service Feb 12, 2017 Subjective Patient is seen and examined. She is in better spirits than 10 days ago. She just wanting to go to either the long-term or home to recuperate. Pain is well controlled on Dilaudid. Messages left for Dr. Jones to talk about discharge planning. Patient has received 3 units of platelets and what seems like units over the weekend, states she is up and moving about. No Other concerns. Exam Vital Signs Vital Sign - Last Date Time Temp Pulse Resp B/P Pulse Ox O2 Delivery O2 Flow Rate FiO2 02/12/17 04:35 36.5 83 18 130/83 95 Room Air Intake and Output 02/11/17 02/11/17 02/12/17 Cumulative From/Thru 15:00 23:00 07:00 02/03/17 14:07 - 02/11/17 20:29 Intake Total 1074 ml 31965 ml Output Total 4175 ml Balance 1074 ml 79621 ml Intake Oral 324 ml 5960 ml IV Total 750 ml 03013 ml Platelets 957 ml Output Urine Total 3875 ml Urine/Stool Mix 300 ml # Voids 4 58 # Bowel Movements 1 2 Exam Gen.: No acute distress, cachectic HEENT: Poor dentition, positive for hair loss Heart: Regular rate and rhythm no S3-S4 murmurs Lungs: Clear to auscultation no crackles or wheezes Abdomen: She has diffuse abdominal pain worse in the left lower quadrant, large swollen abdomen Extremities: Wrapped in compression dressings, wound care is following Psych: Negative for anxiety or agitation Neuro: No focal deficits IVs and Medications IV Fluids Discontinued she was on D5 half normal with potassium Medications Reviewed: Medications were reviewed in detail Lab and Diagnostics Result Diagram: 02/11/17 0755 02/11/17 0755 X-Rays, CTs and MRIs PROCEDURE: X-RAY CHEST ONE VIEW, PORTABLE ([id number]) INDICATIONS: SOB IMPRESSION: Port-A-Cath in normal position from right sided approach. Medial left lower lobe dense opacification likely is pneumonia, and there is also mild increased radiodensity over the remainder of the left lung, also likely pneumonia present to a lesser degree. Dictated by: Orlando Arora M.D. on 02/04/2017 at 9:43 Approved by: Orlando Arora M.D. on 02/04/2017 at 9:44 Assessment & Plan Krista Sung is a 56-year-old female with past medical history significant for ovarian cancer currently being treated at the [facility] who presents with profound weakness and lower extremity swelling after recent chemotherapy treatment on 01/29/17. Admitted for profound weakness, neutropenia. FFT (Failure to Thrive in adult) secondary to recent chemotherapy treatment, present on admission, active. On 02/03, Case discussed by ED physician with [facility] oncologist, Dr. Soliman, who agrees that patient's symptomatology is unlikely infectious and more likely secondary to chemotherapy. He has agreed to arrange a follow-up appointment for next week. - Patient with no constitutional signs of infection. Low threshold for further investigation as patient is neutropenic. -- On 02/04 case was discussed with Dr. Oneil, a colleague of Dr. Jones who recommends that patient be seen locally, given her frailty. - Discussed case with Dr. Jones (her primary oncologist), who recommended patient to be SNF for conditioning, and they will coordinate her care from there. - Social work consulted. - Physical therapy recommends SNF placement --Dietary on board : Ensure supplements and soymilk, daily weights Malnutrition, present on admission, active. -- Dietary consult Neutropenia, present on admission, resolved. --Secondary to chemotherapy for ovarian cancer, 3.1 today,trending up - Patient has been afebrile since admission - Blood cultures obtained. NGTD - Closely monitor patient's temperature and other constitutional signs of infection. -- Neutropenic precautions, on prophylactic abx Thrombocytopenia, poa improving -- 113>>50>>35> 27 > 26> 15>7.6 -- could be associate with underlying cancer and chemo -- PF4 negative,however platelets low likely 2/2 recent chemo - transfused platelets as needed (total 3 units) -- Platelets of 51 on 02/12 Ovarian cancer, currently receiving chemotherapy every 3 weeks, active. Currently undergoing treatment at the [facility] with initial chemotherapy on 01/29/17. Patient scheduled to receive chemotherapy every 3 weeks. Patient notes there are lesions present in her colon as well. - Oxycodone 5 mg every 4 hours as needed for pain. -- Contacted Dr. Oneil from patient's cancer Center [facility] who recommends Neupogen until white count of 5 is achieved. Neuprogen/granxi is discontinued on 02/12 -- Neutropenic isolation ordered --Discussed with Dr. Jones, who agrees with current management and transitioning her care to SNF. Call Dr. jones this a.m. regarding discharge planning -- We will transfer her to by mouth pain meds based on her Dilaudid usage in the last 2 days - Dr. Bartholomew saw the patient, recommended transfer to (will get in touch with them), increased granix to 480 mcg daily and added levaquin for prophylaxis in light of neutropenia. Will disocntinue Granix and neuprogen Anemia of chronic disease, POA: Patient denies GI bleed -- Stool guaiac is ordered -- Hemoglobin dropped to 8.0, -- Patient agrees to blood transfusion, received 1 unit. PRBC on 02/12 Mouth Sores, active improving - concerns for oral thrush - patient started on clotrimazole troches as needed Hypokalemia, present on admission, resolved - will continue to monitor DVT Hx, Lower extremity edema, ulcers present on admission, decub erythema active. Secondary to chemotherapy. - Continue home regimen of torsemide. -- DVT treatment with enoxaparin held, patient's platelets dropped to to 15 today. PF4 levels negative -- Wound care consult saw the patient, changed dressings, appreciate the consult - will restart heparin prophylaxis once thrombocytopenia resolves, 51 on 02/12 Hypertension, present on admission, chronic. - Continue home regimen of atenolol 25 mg daily. hold if bp <110/150 Disposition: Social work is securing a SNF bed for the patient. [facility]. Waiting to hear back from Dr. Jones for recommendations and follow-up transfusion ordered lab tests. Pain Evaluation: Adequate Pain Control GI Prophylaxis: Not indicated VTE Prophylaxis: Sub-Q Enoxaparin, SCDs VTE Mechanical Devices: Venous Foot Pump Resuscitation Status: CPR: Attempt Resuscitation Time spent 25 min Indigo Galdamez DO Feb 12, 2017 05:13
[2017-02-12 20:41] VITALS: BP 131/85; PULSE 79; RESP 18; O2SAT 97
[2017-02-13] MEDS: HYDROmorphone 0.5 mg/0.5 mL iSecure Syringe IVPUSH PRN ×2 (01:27→08:58)
--- NOTE | 2017-02-13 05:11 | NUR ---
Pain: Pt continues to c/o abdominal/general pain -03/15, pain medication administered, pain generally reduced to 5-6. Pt denies chest pain and SOB, denies n/v, remains afebrile. Pt slept off/on throughout the night, pleasant and cooperative with care. Addendum: 02/13/17 at 0518 by ERIC QUINONES RN Report passed to Sadi Newman RN
[2017-02-13 05:57] LABS: Mean Corpuscular Hemoglobin 29.3 pg (27.0-35.0); Mean Corpuscular Volume 85.1 fL (81-100); Platelet Count 83 bil/L (150-400)
[2017-02-13] MEDS: Clotrimazole Troche 10 mg Tablet MT SCH ×5 (06:00→23:07)
[2017-02-13 06:03] VITALS: BP 111/80; PULSE 91; RESP 16; O2SAT 98
[2017-02-13 07:50] LABS: BASOPHILS % (AUTO) 0 % (0-3); EOSINOPHILS % (AUTO) 0 % (0-5); MONOCYTES % (AUTO) 8 % (4-12); NEUTROPHILS % (AUTO) 68 % (40-74)
--- NOTE | 2017-02-13 08:13 | NUR ---
Patient has been denied by her insurance for LTAC, insurance feels patient can go to lower level of care. Updated CUTTING MACHINE OFFBEARER Addendum: 02/13/17 at 0841 by PAM LÓPEZ CM Called and spoke with Alfredo at [place] and asked him about review of the patient. He requested additional clinicals and then would finish review and call me back. Updated CUTTING MACHINE OFFBEARER
--- NOTE | 2017-02-13 08:44 | NUR ---
Social Work-continued d/c planning: Data:EMR Reviewed. Pt is on day 10 of hospitalization for global weakness per H&P. SW spoke with UR specialist this morning who was informed that pt's insurance has declined LTAC- [facility]. UR specialist to follow up on SNF's that were faxed last week to determine if any of these facilities have a bed for pt. PT continues to recommend SNF placement. SW will continue to follow. Assessment:Pt who would benefit from SNF. Plan:[facility] has denied pt. UR specialist to follow up on SNF's that were faxed last week to determine if any of these facilities have a bed for pt. SW will continue to follow. RICHIE Brooke
[2017-02-13] MEDS: Ondansetron 2 mg/mL 2 mL Inj IVPUSH PRN ×2 (08:56→16:10)
[2017-02-13] MEDS: Famotidine Inj 20 MG in IV Premix 1 EACH IV SCH (08:57)
--- NOTE | 2017-02-13 10:31 | NUR ---
Social Work-multidisciplinary rounds: Per MD in morning rounds, pt is medically stable for discharge. Pt's insurance has denied [facility] for pt. UR specialist to call SNF's that had been faxed last week to determine if any of them can accept pt. PT continues to recommend SNF. RICHIE Brooek
--- NOTE | 2017-02-13 11:12 | NUR ---
Tamika @ [place] [phone] PH Declined patient due to insurance [facility] @ [place] [phone] PH Declined patient due to insurance [facility] [phone] PH Would like to have referral refaxed to [phone] [facility] [phone] PH Do not have a private room and are unable to meet patient's needs at this time. Spoke with Leda in Admissions [facility] [phone] Left message on admissions phone regarding referral and bed availability. [facility] [phone] Spoke with Tati and she is looking into this referral and will be calling me back.
[2017-02-13 13:41] VITALS: BP 123/71; PULSE 77; RESP 18; O2SAT 95
--- NOTE | 2017-02-13 15:19 | NUR ---
spiritual care: following conversational visit. pt on room franciaa, reported on her current fatigue, but general improvement and increased mobility. Pt also shared her frustration and fear related to plan of care uncertainty. "they are figuring out what they WONT pay for, meanwhile, the cancer keeps growing" Pt assessed strengths including continuing with oncologist she's familiar with, that this provider is specialist, and that she has ability to be patient and family support. Pt said that her spiritual practices continue to be sustaining to her.
--- NOTE | 2017-02-13 15:52 | NUR ---
Social Work-readiness for discharge: Data:EMR Reviewed. Pt is on day 10 of hospitalization for global weakness per H&P. Pt is likely medically stable tomorrow. SW followed up with pt regarding questions about insurance coverage. All questions answered. Pt states she now feels like she would prefer to return home with HH Services. [employer] is the only company that could do HH due to insurance, SW to await MD order. SW to follow up with pt tomorrow. SW will continue to follow. Assessment:Pt who would benefit from HH. Plan:Pt to likely discharge home when medically stable. [employer] is the only company that could do HH due to insurance, SW to await MD order. SW will continue to follow. RICHIE Brooke
[2017-02-13] MEDS: 0.9% Sodium Chloride 250 ML IV SCH (16:29)
[2017-02-13 21:56] VITALS: BP 111/80; PULSE 80; RESP 18; O2SAT 99
--- NOTE | 2017-02-13 22:42 | PCM.PNMED ---
Subjective Date of Service Feb 13, 2017 Subjective Patient is seen and examined. She was seen later in the day. She was sleeping , when she was woken up she expressed concern over not finding a SNIF placement. She says that she is feeling confused about where she will be going. We discussed her insurance not covering [facility], the fact that we have been in contact with her physician Dr. jones. Patient thinks if she calls her doctor Dr. jones, she will be able to admit her to a [facility] where she can be seen by Dr. jones. I told her she is free to call her physician with whom we have been in contact with, but Dr. jones may not be able to admit her to the hospital. Per staff she is walking better doing better. Exam Vital Signs Vital Sign - Last Date Time Temp Pulse Resp B/P Pulse Ox O2 Delivery O2 Flow Rate FiO2 02/13/17 21:56 36.4 80 18 111/80 99 Room Air Intake and Output 02/12/17 02/12/17 02/13/17 Cumulative From/Thru 15:00 23:00 07:00 02/03/17 14:07 - 02/13/17 06:20 Intake Total 1033 ml 2460 ml 686 ml 07216 ml Output Total 400 ml 4575 ml Balance 1033 ml 2460 ml 286 ml 37565 ml Intake Oral 1825 ml 200 ml 8385 ml IV Total 1033 ml 335 ml 486 ml 74708 ml Packed Cells 300 ml 300 ml Platelets 957 ml Output Urine Total 400 ml 4275 ml Urine/Stool Mix 300 ml # Voids 7 1 69 # Bowel Movements 0 2 Exam Gen.: No acute distress, cachectic HEENT: Poor dentition, positive for hair loss Heart: Regular rate and rhythm no S3-S4 murmurs Lungs: Clear to auscultation no crackles or wheezes Abdomen: She has diffuse abdominal pain worse in the left lower quadrant, large swollen abdomen Extremities: Wrapped in compression dressings, wound care is following Psych: Mildly anxious Neuro: No focal deficits IVs and Medications Medications Reviewed: Medications were reviewed in detail Lab and Diagnostics Result Diagram: 02/13/17 0520 02/12/17 0555 X-Rays, CTs and MRIs PROCEDURE: X-RAY CHEST ONE VIEW, PORTABLE ([id number]) INDICATIONS: SOB IMPRESSION: Port-A-Cath in normal position from right sided approach. Medial left lower lobe dense opacification likely is pneumonia, and there is also mild increased radiodensity over the remainder of the left lung, also likely pneumonia present to a lesser degree. Dictated by: Orlando Arora M.D. on 02/04/2017 at 9:43 Approved by: Orlando Arora M.D. on 02/04/2017 at 9:44 Assessment & Plan Krista Sung is a 56-year-old female with past medical history significant for ovarian cancer currently being treated at the [facility] who presents with profound weakness and lower extremity swelling after recent chemotherapy treatment on 01/29/17. Admitted for profound weakness, neutropenia. Acute leukocytosis>19: -- Likely due to Decadron patient is on -- She has no complaints of infectious signs, she has no fevers -- Continue to monitor FFT (Failure to Thrive in adult) secondary to recent chemotherapy treatment, present on admission, active. On 02/03, Case discussed by ED physician with [facility] oncologist, Dr. Soliman, who agrees that patient's symptomatology is unlikely infectious and more likely secondary to chemotherapy. He has agreed to arrange a follow-up appointment for next week. - Patient with no constitutional signs of infection. Low threshold for further investigation as patient is neutropenic. -- On 02/04 case was discussed with Dr. Oneil, a colleague of Dr. Jones who recommends that patient be seen locally, given her frailty. - Discussed case with Dr. Jones (her primary oncologist), who recommended patient to be SNF for conditioning, and they will coordinate her care from there. - Social work consulted. - Physical therapy recommends SNF placement --Dietary on board : Ensure supplements and soymilk, daily weights Malnutrition, present on admission, active. -- Dietary consult Neutropenia, present on admission, resolved. --Secondary to chemotherapy for ovarian cancer, 3.1 today,trending up - Patient has been afebrile since admission - Blood cultures obtained. NGTD - Closely monitor patient's temperature and other constitutional signs of infection. -- Discontinued Neutropenic precautions, on prophylactic abx Thrombocytopenia, poa resolved -- could be associate with underlying cancer and chemo -- PF4 negative,however platelets low likely 2/2 recent chemo - transfused platelets as needed (total 3 units) -- Normalized on 02/13, started her back up on enoxaparin [place] Ovarian cancer, currently receiving chemotherapy every 3 weeks, active. Currently undergoing treatment at the [facility] with initial chemotherapy on 01/29/17. Patient scheduled to receive chemotherapy every 3 weeks. Patient notes there are lesions present in her colon as well. - Oxycodone 5-10 mg every 4 hours as needed for pain. We will consider switching her to morphine sulfate long-acting in the a.m. -- Contacted Dr. Oneil from patient's cancer Center [facility] who recommends Neupogen until white count of 5 is achieved. Neuprogen/granxi is discontinued on 02/12 - Dr. Bartholomew saw the patient, recommended transfer to (will get in touch with them), increased granix to 480 mcg daily and added levaquin for prophylaxis in light of neutropenia. Will disocntinue Granix and neuprogen -- Dr. Jones has been contacted on 02/13, she agrees with current plan of care to restart enoxaparin and giving patient follow-up lab work. Anemia of chronic disease, stable: Patient denies GI bleed -- Stool guaiac is ordered -- Hemoglobin dropped to 8.0, -- Patient agrees to blood transfusion, received 1 unit. PRBC on 02/12 -- H&H stable Mouth Sores, active improving - concerns for oral thrush - patient started on clotrimazole troches as needed Hypokalemia, present on admission, resolved - will continue to monitor DVT Hx, Lower extremity edema, ulcers present on admission, decub erythema active. Secondary to chemotherapy. - Continue home regimen of torsemide. -- DVT treatment with enoxaparin held, patient's platelets dropped to to 15 today. PF4 levels negative -- Wound care consult saw the patient, changed dressings, appreciate the consult -Patient is restarted on enoxaparin 02/13 Hypertension, present on admission, chronic. - Continue home regimen of atenolol 25 mg daily. hold if bp <110/150 Disposition: Social work is securing a SNF bed for the patient. Patient is not accepted at local [facility], social work is still working on placement. Pain Evaluation: Adequate Pain Control GI Prophylaxis: Not indicated VTE Prophylaxis: Sub-Q Enoxaparin, SCDs VTE Mechanical Devices: Venous Foot Pump Resuscitation Status: CPR: Attempt Resuscitation Time spent 25 min Indigo Galdamez DO Feb 13, 2017 22:42
[2017-02-14 05:37] VITALS: BP 97/67; PULSE 82; RESP 16; O2SAT 97
[2017-02-14] MEDS: Clotrimazole Troche 10 mg Tablet MT SCH ×5 (06:00→22:00)
[2017-02-14 06:20] LABS: EOSINOPHILS % (AUTO) 0 % (0-5); Mean Corpuscular Hemoglobin 29.1 pg (27.0-35.0); Mean Corpuscular Volume 85.1 fL (81-100); Platelet Count 130 bil/L (150-400)
--- NOTE | 2017-02-14 06:27 | NUR ---
Pain: Pt continues to complain of abdominal pain, medication administered; effective. This RN has noted improvement with pt over the last three nights; less c/o pain and pt is ambulating more. Pt slept off/on, pleasant and cooperative with care.
[2017-02-14 07:18] LABS: BASOPHILS % (AUTO) 0 % (0-3); MONOCYTES % (AUTO) 7 % (4-12); NEUTROPHILS % (AUTO) 75 % (40-74)
[2017-02-14] MEDS: Ondansetron 2 mg/mL 2 mL Inj IVPUSH PRN (08:01)
[2017-02-14] MEDS ORDERED: Calcium GLUCO 10% (Gm) Inj 1 GM in 0.9% Sodium Chloride 50 ML IV ONE (08:25)
--- NOTE | 2017-02-14 10:25 | NUR ---
Social Work-multidisciplinary rounds: Per MD, pt will need SNF placement. UR Specialist working on calling facilities for bed. SW will continue to follow. RICHIE Brooke
--- NOTE | 2017-02-14 11:08 | NUR ---
NUTRITION FOLLOW UP: ASSESS: 56 YO Female admitted with weakness secondary to chemo therapy treatment, neutropenia, mouth sores, lower extremity edema/ulcers--wound care following for dressing changes to lower extremity blisters. Pt continues to have very poor po intake with pt continuing to eat < 25% of meals now x 11 days. Nutrition consult for malnutrition completed on 02/05. Pt reported 40 lb weight loss since August 2016. Pt indicates she is to have surgery at for colon mass (ovarian cancer with mets to colon) however surgery continues to be delayed due to pt multiple hospital visits and delayed chemo therapy treatments. PMHX: Ovarian Cancer with mets, chemo therapy, DIET: General, Ensure, yogurt and soy milk all trays. PO 0-25% x 11 days. Follows Low fiber, lactose free diet at home. Likes soy/almond milk. No grape flavors, no butter/salt LABS: Reviewed. Na 132, Ca 6.1, Alb 2.0. MEDS: Reviewed. GI: BM x 1 (02/13) WEIGHT: 51.9 kg (standing scale) Admit wt: 58.7 kg (bed scale) Wt October 2016:58.1 kg. UBW reported:76 kg. Severe wt loss noted. EST.NEEDS: WT GAIN/CANCER Kcal: 3059-6767 (30-35 kcal/kg BW) Pro: 70-100 g 1.2-1.8 g/kg IBW) NUTRITION DIAGNOSIS: (1) Malnutrition related to decreased ability to consume sufficient energy as evidenced by po intake of 0-25% x 11 days with severe and continued wt loss--PERSISTS. (2) Inadequate oral intake related to decreased po intake as evidenced by po intake of 0-25% x 11 days and severe/ongoing wt loss. INTERVENTION: (1) Continue with supplements per pt reqeust. (2) Strongly consider nutrition support (tube feedings) as pt with severe/continued wt loss and prolonged inadequate po intake MONITOR/EVALUATE: PO intake, labs, GI / nutritional status. Follow per high nutritional risk guidelines.
[2017-02-14] MEDS: 0.9% Sodium Chloride 250 ML IV SCH (13:37)
[2017-02-14 14:18] VITALS: BP 99/60; PULSE 77; RESP 18; O2SAT 98
--- NOTE | 2017-02-14 15:07 | NUR ---
Social Work-continued d/c planning: Data & assessment:EMR Reviewed. Pt is on day 11 of hospitalization for global weakness per H&P. Pt is not medically stable. SW received a call from [place] with [facility] who states they had pt on service prior to hospitalization, but will not be able to take pt back on service due to insurance. SW spoke with pt who states her goal is to get to to be able to get her Chemo. Pt has been working with PT on and off and has been dictating when she works with PT. No SNF has been found yet due to insurance. Pt states she would be able agreeable to returning home. SW received calls from both Andres [phone] and Melba [phone] from [facility] wondering about the discharge plan. SW provided updates to both people. Andres and Melba both know the pt and the barriers that SW has run into with SNF and HH services. No other company takes pt's insurance in this area. NALDO will continue to follow. Plan:Pt will likely discharge home when medically stable. SW has yet to find SNF that will accept pt and contract with insurance. [facility] is the only HH company in the area that would take pt's insurance and they are not able to take pt back on services. NALDO will continue to follow. RICHIE Brooke
[2017-02-14] MEDS: Morphine ER 15 mg (MS Contin) Tablet PO SCH (20:30)
[2017-02-14 20:56] VITALS: BP 133/84; PULSE 73; RESP 16; O2SAT 98
--- NOTE | 2017-02-14 22:33 | PCM.PNMED ---
Subjective Date of Service Feb 14, 2017 Subjective Patient is seen and examined, PT expressed some frustration that patient is not willing to cooperate. Patient wants to either be placed or go home tomorrow such that she can go to her f/u sppt with Dr. Jones. I have reassured her that we will get in touch with Dr. Jones or her coleague tomorrow am again, as the plan to place her at [facility] fell through and she is still at [facility]. - Exam Vital Signs Vital Sign - Last Date Time Temp Pulse Resp B/P Pulse Ox O2 Delivery O2 Flow Rate FiO2 02/14/17 20:56 36.4 73 16 133/84 98 Room Air Intake and Output 02/13/17 02/13/17 02/14/17 Cumulative From/Thru 15:00 23:00 07:00 02/03/17 14:07 - 02/14/17 06:03 Intake Total 1685 ml 200 ml 37095 ml Output Total 1800 ml 200 ml 6575 ml Balance -115 ml 0 ml 92338 ml Intake Oral 1575 ml 200 ml 67188 ml IV Total 110 ml 68670 ml Packed Cells 300 ml Platelets 957 ml Output Urine Total 1800 ml 200 ml 6275 ml Urine/Stool Mix 300 ml # Voids 1 70 # Bowel Movements 1 0 3 IVs and Medications Medications Reviewed: Medications were reviewed in detail Lab and Diagnostics Result Diagram: 02/14/17 0602 02/14/17 0602 X-Rays, CTs and MRIs PROCEDURE: X-RAY CHEST ONE VIEW, PORTABLE ([id number]) INDICATIONS: SOB IMPRESSION: Port-A-Cath in normal position from right sided approach. Medial left lower lobe dense opacification likely is pneumonia, and there is also mild increased radiodensity over the remainder of the left lung, also likely pneumonia present to a lesser degree. Dictated by: Orlando Arora M.D. on 02/04/2017 at 9:43 Approved by: Orlando Arora M.D. on 02/04/2017 at 9:44 Assessment & Plan Krista Sung is a 56-year-old female with past medical history significant for ovarian cancer currently being treated at the [facility] who presents with profound weakness and lower extremity swelling after recent chemotherapy treatment on 01/29/17. Admitted for profound weakness, neutropenia. Acute leukocytosis>20: -- Likely due to Decadron patient is on -- She has no complaints of infectious signs, she has no fevers -- Continue to monitor - Will discuss with dr. Jones in the AM, Unable to get a hold of her this afternoon. FFT (Failure to Thrive in adult) secondary to recent chemotherapy treatment, present on admission, active. On 02/03, Case discussed by ED physician with [facility] oncologist, Dr. Soliman, who agrees that patient's symptomatology is unlikely infectious and more likely secondary to chemotherapy. He has agreed to arrange a follow-up appointment for next week. - Patient with no constitutional signs of infection. Low threshold for further investigation as patient is neutropenic. -- On 02/04 case was discussed with Dr. Oneil, a colleague of Dr. Jones who recommends that patient be seen locally, given her frailty. - Discussed case with Dr. Jones (her primary oncologist), who recommended patient to be SNF for conditioning, and they will coordinate her care from there. - Social work consulted. [facility] was proposed but they would not take patient's insurance. They will be trying for [facility] - Physical therapy recommends SNF placement --Dietary on board : Ensure supplements and soymilk, daily weights --Plan to contact Dr. Jones once again, even have her call the patient, which may help patient's anxiety/ Malnutrition, present on admission, active. -- Dietary consult Neutropenia, present on admission, resolved. --Secondary to chemotherapy for ovarian cancer, 3.1 today,trending up - Patient has been afebrile since admission - Blood cultures obtained. NGTD - Closely monitor patient's temperature and other constitutional signs of infection. --Discontinued Neutropenic precautions, on prophylactic abx Thrombocytopenia, poa resolved -- could be associate with underlying cancer and chemo -- PF4 negative,however platelets low likely 2/2 recent chemo - transfused platelets as needed (total 3 units) -- Normalized on 02/13, started her back up on enoxaparin Home med Ovarian cancer, currently receiving chemotherapy every 3 weeks, active. Currently undergoing treatment at the [facility] with initial chemotherapy on 01/29/17. Patient scheduled to receive chemotherapy every 3 weeks. Patient notes there are lesions present in her colon as well. --Contacted Dr. Oneil from patient's cancer Center [facility] who recommends Neupogen until white count of 5 is achieved. Neuprogen/granxi is discontinued on 02/12 - Dr. Bartholomew saw the patient, recommended transfer to (will get in touch with them), increased granix to 480 mcg daily and added levaquin for prophylaxis in light of neutropenia. Will discontinue Granix and neuprogen -- Dr. Jones has been contacted on 02/13, she agrees with current plan of care to restart enoxaparin and giving patient follow-up lab work. --Plan to contact Dr. Jones once again, even have her call the patient, which may help patient's anxiety as patient has not been able to go to [place] - Oxycodone 5 mg every 8 hours as needed for break through pain. Morphine sulfate long-acting 15 mg PO BID. Anemia of chronic disease, stable: Patient denies GI bleed -- Stool guaiac is ordered -- Hemoglobin dropped to 8.0, -- Patient agrees to blood transfusion, received 1 unit. PRBC on 02/12 -- H&H stable Mouth Sores, active improving - concerns for oral thrush - patient started on clotrimazole troches as needed Hypokalemia, present on admission, resolved - will continue to monitor DVT Hx, Lower extremity edema, ulcers present on admission, decub erythema active. Secondary to chemotherapy. - Continue home regimen of torsemide. -- DVT treatment with enoxaparin held, patient's platelets dropped to to 15 today. PF4 levels negative -- Wound care consult saw the patient, changed dressings, appreciate the consult - Patient is restarted on enoxaparin 02/13 Hypertension, present on admission, chronic. - Continue home regimen of atenolol 25 mg daily. hold if bp <110/150 Disposition: Social work is securing a SNF bed for the patient. Patient is not accepted at local [facility], social work is still working on placement. She is being considered for [facility], meanwhile patient is feeling increasingly anxious as she wants to go for her treatments. GI Prophylaxis: Not indicated VTE Prophylaxis: Sub-Q Enoxaparin, SCDs VTE Mechanical Devices: Venous Foot Pump Resuscitation Status: CPR: Attempt Resuscitation Time spent 25 min Indigo Galdamez DO Feb 14, 2017 22:32
--- NOTE | 2017-02-15 05:22 | NUR ---
Change in LOC/Self saline lock PORT At around 0330 pt walks out into hallway stating " I need to get out of here" when attempted to have pt return to room pt sat down on the floor. Staff got WC and put pt on and returned to pt room. Pt states "you can't lock me up here". Attempted to reorient pt and discussed reason for hospitalization as well as plan pt had made with the MD last evening to talk with Dr. Jones in the AM. Pt remembers having this conversation and settles down. Pt alert and oriented to person and states it is January 2017. Not oriented to place or situation. Pt had discontinued TKO fluids to accessed port. Both RN and Charge explained to pt that because port was accessed it needed to have fluids running to prevent infection, pt not agreeable and would not allow nurses to visualize site. With much coaxing we did see that port was still accessed and saline locked. Will notify IV therapy in AM of pt "self saline locking and accessed port and refusing TKO fluids" documentation nurse requested sitter who is now in the room with pt and pt sleeping.
[2017-02-15] MEDS: Clotrimazole Troche 10 mg Tablet MT SCH ×4 (05:46→17:45)
[2017-02-15 08:07] LABS: BASOPHILS % (AUTO) 0.4 % (0-3); EOSINOPHILS % (AUTO) 0 % (0-5); MONOCYTES % (AUTO) 7.6 % (4-12); Mean Corpuscular Hemoglobin 29.2 pg (27.0-35.0); Mean Corpuscular Volume 85.8 fL (81-100); NEUTROPHILS % (AUTO) 68.8 % (40-74); Platelet Count 249 bil/L (150-400)
[2017-02-15] MEDS: Morphine ER 15 mg (MS Contin) Tablet PO SCH (08:30)
[2017-02-15] MEDS ORDERED: Potassium Chloride 20 mEq/15 mL 15mL Oral Soln PO SCH (11:35)
--- NOTE | 2017-02-15 11:55 | NUR ---
Social Work: Continued d/c planning / Multidisciplinary Rounds Data: Pt is on day 12 of hospitalization. EMR reviewed. Pt discussed in rounds. states pt is medically stable for d/c today. [employer] explained that after mass referral to SNF's, none can accept her at this time. No HH company can either due to pt's insurance. [employer]ER met with pt with hospitalist. Pt states her daughter and brother can care for her, but then states that she is her daughter's [facility] worker. Pt states she has a walker at home. [employer]ER asked if pt was interested in [employer] referring pt to [facility], pt declines this. [employer] SH[employer]HOOTER explained to pt that SNF and HH are options if pt is willing to pay privately for these, pt states she does not have the funds for this. Pt gave [employer] her brother's phone number, Millie Miles [phone]. [employer] SH[employer]ER called pt's brother, left voice mail requesting phone call back. MD requested [facility] look into [facility] to see if they can work with pt's insurance. FBI SHAR[employer]HOOTER requested UR specialist look into this. MD states that she believes it is not a safe discharge for pt to go home if care is not set up. Pt has been wanting to leave AMA but has not had they physical strength to walk out of the building. Assessment: Pt who is independent at baseline Plan: Pt will likely d/c home via POV with family or via [facility] transportation. [employer] awaiting phone call back from pt's brother and regarding [facility]. RICHIE Walls Addendum: 02/15/17 at 1213 by OCTAVIA CHASE [employer] received confirmation from UR specialist that the [facility] is not contracted with pt's insurance and there is nothing case management can do to change this. RICHIE Walls
[2017-02-15] MEDS: 0.9% Sodium Chloride 250 ML IV SCH (12:03)
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
[2017-02-15 13:49] VITALS: BP 120/75; PULSE 81; RESP 17; O2SAT 97
--- NOTE | 2017-02-15 15:28 | NUR ---
Heparin locked Since beginning of shift pt has refused TKO fluids in port. Per IV therapy instructions, pt is has been Heparin locked since this am.
--- NOTE | 2017-02-15 16:06 | NUR ---
Wound Care Patient seen for wound care and dressing changes at bilateral '. Left leg continues to present with fluid filled blisters at the medial calf but no open ulcers on this leg. Right leg has open ulcer at lateral lower calf 3 cm in diameter, medial ankle 1 cm in diameter and dorsum of foot 0.3 cm diameter. Open areas cleaned with saline and redressed with adaptic, wrapped with kerlix and coban. Same dressing to left lower leg. Edema is significantly reduced, ulcers are without infection, continue dressing changes q 48-72 hours.
--- NOTE | 2017-02-15 18:42 | NUR ---
BRUNA Pt left BRUNA MCFARLAND paperwork signed and in chart, Port access d/c and was already heparin locked from earlier this amTelma VALENCIA notified Addendum: 02/15/17 at 1844 by RADHA BERUMEN RN home meds retrieved from pharmacy
--- NOTE | 2017-02-16 01:08 | PCM.DC.MED ---
Discharge Summary Date of Service Feb 15, 2017 Dates of Hospitalization Date of Hospital Admission Feb 03, 2017 at 21:51 Date of Discharge: Feb 15, 2017 Providers: Admitting Physician: Yosvany Perez MD Primary Care Physician: Pastora Myles Attending Physician: Indigo Galdamez DO Diagnosis at Time of Discharge Diagnosis at Time of Discharge Failure to thrive, Hypokalemia, Hypocalcemia, Neutropenia, Leukocytopenia, OVarian cancer, hTN Consultations Dr. Jones, patient's CLINICAL PROVIDER TRAINER ONC, Oncology at [facility], PT/OT Procedures XRay, CTs & MRIs PROCEDURE: X-RAY CHEST ONE VIEW, PORTABLE ([id number]) INDICATIONS: SOB IMPRESSION: Port-A-Cath in normal position from right sided approach. Medial left lower lobe dense opacification likely is pneumonia, and there is also mild increased radiodensity over the remainder of the left lung, also likely pneumonia present to a lesser degree. Dictated by: Orlando Arora M.D. on 02/04/2017 at 9:43 Approved by: Orlando Arora M.D. on 02/04/2017 at 9:44 Brief History Krista Sung is a 56-year-old female with past medical history significant for ovarian cancer currently being treated at the [facility] who presents with profound weakness and lower extremity swelling. Patient was diagnosed with ovarian cancer in September and notes that there is lesions also present in her small bowel. She is being managed by Dr. Jones at the [facility]. Patient was recently discharged after chemotherapy on 01/29/17 from the [facility]. This was her initial chemotherapy treatment. During this hospitalization she was also treated for pneumonia and completed a course of antibiotics but she is unsure of which one. She went home where she lives with her brother and disabled daughter. She states over the last few days she has become profoundly weak and unable to care for herself or her daughter. She describes diffuse myalgia, abdominal cramping and tenderness, and lower extremity edema with weeping. She also notes she has been cold and has had night sweats but no fevers. Of note the night sweats have been present for the last month or so and have not worsened. She states that she has some shortness of breath but much improved from the prior week. She denies any chest pain, productive cough, headache, nausea, vomiting, dysuria , hematuria, constipation, or diarrhea. Patient would like to be transferred to the [facility] to be assessed by her regular oncologist, Dr. Jones. She states she feels she is unable to care for herself or her disabled daughter. Today she was unable to get out of bed due to her profound weakness and therefore was unable to toilet herself. In the emergency department on-call oncologist at the [facility], Dr. Soliman, was contacted by ED physician. He had been in contact with the patient multiple times during the day and felt her symptoms were directly related to her ovarian cancer and recent chemotherapy. Dr. Soliman is attempting to set up close outpatient follow-up possibly even as soon as this Sunday. In the meantime, social work is currently working on SNF placement. On presentation to the ED patient is afebrile pulse 92, respiratory rate 18, blood pressure 134/84, and saturating well on room air at 100%. Hospital Course Krista Sung is a 56-year-old female with past medical history significant for ovarian cancer currently being treated at the [facility] who presents with profound weakness and lower extremity swelling after recent chemotherapy treatment on 01/29/17. Admitted for profound weakness, neutropenia. Acute leukocytosis>20: -- Likely due to Decadron patient is on -- She has no complaints of infectious signs, she has no fevers -- Continue to monitor - Will discuss with dr. Jones in the 02/15 AM, Unable to get a hold of her 02/14 afternoon. FFT (Failure to Thrive in adult) secondary to recent chemotherapy treatment, present on admission, active. --On 02/03, Case discussed by ED physician with [facility] oncologist, Dr. Soliman, who agrees that patient's symptomatology is unlikely infectious and more likely secondary to chemotherapy. He has agreed to arrange a follow-up appointment for next week. - Patient with no constitutional signs of infection. Low threshold for further investigation as patient is neutropenic. -- On 02/04 case was discussed with Dr. Oneil, a colleague of Dr. Jones who recommends that patient be seen locally, given her frailty. - Discussed case with Dr. Jones (her primary oncologist), who recommended patient to be SNF for conditioning, and they will coordinate her care from there. - Social work consulted. 02/13 [facility] was proposed but they would not take patient's insurance. They will be trying for [facility] - Physical therapy recommends SNF placement --Dietary on board : Ensure supplements and soymilk, daily weights --02/[address] Jones once again, even have her call the patient, which may help patient's anxiety/ -- 02/15 AM Called and left messages for Dr. Jones, discussed case with Dr. Paez, whohelped to review the labs, states that he would be happy to take care of the patient if there is anyway SW can get her insurance thing worked out. He did look at her labs and recommends that isolated leukocytosis can still be due to, dexamethasone the patient is on she can be discharged home with this lab values. -- I have discussed case with social service technician and I have told him that if patient if they can contact patient's brother and if he is indeed able to take care of the patient at home as she is claiming then she can be discharged (Per SW, she cannot even get home care help, she does not want to wait for skin [facility], with her insurance at this time and she is not suitable for home discharge without home health care ) -- Social work tried contacting patient's brother to see if he could provide the support patient needs. He did not return the phone calls. But apparently later in the afternoon patient's sister came patient left AMA. Of note, patient also tried to leave AMA overnight but was unable to make it through the hallway as she fell according to night staff. Hypocalcemia resolved after 1 g of IV calcium gluconate on 02/14 Isolated leukocytosis due to the dexamethasone, Xanax Dr. Zaragoza says it may even go up to 60 Malnutrition, present on admission, active. -- Dietary consult Neutropenia, present on admission, resolved. --Secondary to chemotherapy for ovarian cancer, 3.1 today,trending up - Patient has been afebrile since admission - Blood cultures obtained. NGTD - Closely monitor patient's temperature and other constitutional signs of infection. --Discontinued Neutropenic precautions, on prophylactic abx Thrombocytopenia, poa resolved -- could be associate with underlying cancer and chemo -- PF4 negative,however platelets low likely 2/2 recent chemo - transfused platelets as needed (total 3 units) -- Normalized on 02/13, started her back up on enoxaparin Home med Ovarian cancer, currently receiving chemotherapy every 3 weeks, active. Currently undergoing treatment at the [facility] with initial chemotherapy on 01/29/17. Patient scheduled to receive chemotherapy every 3 weeks. Patient notes there are lesions present in her colon as well. --Contacted Dr. Oneil from patient's cancer Center [facility] who recommends Neupogen until white count of 5 is achieved. Neuprogen/granxi is discontinued on 02/12 - Dr. Bartholomew saw the patient, recommended transfer to (will get in touch with them), increased granix to 480 mcg daily and added levaquin for prophylaxis in light of neutropenia. Will discontinue Granix and neuprogen -- Dr. Jones has been contacted on 02/13, she agrees with current plan of care to restart enoxaparin and giving patient follow-up lab work. --Plan to contact Dr. Jones once again, even have her call the patient, which may help patient's anxiety as patient has not been able to go to [facility] - Oxycodone 5 mg every 8 hours as needed for break through pain. Morphine sulfate long-acting 15 mg PO BID. Anemia of chronic disease, stable: Patient denies GI bleed -- Stool guaiac is ordered -- Hemoglobin dropped to 8.0, -- Patient agrees to blood transfusion, received 1 unit. PRBC on 02/12 -- H&H stable Mouth Sores, active improving - concerns for oral thrush - patient started on clotrimazole troches as needed Hypokalemia, present on admission, resolved - will continue to monitor DVT Hx, Lower extremity edema, ulcers present on admission, decub erythema active. Secondary to chemotherapy. - Continue home regimen of torsemide. -- DVT treatment with enoxaparin held, patient's platelets dropped to to 15 today. PF4 levels negative -- Wound care consult saw the patient, changed dressings, appreciate the consult - Patient is restarted on enoxaparin 02/13 Hypertension, present on admission, chronic. - Continue home regimen of atenolol 25 mg daily. hold if bp <110/150 Disposition: Social work is working on securing a SNF bed for the patient. [facility] is not cooperating with PT/OT. Patient is not accepted at local [facility], social work is still working on placement. She is being considered for [facility], meanwhile patient is feeling increasingly anxious as she wants to go for her treatments. We have told her as long as she has someone to take care of her, we have no problem with discharging her home, especially since she is not eligible for RN. Patient initially suggested her brother as caregiver, SW contacted him but he did not return their phone call yet. Then patient's sister came but patient did not want to wait till anyone talked with the sister. Patient left AMA with her sister. Exam Vital Signs (Last) Date Time Temp Pulse Resp B/P Pulse Ox O2 Delivery O2 Flow Rate FiO2 02/15/17 13:49 36.7 81 17 120/75 97 Room Air Exam Gen.: No acute distress, cachectic HEENT: Poor dentition, positive for hair loss Heart: Regular rate and rhythm no S3-S4 murmurs Lungs: Clear to auscultation no crackles or wheezes Abdomen: She has diffuse abdominal pain worse in the left lower quadrant, large swollen abdomen Extremities: Wrapped in compression dressings, wound care is following Psych: Mildly anxious Neuro: No focal deficits Test 02/04/17 06:20 02/06/17 22:40 02/07/17 05:05 02/14/17 06:02 Procalcitonin 0.65ng/mL (0.00-0.08) Urine Color Straw (YELLOW) Urine Appearance Clear (CLEAR,HAZY) Urine pH 5.0 (5.0-8.0) Urine Specific [place] 1.004 (1.003-1.035) Urine Protein Negativemg/dL (NEG,TRACE) Urine Glucose (UA) Negativemg/dL (NEGATIVE) Urine Ketones Negativemg/dL (NEGATIVE) Urine Occult Blood Negative (NEGATIVE) Urine Nitrite Negative (NEGATIVE) Urine Bilirubin Negative (NEGATIVE) Urine Urobilinogen Normalmg/dL (NORMAL) Urine Leukocyte Esterase Negative (NEGATIVE) Urine RBC 0-2/hpf (0-2) Urine WBC 0-5/hpf (0-5) Urine Epithelial Cells Few/hpf (NONE-MOD) Urine Crystals None seen (NONE SEEN) Urine Bacteria Few/hpf (NONE-FEW) Urine Hyaline Casts None/lpf (NONE) Urine Granular Casts None seen (NONE SEEN) Urine Waxy Casts None seen (NONE SEEN) Urine Red Blood Cell Casts None seen (NONE SEEN) Urine White Blood Cell Casts None seen (NONE SEEN) Urine Mucus Present (None Seen) Urine Trichomonas None seen (NONE SEEN) Urine Yeast None (NONE SEEN) Urinalysis Comment None Urine Culture Reflexed Not indicated Heparin-PF4 Ab Optical Density 0.048OD (<0.4) Heparin-PF4 Antibody Interpretation Not indicated Band Neutrophils % 5% (1-5) Myelocytes % 2% (0-0) Ionized Calcium (Calculated) 3.18mg/dL (3.5-5.2) Test 02/15/17 05:00 02/15/17 07:50 Sodium Level 136mEq/L (134-144) Potassium Level 3.4mEq/L (3.5-5.2) Chloride Level 95mEq/L (97-108) Carbon Dioxide Level 24mmol/L (18-29) Blood Urea Nitrogen 22mg/dL (6-24) Creatinine 0.64mg/dL (0.57-1.00) Estimat Glomerular Filtration Rate 138mL/min (>59) Glucose Level 70mg/dL (60-99) Calcium Level 7.4mg/dL (8.5-10.1) Total Bilirubin 0.4mg/dL (0.0-1.2) Aspartate Amino Transf (AST/SGOT) 16U/L (0-50) Alanine Aminotransferase (ALT/SGPT) 18U/L (0-32) Alkaline Phosphatase 114U/L (25-150) Total Protein 4.9g/dL (6.4-8.4) Albumin 2.2g/dL (3.4-5.0) White Blood Count 27.9th/mm3 (3.8-10.1) Red Blood Count 3.46mil/mm3 (3.90-5.20) Hemoglobin 10.1g/dL (12.0-15.6) Hematocrit 29.7% (35.0-46.0) Mean Corpuscular Volume 85.8fL (81-100) Mean Corpuscular Hemoglobin 29.2pg (27.0-35.0) Mean Corpuscular Hemoglobin Concent 34.0% (32.0-37.0) Red Cell Distribution Width 14.0% (12.3-15.4) Platelet Count 249bil/L (150-400) Neutrophils (%) (Auto) 68.8% (40-74) Lymphocytes (%) (Auto) 11.7% (14-46) Monocytes (%) (Auto) 7.6% (4-12) Eosinophils (%) (Auto) 0% (0-5) Basophils (%) (Auto) 0.4% (0-3) Discharge Medications Discharge Medications Dexamethasone (Dexamethasone) 4 Mg Tablet 4 MG PO BID (Reported) Enoxaparin (Lovenox) 60 Mg/0.6 Ml Syringe 60 MG SUBQ Q12 (Reported) Epinephrine (Epinephrine) 0.3 Mg/0.3 Ml Auto.injct IM DIRECTED (Reported) Potassium Chloride ER (Potassium Chloride ER) 10 Meq Tablet 10 MEQ PO BIDWM ( Reported) TAKE WITH FOOD Prochlorperazine Maleate (Compazine) 10 Mg Tablet 10 MG PO QID (Reported) Torsemide (Torsemide) 20 Mg Tablet 20 MG PO MORNING (Reported) As needed Acetaminophen (Acetaminophen) 325 Mg Tablet 650 MG PO Q4H PRN PRN For Pain ( Reported) Docusate Sodium (Colace) 100 Mg Capsule 100 MG PO BID PRN PRN For Constipation ( Reported) Lorazepam (Ativan) 0.5 Mg Tablet 0.5-1 MG PO [id number] PRN PRN For Insomnia ( Reported) Polyethylene Glycol 3350 (Miralax) 17 Gm Powd.pack 17 GM PO DAILY PRN PRN For Constipation (Reported) Polyethylene Glycol 3350 (Miralax) 17 Gm Powd.pack 17 GM PO DAILY PRN PRN For Constipation (Reported) Miscellaneous Medications ([Banophen]) (Reported) ([Banophen]) (Reported) Atenolol (Atenolol) 25 Mg Tablet (Reported) Ondansetron (Ondansetron) 4 Mg Tablet (Reported) Ondansetron ODT (Ondansetron ODT) 4 Mg Tab.rapdis (Reported) oxyCODONE (oxyCODONE) 5 Mg Tablet (Reported) Time spent 25 min spent visiting with patient. Indigo Galdamez DO Feb 15, 2017 21:02
== END 2017-02-15 18:17 | disposition left against medical advice (07) | DRG 809 ==
LOC: SED 14:03 → OBSVTOIN 21:51 → MPC 21:51
PROVIDERS: ADMIT Internal Medicine; ATTEND Family Medicine
DX: D70.1 Agranulocytosis secondary to cancer chemotherapy (principal); R64 Cachexia; D69.59 Other secondary thrombocytopenia; C56.9 Malignant neoplasm of unspecified ovary; I82.5Z9 Chronic embolism and thrombosis of unspecified deep veins of unspecified distal lower extremity; E44.1 Mild protein-calorie malnutrition; Z68.1 Body mass index [BMI] 19.9 or less, adult; D64.81 Anemia due to antineoplastic chemotherapy; R62.7 Adult failure to thrive; T45.1X5A Adverse effect of antineoplastic and immunosuppressive drugs, initial encounter; I10 Essential (primary) hypertension; E87.6 Hypokalemia; Z87.891 Personal history of nicotine dependence; Z79.01 Long term (current) use of anticoagulants

== ENCOUNTER 2017-02-17 14:28 | Observation (INO) | payer OTHER ==
[~2017-02-17] VITALS: Ht 165.1 cm; Wt 50.9 kg
[~2017-02-17 14:28] MED LIST changes: +ACET325T51 PO; +ATEN25TA; -ATEN25TA PO; +BANOPHEN; -DIPH25CA6 PO; +DOCU-41 PO; +DXM4T PO; +EPIN0.3P17 IM; +LORA-302 PO; +LOV60 SUBQ; -MAGN800O PO; +ONDA-53; -ONDA-53 PO; +ONDA4TAB12; -OXYC5SOL11 PO; +OXYC5TAB72; +POLY17PO6 PO; +POTA10TA12 PO; +PROC-4 PO; +TORS20TA3 PO
[2017-02-17 14:34] VITALS: BP 105/73; PULSE 95; RESP 20; O2SAT 97
[2017-02-17 15:35] VITALS: BP 85/54; RESP 18; O2SAT 97
--- NOTE | 2017-02-17 15:44 | ED.REPORT ---
HPI-General Illness Date of Service Feb 17, 2017 ED Provider: Kodi Estrella MD 56 y/o female with a hx of ovarian cancer stage 2 (getting chemotherapy currently) and HTN presents to the ED complaining of aching generalized pain, onset yesterday. The pt was admitted yesterday for the same complaint but left AMA. She came back today due to worsening pain. She rates it 9/10 in severity, located all over her body. She reports feeling better when she lays down and keeps warm. The pt has a chemotherapy appointment at in 3 days but wants to be admitted to the hospital today due to the pain. She is not experiencing any new symptoms. No other complaints at this time. Nursing Notes Stated Complaint: NAUSEA/CANCER Chief Complaint: General Complaint Nursing Notes Reviewed: Yes Allergies: Coded Allergies: Penicillins (Verified Allergy, Severe, Shortness of Breath, 02/03/17) turkey (Verified Allergy, Severe, tachycardia, 02/03/17) pt states anaphylactic shock NSAIDS (Non-Steroidal Anti-Inflamma (Verified Allergy, Unknown, 02/03/17) Uncoded Allergies: NASAL SPRAYS (Allergy, Unknown, 01/31/17) Scheduled Dexamethasone (Dexamethasone) 4 Mg Tablet 4 MG PO BID Enoxaparin (Lovenox) 60 Mg/0.6 Ml Syringe 60 MG SUBQ Q12 Epinephrine (Epinephrine) 0.3 Mg/0.3 Ml Auto.injct IM DIRECTED Potassium Chloride ER (Potassium Chloride ER) 10 Meq Tablet 10 MEQ PO BIDWM TAKE WITH FOOD Prochlorperazine Maleate (Compazine) 10 Mg Tablet 10 MG PO QID Torsemide (Torsemide) 20 Mg Tablet 20 MG PO MORNING Scheduled PRN Acetaminophen (Acetaminophen) 325 Mg Tablet 650 MG PO Q4H PRN PRN For Pain Docusate Sodium (Colace) 100 Mg Capsule 100 MG PO BID PRN PRN For Constipation Lorazepam (Ativan) 0.5 Mg Tablet 0.5-1 MG PO X1TITST PRN PRN For Insomnia Polyethylene Glycol 3350 (Miralax) 17 Gm Powd.pack 17 GM PO DAILY PRN PRN For Constipation Polyethylene Glycol 3350 (Miralax) 17 Gm Powd.pack 17 GM PO DAILY PRN PRN For Constipation Miscellaneous Medications ([Banophen]) ([Banophen]) Atenolol (Atenolol) 25 Mg Tablet Ondansetron (Ondansetron) 4 Mg Tablet Ondansetron ODT (Ondansetron ODT) 4 Mg Tab.rapdis oxyCODONE (oxyCODONE) 5 Mg Tablet General Time Seen by MD: 15:28 Chief Complaint Other (generalized pain) Hx Obtained From: Patient Arrived By: Walk-in Sudden in Onset?: No Onset Occurred: Yesterday Symptom Duration: Since onset Quality: Aching Severity: Current: Pain level 9 out of 10 Severity: Maximum: Severe Recent Healthcare: Recent doctor visit Similar Sx Previous: Yes Past Medical History Past Medical History Ovairian cancer with mets to colon Hx aspiration pneumonia Hx SBO Constipation Reports: Hypertension Past Surgical History Plan to remove tumor at Reports: Hysterectomy Reports: Tubal ligation Family History Noncontributory Smoking History Former Smoker Social History Alcohol Use: Denies alcohol use Drug Use: Denies drug use Other Social History: Local resident Occupation lives with brother and her daughter, no work or school 08/20/2016 Ambulatory Status Independent Review of Systems Reports: worsening generalized pain Complete sys rev & neg: except as marked. Physical Exam Nursing note and vitals reviewed. Constitutional: Elderly female lying in bed. Cachectic and ill appearing. Not diaphoretic. Head: Normocephalic and atraumatic. Mouth/Throat: Oropharynx is clear and moist. No oropharyngeal exudate. Eyes: EOM are normal. Pupils are equal, round, and reactive to light. Neck: Supple, no tracheal deviation. Cardiovascular: Normal rate, regular rhythm. Equal and intact distal pulses throughout. Pulmonary/Chest: Effort normal and breath sounds normal. No respiratory distress. Abdominal: Soft. No distension. Diffuse mild tenderness to palpation. No rebound , or guarding. Bowel sounds present. Musculoskeletal: Range of motion grossly intact, moving all extremities. No tenderness appreciated. Neurological: AOx3. Grossly nonfocal exam. Strength and sensation intact and equal to bilateral upper and lower extremities. Skin: Warm and dry, no rashes or pallor appreciated. Psychiatric: Appropriate mood and affect. Behavior appears normal. Vital Signs Vital Signs Date Time Temp Pulse Resp B/P Pulse Ox O2 Delivery O2 Flow Rate FiO2 02/17/17 18:23 75 20 94/56 02/17/17 15:35 18 85/54 97 02/17/17 14:34 36.4 95 20 105/73 97 Room Air Interpretation & Diagnostics Lab Results Interpretation Result Diagram: 02/18/17 0630 02/18/17 1730 Test 02/17/17 16:45 Prealbumin 12mg/dL (20-40) Lipase 55U/L (13-60) Hold Vargas Top Tube Received (Received) X-Ray Chest Interpretation Chest Xray Interpretation: IMPRESSION: Acute disease is not seen in the upright portable chest. Dictated by: Sarath Patel M.D. on 02/17/2017 at 18:17 Approved by: Sarath Patle M.D. on 02/17/2017 at 18:18 View: Portable, 1 view Interpretation / Wet Read by: Interpret - Radiologist Re-Eval/Medical Decision Med Decision/Clinical Course In summary, 56-year-old female with a complex past medical history including ovarian cancer presenting to the ED for evaluation of worsening, severe generalized pain over the past several days. No focal findings on examination that would prompt imaging at this time. Laboratory studies most notable for significant hypokalemia in the setting of hypomagnesemia. Patient required intensive electrolyte supplementation given concern for a potential cardiac disturbance/dysrhythmia such as torsades. Plan admission for further evaluation and management. Time of Eval: 15:34 Re-Evaluation/Progress Note: Discussed diagnosis and plan to admit. The pt understands and agrees with the plan. All questions answered. Consultation : Referral / Consult Name: Sterling Shelton Consulted With: Hospitalist Call Returned at: 18:04 Classification Analyst: Will see patient, Agrees with eval, Agrees with plan, Accepts admit Counseled Regarding: Diagnosis, Lab results, Need for admission Discharge & Departure Primary Impression: Failure to thrive Failure to thrive age range: in adult Qualified Code: R62.7 - Adult failure to thrive Additional Impressions: Ovarian cancer Laterality: unspecified laterality Qualified Code: C56.9 - Malignant neoplasm of unspecified ovary Hypokalemia Hypomagnesemia Disposition: ADMITTED TO HOSPITAL Discharge Condition All VS Reviewed: Yes Referrals: Pastora Myles (PCP) Crit Care Except Billable Proc Time Spent: 30-74 minutes Services Performed: Patient management by me, Time spent at bedside, Reviewing test results, Reviewing imaging, Discussing patient care, Documentation in record Scribe Attestation Portions of this note were transcribed by Vel Springer. I,, personally performed the history, physical exam and medical decision-making;I reviewed and confirmed the accuracy of the information in the transcribed note. Signed by Jonnathan Nair. 02/17/17 18:58 copies to: Pastora Myles William B MD Feb 17, 2017 15:44 Vel Springer Feb 17, 2017 16:39 Calcium Level 6.5mg/dL (8.5-10.1) Magnesium Level 1.4mg/dL (1.6-2.6) Total Bilirubin 0.4mg/dL (0.0-1.2) Aspartate Amino Transf (AST/SGOT) 20U/L (0-50) Alanine Aminotransferase (ALT/SGPT) 19U/L (0-32) Alkaline Phosphatase 99U/L (25-150) Total Protein 5.0g/dL (6.4-8.4) Albumin 2.2g/dL (3.4-5.0) Lipase 55U/L (13-60) Hold Vargas Top Tube Received (Received) X-Ray Chest Interpretation Chest Xray Interpretation: IMPRESSION: Acute disease is not seen in the upright portable chest. Dictated by: Sarath Patel M.D. on 02/17/2017 at 18:17 Approved by: Sarath Patel M.D. on 02/17/2017 at 18:18 View: Portable, 1 view Interpretation / Wet Read by: Interpret - Radiologist Re-Eval/Medical Decision Time of Eval: 15:34 Re-Evaluation/Progress Note: Discussed diagnosis and plan to admit. The pt understands and agrees with the plan. All questions answered. Consultation : Referral / Consult Name: TainaadriánSterling Consulted With: Hospitalist Call Returned at: 18:04 Classification Analyst: Will see patient, Agrees with eval, Agrees with plan, Accepts admit Counseled Regarding: Diagnosis, Lab results, Need for admission Discharge & Departure Primary Impression: Failure to thrive Failure to thrive age range: in adult Qualified Code: R62.7 - Adult failure to thrive Additional Impressions: Ovarian cancer Laterality: unspecified laterality Qualified Code: C56.9 - Malignant neoplasm of unspecified ovary Hypokalemia Hypomagnesemia Disposition: ADMITTED TO HOSPITAL Discharge Condition All VS Reviewed: Yes Referrals: Pastora Myles (PCP) Crit Care Except Billable Proc Time Spent: 30-74 minutes Services Performed: Patient management by me, Time spent at bedside, Reviewing test results, Reviewing imaging, Discussing patient care, Documentation in record Scribe Attestation Portions of this note were transcribed by Vel Springer. I,, personally performed the history, physical exam and medical decision-making;I reviewed and confirmed the accuracy of the information in the transcribed note. Signed by Jonnathan Nair. 02/17/17 18:58 copies to: Pastora Myles William B MD Feb 17, 2017 15:44 Vel Springer Feb 17, 2017 16:39
[2017-02-17] MEDS ORDERED: 0.9% Sodium Chloride 1,000 ML IV ONE (17:17)
[2017-02-17] MEDS ORDERED: HYDROmorphone 1 mg/mL Inj IVPUSH PRN (17:20)
[2017-02-17] MEDS ORDERED: Ondansetron 2 mg/mL 2 mL Inj IVPUSH PRN (17:20)
[2017-02-17 17:55] LABS: Mean Corpuscular Hemoglobin 28.5 pg (27.0-35.0); Mean Corpuscular Volume 85.5 fL (81-100); Platelet Count 409 bil/L (150-400)
[2017-02-17 17:57] LABS: Magnesium 1.4 mg/dL (1.6-2.6)
[2017-02-17 18:18] LABS: BASOPHILS % (AUTO) 0 % (0-3); EOSINOPHILS % (AUTO) 0 % (0-5); MONOCYTES % (AUTO) 8 % (4-12); NEUTROPHILS % (AUTO) 66 % (40-74)
--- NOTE | 2017-02-17 18:20 | DRSVH ---
PROCEDURE: X-RAY CHEST ONE VIEW, PORTABLE ([id number]) INDICATIONS: cancer, diffuse pain TECHNIQUE: One view of the chest was acquired. COMPARISON: [facility], CR, XR CHEST 1VW (PORTABLE), 02/04/2017, 0:16. FINDINGS: Surgical changes and devices: There is a Port-, unchanged.A-Cath from the right with the tip in the m id superior vena cava Lungs and pleura: No pleural effusions or pneumothorax. Lungs are clear. Mediastinum: Mediastinal contours appear normal. Heart size is normal. Bones and chest wall: No suspicious bony lesions. Overlying soft tissues appear unremarkable. IMPRESSION: Acute disease is not seen in the upright portable chest. Dictated by: Sarath Patel M.D. on 02/17/2017 at 18:17 Approved by: Sarath Patel M.D. on 02/17/2017 at 18:18
[2017-02-17 18:23] VITALS: BP 94/56; PULSE 75; RESP 20
[2017-02-17] MEDS ORDERED: KCl 40 mEq/500 mL D5W (K < 3 & Creat <2) IV ONE (18:30)
[2017-02-17] MEDS: Mag Sulf 4 Gm/100 mL IV Premix (Mag < 1.6 & Creat < 2) IV ONE ×2 (18:46→21:40)
--- NOTE | 2017-02-17 20:00 | NUR ---
Admit Note Pt arrived to room 3013 at about 1945. Alert and oriented. No pain. Potassium IV infusing.
[2017-02-17 20:09] VITALS: BP 99/62; PULSE 70; RESP 16; O2SAT 99
[2017-02-17 20:41] LABS: INR 0.98 ratio
[2017-02-17] MEDS ORDERED: Alum-Mag Hydrox-Simeth 30 mL Suspension PO PRN (21:30)
[2017-02-17] MEDS ORDERED: Polyethylene Glycol (PEG) 17 Gm Powder PO PRN ×3 (21:30→21:35)
[2017-02-17] MEDS ORDERED: LORazepam 0.5 mg Tablet PO PRN (21:35)
--- NOTE | 2017-02-17 21:47 | PCM.HPMED ---
Subjective Date of Service Feb 17, 2017 Primary Provider: Admitting Physician: Johana Hatfield MD Primary Care Physician: Pastora Myles Attending Physician: Johana Hatfield MD Admit Status: From the Emergency Department, 23-Hour Observation, Non-Telemetry Chief Complaint: Continuing left-sided abdominal pain History of Present Illness: This 56-year-old female who looks much older than her stated age with past medical history significant for ovarian carcinoma with profound weakness lower extremity edema. She signed out AMA yesterday February 15 had been hospitalized from February 03 to the and her oncologist is at the [facility]. She has an appointment with them in 3 days for continuing chemotherapy. Patient was unable to get her pain controlled after discharge and hence presents back. Please see discharge summary for further details regarding her hospitalization. She does have significant cachexia and acute leukocytosis thought to be due to Decadron which she is on her primary oncologist at the is Dr. melissa. Was recommended that she go to a assisted facility for care and conditioning. Review of Systems: Please see discharge summary for continuing issues otherwise review of systems are reviewed and are negative except for as an discharge summary in history of present illness. Allergies Coded Allergies: Penicillins (Verified Allergy, Severe, Shortness of Breath, 02/03/17) turkey (Verified Allergy, Severe, tachycardia, 02/03/17) pt states anaphylactic shock NSAIDS (Non-Steroidal Anti-Inflamma (Verified Allergy, Unknown, 02/03/17) Uncoded Allergies: NASAL SPRAYS (Allergy, Unknown, 01/31/17) Home Medications Scheduled Dexamethasone (Dexamethasone) 4 Mg Tablet 4 MG PO BID Enoxaparin (Lovenox) 60 Mg/0.6 Ml Syringe 60 MG SUBQ Q12 Epinephrine (Epinephrine) 0.3 Mg/0.3 Ml Auto.injct IM DIRECTED Potassium Chloride ER (Potassium Chloride ER) 10 Meq Tablet 10 MEQ PO BIDWM TAKE WITH FOOD Prochlorperazine Maleate (Compazine) 10 Mg Tablet 10 MG PO QID Torsemide (Torsemide) 20 Mg Tablet 20 MG PO MORNING Scheduled PRN Acetaminophen (Acetaminophen) 325 Mg Tablet 650 MG PO Q4H PRN PRN For Pain Docusate Sodium (Colace) 100 Mg Capsule 100 MG PO BID PRN PRN For Constipation Lorazepam (Ativan) 0.5 Mg Tablet 0.5-1 MG PO T2MPGEE PRN PRN For Insomnia Polyethylene Glycol 3350 (Miralax) 17 Gm Powd.pack 17 GM PO DAILY PRN PRN For Constipation Polyethylene Glycol 3350 (Miralax) 17 Gm Powd.pack 17 GM PO DAILY PRN PRN For Constipation PMH Past Medical History Past Medical History Ovairian cancer with mets to colon Hx aspiration pneumonia Hx SBO Constipation Reports: Hypertension Past Surgical History Plan to remove tumor at Reports: Hysterectomy Reports: Tubal ligation Family History Mother with a history of lung cancer, maternal uncle liver cancer and diabetes, maternal aunt stomach cancer, sister breast cancer, maternal grandparents congestive heart failure Social History Hx Alcohol Use: No Hx Substance Use: No Hx Tobacco Use: Yes Smoking Status: Former Smoker Living Arrangement: with Family Exam Vital Signs Vital Sign - Last Date Time Temp Pulse Resp B/P Pulse Ox O2 Delivery O2 Flow Rate FiO2 02/17/17 20:09 36.5 70 16 99/62 99 Room Air Exam Constitutional cachectic female in mild pain distress Head: Normocephalic atraumatic Neck: No adenopathy Chest Port-A-Cath in the right chest wall decreased breath sounds at her bases Cor: Regular rate and rhythm S1-S2 Abdomen: There is tenderness over the left abdominal area no rebound no guarding sounds present Extremities 1+ bilateral lower extremity edema which are currently wrapped in [place] Skin: No rashes Psych: Mood and affect are appropriate Neuro alert and oriented 3, motor strength is intact bilaterally Lab and Diagnostics Labs Laboratory Tests 72 Hours Test 02/17/17 16:45 02/17/17 20:00 White Blood Count 15.0th/mm3 (3.8-10.1) Red Blood Count 3.30mil/mm3 (3.90-5.20) Hemoglobin 9.4g/dL (12.0-15.6) Hematocrit 28.2% (35.0-46.0) Mean Corpuscular Volume 85.5fL (81-100) Mean Corpuscular Hemoglobin 28.5pg (27.0-35.0) Mean Corpuscular Hemoglobin Concent 33.3% (32.0-37.0) Red Cell Distribution Width 14.3% (12.3-15.4) Platelet Count 409bil/L (150-400) Neutrophils (%) (Auto) 66% (40-74) Lymphocytes (%) (Auto) 20% (14-46) Monocytes (%) (Auto) 8% (4-12) Eosinophils (%) (Auto) 0% (0-5) Basophils (%) (Auto) 0% (0-3) Band Neutrophils % 5% (1-5) Metamyelocytes % 1% (0-0) Sodium Level 135mEq/L (134-144) Potassium Level 2.3mEq/L (3.5-5.2) Chloride Level 91mEq/L (97-108) Carbon Dioxide Level 30mmol/L (18-29) Blood Urea Nitrogen 29mg/dL (6-24) Creatinine 0.62mg/dL (0.57-1.00) Estimat Glomerular Filtration Rate 143mL/min (>59) Glucose Level 79mg/dL (60-99) Calcium Level 6.5mg/dL (8.5-10.1) Magnesium Level 1.4mg/dL (1.6-2.6) Total Bilirubin 0.4mg/dL (0.0-1.2) Aspartate Amino Transf (AST/SGOT) 20U/L (0-50) Alanine Aminotransferase (ALT/SGPT) 19U/L (0-32) Alkaline Phosphatase 99U/L (25-150) Total Protein 5.0g/dL (6.4-8.4) Albumin 2.2g/dL (3.4-5.0) Lipase 55U/L (13-60) Hold Vargas Top Tube Received (Received) Prothrombin Time 10.5sec (8.1-12.5) Prothromb Time International Ratio 0.98ratio Result Diagram: 02/17/17 1645 02/17/17 1645 Assessment & Plan #Metastatic ovarian carcinoma, resonant admission -Needs to follow-up with [facility] regarding further chemotherapy etc. #Profound weakness, subacute, present on admission -Most likely secondary to cancer and chemotherapy -Case management and social worker masters consultations replacement into [place] #Hypokalemia, present on admission -Repletion given in the emergency room a week check an a.m #Leukocytosis, present on admission -Suspect secondary to dexamethasone #Malnutrition, present on admission Encourage oral intake as tolerated #DVT prophylaxis -Continue Subcutaneous therapeutic Lovenox which she had been on previous to signing out AMA #CODE STATUS -Patient is full code . Pain Evaluation: Adequate Pain Control Resuscitation Status: CPR: Attempt Resuscitation Time spent 60 minutes Johnaa Hatfield MD Feb 17, 2017 21:47
[2017-02-17] MEDS: 0.9% Sodium Chloride 1,000 ML IV SCH (22:55)
[2017-02-18] MEDS: Ondansetron 2 mg/mL 2 mL Inj IVPUSH PRN ×2 (05:41→12:57)
[2017-02-18 06:02] VITALS: BP 104/63; PULSE 73; RESP 16; O2SAT 94
[2017-02-18 06:46] LABS: EOSINOPHILS % (AUTO) 0 % (0-5); Mean Corpuscular Hemoglobin 29.3 pg (27.0-35.0); Mean Corpuscular Volume 86.8 fL (81-100); Platelet Count 396 bil/L (150-400)
[2017-02-18] MEDS: 0.9% Sodium Chloride 1,000 ML IV SCH (07:30)
[2017-02-18] MEDS ORDERED: D5 0.45% NaCl + KCl 20 mEq/L 1,000 ML IV SCH (08:00)
[2017-02-18] MEDS ORDERED: Potassium Chloride 20 mEq/15 mL 15mL Oral Soln PO ONE (08:00)
[2017-02-18] MEDS ORDERED: Potassium Chloride Inj 30 MEQ in Dextrose 5% 500 ML IV ONE (08:00)
[2017-02-18] MEDS ORDERED: Calcium GLUCO 10% (Gm) Inj 1 GM in 0.9% Sodium Chloride 50 ML IV ONE (08:00)
[2017-02-18 08:05] LABS: BASOPHILS % (AUTO) 0 % (0-3); MONOCYTES % (AUTO) 9 % (4-12); NEUTROPHILS % (AUTO) 62 % (40-74)
[2017-02-18] MEDS ORDERED: 0.9% Sodium Chloride 250 ML IV SCH (10:12)
[2017-02-18] MEDS ORDERED: HepLOK Flush 100 unit/mL 5 mL Inj IVFLUSH PRN (10:15)
[2017-02-18] MEDS ORDERED: Sodium Chloride LOK Flush 10 mL Syringe IVFLUSH PRN ×2 (10:15)
[2017-02-18 11:26] LABS: APPEARANCE,URINE CLEAR (CLEAR,HAZY); COLOR,URINE YELLOW (YELLOW); OCCULT BLOOD,URINE NEGATIVE (NEGATIVE); UROBILINOGEN,URINE NORMAL (NORMAL)
--- NOTE | 2017-02-18 15:02 | NUR ---
Social work Note - Initial assessment Krista Sung is a 56 yr old who was admitted for FTT - Ovarian CA. EMR Reviewed: Pt is a readmit - Pt left AMA on 02/15 and returned due to pain, unable to eat. Pt's PCP is LYNETTE Milian, Insurance is [employer] . Pt states her daughter is DPOA - she will bring in paperwork. PATIENT ACCOUNT ANALYST met with pt - Introduced D/C planning and explained SW role. Pt lives at home with her brother and her daughter. Her sister, Flakita Kumar is helping to coordinate services for Pt Pt asked PATIENT ACCOUNT ANALYST to call sister [phone]. Flakita confirmed that Pt has a chemo appointment scheduled for 10:00 tomorrow 02/19 at outpt oncology clinic [facility]. Flakita states that she is not able to get pt to the appointment, that there are no other family members that are able to help her. PATIENT ACCOUNT ANALYST explained that Pt is weak and needs help - Family agrees but states they are not sure how they can help. PATIENT ACCOUNT ANALYST discussed case with - and PATIENT ACCOUNT ANALYST met with pt. Pt identifies that she has not yet set up medicaid transport for her appointments. She was hoping that the hospital would to a hospital to hospital transfer so that she could be admitted for chemo. MD states that pt does not need that level of care. Pt agrees. Pt is in agreement to stay in the hospital frankie - SW will call Oncology clinic tomorrow to see about changing appointment time and working on transportation to outpt clinic through medicaid. PATIENT ACCOUNT ANALYST will continue to follow. Plan: Call Oncology clinic tomorrow to work on scheduling outpt appointment and transportation. ANISHA Lam
[2017-02-18 15:20] VITALS: BP 109/75; PULSE 73; RESP 16; O2SAT 97
--- NOTE | 2017-02-18 15:24 | PCM.PNMED ---
Subjective Date of Service Feb 18, 2017 Exam Vital Signs Vital Sign - Last Date Time Temp Pulse Resp B/P Pulse Ox O2 Delivery O2 Flow Rate FiO2 02/18/17 15:20 36.8 73 16 109/75 97 Room Air Intake and Output 02/17/17 02/17/17 02/18/17 Cumulative From/Thru 15:00 23:00 07:00 02/17/17 14:34 - 02/18/17 06:54 Intake Total 1000 ml 354 ml 1354 ml Output Total 150 ml 150 ml Balance 1000 ml 204 ml 1204 ml Intake Oral 354 ml 354 ml IV Total 1000 ml 1000 ml Output Urine Total 150 ml 150 ml # Voids 2 2 # Bowel Movements 1 1 Lab and Diagnostics Result Diagram: 02/18/1730 02/18/17 0630 Assessment & Plan #Metastatic ovarian carcinoma, resonant admission -Needs to follow-up with [facility] regarding further chemotherapy etc. #Profound weakness, subacute, present on admission -Most likely secondary to cancer and chemotherapy -Case management and psych social worker consultations replacement into [facility] #Hypokalemia, present on admission -Repletion given in the emergency room a week check an a.m #Leukocytosis, present on admission -Suspect secondary to dexamethasone #Malnutrition, present on admission Encourage oral intake as tolerated #DVT prophylaxis -Continue Subcutaneous therapeutic Lovenox which she had been on previous to signing out AMA #CODE STATUS -Patient is full code . VTE Mechanical Devices: Venous Foot Pump Resuscitation Status: CPR: Attempt Resuscitation Indigo Galdamez DO Feb 18, 2017 15:24
[2017-02-18] MEDS ORDERED: Potassium Chloride Inj 20 MEQ in Dextrose 5% 250 ML IV ONE (17:05)
[2017-02-18] MEDS ORDERED: Magnesium Sulf 2 Gm/50mL Water 2 GM in IV Premix 1 EACH IV ONE (17:05)
--- NOTE | 2017-02-18 17:20 | PCM.DC.MED ---
Discharge Summary Date of Service Feb 18, 2017 Dates of Hospitalization Date of Hospital Admission Feb 17, 2017 at 19:34 Date of Discharge: Feb 17, 2017 Providers: Admitting Physician: Johana Hatfield MD Primary Care Physician: Pastora Myles Attending Physician: Indigo Galdamez DO Diagnosis at Time of Discharge Diagnosis at Time of Discharge ovarian cancer, failure to thrive, hypokalemia, hypomagnesemia, anxiety, hypocalcemia Consultations Dietary, PT/OT, Wound care, social work Procedures XRay, CTs & MRIs PROCEDURE: X-RAY CHEST ONE VIEW, PORTABLE ([id number]) INDICATIONS: cancer, diffuse pain TECHNIQUE: One view of the chest was acquired. COMPARISON: [facility], CR, XR CHEST 1VW (PORTABLE), 02/04/2017, 0: 16. FINDINGS: Surgical changes and devices: There is a Port-, unchanged.A-Cath from the right with the tip in the mid superior vena cava Lungs and pleura: No pleural effusions or pneumothorax. Lungs are clear. Mediastinum: Mediastinal contours appear normal. Heart size is normal. Bones and chest wall: No suspicious bony lesions. Overlying soft tissues appear unremarkable. IMPRESSION: Acute disease is not seen in the upright portable chest. Dictated by: Sarath Patel M.D. on 02/17/2017 at 18:17 Approved by: Sarath Patel M.D. on 02/17/2017 at 18:18 Brief History This 56-year-old female who looks much older than her stated age with past medical history significant for ovarian carcinoma with profound weakness lower extremity edema. She signed out AMA yesterday February 15 had been hospitalized from February 03 to the and her oncologist is at the [facility]. She has an appointment with them in 3 days for continuing chemotherapy. Patient was unable to get her pain controlled after discharge and hence presents back. Please see discharge summary for further details regarding her hospitalization. She does have significant cachexia and acute leukocytosis thought to be due to Decadron which she is on her primary oncologist at the is Dr. jones. Was recommended that she go to a fpc facility for care and conditioning. Hospital Course #Metastatic ovarian carcinoma, resonant admission -Needs to follow-up with [facility] regarding further chemotherapy etc. -- Contacted and discussed the case, Dr. Macias, colleague of Dr. Jones accepted patient for a [id number] transfer. -- Discussed patient's prior admissions, poor social support, poor family support, her inability to establish here at [facility] locally due to insurance issues. Patient is planning on going to Dr. Jones's clinic tomorrow for chemo f/u, yet she has no way of achieving her goals. She is unable to go to her appointment, comes to [facility] with severe electrolyte derangements that are thought to be due to post-chemo effects and poor nutrition. Many efforts were done to place her at local facilities w/o success. Patient expressed desire to stay in the hospital and go to chemo in a cab and return to hospital as she is not confident she can manage at home. We appreciate the interaction we have had with Dr. Macias as this unfortunate patient will need help to establish goals and achieve proper treatment goals within the system. #Profound weakness, subacute, present on admission -Most likely secondary to cancer and chemotherapy -Case management and social director consultations #Hypokalemia, present on admission -Repletion given in the emergency room a week check an a.m -2.7 K this AM, repleted with 30 meq IV, 40 meqPO. - Afternoon labs showed K=3.8 #Hypocalcemia POA active -- Repleted with 1 g IV calcium gluconate on 02/18 -- Repeat lab showed uncorrected calcium of 6.9 Hypomagnesemia, poa active -- 4 g wsa given via IV in ED, this AM 1.4 -- 2 g was given on 02/18, Afternoon f/u lab showed 2.2 #Leukocytosis, present on admission -Suspect secondary to dexamethasone and granix during prior admission -- Continue to follow #Malnutrition, present on admission Encourage oral intake as tolerated #DVT prophylaxis -Continue Subcutaneous therapeutic Lovenox #CODE STATUS -Patient is full code . Exam Vital Signs (Last) Date Time Temp Pulse Resp B/P Pulse Ox O2 Delivery O2 Flow Rate FiO2 02/18/17 15:20 36.8 73 16 109/75 97 Room Air Exam Constitutional cachectic female in mild pain distress Head: Normocephalic atraumatic Neck: No adenopathy Chest Port-A-Cath in the right chest wall decreased breath sounds at her bases Cor: Regular rate and rhythm, no s3/s4 Abdomen: There is tenderness over the left abdominal area no rebound no guarding sounds present, palpable ovarian mass Extremities 1+ bilateral lower extremity edema which are currently wrapped in Cob[place], she did not change them since leaving AMA Skin: No rashes Psych: Mood and affect are appropriate Neuro alert and oriented 3 Test 02/17/17 16:45 02/17/17 20:00 02/18/17 06:30 02/18/17 10:59 Magnesium Level 1.4mg/dL (1.6-2.6) Prealbumin 12mg/dL (20-40) Lipase 55U/L (13-60) Hold Vargas Top Tube Received (Received) Prothrombin Time 10.5sec (8.1-12.5) Prothromb Time International Ratio 0.98ratio White Blood Count 13.7th/mm3 (3.8-10.1) Red Blood Count 3.04mil/mm3 (3.90-5.20) Hemoglobin 8.9g/dL (12.0-15.6) Hematocrit 26.4% (35.0-46.0) Mean Corpuscular Volume 86.8fL (81-100) Mean Corpuscular Hemoglobin 29.3pg (27.0-35.0) Mean Corpuscular Hemoglobin Concent 33.7% (32.0-37.0) Red Cell Distribution Width 14.5% (12.3-15.4) Platelet Count 396bil/L (150-400) Neutrophils (%) (Auto) 62% (40-74) Lymphocytes (%) (Auto) 23% (14-46) Monocytes (%) (Auto) 9% (4-12) Eosinophils (%) (Auto) 0% (0-5) Basophils (%) (Auto) 0% (0-3) Band Neutrophils % 3% (1-5) Metamyelocytes % 2% (0-0) Myelocytes % 1% (0-0) Sodium Level 136mEq/L (134-144) Potassium Level 2.7mEq/L (3.5-5.2) Chloride Level 98mEq/L (97-108) Carbon Dioxide Level 28mmol/L (18-29) Blood Urea Nitrogen 23mg/dL (6-24) Creatinine 0.43mg/dL (0.57-1.00) Estimat Glomerular Filtration Rate 218mL/min (>59) Glucose Level 90mg/dL (60-99) Calcium Level 6.2mg/dL (8.5-10.1) Total Bilirubin 0.2mg/dL (0.0-1.2) Aspartate Amino Transf (AST/SGOT) 14U/L (0-50) Alanine Aminotransferase (ALT/SGPT) 16U/L (0-32) Alkaline Phosphatase 82U/L (25-150) Total Protein 4.1g/dL (6.4-8.4) Albumin 1.8g/dL (3.4-5.0) Urine Color Yellow (YELLOW) Urine Appearance Clear (CLEAR,HAZY) Urine pH 7.0 (5.0-8.0) Urine Specific [place] 1.018 (1.003-1.035) Urine Protein Negativemg/dL (NEG,TRACE) Urine Glucose (UA) Negativemg/dL (NEGATIVE) Urine Ketones Negativemg/dL (NEGATIVE) Urine Occult Blood Negative (NEGATIVE) Urine Nitrite Negative (NEGATIVE) Urine Bilirubin Negative (NEGATIVE) Urine Urobilinogen Normalmg/dL (NORMAL) Urine Leukocyte Esterase Negative (NEGATIVE) Urine RBC 0-2/hpf (0-2) Urine WBC 0-5/hpf (0-5) Urine Epithelial Cells Moderate/hpf (NONE-MOD) Urine Crystals None seen (NONE SEEN) Urine Bacteria Few/hpf (NONE-FEW) Urine Hyaline Casts None/lpf (NONE) Urine Granular Casts None seen (NONE SEEN) Urine Waxy Casts None seen (NONE SEEN) Urine Red Blood Cell Casts None seen (NONE SEEN) Urine White Blood Cell Casts None seen (NONE SEEN) Urine Mucus None seen (None Seen) Urine Trichomonas None seen (NONE SEEN) Urine Yeast None (NONE SEEN) Urinalysis Comment None Urine Culture Reflexed Not indicated Discharge Medications Discharge Medications Dexamethasone (Dexamethasone) 4 Mg Tablet 4 MG PO BID (Reported) Enoxaparin (Lovenox) 60 Mg/0.6 Ml Syringe 60 MG SUBQ Q12 (Reported) Epinephrine (Epinephrine) 0.3 Mg/0.3 Ml Auto.injct IM DIRECTED (Reported) Potassium Chloride ER (Potassium Chloride ER) 10 Meq Tablet 10 MEQ PO BIDWM ( Reported) TAKE WITH FOOD Prochlorperazine Maleate (Compazine) 10 Mg Tablet 10 MG PO QID (Reported) Torsemide (Torsemide) 20 Mg Tablet 20 MG PO MORNING (Reported) As needed Acetaminophen (Acetaminophen) 325 Mg Tablet 650 MG PO Q4H PRN PRN For Pain ( Reported) Docusate Sodium (Colace) 100 Mg Capsule 100 MG PO BID PRN PRN For Constipation ( Reported) Lorazepam (Ativan) 0.5 Mg Tablet 0.5-1 MG PO [id number] PRN PRN For Insomnia ( Reported) Polyethylene Glycol 3350 (Miralax) 17 Gm Powd.pack 17 GM PO DAILY PRN PRN For Constipation (Reported) Polyethylene Glycol 3350 (Miralax) 17 Gm Powd.pack 17 GM PO DAILY PRN PRN For Constipation (Reported) Miscellaneous Medications ([Banophen]) (Reported) ([Banophen]) (Reported) Atenolol (Atenolol) 25 Mg Tablet (Reported) Ondansetron (Ondansetron) 4 Mg Tablet (Reported) Ondansetron ODT (Ondansetron ODT) 4 Mg Tab.rapdis (Reported) oxyCODONE (oxyCODONE) 5 Mg Tablet (Reported) Followup Plan Disposition: Transfer to [facility] Follow-up plan determined by the receiving hospital Discharge Diet: No restrictions Time spent 2 hrs Indigo Galdamez DO Feb 18, 2017 17:20
[2017-02-18 17:57] LABS: Magnesium 2.2 mg/dL (1.6-2.6)
--- NOTE | 2017-02-18 18:12 | NUR ---
Activity/px/LE drsgs Pt has been using [facility] this shift, self transferring despite education for safety. Pt states pain is "constant, never ending" despite comfort measures and medication. Pt req to remove LE drsgs because they were causing her discomfort - removed. Bed in lowest, locked position and call light in reach.
[2017-02-18 18:25] VITALS: PULSE 96
--- NOTE | 2017-02-18 19:49 | NUR ---
Tx to Pt transferred to [facility] this evening, report given to LAURO Siu who will be traveling with pt on the ambulance. IVF kept running via port. Pt given Oxycodone 5mg prior to transfer for pain management. Report called to LAURO ROSSI ([phone]) at 1949. Pt off unit at 1954.
== END 2017-02-18 19:41 | disposition short-term general hospital (02) ==
LOC: SED 14:28 → MPC 19:34 → INTOOBSV 19:34
PROVIDERS: ADMIT Specialist; ATTEND Family Medicine
DX: C56.9 Malignant neoplasm of unspecified ovary (principal); C78.5 Secondary malignant neoplasm of large intestine and rectum; R62.7 Adult failure to thrive; E87.6 Hypokalemia; E83.42 Hypomagnesemia; F41.9 Anxiety disorder, unspecified; E83.51 Hypocalcemia; R53.1 Weakness; G89.3 Neoplasm related pain (acute) (chronic); D72.829 Elevated white blood cell count, unspecified; E46 Unspecified protein-calorie malnutrition; I10 Essential (primary) hypertension; Z92.21 Personal history of antineoplastic chemotherapy; Z87.891 Personal history of nicotine dependence
CPT/HCPCS: 36415; 71010; 80053; 81000; 82310; 83690; 83735; 84132; 84134; 85025; 85610; 96361; 96374; 96375; 96376; 99291; G0378; J0610; J1170; J1650; J2405; J3475; J3480; J7030; J7060; Q0164

== ENCOUNTER 2017-04-18 20:09 | Emergency (ER) | payer OTHER ==
[~2017-04-18] VITALS: Ht 162.6 cm; Wt 50.0 kg
[~2017-04-18 20:09] MED LIST changes: +OXYC-530; -OXYC5TAB72
[2017-04-18 20:10] VITALS: BP 172/84; PULSE 112; RESP 22; O2SAT 98
--- NOTE | 2017-04-18 20:22 | ED.REPORT ---
HPI-Abd Pain F 40 and Over Date of Service Apr 18, 2017 ED Provider: Mo Smith DO A 56 year old female with a history of ovarian cancer with colon masses, aspiration pneumonia, constipation and small bowel obstruction is brought to the ED via EMS due to abdominal pain. The pt began experiencing "12/10" cramping epigastric abdominal pain two hours ago while at [facility] where she has lived since 02/21/2017. The pt has been constipated for several days and she reports that the pain began after she has a bowel movement. Her stool is not an abnormal color. This has been accompanied by nausea and vomiting x6, and the pt states that she has vomited the pain medications that she was given. Her vomit has also been a red color, but the pt had beets for dinner and does not believe that the coloration is due to blood. The pt's last chemotherapy session was on 04/12/2017. She does not wish to be discharged back to [facility] because they are short staffed and have not been giving her medications in a timely manner. Nursing Notes Stated Complaint: ABDOMINAL PAIN, VOMITING Chief Complaint: Female Abdominal Pain Nursing Notes Reviewed: Yes Allergies: Coded Allergies: Penicillins (Verified Allergy, Severe, Shortness of Breath, 04/18/17) NSAIDS (Non-Steroidal Anti-Inflamma (Verified Allergy, Unknown, 04/18/17) latex (Verified Allergy, Unknown, 04/18/17) Uncoded Allergies: NASAL SPRAYS (Allergy, Unknown, 01/31/17) Scheduled Dexamethasone (Dexamethasone) 4 Mg Tablet 4 MG PO BID Enoxaparin (Lovenox) 60 Mg/0.6 Ml Syringe 60 MG SUBQ Q12 Epinephrine (Epinephrine) 0.3 Mg/0.3 Ml Auto.injct IM DIRECTED Potassium Chloride ER (Potassium Chloride ER) 10 Meq Tablet 10 MEQ PO BIDWM TAKE WITH FOOD Prochlorperazine Maleate (Compazine) 10 Mg Tablet 10 MG PO QID Torsemide (Torsemide) 20 Mg Tablet 20 MG PO MORNING Scheduled PRN Acetaminophen (Acetaminophen) 325 Mg Tablet 650 MG PO Q4H PRN PRN For Pain Docusate Sodium (Colace) 100 Mg Capsule 100 MG PO BID PRN PRN For Constipation Lorazepam (Ativan) 0.5 Mg Tablet 0.5-1 MG PO C8ODHOV PRN PRN For Insomnia Polyethylene Glycol 3350 (Miralax) 17 Gm Powd.pack 17 GM PO DAILY PRN PRN For Constipation Polyethylene Glycol 3350 (Miralax) 17 Gm Powd.pack 17 GM PO DAILY PRN PRN For Constipation Miscellaneous Medications ([Banophen]) ([Banophen]) Atenolol (Atenolol) 25 Mg Tablet Ondansetron (Ondansetron) 4 Mg Tablet Ondansetron ODT (Ondansetron ODT) 4 Mg Tab.rapdis oxyCODONE (oxyCODONE) 5 Mg Tablet General Time Seen by MD: 20:21 Chief Complaint Abdominal pain Hx Obtained From: Patient, EMS Arrived By: Ambulance Sudden in Onset?: No Onset Occurred: 1 - 4 hours ago Symptom Duration: Since onset Recent Healthcare: Recent doctor visit, Recent hospitalization Similar Sx Previous: Yes Past Medical History Past Medical History Ovarian cancer with mets to colon Hx aspiration pneumonia Hx small bowel obstruction Constipation Reports: Hypertension Past Surgical History Plan to remove tumor at Reports: Hysterectomy Reports: Tubal ligation Family History Noncontributory Smoking History Former Smoker Social History Alcohol Use: Denies alcohol use Drug Use: Denies drug use Other Social History: Local resident Occupation lives with brother and her daughter, no work or school 08/20/2016 Ambulatory Status Independent Review of Systems Respiratory: Denies: Non-productive cough, Shortness of breath Cardiovascular: Denies: Chest pain GI: Reports: Abdominal pain, Constipation, Nausea, Vomiting, Denies: Diarrhea Musculoskeletal: Denies: Back pain, Neck pain Complete sys rev & neg: except as marked. Skin: Denies Rash Physical Exam Vital Signs Vital Signs (First) Date Time Temp Pulse Resp B/P Pulse Ox O2 Delivery O2 Flow Rate FiO2 04/18/17 20:10 36.2 112 22 172/84 98 Room Air Initial VS: Reviewed General/Constitutional: Awake, Alert Appearance / Presentation: Positive: Cachectic Respiratory / Chest: Breath sounds NL, Breath sounds = bilat, No respiratory distress right-sided access port no erythema or signs of infection Cardiovascular: Regular rhythm, Heart sounds NL Heart Rate / Rhythm: Positive: Tachycardia Abdomen: Atraumatic, Soft generalized abdominal tenderness with exquisite tenderness in the RLQ abdomen distended Back: Atraumatic, Full range of motion Head / Eyes: Atraumatic, Normocephalic, PERRL, EOMI ENT: Atraumatic, Airway patent, Mucous membranes moist Skin: Atraumatic, Color NL, No rash, Warm, Dry Neurologic: Oriented X3, Speech NL, No motor deficits, No sensory deficits Neck: Atraumatic, Supple, Full range of motion Upper Extremity / MS: Atraumatic, Full range of motion Lower Extremity / Pelvis / MS: Atraumatic, Full range of motion Psychiatric: Affect NL, Mood NL Interpretation & Diagnostics Lab Results Interpretation Result Diagram: 04/18/17211804/18/172118 Test 04/18/17 21:19 04/18/17 22:43 White Blood Count 3.5th/mm3 (3.8-10.1) Red Blood Count 3.04mil/mm3 (3.90-5.20) Hemoglobin 9.8g/dL (12.0-15.6) Hematocrit 29.0% (35.0-46.0) Mean Corpuscular Volume 95.4fL (81-100) Mean Corpuscular Hemoglobin 32.2pg (27.0-35.0) Mean Corpuscular Hemoglobin Concent 33.8% (32.0-37.0) Red Cell Distribution Width 12.4% (12.3-15.4) Platelet Count 206bil/L (150-400) Neutrophils (%) (Auto) 71.2% (40-74) Lymphocytes (%) (Auto) 23.8% (14-46) Monocytes (%) (Auto) 3.2% (4-12) Eosinophils (%) (Auto) 0.6% (0-5) Basophils (%) (Auto) 0.6% (0-3) Sodium Level 135mEq/L (134-144) Potassium Level 3.8mEq/L (3.5-5.2) Chloride Level 98mEq/L (97-108) Carbon Dioxide Level 24mmol/L (18-29) Blood Urea Nitrogen 15mg/dL (6-24) Creatinine 0.40mg/dL (0.57-1.00) Estimat Glomerular Filtration Rate 237mL/min (>59) Glucose Level 105mg/dL (60-99) Lactic Acid Level 0.7mmol/L (0.4-2.0) Calcium Level 8.5mg/dL (8.5-10.1) Total Bilirubin 0.3mg/dL (0.0-1.2) Aspartate Amino Transf (AST/SGOT) 20U/L (0-50) Alanine Aminotransferase (ALT/SGPT) 12U/L (0-32) Alkaline Phosphatase 70U/L (25-150) Total Protein 6.1g/dL (6.4-8.4) Albumin 2.8g/dL (3.4-5.0) Urine Color Straw (YELLOW) Urine Appearance Clear (CLEAR,HAZY) Urine pH 7.5 (5.0-8.0) Urine Specific [place] 1.010 (1.003-1.035) Urine Protein Negativemg/dL (NEG,TRACE) Urine Glucose (UA) Negativemg/dL (NEGATIVE) Urine Ketones Tracemg/dL (NEGATIVE) Urine Occult Blood Negative (NEGATIVE) Urine Nitrite Negative (NEGATIVE) Urine Bilirubin Negative (NEGATIVE) Urine Urobilinogen Normalmg/dL (NORMAL) Urine Leukocyte Esterase Negative (NEGATIVE) Urine RBC 0-2/hpf (0-2) Urine WBC 0-5/hpf (0-5) Urine Epithelial Cells Few/hpf (NONE-MOD) Urine Crystals None seen (NONE SEEN) Urine Bacteria Few/hpf (NONE-FEW) Urine Hyaline Casts None/lpf (NONE) Urine Granular Casts None seen (NONE SEEN) Urine Waxy Casts None seen (NONE SEEN) Urine Red Blood Cell Casts None seen (NONE SEEN) Urine White Blood Cell Casts None seen (NONE SEEN) Urine Mucus None seen (None Seen) Urine Trichomonas None seen (NONE SEEN) Urine Yeast None (NONE SEEN) Urinalysis Comment None Urine Culture Reflexed Not indicated Pulse Oximetry Interpretation Pulse Oximetry Interpretation: 98% on room air Pulse Oximetry: Pulse Ox normal Re-Eval/Medical Decision Med Decision/Clinical Course Krista was medicated and she felt great. She then shared with me that the long term has not been able provide her her pain medicine due to the fact that they are understaffed. She declined any further diagnostics including CAT scan. At discharge she is pain-free. She will felt ready to be discharged home. She thinks O barely get her caught up on her pain at this point in time. She will return if any problems or any worsening symptoms. Source of Hx: Old records Re-Evaluation/Progress #1: Time of Eval: 22:24 Patient Status: Condition improved Re-Evaluation/Progress Note: Pt rechecked, whose pain has significantly improved with Dilaudid. She declines CT at this point. Re-Evaluation/Progress #2: Time of Eval: 23:10 Patient Status: Condition improved Re-Evaluation/Progress Note: Pt rechecked, who is resting comfortably. The diagnosis and plan for discharge are discussed. The pt understands and agrees with the plan. All questions are addressed at this time. Counseled Regarding: Diagnosis, Lab results, Need for follow-up, When/why to return to ED Discharge & Departure Primary Impression: Abdominal pain Abdominal location: unspecified location Qualified Code: R10.9 - Unspecified abdominal pain Additional Impressions: Ovarian cancer Laterality: unspecified laterality Qualified Code: C56.9 - Malignant neoplasm of unspecified ovary Dehydration Disposition: Home Discharge Condition All VS Reviewed: Yes Condition: Stable Patient Instructions: Acute Abdominal Pain (ED), Dehydration (ED) Additional Instructions: Be sure to drink plenty of liquids. Take your pain medications as prescribed. Call your primary care physician to arrange a follow up appointment in the next week for further evaluation. Return to the emergency department if you develop any new or worsening symptoms. Referrals: Pastora Myles (PCP) Scribe Attestation Portions of this note were transcribed by Mike Samayoa. I, Dr. Smith personally performed the history, physical exam and medical decision-making; I reviewed and confirmed the accuracy of the information in the transcribed note. copies to: Pastora Myles Todd P DO Apr 18, 2017 20:22 MIKE SAMAYOA Apr 18, 2017 21:01
[2017-04-18] MEDS ORDERED: 0.9% Sodium Chloride 1,000 ML IV ONE (20:50)
[2017-04-18] MEDS: HYDROmorphone 0.5 mg/0.5 mL iSecure Syringe IVPUSH PRN ×2 (21:30→21:54)
[2017-04-18] MEDS: Ondansetron 2 mg/mL 2 mL Inj IVPUSH PRN ×2 (21:30→21:54)
[2017-04-18 21:31] LABS: BASOPHILS % (AUTO) 0.6 % (0-3); EOSINOPHILS % (AUTO) 0.6 % (0-5); MONOCYTES % (AUTO) 3.2 % (4-12); Mean Corpuscular Hemoglobin 32.2 pg (27.0-35.0); Mean Corpuscular Volume 95.4 fL (81-100); NEUTROPHILS % (AUTO) 71.2 % (40-74); Platelet Count 206 bil/L (150-400)
[2017-04-18 23:07] LABS: APPEARANCE,URINE CLEAR (CLEAR,HAZY); COLOR,URINE STRAW (YELLOW); OCCULT BLOOD,URINE NEGATIVE (NEGATIVE); PH,URINE 7.5 (5.0-8.0); UROBILINOGEN,URINE NORMAL (NORMAL)
[2017-04-18] MEDS ORDERED: diphenhydrAMINE 50 mg Capsule PO ONE (23:20)
[2017-04-18] MEDS ORDERED: diphenhydrAMINE 25 mg Capsule PO ONE (23:20)
[2017-04-18] MEDS ORDERED: HepLOK Flush 100 unit/mL 5 mL Inj ONE (23:54)
[2017-04-19 00:03] VITALS: BP 160/80; PULSE 99; RESP 20; O2SAT 99
== END 2017-04-19 00:04 | disposition home or self-care (01) ==
LOC: SED 20:09
DX: R10.9 Unspecified abdominal pain (principal); C56.9 Malignant neoplasm of unspecified ovary; C78.5 Secondary malignant neoplasm of large intestine and rectum; E86.0 Dehydration; I10 Essential (primary) hypertension; Z87.891 Personal history of nicotine dependence; Z79.01 Long term (current) use of anticoagulants; Z88.0 Allergy status to penicillin; Z91.040 Latex allergy status
CPT/HCPCS: 36415; 80053; 81000; 83605; 85025; 96361; 96374; 96375; 99285; J1170; J1642; J2405; J7030